=== PATIENT | female | born 1965 | race Caucasian/White ===

== ENCOUNTER 2016-06-27 17:17 | Inpatient (IN) | payer MEDICARE, MEDICAID ==
[2016-06-27] MEDS ORDERED: Sodium Chloride 0.9% 10 ML Syringe FLUSH PRN (19:11)
[2016-06-27] MEDS ORDERED: Levofloxacin/Dextrose 5%-Water 500 MG in Premix Bag 1 BAG IV ONE (19:11)
--- NOTE | 2016-06-27 19:12 | EDM.PDOC ---
ED HPI GI/ABDOMINAL - General Chief Complaint: Gastrointestinal Problem Stated Complaint: TEMP,VOMITING Time Seen by Provider: 06/27/16 17:42 Source of Information: Reports: Patient History Limitations: Reports: No limitations - History of Present Illness INITIAL COMMENTS - FREE TEXT/NARRATIVE: A 51-year-old [place] woman from [facility] presents for evaluation and treatment of low oxygen levels and fever. History is provided by her [facility] care providers. Reports that she had a temp of 100.1, under the arm, at home. They have also been monitoring her oxygen sats and states that she was 84 on room air at 4:30 thsi afternoon. Patient is developmentally disabled and is not able to provide much history. [facility] caseworkers report that she has been nauseous and did vomit. She vomited last at 8:30 this morning. Patient is currently denying any pain. Patient denies any chest pain, shortness of breath or abdominal pain. Patient was recently hospitalized at [facility] in [employer] for pulmonary emboli and bilateral pneumonia. She was sent home on eliquis and Augmentin. She has been taking these as prescribed. - Related Data Allergies/ADRs: Allergies Allergy/AdvReac Type Severity Reaction Status Date / Time doxepin Allergy Other Verified 06/27/16 17:46 Home Meds: Home Meds Calcium Citrate/Vitamin D3 [Calcium Citrate + D] 1 tab GTUBE DAILY 03/21/16 [ History] Estrogens, Conjugated [Premarin Vaginal Crm] 0.625 gm TOP ASDIRECTED 03/21/16 [ History] Ipratropium [Atrovent] 0.5 mg NEB Q8HRRT PRN 03/21/16 [History] Omeprazole 20 mg GTUBE BID 03/21/16 [History] Psyllium Husk/Aspartame [Metamucil Fiber Singles Packet] 3.4 gm GTUBE DAILY [History] risperiDONE [Risperdal] 0.25 ml GTUBE BEDTIME 03/21/16 [History] Amoxicillin/Potassium Clav [Amox-Clav 400-57 mg/5 ml Susp] 10.9 ml GTUBE BID 11/05 [History] Apixaban [Eliquis] 10 mg GTUBE BID 06/27/16 [History] Banatrol 1 packet GTUBE 06/27/16 [History] Metronidazole [IJD: metroNIDAZOLE] 500 mg GTUBE .EVERY 8 HOURS 06/27/16 [History ] Past Medical History HEENT History: Reports: Impaired vision Other HEENT History: Blind Cardiovascular History: Reports: None Respiratory History: Reports: PE, Pneumonia, recurrent Other Respiratory History: recurrent aspiration pneumonia Gastrointestinal History: Reports: GERD, Other (see below) Other Gastrointestinal History: abdominal Cysts, intesinal fistula Ostomy 2011 Musculoskeletal History: Reports: Other (see below) Other Musculoskeletal History: Scoliosis, congenital hip dysplagia Neurological History: Reports: Other (see below) Other Neuro History: mild mental retardation. Psychiatric History: Reports: Anxiety, Depression Other Psychiatric History: generalized anxiety disorder. - Past Surgical History GI Surgical History: Reports: Appendectomy Social & Family History - Family History Family Medical History: Noncontributory - Tobacco Use Smoking Status *Q: Never Smoker Second Hand Smoke Exposure: No - Caffeine Use Caffeine Use: Reports: Soda - Recreational Drug Use Recreational Drug Use: No ED ROS GENERAL - Review of Systems Review Of Systems: See Below Constitutional: Reports: fever Respiratory: Reports: Cough. Denies: Shortness of Breath Cardiovascular: Denies: Chest pain GI/Abdominal: Reports: Nausea, Vomiting. Denies: Abdominal pain ED EXAM, GI/ABD - Physical Exam Exam: See Below Exam Limited By: Physical impairment General Appearance: alert, WD/WN, no apparent distress Respiratory/Chest: no respiratory distress, lungs clear, normal breath sounds Cardiovascular: normal peripheral pulses, no murmur, tachycardia GI/Abdominal: soft, non tender Neurological: alert, oriented Psychiatric: normal affect, normal mood Skin Exam: Warm, Dry, Normal color EKG INTERPRETATION EKG Date: 06/27/16 Time: 18:25 Rhythm: NSR Rate (beats/min): 128 [place]: normal P-wave: present QRS: normal ST-T: normal QT: normal EKG Interpretation Comments: sinus tachycardia at 128 bpm. Q waves in V1 and V2 - old anteroseptal AL. Consider left atrial enlargement.. Reviewed by myself and Dr. Cevallos. Course - Vital Signs Last Recorded V/S: Last Vital Signs Temp 37.3 C 06/27/16 21:30 Pulse 114 H 06/27/16 21:30 Resp 22 H 06/27/16 21:30 BP 127/80 06/27/16 21:30 Pulse Ox 93 L 06/27/16 21:30 - Orders/Labs/Meds Orders: Active Orders 24 hr Category Date Time Status Cardiac Monitoring [RC] . DIRECTED Care 06/27/16 18:39 Active EKG Documentation Completion [RC] STAT Care 06/27/16 18:10 Active Oxygen Therapy [RC] ASDIRECTED Care 06/27/16 18:39 Active Peripheral IV Care [RC] . DIRECTED Care 06/27/16 19:11 Active Chest 1V Frontal [CR] Stat Exams 06/27/16 18:39 Taken CULTURE BLOOD [BC] Stat Lab 06/27/16 19:15 Received CULTURE BLOOD [BC] Stat Lab 06/27/16 19:25 Received CULTURE URINE [RM] Stat Lab 06/27/16 20:01 Received Sodium Chloride 0.9% [Saline Flush] Med 06/27/16 19:11 Active 10 ml FLUSH ASDIRECTED PRN Blood Culture x2 Reflex Set [OM.PC] Stat Oth 06/27/16 19:08 Ordered Peripheral IV Insertion Adult [OM.PC] Routine Oth 06/27/16 19:11 Ordered Medication Orders Sodium Chloride (Saline Flush) 10 ml FLUSH ASDIRECTED PRN PRN Reason: Keep Vein Open Last Admin: 06/27/16 19:49 Dose: 10 ml Labs: Laboratory Tests 06/27/16 06/27/16 06/27/16 Range/Units 18:52 18:52 18:52 WBC 15.79 H (3.98-10.04) K/mm3 RBC 4.12 (3.98-5.22) M/mm3 Hgb 12.5 (11.2-15.7) gm/L Hct 39.5 (34.1-44.9) % MCV 95.9 H (79.4-94.8) fl MCH 30.3 (25.6-32.2) pg MCHC 31.6 L (32.2-35.5) g/dl RDW Std Deviation 52.4 H (36.4-46.3) fL Plt Count 193 (182-369) K/mm3 MPV 10.7 (9.4-12.3) fl Neutrophils % (Manual) 82 H (40-60) % Band Neutrophils % 1 (0-10) % Lymphocytes % (Manual) 10 L (20-40) % Atypical Lymphs % 0 % Monocytes % (Manual) 7 (2-10) % Eosinophils % (Manual) 0 L (0.7-5.8) % Basophils % (Manual) 0 L (0.1-1.2) Platelet Estimate Adequate Polychromasia Few Hypochromasia Few Anisocytosis 1+ slight Macrocytosis 1+ slight Ovalocytes 1+ slight RBC Morph Comment Not Reportable Sodium 141 (136-145) mEq/L Potassium 3.9 (3.5-5.1) mEq/L Chloride 102 (98-107) mEq/L Carbon Dioxide 33 H (21-32) mEq/L Anion Gap 9.9 (5-15) BUN 8 (7-18) mg/dL Creatinine 0.7 (0.55-1.02) mg/dL Est Cr Clr Drug Dosing TNP Estimated GFR (MDRD) > 60 (>60) mL/min BUN/Creatinine Ratio 11.4 L (14-18) Glucose 121 H (74-106) mg/dL Lactic Acid (0.4-2.0) mmol/L Calcium 9.4 (8.5-10.1) mg/dL Total Bilirubin 0.4 (0.2-1.0) mg/dL AST 9 L (15-37) U/L ALT 12 L (14-59) U/L Alkaline Phosphatase 60 (46-116) U/L CK-MB (CK-2) (0-3.6) ng/ml Troponin I < 0.017 (0.00-0.056) ng/mL C-Reactive Protein (<1.0) mg/dL B-Natriuretic Peptide 24 (0-100) pg/mL Total Protein 6.8 (6.4-8.2) g/dl Albumin 3.0 L (3.4-5.0) g/dl Globulin 3.8 gm/dL Albumin/Globulin Ratio 0.8 L (1-2) Urine Color (Yellow) Urine Appearance (Clear) Urine pH (5.0-8.0) Ur Specific [place] (1.005-1.030) Urine Protein (Negative) Urine Glucose (UA) (Negative) Urine Ketones (Negative) Urine Occult Blood (Negative) Urine Nitrite (Negative) Urine Bilirubin (Negative) Urine Urobilinogen (0.2-1.0) Ur Leukocyte Esterase (Negative) Urine RBC (0-5) /hpf Urine WBC (0-5) /hpf Ur Epithelial Cells Ur Squamous Epith Cells (0-5) /hpf Amorphous Sediment (NOT SEEN) /hpf Urine Bacteria (FEW) /hpf Urine Mucus 06/27/16 06/27/16 06/27/16 Range/Units 18:52 19:25 20:01 WBC (3.98-10.04) K/mm3 RBC (3.98-5.22) M/mm3 Hgb (11.2-15.7) gm/L Hct (34.1-44.9) % MCV (79.4-94.8) fl MCH (25.6-32.2) pg MCHC (32.2-35.5) g/dl RDW Std Deviation (36.4-46.3) fL Plt Count (182-369) K/mm3 MPV (9.4-12.3) fl Neutrophils % (Manual) (40-60) % Band Neutrophils % (0-10) % Lymphocytes % (Manual) (20-40) % Atypical Lymphs % % Monocytes % (Manual) (2-10) % Eosinophils % (Manual) (0.7-5.8) % Basophils % (Manual) (0.1-1.2) Platelet Estimate Polychromasia Hypochromasia Anisocytosis Macrocytosis Ovalocytes RBC Morph Comment Sodium (136-145) mEq/L Potassium (3.5-5.1) mEq/L Chloride (98-107) mEq/L Carbon Dioxide (21-32) mEq/L Anion Gap (5-15) BUN (7-18) mg/dL Creatinine (0.55-1.02) mg/dL Est Cr Clr Drug Dosing Estimated GFR (MDRD) (>60) mL/min BUN/Creatinine Ratio (14-18) Glucose (74-106) mg/dL Lactic Acid 1.5 (0.4-2.0) mmol/L Calcium (8.5-10.1) mg/dL Total Bilirubin (0.2-1.0) mg/dL AST (15-37) U/L ALT (14-59) U/L Alkaline Phosphatase (46-116) U/L CK-MB (CK-2) < 0.5 (0-3.6) ng/ml Troponin I (0.00-0.056) ng/mL C-Reactive Protein 6.9 H* (<1.0) mg/dL B-Natriuretic Peptide (0-100) pg/mL Total Protein (6.4-8.2) g/dl Albumin (3.4-5.0) g/dl Globulin gm/dL Albumin/Globulin Ratio (1-2) Urine Color Yellow (Yellow) Urine Appearance Cloudy H (Clear) Urine pH 8.5 H (5.0-8.0) Ur Specific [place] 1.020 (1.005-1.030) Urine Protein 1+ H (Negative) Urine Glucose (UA) Negative (Negative) Urine Ketones 2+ H (Negative) Urine Occult Blood Negative (Negative) Urine Nitrite Negative (Negative) Urine Bilirubin 1+ H (Negative) Urine Urobilinogen 0.2 (0.2-1.0) Ur Leukocyte Esterase Negative (Negative) Urine RBC 0-5 (0-5) /hpf Urine WBC 0-5 (0-5) /hpf Ur Epithelial Cells Not Reportable Ur Squamous Epith Cells 0-5 (0-5) /hpf Amorphous Sediment Moderate H (NOT SEEN) /hpf Urine Bacteria Moderate H (FEW) /hpf Urine Mucus Not Reportable Meds: Medications Generic Name Dose Route Start Last Admin Trade Name Freq PRN Reason Stop Dose Admin Sodium Chloride 10 ml 06/27/16 19:11 06/27/16 19:49 Saline Flush FLUSH 10 ml ASDIRECTED PRN Administration Keep Vein Open Discontinued Medications Generic Name Dose Route Start Last Admin Trade Name Freq PRN Reason Stop Dose Admin Levofloxacin/Dextrose 500 mg/ 100 mls @ 100 mls/hr 06/27/16 19:11 06/27/16 19 :48 Premix IV 06/27/16 20:10 100 mls/hr ONETIME ONE Administration Sodium Chloride 1,000 mls @ 999 mls/hr 06/27/16 19:20 06/27/16 19:48 Normal Saline IV 06/27/16 20:20 999 mls/hr ONETIME ONE Administration - Radiology Interpretation Free Text/Narrative:: chest 1 view shows a increased hazziness in the right middle and lower lobes suspicious for pneumonia. Reviewed by myself and Dr. Cevallos. - Re-Assessments/Exams Free Text/Narrative Re-Assessment/Exam: 06/27/16 22:21 The patient's lab studies have returned. The EBC is elevated at 15.79 , hgb is 12.5 and platelets are 193. CRP is elevated 6.9. Troponin is within normal limits at less than 0.017. CK-MB is within normal limits at less than 0.5. BNP is within normal limits at 24. lactate is normal a 1.5 Sodium is 141 potassium is 3.9 chloride is 102. Anion gap is 9.9. Glucose is 121. UA shows moderate bacteria on microscopy, 2+ ketones, 1+ protein and 1+ bilirubin. Negative for nitrates or leukocytes. Urine and blood cultures were obtained. IV Levaquin for pneumonia started. I discussed the case with the patient and her care providers. I feel this patient would benefit from admission for pneumonia given her hypoxemia. She has been in the 90s on 2 L while in the ER. I discussed case with Dr. Yoo, hospitalist conservation engineer. She came and saw the patient in the ER. will plan on admission to [facility] with telemetry. Records were obtained from the patient presents hospitalization and [employer]. Departure - Departure Time of Disposition: 21:45 Disposition: Admitted As Inpatient 68 Condition: fair Clinical Impression: Pneumonia Qualifiers: Pneumonia type: due to unspecified organism Laterality: right Lung location: lower lobe of lung Qualified Code(s): J18.1 - Lobar pneumonia, unspecified organism - My Orders Last 24 Hours: My Active Orders 06/27/16 18:10 EKG Documentation Completion [RC] STAT 06/27/16 18:39 Cardiac Monitoring [RC] . DIRECTED Oxygen Therapy [RC] ASDIRECTED Chest 1V Frontal [CR] Stat 06/27/16 19:08 Blood Culture x2 Reflex Set [OM.PC] Stat 06/27/16 19:11 Peripheral IV Care [RC] . DIRECTED Sodium Chloride 0.9% [Saline Flush] 10 ml FLUSH ASDIRECTED PRN Peripheral IV Insertion Adult [OM.PC] Routine 06/27/16 19:15 CULTURE BLOOD [BC] Stat 06/27/16 19:25 CULTURE BLOOD [BC] Stat 06/27/16 20:01 CULTURE URINE [RM] Stat - Assessment/Plan Last 24 Hours: My Active Orders 06/27/16 18:10 EKG Documentation Completion [RC] STAT 06/27/16 18:39 Cardiac Monitoring [RC] . DIRECTED Oxygen Therapy [RC] ASDIRECTED Chest 1V Frontal [CR] Stat 06/27/16 19:08 Blood Culture x2 Reflex Set [OM.PC] Stat 06/27/16 19:11 Peripheral IV Care [RC] . DIRECTED Sodium Chloride 0.9% [Saline Flush] 10 ml FLUSH ASDIRECTED PRN Peripheral IV Insertion Adult [OM.PC] Routine 06/27/16 19:15 CULTURE BLOOD [BC] Stat 06/27/16 19:25 CULTURE BLOOD [BC] Stat 06/27/16 20:01 CULTURE URINE [RM] Stat
[2016-06-27] MEDS ORDERED: Sodium Chloride 0.9% 1,000 ML IV ONE (19:20)
[2016-06-27] MEDS ORDERED: Albuterol 0.083% 2.5 MG/3 ML Neb Soln NEB PRN (23:10)
[2016-06-28] MEDS ORDERED: Piperacillin/Tazobactam 4.5 GM in Sodium Chloride 0.9% 100 ML IV SCH ×2
[2016-06-28] MEDS ORDERED: Piperacillin/Tazobactam 4.5 GM in Sodium Chloride 0.9% 100 ML IV ONE ×2
[2016-06-28] MEDS: Sodium Chloride 0.9% 1,000 ML IV SCH ×2 (00:25→08:22)
[2016-06-28] MEDS: Piperacillin/Tazobactam 4.5 GM in Sodium Chloride 0.9% 100 ML IV SCH ×3 (08:10→23:36)
[2016-06-28] MEDS: Saccharomyces Boulardii (Probiotic) 250 MG Cap FTUBE SCH (08:10)
[2016-06-28] MEDS: Lansoprazole 30 MG Orally Disintegrating Tab.CR PO SCH ×2 (08:11→15:03)
[2016-06-28] MEDS: Apixaban 5 MG Tab SCH ×2 (08:11→20:04)
[2016-06-28] MEDS: Valproic Acid 250 MG/5 ML Syrup ML (473 ML Bottle) FTUBE SCH ×2 (08:48→20:05)
[2016-06-28] MEDS ORDERED: Apixaban 5 MG Tab SCH (09:00)
--- NOTE | 2016-06-28 09:18 | PCM.PN ---
- General Info Date of Service: 06/28/16 Subjective Update: Feels better, is off of O2 and wants to ambulate. Functional Status: Reports: ambulating - Review of Systems General: Reports: No Symptoms HEENT: Reports: no symptoms Pulmonary: Reports: no symptoms Cardiovascular: Reports: No Symptoms Gastrointestinal: Reports: No symptoms Genitourinary: Reports: no symptoms Musculoskeletal: Reports: no symptoms Skin: Reports: no symptoms Neurological: Reports: No Symptoms Psychiatric: Reports: no symptoms - Patient Data Vitals - most recent: Last Vital Signs Temp 37.3 C 06/28/16 08:35 Pulse 104 H 06/28/16 08:38 Resp 20 06/28/16 08:35 BP 135/78 06/28/16 08:35 Pulse Ox 96 06/28/16 08:38 Weight - most recent: 70.715 kg I&O - last 24 hours: Intake & Output 06/27/16 06/28/16 06/28/16 22:59 06:59 14:59 Intake Total 650 Output Total 700 Balance -50 Med Orders - Current: Current Medications Albuterol (Proventil Neb Soln) 2.5 mg NEB QIDRT PRN PRN Reason: Shortness of Breath Apixaban (Eliquis) 5 mg .XX BID [facility] Last Admin: 06/28/16 08:11 Dose: 5 mg Levofloxacin/Dextrose 750 mg/ (Premix) 150 mls @ 100 mls/hr IV Q24H [facility] Sodium Chloride (Normal Saline) 1,000 mls @ 125 mls/hr IV ASDIRECTED [facility] Last Admin: 06/28/16 08:22 Dose: 125 mls/hr Piperacillin Sod/Tazobactam (Sod 4.5 gm/ Sodium Chloride) 100 mls @ 25 mls/hr IV Q8H [facility] Last Admin: 06/28/16 08:10 Dose: 25 mls/hr Lansoprazole (Prevacid Solutab) 30 mg PO BIDAC [facility] Last Admin: 06/28/16 08:11 Dose: 30 mg Risperidone (Risperidal) 1 mg FTUBE BEDTIME [facility] Saccharomyces Boulardii (Florastor) 500 mg FTUBE DAILY [facility] Last Admin: 06/28/16 08:10 Dose: 500 mg Sodium Chloride (Saline Flush) 10 ml FLUSH ASDIRECTED PRN PRN Reason: Keep Vein Open Last Admin: 06/27/16 19:49 Dose: 10 ml Valproic Acid (Depakene Syrup) 125 mg FTUBE DAILY [facility] Last Admin: 06/28/16 08:48 Dose: 125 mg Valproic Acid (Depakene Syrup) 250 mg FTUBE BEDTIME [facility] Discontinued Medications Apixaban (Eliquis) 10 mg .XX BID [facility] Levofloxacin/Dextrose 500 mg/ (Premix) 100 mls @ 100 mls/hr IV ONETIME ONE Stop: 06/27/16 20:10 Last Admin: 06/27/16 19:48 Dose: 100 mls/hr Sodium Chloride (Normal Saline) 1,000 mls @ 999 mls/hr IV ONETIME ONE Stop: 06/27/16 20:20 Last Admin: 06/27/16 19:48 Dose: 999 mls/hr Piperacillin Sod/Tazobactam (Sod 4.5 gm/ Sodium Chloride) 100 mls @ 200 mls/hr IV ONETIME ONE Stop: 06/28/16 00:29 Last Admin: 06/28/16 00:23 Dose: 200 mls/hr - Exam Quality Assessment: DVT prophylaxis General: alert, oriented, cooperative, no acute distress HEENT: Pupils equal, Pupils reactive. No: EOMI Neck: supple, trachea midline Lungs: Normal respiratory effort, Decreased breath sounds Cardiovascular: Regular Rate, Regular Rhythm Abdomen: bowel sounds present, soft, no tenderness, no distension (Female) Exam: Deferred Back Exam: normal inspection Extremities: normal pulses Skin: warm Neurological: no new focal deficit, normal speech Psy/Mental Status: alert, normal affect, normal mood - Problem List Review Problem List Initiated/Reviewed/Updated: Yes - My Orders Last 24 Hours: My Active Orders 06/27/16 23:10 Bedrest Bathroom Privileges [RC] ASDIRECTED Vital Signs [RC] Q6H Albuterol [Proventil Neb Soln] 2.5 mg NEB QIDRT PRN Antiembolic Hose [OM.PC] Routine 06/27/16 23:15 Antiembolic Devices [RC] DAILY RT Aerosol Therapy [RC] ASDIRECTED Sodium Chloride 0.9% [Normal Saline] 1,000 ml IV ASDIRECTED 06/27/16 23:37 Resuscitation Status Routine 06/28/16 00:33 CULTURE MRSA SURVEY [RM] Routine 06/28/16 08:00 Piperacillin/Tazobactam [Zosyn] 4.5 gm Sodium Chloride 0.9% [Normal Saline] 100 ml IV Q8H 06/28/16 09:00 Apixaban [Eliquis] 5 mg .XX BID Lansoprazole [Prevacid Solutab] 30 mg PO BIDAC Saccharomyces Boulardii [Florastor] 500 mg FTUBE DAILY Valproic Acid [Depakene Syrup] 125 mg FTUBE DAILY 06/28/16 20:00 Levofloxacin/Dextrose 5%-Water [Levaquin in D5W 750 MG/150 ML] 750 mg Premix Bag 1 bag IV Q24H 06/28/16 21:00 Valproic Acid [Depakene Syrup] 250 mg FTUBE BEDTIME risperiDONE [RisperiDAL] 1 mg FTUBE BEDTIME - Plan Plan:: Impression/Plan: Aspiration pneumonia Acute respiratory distress HCAP with hypoxia in the setting of bilateral PEs. Bilateral PEs on Eliquis S/P PEG tube with bowel perforation Rx for C diff on Flagyl Home meds Advance TF as tolerated Free H2O as ordered; check residual Aspiration precautions Oral Care Levoquin/Zosyn IV Flagyl via PEG Venous doppler fro DVT, check EMR available for documentation Precautions: droplet/contact DVT/GI prophylaxis DC Plan consider SNF until completion of antibiotics [facility].
--- NOTE | 2016-06-28 09:18 | PCM.HP ---
H&P History of Present Illness - General Date of Service: 06/27/16 Admit Problem/Dx: Admission Diagnosis/Problem Admission Diagnosis/Problem Pneumonia Source of Information: Old records ([facility]), Provider History Limitations: Reports: No limitations, Other (Mentally disabled) - History of Present Illness Initial Comments - Free Text/Narative: 51 year old female who apparently lives in a alf was recently discharged from [facility] on 06/23/16. The patient was admitted from her paper tube grader office after a CTA revealed bilateral pulmonary emboli as well as bilateral pneumonia. The patient has a history of recurrent aspiration pneumonia. In the early part of 2017, the patient had a PEG tube placed but the procedure was complicated by a bowel perforation; she had also been treated for aspiration pneumonia as well as C diff. As a result of the complication, it appears that she was transferred to [facility]. Thus the recent visit to her paper tube grader occurred after several hospitalizations this year. The patient apparently has been weak, febrile as well as hypoxic. Reportedly she has had O2 saturation 84% on room air and adocumented temperature 100.1 Discharge antibiotics were Augmentin as well as Flagyl. Eliquis 10 mg BID for PE to be decreased to 5 mg BID after 06/27/16 was also documented. a 2D echon was also performed during her hospitalization. Onset of Symptoms: Reports: unknown/unsure Symptom Onset Date: 06/27/16 Duration of Symptoms: Reports: Hour(s):, Getting worse Location: Reports: chest Quality: Reports: Same as previous episode Severity: moderate Improves with: Reports: Medication Context: Reports: other (Recent hospitalization) Associated Symptoms: Reports: cough, fever/chills, malaise, weakness - Related Data Allergies/Adverse Reactions: Allergies Allergy/AdvReac Type Severity Reaction Status Date / Time doxepin Allergy Other Verified 06/27/16 23:45 Home Medications: Home Meds Calcium Citrate/Vitamin D3 [Calcium Citrate + D] 1 tab GTUBE DAILY 03/21/16 [ History] Estrogens, Conjugated [Premarin Vaginal Crm] 0.625 gm TOP ASDIRECTED 03/21/16 [ History] Ipratropium [Atrovent] 0.5 mg NEB Q8HRRT PRN 03/21/16 [History] Omeprazole 20 mg GTUBE BID 03/21/16 [History] Psyllium Husk/Aspartame [Metamucil Fiber Singles Packet] 3.4 gm GTUBE DAILY [History] risperiDONE [Risperdal] 0.25 ml GTUBE BEDTIME 03/21/16 [History] Amoxicillin/Potassium Clav [Amox-Clav 400-57 mg/5 ml Susp] 10.9 ml GTUBE BID 11/05 [History] Apixaban [Eliquis] 5 mg GTUBE BID 06/27/16 [History] Banatrol 1 packet GTUBE 06/27/16 [History] Metronidazole [IJD: metroNIDAZOLE] 500 mg GTUBE .EVERY 8 HOURS 06/27/16 [History ] Past Medical History HEENT History: Reports: Impaired vision Other HEENT History: Blind Cardiovascular History: Reports: None Respiratory History: Reports: PE, Pneumonia, recurrent Other Respiratory History: recurrent aspiration pneumonia Gastrointestinal History: Reports: GERD, Other (see below) Other Gastrointestinal History: abdominal Cysts, intesinal fistula Ostomy 2010 Musculoskeletal History: Reports: Other (see below) Other Musculoskeletal History: Scoliosis, congenital hip dysplagia Neurological History: Reports: Other (see below) Other Neuro History: mild mental retardation. Psychiatric History: Reports: Anxiety, Depression Other Psychiatric History: generalized anxiety disorder. - Infectious Disease History Infectious Disease History: Reports: C-difficile, Influenza - Past Surgical History GI Surgical History: Reports: Appendectomy Social & Family History - Family History Family Medical History: Noncontributory - Tobacco Use Smoking Status *Q: Never Smoker Second Hand Smoke Exposure: No - Caffeine Use Caffeine Use: Reports: Soda Other Caffeine Use: on occassion will have a soda or coffee - Recreational Drug Use Recreational Drug Use: No H&P Review of Systems - Review of Systems: Review Of Systems: See Below General: Reports: fever, malaise, weakness, fatigue HEENT: Reports: no symptoms Pulmonary: Reports: Shortness of Breath, Pleuritic Chest Pain, Cough Cardiovascular: Denies: chest pain Gastrointestinal: Reports: No symptoms Genitourinary: Reports: no symptoms Musculoskeletal: Reports: no symptoms Skin: Reports: no symptoms Psychiatric: Reports: no symptoms Neurological: Reports: No Symptoms Hematologic/Lymphatic: Reports: no symptoms Immunologic: Reports: no symptoms Exam - Exam Exam: See Below - Vital Signs Vital Signs: Last Vital Signs Temp 37.3 C 06/28/16 08:35 Pulse 104 H 06/28/16 08:38 Resp 20 06/28/16 08:35 BP 135/78 06/28/16 08:35 Pulse Ox 96 06/28/16 08:38 Weight: 70.715 kg - Exam Quality Assessment: supplemental oxygen, DVT prophylaxis General: alert, oriented, cooperative HEENT: Hearing intact, Nares patent, Pupils equal, Pupils reactive Neck: supple, trachea midline Lungs: Normal respiratory effort, Decreased breath sounds (R>L), Wheezing Cardiovascular: regular rate, tachycardia Abdomen: normal bowel sounds, soft (Female) Exam: Deferred Rectal (Female) Exam: Deferred Back Exam: normal inspection Extremities: normal pulses, edema Skin: warm Neurological: cranial nerves intact (griossly) Neuro Extensive - Mental Status: alert, normal mood/affect Neuro Extensive - Motor, Sensory, Reflexes: CN II-XII intact Psychiatric: alert - Patient Data Result Diagrams: 06/27/16 18:52 06/27/16 18:52 *Q Meaningful Use (ADM) - VTE *Q VTE Criteria *Q: - Stroke *Q Stroke Criteria *Q: - AMI *Q AMI Criteria *Q: Problem List Initiated/Reviewed/Updated: Yes Orders Last 24hrs: Active Orders 24 hr Category Date Time Status Antiembolic Devices [RC] DAILY Care 06/27/16 23:15 Active Bedrest Bathroom Privileges [RC] ASDIRECTED Care 06/27/16 23:10 Active RT Aerosol Therapy [RC] ASDIRECTED Care 06/27/16 23:15 Active Vital Signs [RC] Q6H Care 06/27/16 23:10 Active CULTURE MRSA SURVEY [] Routine Lab 06/28/16 00:33 Received Albuterol [Proventil Neb Soln] Med 06/27/16 23:10 Active 2.5 mg NEB QIDRT PRN Apixaban [Eliquis] Med 06/28/16 09:00 Active 5 mg .XX BID Lansoprazole [Prevacid Solutab] Med 06/28/16 09:00 Active 30 mg PO BIDAC Levofloxacin/Dextrose 5%-Water [Levaquin in D5W 750 MG/ Med 06/28/16 20:00 Active 150 ML] 750 mg Premix Bag 1 bag IV Q24H Piperacillin/Tazobactam [Zosyn] 4.5 gm Med 06/28/16 08:00 Active Sodium Chloride 0.9% [Normal Saline] 100 ml IV Q8H Saccharomyces Boulardii [Florastor] Med 06/28/16 09:00 Active 500 mg FTUBE DAILY Sodium Chloride 0.9% [Normal Saline] 1,000 ml Med 06/27/16 23:15 Active IV ASDIRECTED Valproic Acid [Depakene Syrup] Med 06/28/16 09:00 Active 125 mg FTUBE DAILY Valproic Acid [Depakene Syrup] Med 06/28/16 21:00 Active 250 mg FTUBE BEDTIME risperiDONE [RisperiDAL] Med 06/28/16 21:00 Active 1 mg FTUBE BEDTIME Antiembolic Hose [OM.PC] Routine Oth 06/27/16 23:10 Ordered Resuscitation Status Routine Resus Stat 06/27/16 23:37 Ordered Medication Orders Albuterol (Proventil Neb Soln) 2.5 mg NEB QIDRT PRN PRN Reason: Shortness of Breath Apixaban (Eliquis) 5 mg .XX BID [facility] Last Admin: 06/28/16 08:11 Dose: 5 mg Levofloxacin/Dextrose 750 mg/ (Premix) 150 mls @ 100 mls/hr IV Q24H [facility] Sodium Chloride (Normal Saline) 1,000 mls @ 125 mls/hr IV ASDIRECTED [facility] Last Admin: 06/28/16 08:22 Dose: 125 mls/hr Infusion: 06/28/16 08:22 Dose: 125 mls/hr Admin: 06/28/16 00:25 Dose: 125 mls/hr Piperacillin Sod/Tazobactam (Sod 4.5 gm/ Sodium Chloride) 100 mls @ 25 mls/hr IV Q8H [facility] Last Admin: 06/28/16 08:10 Dose: 25 mls/hr Lansoprazole (Prevacid Solutab) 30 mg PO BIDAC [facility] Last Admin: 06/28/16 08:11 Dose: 30 mg Risperidone (Risperidal) 1 mg FTUBE BEDTIME [facility] Saccharomyces Boulardii (Florastor) 500 mg FTUBE DAILY [facility] Last Admin: 06/28/16 08:10 Dose: 500 mg Sodium Chloride (Saline Flush) 10 ml FLUSH ASDIRECTED PRN PRN Reason: Keep Vein Open Last Admin: 06/27/16 19:49 Dose: 10 ml Valproic Acid (Depakene Syrup) 125 mg FTUBE DAILY [facility] Last Admin: 06/28/16 08:48 Dose: 125 mg Valproic Acid (Depakene Syrup) 250 mg FTUBE BEDTIME [facility] Assessment/Plan Comment:: Impression: Recent documentation and start of treatment for bilateral PEs with Eliquis HCAP with hypoxia, bilateral infiltrates; recently treated with meropenem, levoquin, vanco. Discharged on 06/23/16 with augmentin. Recurrent aspiration pneumonia C Diff treatment, continue Flagyl until 06/30/16. Recent PEG placement with bowel perforation. History of anxiety and/or psychosis Recent treatment for parainfluenza Recommendation: IVF Nebs Jevity tube feeds Continue Eliquis 10 mg BID, start 5 mg BID on 06/29/16. Zosyn/Levoquin IV Flagyl via PEG. Home meds per discharge summary DVT/GI prophylaxis
[2016-06-28] MEDS ORDERED: Ipratropium 0.02% 0.5 MG/2.5 ML Neb Soln NEB PRN (13:42)
[2016-06-28] MEDS ORDERED: Sodium Chloride 0.9% 1,000 ML IV SCH (14:15)
[2016-06-28] MEDS: metroNIDAZOLE 500 MG Tab GTUBE SCH ×2 (14:49→21:12)
--- NOTE | 2016-06-28 16:22 | CR ---
Chest: Portable view of the chest was obtained. Comparison: Previous chest x-ray of 05/08/16. Patchy area of increased density seen within the right lung base. Slight atelectasis is seen with the left lung base. Upper lungs are clear. Heart size and mediastinum are normal. Scoliosis and degenerative change is seen within the spine. Impression: 1. Patchy increased density within the right lung base most likely representing pneumonia. 2. Other incidental findings. Diagnostic code #3
[2016-06-28] MEDS: risperiDONE 0.25 MG Tab GTUBE SCH (20:04)
[2016-06-28] MEDS ORDERED: Non-Formulary Medication 1 Each (Omeprazole [Omeprazole] 20 MG) GTUBE SCH (21:00)
[2016-06-28] MEDS ORDERED: risperiDONE Solution 1 MG/1 ML 30 ML Bottle GTUBE SCH (21:00)
[2016-06-28] MEDS ORDERED: risperiDONE 1 MG Tab FTUBE SCH (21:00)
[2016-06-28] MEDS: Levofloxacin/Dextrose 5%-Water 750 MG in Premix Bag 1 BAG IV SCH (21:08)
[2016-06-29] MEDS: Lansoprazole 30 MG Orally Disintegrating Tab.CR PO SCH ×2 (05:59→15:13)
[2016-06-29] MEDS: metroNIDAZOLE 500 MG Tab GTUBE SCH ×3 (05:59→21:32)
[2016-06-29] MEDS ORDERED: 50% Dextrose in Water 50 ML Syringe IVPUSH PRN (06:41)
--- NOTE | 2016-06-29 07:00 | PCM.PN ---
<Talia Jennings M - Last Filed: 06/29/16 12:19> - General Info Date of Service: 06/29/16 Admission Dx/Problem (Free Text): Admission Diagnosis/Problem Admission Diagnosis/Problem Pneumonia Laura is seen this morning resting comfortably. She denies c/o pain/ discomfort. States she is coughing "some". Nursing reports she slept well most of the night. She is up and ambulatory with 1 assist and doing well with that. Functional Status: Reports: pain controlled, ambulating, urinating. Denies: tolerating diet (NPO), new symptoms - Review of Systems General: Reports: No Symptoms HEENT: Reports: no symptoms Pulmonary: Reports: cough Cardiovascular: Reports: No Symptoms Gastrointestinal: Reports: No symptoms Genitourinary: Reports: no symptoms Musculoskeletal: Reports: no symptoms Skin: Reports: no symptoms Neurological: Reports: Other (blind) Psychiatric: Reports: no symptoms - Patient Data Vitals - most recent: Last Vital Signs Temp 98.1 F 06/29/16 03:23 Pulse 88 06/29/16 03:23 Resp 16 06/29/16 03:23 BP 141/71 H 06/29/16 03:23 Pulse Ox 96 06/29/16 03:23 Weight - most recent: 54.749 kg I&O - last 24 hours: Intake & Output 06/28/16 06/28/16 06/29/16 14:59 22:59 06:59 Intake Total 210 2410 1322 Output Total 850 1200 Balance 210 1560 122 Lab Results last 24 hrs: Laboratory Results - last 24 hr 06/29/16 06/29/16 06/29/16 Range/Units 06:00 06:09 06:37 WBC 9.72 (3.98-10.04) K/mm3 RBC 3.96 L (3.98-5.22) M/mm3 Hgb 12.2 (11.2-15.7) gm/L Hct 38.1 (34.1-44.9) % MCV 96.2 H (79.4-94.8) fl MCH 30.8 (25.6-32.2) pg MCHC 32.0 L (32.2-35.5) g/dl RDW Std Deviation 49.9 H (36.4-46.3) fL Plt Count 168 L (182-369) K/mm3 MPV 12.0 (9.4-12.3) fl Neut % (Auto) 72.2 H (34.0-71.1) % Lymph % (Auto) 13.0 L (19.3-51.7) % [place] % (Auto) 12.6 H (4.7-12.5) % Eos % (Auto) 1.9 (0.7-5.8) Baso % (Auto) 0.1 (0.1-1.2) % Neut # (Auto) 7.03 H (1.56-6.13) K/mm3 Lymph # (Auto) 1.26 (1.18-3.74) K/mm3 [place] # (Auto) 1.22 H (0.24-0.36) K/mm3 Eos # (Auto) 0.18 (0.04-0.36) K/mm3 Baso # (Auto) 0.01 (0.01-0.08) K/mm3 POC Glucose 58 L 69 L (70-105) mg/dL Med Orders - Current: Current Medications Albuterol (Proventil Neb Soln) 2.5 mg NEB QIDRT PRN PRN Reason: Shortness of Breath Apixaban (Eliquis) 5 mg .XX BID [facility] Last Admin: 06/28/16 20:04 Dose: 5 mg Dextrose/Water (Dextrose 50% In Water) 50 ml IVPUSH ASDIRECTED PRN PRN Reason: hypoglycemia as below Levofloxacin/Dextrose 750 mg/ (Premix) 150 mls @ 100 mls/hr IV Q24H [facility] Last Admin: 06/28/16 21:08 Dose: 100 mls/hr Piperacillin Sod/Tazobactam (Sod 4.5 gm/ Sodium Chloride) 100 mls @ 25 mls/hr IV Q8H [facility] Last Admin: 06/28/16 23:36 Dose: 25 mls/hr Sodium Chloride (Normal Saline) 1,000 mls @ 50 mls/hr IV ASDIRECTED [facility] Ipratropium [place] (Atrovent) 0.5 mg NEB Q8HRRT PRN PRN Reason: Shortness of Breath Lansoprazole (Prevacid Solutab) 30 mg PO BIDAC [facility] Last Admin: 06/29/16 05:59 Dose: 30 mg Metronidazole (Flagyl) 500 mg GTUBE Q8H [facility] Last Admin: 06/29/16 05:59 Dose: 500 mg Non-Formulary Medication (Omeprazole [Omeprazole]) 20 mg GTUBE BID [facility] Psyllium Husk (Metamucil Sugar Free) 1 packet GTUBE DAILY [facility] Risperidone (Risperidal) 0.25 mg GTUBE BEDTIME [facility] Last Admin: 06/28/16 20:04 Dose: 0.25 mg Saccharomyces Boulardii (Florastor) 500 mg FTUBE DAILY [facility] Last Admin: 06/28/16 08:10 Dose: 500 mg Sodium Chloride (Saline Flush) 10 ml FLUSH ASDIRECTED PRN PRN Reason: Keep Vein Open Last Admin: 06/27/16 19:49 Dose: 10 ml Valproic Acid (Depakene Syrup) 125 mg FTUBE DAILY [facility] Last Admin: 06/28/16 08:48 Dose: 125 mg Valproic Acid (Depakene Syrup) 250 mg FTUBE BEDTIME [facility] Last Admin: 06/28/16 20:05 Dose: 250 mg Discontinued Medications Apixaban (Eliquis) 10 mg .XX BID [facility] Levofloxacin/Dextrose 500 mg/ (Premix) 100 mls @ 100 mls/hr IV ONETIME ONE Stop: 06/27/16 20:10 Last Admin: 06/27/16 19:48 Dose: 100 mls/hr Sodium Chloride (Normal Saline) 1,000 mls @ 999 mls/hr IV ONETIME ONE Stop: 06/27/16 20:20 Last Admin: 06/27/16 19:48 Dose: 999 mls/hr Sodium Chloride (Normal Saline) 1,000 mls @ 125 mls/hr IV ASDIRECTED [facility] Last Admin: 06/28/16 08:22 Dose: 125 mls/hr Piperacillin Sod/Tazobactam (Sod 4.5 gm/ Sodium Chloride) 100 mls @ 200 mls/hr IV ONETIME ONE Stop: 06/28/16 00:29 Last Admin: 06/28/16 00:23 Dose: 200 mls/hr Sodium Chloride (Normal Saline) 1,000 mls @ 75 mls/hr IV ASDIRECTED [facility] Stop: 06/28/16 23:00 Last Admin: 06/28/16 17:54 Dose: 75 mls/hr Risperidone (Risperidal) 1 mg FTUBE BEDTIME [facility] Risperidone (Risperidal) 0.25 mg GTUBE BEDTIME [facility] - Exam Quality Assessment: supplemental oxygen, DVT prophylaxis General: alert, cooperative, no acute distress HEENT: Mucous membr. moist/pink, Other (blind) Neck: supple Lungs: Normal respiratory effort, Decreased breath sounds (to bases), Rhonchi ( rt), Wheezing (scattered) Cardiovascular: Regular Rate, Regular Rhythm Abdomen: bowel sounds present, soft, no tenderness, no distension, other (peg site without s/s of infection) (Female) Exam: Deferred Back Exam: normal inspection Extremities: no edema, no calf tenderness Peripheral Pulses: 1+: dorsalis pedis (L), dorsalis pedis (R) Skin: warm, dry Neurological: other (blind) Psy/Mental Status: alert - Problem List & Annotations (1) Pulmonary embolism, bilateral SNOMED Code(s): 36717036, 67171378 Code(s): I26.99 - OTHER PULMONARY EMBOLISM WITHOUT ACUTE COR PULMONALE Status: Acute Priority: High Current Visit: Yes (2) Pneumonia SNOMED Code(s): 054568161 Code(s): J18.9 - PNEUMONIA, UNSPECIFIED ORGANISM Status: Acute Priority: High Current Visit: Yes Qualifiers: Pneumonia type: due to unspecified organism Laterality: right Lung location: lower lobe of lung Qualified Code(s): J18.1 - Lobar pneumonia, unspecified organism (3) Acute on chronic respiratory failure with hypoxemia SNOMED Code(s): 13510761250009011 Code(s): J96.21 - ACUTE AND CHRONIC RESPIRATORY FAILURE WITH HYPOXIA Status : Acute Priority: High Current Visit: Yes (4) Delayed social and emotional development SNOMED Code(s): 532851980 Code(s): F88 - OTHER DISORDERS OF PSYCHOLOGICAL DEVELOPMENT Status: Chronic Priority: Medium Current Visit: No (5) Blind in both eyes SNOMED Code(s): 00376733, 763530424 Code(s): H54.0 - BLINDNESS, BOTH EYES Status: Chronic Priority: Medium Current Visit: No (6) Clostridium difficile infection SNOMED Code(s): 309074348 Code(s): B96.89 - OTH BACTERIAL AGENTS THE CAUSE OF DISEASES CLASSD ELSWHR Status: Acute Priority: High Current Visit: Yes (7) Hypomagnesemia SNOMED Code(s): 899516289 Code(s): E83.42 - HYPOMAGNESEMIA Status: Acute Priority: High Current Visit: Yes - Problem List Review Problem List Initiated/Reviewed/Updated: Yes - My Orders Last 24 Hours: My Active Orders 06/29/16 06:41 Dextrose 50% in Water 50 ml IVPUSH ASDIRECTED PRN - Plan Plan:: Impression: Recent documentation and start of treatment for bilateral PEs with Eliquis HCAP with hypoxia, bilateral infiltrates; recently treated with meropenem, levoquin, vanco. Discharged on 06/23/16 with augmentin. Recurrent aspiration pneumonia C Diff treatment, continue Flagyl until 06/30/16. Recent PEG placement with bowel perforation. History of anxiety and/or psychosis Recent treatment for parainfluenza Hypomagnesemia Recommendation: IVF Nebs and aggressive pulmonary toilet Jevity tube feeds- increase to 60ml Q6 hrs as hypoglycemic this am Continue Eliquis 10 mg BID, start 5 mg BID on 06/29/16. Zosyn/Levoquin IV Flagyl via PEG. Magnesium replacement Recheck labs and CXR in am tomorrow Home meds per discharge summary Ambulate TID-QID DVT/GI prophylaxis CM/SW for assistance with DC planning Patient is full code LOS likely longer than 96 hours due to recurrent pneumonia, bilateral PE, c-diff , electrolyte regulation and complexity of case. <Savanna Yoo - Last Filed: 06/29/16 18:52> - Patient Data Vitals - most recent: Last Vital Signs Temp 36.8 C 06/29/16 14:25 Pulse 93 06/29/16 14:25 Resp 18 06/29/16 14:25 BP 121/71 06/29/16 14:25 Pulse Ox 90 L 06/29/16 14:25 I&O - last 24 hours: Intake & Output 06/29/16 06/29/16 06/29/16 06:59 14:59 22:59 Intake Total 1322 Output Total 1200 Balance 122 Lab Results last 24 hrs: Laboratory Results - last 24 hr 06/29/16 06/29/16 06/29/16 Range/Units 06:00 06:00 06:09 WBC 9.72 (3.98-10.04) K/mm3 RBC 3.96 L (3.98-5.22) M/mm3 Hgb 12.2 (11.2-15.7) gm/L Hct 38.1 (34.1-44.9) % MCV 96.2 H (79.4-94.8) fl MCH 30.8 (25.6-32.2) pg MCHC 32.0 L (32.2-35.5) g/dl RDW Std Deviation 49.9 H (36.4-46.3) fL Plt Count 168 L (182-369) K/mm3 MPV 12.0 (9.4-12.3) fl Neut % (Auto) 72.2 H (34.0-71.1) % Lymph % (Auto) 13.0 L (19.3-51.7) % [place] % (Auto) 12.6 H (4.7-12.5) % Eos % (Auto) 1.9 (0.7-5.8) Baso % (Auto) 0.1 (0.1-1.2) % Neut # (Auto) 7.03 H (1.56-6.13) K/mm3 Lymph # (Auto) 1.26 (1.18-3.74) K/mm3 [place] # (Auto) 1.22 H (0.24-0.36) K/mm3 Eos # (Auto) 0.18 (0.04-0.36) K/mm3 Baso # (Auto) 0.01 (0.01-0.08) K/mm3 Sodium 139 (136-145) mEq/L Potassium 4.3 (3.5-5.1) mEq/L Chloride 104 (98-107) mEq/L Carbon Dioxide 28 (21-32) mEq/L Anion Gap 11.3 (5-15) BUN 6 L (7-18) mg/dL Creatinine 0.6 (0.55-1.02) mg/dL Est Cr Clr Drug Dosing 97.94 mL/min Estimated GFR (MDRD) > 60 (>60) mL/min BUN/Creatinine Ratio 10.0 L (14-18) Glucose 71 L (74-106) mg/dL POC Glucose 58 L (70-105) mg/dL Calcium 9.3 (8.5-10.1) mg/dL Magnesium 1.5 L (1.8-2.4) mg/dl C-Reactive Protein 11.5 H* (<1.0) mg/dL 06/29/16 06/29/16 Range/Units 06:37 10:12 WBC (3.98-10.04) K/mm3 RBC (3.98-5.22) M/mm3 Hgb (11.2-15.7) gm/L Hct (34.1-44.9) % MCV (79.4-94.8) fl MCH (25.6-32.2) pg MCHC (32.2-35.5) g/dl RDW Std Deviation (36.4-46.3) fL Plt Count (182-369) K/mm3 MPV (9.4-12.3) fl Neut % (Auto) (34.0-71.1) % Lymph % (Auto) (19.3-51.7) % [place] % (Auto) (4.7-12.5) % Eos % (Auto) (0.7-5.8) Baso % (Auto) (0.1-1.2) % Neut # (Auto) (1.56-6.13) K/mm3 Lymph # (Auto) (1.18-3.74) K/mm3 [place] # (Auto) (0.24-0.36) K/mm3 Eos # (Auto) (0.04-0.36) K/mm3 Baso # (Auto) (0.01-0.08) K/mm3 Sodium (136-145) mEq/L Potassium (3.5-5.1) mEq/L Chloride (98-107) mEq/L Carbon Dioxide (21-32) mEq/L Anion Gap (5-15) BUN (7-18) mg/dL Creatinine (0.55-1.02) mg/dL Est Cr Clr Drug Dosing mL/min Estimated GFR (MDRD) (>60) mL/min BUN/Creatinine Ratio (14-18) Glucose (74-106) mg/dL POC Glucose 69 L 86 (70-105) mg/dL Calcium (8.5-10.1) mg/dL Magnesium (1.8-2.4) mg/dl C-Reactive Protein (<1.0) mg/dL Armando Results last 24 hrs: Microbiology 06/28/16 00:33 MRSA Surveillance Culture - Final Nares, Left NO MRSA ISOLATED Med Orders - Current: Current Medications Albuterol (Proventil Neb Soln) 2.5 mg NEB QIDRT PRN PRN Reason: Shortness of Breath Apixaban (Eliquis) 5 mg .XX BID [facility] Last Admin: 06/29/16 08:41 Dose: 5 mg Azithromycin (Zithromax 200 Mg/5 Ml Susp) 500 mg FTUBE DAILY@1500 [facility] Last Admin: 06/29/16 14:16 Dose: 12.5 ml Budesonide (Pulmicort) 0.5 mg NEB BID [facility] Dextrose/Water (Dextrose 50% In Water) 50 ml IVPUSH ASDIRECTED PRN PRN Reason: hypoglycemia as below Levofloxacin/Dextrose 750 mg/ (Premix) 150 mls @ 100 mls/hr IV Q24H [facility] Last Admin: 06/28/16 21:08 Dose: 100 mls/hr Piperacillin Sod/Tazobactam (Sod 4.5 gm/ Sodium Chloride) 100 mls @ 25 mls/hr IV Q8H [facility] Last Admin: 06/29/16 15:14 Dose: 25 mls/hr Sodium Chloride (Normal Saline) 1,000 mls @ 50 mls/hr IV ASDIRECTED [facility] Last Admin: 06/29/16 09:08 Dose: 50 mls/hr Ipratropium [place] (Atrovent) 0.5 mg NEB Q8HRRT PRN PRN Reason: Shortness of Breath Lansoprazole (Prevacid Solutab) 30 mg PO BIDAC [facility] Last Admin: 06/29/16 15:13 Dose: 30 mg Metronidazole (Flagyl) 500 mg GTUBE Q8H [facility] Stop: 07/05/16 23:59 Last Admin: 06/29/16 14:14 Dose: 500 mg Ondansetron HCl (Zofran) 4 mg IVPUSH Q6H PRN PRN Reason: Nause/vomiting Psyllium Husk (Metamucil Sugar Free) 1 packet GTUBE DAILY [facility] Last Admin: 06/29/16 08:41 Dose: 1 packet Risperidone (Risperidal) 0.25 mg GTUBE BEDTIME [facility] Last Admin: 06/28/16 20:04 Dose: 0.25 mg Saccharomyces Boulardii (Florastor) 500 mg FTUBE DAILY [facility] Last Admin: 06/29/16 08:40 Dose: 500 mg Sodium Chloride (Saline Flush) 10 ml FLUSH ASDIRECTED PRN PRN Reason: Keep Vein Open Last Admin: 06/27/16 19:49 Dose: 10 ml Valproic Acid (Depakene Syrup) 125 mg FTUBE DAILY [facility] Last Admin: 06/29/16 08:41 Dose: 125 mg Valproic Acid (Depakene Syrup) 250 mg FTUBE BEDTIME [facility] Last Admin: 06/28/16 20:05 Dose: 250 mg Discontinued Medications Apixaban (Eliquis) 10 mg .XX BID [facility] Budesonide (Pulmicort) 0.5 mg NEB BIDRT [facility] Levofloxacin/Dextrose 500 mg/ (Premix) 100 mls @ 100 mls/hr IV ONETIME ONE Stop: 06/27/16 20:10 Last Admin: 06/27/16 19:48 Dose: 100 mls/hr Sodium Chloride (Normal Saline) 1,000 mls @ 999 mls/hr IV ONETIME ONE Stop: 06/27/16 20:20 Last Admin: 06/27/16 19:48 Dose: 999 mls/hr Sodium Chloride (Normal Saline) 1,000 mls @ 125 mls/hr IV ASDIRECTED [facility] Last Admin: 06/28/16 08:22 Dose: 125 mls/hr Piperacillin Sod/Tazobactam (Sod 4.5 gm/ Sodium Chloride) 100 mls @ 200 mls/hr IV ONETIME ONE Stop: 06/28/16 00:29 Last Admin: 06/28/16 00:23 Dose: 200 mls/hr Sodium Chloride (Normal Saline) 1,000 mls @ 75 mls/hr IV ASDIRECTED [facility] Stop: 06/28/16 23:00 Last Admin: 06/28/16 17:54 Dose: 75 mls/hr Magnesium Sulfate 2 gm/ Premix 50 mls @ 25 mls/hr IV ONETIME ONE Stop: 06/29/16 11:52 Last Admin: 06/29/16 12:42 Dose: 25 mls/hr Non-Formulary Medication (Omeprazole [Omeprazole]) 20 mg GTUBE BID [facility] Risperidone (Risperidal) 1 mg FTUBE BEDTIME [facility] Risperidone (Risperidal) 0.25 mg GTUBE BEDTIME LOPEZ - My Orders Last 24 Hours: My Active Orders 06/28/16 20:00 Levofloxacin/Dextrose 5%-Water [Levaquin in D5W 750 MG/150 ML] 750 mg Premix Bag 1 bag IV Q24H 06/28/16 21:00 Valproic Acid [Depakene Syrup] 250 mg FTUBE BEDTIME risperiDONE [RisperiDAL] 0.25 mg GTUBE BEDTIME 06/28/16 23:00 Sodium Chloride 0.9% [Normal Saline] 1,000 ml IV ASDIRECTED 06/29/16 09:00 Psyllium Husk/Aspartame [Metamucil Sugar Free] 1 packet GTUBE DAILY 06/30/16 05:00 BMP [BASIC METABOLIC PANEL,BMP] [CHEM] DAILY CBC WITH AUTO DIFF [HEME] DAILY CRP [C-REACTIVE PROTEIN] [CHEM] DAILY MAGNESIUM [CHEM] DAILY 07/01/16 05:00 BMP [BASIC METABOLIC PANEL,BMP] [CHEM] DAILY CBC WITH AUTO DIFF [HEME] DAILY CRP [C-REACTIVE PROTEIN] [CHEM] DAILY MAGNESIUM [CHEM] DAILY - Plan Plan:: Unable to tolerate large boluses of TF, will adjust regimen to prevent aspiration
[2016-06-29] MEDS: Piperacillin/Tazobactam 4.5 GM in Sodium Chloride 0.9% 100 ML IV SCH ×2 (08:40→15:14)
[2016-06-29] MEDS: Saccharomyces Boulardii (Probiotic) 250 MG Cap FTUBE SCH (08:40)
[2016-06-29] MEDS: Valproic Acid 250 MG/5 ML Syrup ML (473 ML Bottle) FTUBE SCH ×2 (08:41→21:48)
[2016-06-29] MEDS: Psyllium Husk Powder Sugar Free 3.4 GM Packet GTUBE SCH (08:41)
[2016-06-29] MEDS: Apixaban 5 MG Tab SCH ×2 (08:41→21:32)
[2016-06-29] MEDS: Sodium Chloride 0.9% 1,000 ML IV SCH (09:08)
[2016-06-29] MEDS ORDERED: Magnesium Sulfate/Water 2 GM in Premix Bag 1 BAG IV ONE (09:53)
[2016-06-29] MEDS: Azithromycin 200 MG/5 ML Susp 30 ML Bottle FTUBE SCH (14:16)
[2016-06-29] MEDS: Budesonide 0.5 MG/2 ML Neb Susp NEB SCH (20:13)
[2016-06-29] MEDS ORDERED: Budesonide 0.5 MG/2 ML Neb Susp NEB SCH (21:00)
[2016-06-29] MEDS: Levofloxacin/Dextrose 5%-Water 750 MG in Premix Bag 1 BAG IV SCH (21:30)
[2016-06-29] MEDS: risperiDONE 0.25 MG Tab GTUBE SCH (21:32)
[2016-06-30] MEDS: Piperacillin/Tazobactam 4.5 GM in Sodium Chloride 0.9% 100 ML IV SCH ×3 (00:36→15:35)
[2016-06-30] MEDS: Lansoprazole 30 MG Orally Disintegrating Tab.CR PO SCH ×2 (05:07→15:36)
[2016-06-30] MEDS: metroNIDAZOLE 500 MG Tab GTUBE SCH ×3 (05:07→21:12)
[2016-06-30] MEDS: Sodium Chloride 0.9% 1,000 ML IV SCH (05:07)
[2016-06-30] MEDS: Saccharomyces Boulardii (Probiotic) 250 MG Cap FTUBE SCH (07:59)
[2016-06-30] MEDS: Psyllium Husk Powder Sugar Free 3.4 GM Packet GTUBE SCH (07:59)
[2016-06-30] MEDS: Valproic Acid 250 MG/5 ML Syrup ML (473 ML Bottle) FTUBE SCH ×2 (07:59→21:13)
[2016-06-30] MEDS: Apixaban 5 MG Tab SCH ×2 (07:59→21:12)
--- NOTE | 2016-06-30 08:57 | CR ---
Chest: Two views of the chest were obtained. Comparison: Previous chest x-ray of 06/27/16. Continuing increased density within the right lung base is seen. Increased density within the left base more prominent than on prior study most likely due to atelectasis. Lungs otherwise are clear. Heart size and mediastinum are normal. Scoliosis and degenerative change is seen within the spine. Impression: 1. Mild increasing atelectasis within the left lung base from prior study. 2. Findings within the right chest remain stable. Other portions of the chest are also stable. Diagnostic code #3
[2016-06-30] MEDS: Budesonide 0.5 MG/2 ML Neb Susp NEB SCH ×2 (09:05→20:25)
[2016-06-30] MEDS: Dextrose 5%-0.9% NaCl 1,000 ML IV SCH (11:19)
[2016-06-30] MEDS: Ondansetron 4 MG/2 ML SDV IVPUSH PRN ×2 (11:20→21:13)
[2016-06-30] MEDS ORDERED: Magnesium Sulfate/Water 2 GM in Premix Bag 1 BAG IV ONE (11:37)
--- NOTE | 2016-06-30 12:35 | PCM.PN ---
<Talia Jennings M - Last Filed: 06/30/16 12:36> - General Info Date of Service: 06/30/16 Admission Dx/Problem (Free Text): Admission Diagnosis/Problem Admission Diagnosis/Problem Pneumonia Laura is seen this morning resting comfortably. She denies c/o pain/ discomfort. States she is coughing "some". Nursing reports she slept well most of the night. She is up and ambulatory with 1 assist and doing well with that. She has vomited x 2 yesterday afternoon and x 1 this morning. Feeding bolus was increased to 60ml QID yesterday then had episodes of vomiting, boluses decreased down to 45ml QID with addition of azithromycin for motility/gastric emptying. Blood sugars have been slightly low, orders placed this am for fluids to be changed to D5NS and cont to check sugars QID. Patient doing well otherwise. VSS- afebrile. Weaned of oxygen at this time- 91% on RA currently. Functional Status: Reports: pain controlled, ambulating, urinating. Denies: tolerating diet (NPO), new symptoms - Review of Systems General: Reports: No Symptoms HEENT: Reports: no symptoms Pulmonary: Reports: cough. Denies: shortness of breath, hemoptysis, wheezing Cardiovascular: Reports: No Symptoms Gastrointestinal: Reports: Vomiting. Denies: Abdominal pain, Constipation, Diarrhea, Hematochezia, Melena Genitourinary: Reports: no symptoms Musculoskeletal: Reports: no symptoms Neurological: Reports: No Symptoms, Other (developmental delay- baseline) Psychiatric: Reports: confusion (pleasantly confused- baseline). Denies: anxiety, agitation - Patient Data Vitals - most recent: Last Vital Signs Temp 98.4 F 06/30/16 09:24 Pulse 92 06/30/16 09:24 Resp 14 06/30/16 09:24 BP 134/75 06/30/16 09:24 Pulse Ox 91 L 06/30/16 09:24 Weight - most recent: 54.023 kg I&O - last 24 hours: Intake & Output 06/29/16 06/30/16 06/30/16 22:59 06:59 14:59 Intake Total 1315 897 Balance 1315 897 Lab Results last 24 hrs: Laboratory Results - last 24 hr 06/29/16 06/30/16 06/30/16 Range/Units 19:05 06:35 07:25 WBC 7.58 (3.98-10.04) K/mm3 RBC 4.02 (3.98-5.22) M/mm3 Hgb 12.2 (11.2-15.7) gm/L Hct 38.1 (34.1-44.9) % MCV 94.8 (79.4-94.8) fl MCH 30.3 (25.6-32.2) pg MCHC 32.0 L (32.2-35.5) g/dl RDW Std Deviation 47.5 H (36.4-46.3) fL Plt Count 180 L (182-369) K/mm3 MPV 11.5 (9.4-12.3) fl Neut % (Auto) 78.5 H (34.0-71.1) % Lymph % (Auto) 11.9 L (19.3-51.7) % Clinch % (Auto) 8.7 (4.7-12.5) % Eos % (Auto) 0.9 (0.7-5.8) Baso % (Auto) 0.0 L (0.1-1.2) % Neut # (Auto) 5.95 (1.56-6.13) K/mm3 Lymph # (Auto) 0.90 L (1.18-3.74) K/mm3 Clinch # (Auto) 0.66 H (0.24-0.36) K/mm3 Eos # (Auto) 0.07 (0.04-0.36) K/mm3 Baso # (Auto) 0.00 L (0.01-0.08) K/mm3 Sodium (136-145) mEq/L Potassium (3.5-5.1) mEq/L Chloride (98-107) mEq/L Carbon Dioxide (21-32) mEq/L Anion Gap (5-15) BUN (7-18) mg/dL Creatinine (0.55-1.02) mg/dL Est Cr Clr Drug Dosing mL/min Estimated GFR (MDRD) (>60) mL/min BUN/Creatinine Ratio (14-18) Glucose (74-106) mg/dL POC Glucose 100 60 L (70-105) mg/dL Calcium (8.5-10.1) mg/dL Magnesium (1.8-2.4) mg/dl C-Reactive Protein (<1.0) mg/dL 06/30/16 06/30/16 Range/Units 07:25 11:17 WBC (3.98-10.04) K/mm3 RBC (3.98-5.22) M/mm3 Hgb (11.2-15.7) gm/L Hct (34.1-44.9) % MCV (79.4-94.8) fl MCH (25.6-32.2) pg MCHC (32.2-35.5) g/dl RDW Std Deviation (36.4-46.3) fL Plt Count (182-369) K/mm3 MPV (9.4-12.3) fl Neut % (Auto) (34.0-71.1) % Lymph % (Auto) (19.3-51.7) % Clinch % (Auto) (4.7-12.5) % Eos % (Auto) (0.7-5.8) Baso % (Auto) (0.1-1.2) % Neut # (Auto) (1.56-6.13) K/mm3 Lymph # (Auto) (1.18-3.74) K/mm3 Clinch # (Auto) (0.24-0.36) K/mm3 Eos # (Auto) (0.04-0.36) K/mm3 Baso # (Auto) (0.01-0.08) K/mm3 Sodium 141 (136-145) mEq/L Potassium 3.2 L (3.5-5.1) mEq/L Chloride 103 (98-107) mEq/L Carbon Dioxide 29 (21-32) mEq/L Anion Gap 12.2 (5-15) BUN 3 L (7-18) mg/dL Creatinine 0.6 (0.55-1.02) mg/dL Est Cr Clr Drug Dosing 96.73 mL/min Estimated GFR (MDRD) > 60 (>60) mL/min BUN/Creatinine Ratio 5.0 L (14-18) Glucose 94 (74-106) mg/dL POC Glucose 87 (70-105) mg/dL Calcium 8.7 (8.5-10.1) mg/dL Magnesium 1.5 L (1.8-2.4) mg/dl C-Reactive Protein 7.3 H* (<1.0) mg/dL Armando Results last 24 hrs: Microbiology 06/28/16 00:33 MRSA Surveillance Culture - Final Nares, Left NO MRSA ISOLATED Med Orders - Current: Current Medications Albuterol (Proventil Neb Soln) 2.5 mg NEB QIDRT PRN PRN Reason: Shortness of Breath Apixaban (Eliquis) 5 mg .XX BID [facility] Last Admin: 06/30/16 07:59 Dose: 5 mg Azithromycin (Zithromax 200 Mg/5 Ml Susp) 500 mg FTUBE DAILY@1500 [facility] Last Admin: 06/29/16 14:16 Dose: 12.5 ml Budesonide (Pulmicort) 0.5 mg NEB BID [facility] Last Admin: 06/30/16 09:05 Dose: 0.5 mg Dextrose/Water (Dextrose 50% In Water) 50 ml IVPUSH ASDIRECTED PRN PRN Reason: hypoglycemia as below Levofloxacin/Dextrose 750 mg/ (Premix) 150 mls @ 100 mls/hr IV Q24H [facility] Last Admin: 06/29/16 21:30 Dose: 100 mls/hr Piperacillin Sod/Tazobactam (Sod 4.5 gm/ Sodium Chloride) 100 mls @ 25 mls/hr IV Q8H [facility] Last Admin: 06/30/16 07:56 Dose: 25 mls/hr Dextrose/Sodium Chloride (Dextrose 5%-Normal Saline) 1,000 mls @ 50 mls/hr IV ASDIRECTED [facility] Last Admin: 06/30/16 11:19 Dose: 50 mls/hr Magnesium Sulfate 2 gm/ Premix 50 mls @ 25 mls/hr IV ONETIME ONE Stop: 06/30/16 13:36 Last Admin: 06/30/16 12:07 Dose: 25 mls/hr Potassium Chloride 10 meq/ (Premix) 100 mls @ 100 mls/hr IV Q1H [facility] Stop: 06/30/16 15:44 Ipratropium [place] (Atrovent) 0.5 mg NEB Q8HRRT PRN PRN Reason: Shortness of Breath Lansoprazole (Prevacid Solutab) 30 mg PO BIDAC [facility] Last Admin: 06/30/16 05:07 Dose: 30 mg Metronidazole (Flagyl) 500 mg GTUBE Q8H [facility] Stop: 07/05/16 23:59 Last Admin: 06/30/16 05:07 Dose: 500 mg Ondansetron HCl (Zofran) 4 mg IVPUSH Q6H PRN PRN Reason: Nause/vomiting Last Admin: 06/30/16 11:20 Dose: 4 mg Psyllium Husk (Metamucil Sugar Free) 1 packet GTUBE DAILY [facility] Last Admin: 06/30/16 07:59 Dose: 1 packet Risperidone (Risperidal) 0.25 mg GTUBE BEDTIME [facility] Last Admin: 06/29/16 21:32 Dose: 0.25 mg Saccharomyces Boulardii (Florastor) 500 mg FTUBE DAILY [facility] Last Admin: 06/30/16 07:59 Dose: 500 mg Sodium Chloride (Saline Flush) 10 ml FLUSH ASDIRECTED PRN PRN Reason: Keep Vein Open Last Admin: 06/27/16 19:49 Dose: 10 ml Valproic Acid (Depakene Syrup) 125 mg FTUBE DAILY [facility] Last Admin: 06/30/16 07:59 Dose: 125 mg Valproic Acid (Depakene Syrup) 250 mg FTUBE BEDTIME [facility] Last Admin: 06/29/16 21:48 Dose: 250 mg Discontinued Medications Apixaban (Eliquis) 10 mg .XX BID [facility] Budesonide (Pulmicort) 0.5 mg NEB BIDRT [facility] Levofloxacin/Dextrose 500 mg/ (Premix) 100 mls @ 100 mls/hr IV ONETIME ONE Stop: 06/27/16 20:10 Last Admin: 06/27/16 19:48 Dose: 100 mls/hr Sodium Chloride (Normal Saline) 1,000 mls @ 999 mls/hr IV ONETIME ONE Stop: 06/27/16 20:20 Last Admin: 06/27/16 19:48 Dose: 999 mls/hr Sodium Chloride (Normal Saline) 1,000 mls @ 125 mls/hr IV ASDIRECTED [facility] Last Admin: 06/28/16 08:22 Dose: 125 mls/hr Piperacillin Sod/Tazobactam (Sod 4.5 gm/ Sodium Chloride) 100 mls @ 200 mls/hr IV ONETIME ONE Stop: 06/28/16 00:29 Last Admin: 06/28/16 00:23 Dose: 200 mls/hr Sodium Chloride (Normal Saline) 1,000 mls @ 75 mls/hr IV ASDIRECTED [facility] Stop: 06/28/16 23:00 Last Admin: 06/28/16 17:54 Dose: 75 mls/hr Sodium Chloride (Normal Saline) 1,000 mls @ 50 mls/hr IV ASDIRECTED [facility] Last Admin: 06/30/16 05:07 Dose: 50 mls/hr Magnesium Sulfate 2 gm/ Premix 50 mls @ 25 mls/hr IV ONETIME ONE Stop: 06/29/16 11:52 Last Admin: 06/29/16 12:42 Dose: 25 mls/hr Non-Formulary Medication (Omeprazole [Omeprazole]) 20 mg GTUBE BID [facility] Last Admin: 06/29/16 19:41 Dose: Not Given Risperidone (Risperidal) 1 mg FTUBE BEDTIME [facility] Risperidone (Risperidal) 0.25 mg GTUBE BEDTIME [facility] - Exam Quality Assessment: DVT prophylaxis General: alert, cooperative, no acute distress HEENT: Pupils equal, Other (blind bilat) Neck: supple Lungs: Decreased breath sounds (bases; ), Wheezing (bilat) Cardiovascular: Regular Rate, Regular Rhythm Abdomen: bowel sounds present (hyperactive), soft, no tenderness, no distension , other (Peg site WNL; no s/s of infection) (Female) Exam: Deferred Back Exam: normal inspection Extremities: no edema, no calf tenderness Peripheral Pulses: 1+: dorsalis pedis (L), dorsalis pedis (R) Skin: warm, dry Neurological: no new focal deficit Psy/Mental Status: alert, normal mood - Problem List & Annotations (1) Pulmonary embolism, bilateral SNOMED Code(s): 93259778, 07315571 Code(s): I26.99 - OTHER PULMONARY EMBOLISM WITHOUT ACUTE COR PULMONALE Status: Acute Priority: High Current Visit: Yes (2) Pneumonia SNOMED Code(s): 666011217 Code(s): J18.9 - PNEUMONIA, UNSPECIFIED ORGANISM Status: Acute Priority: High Current Visit: Yes Qualifiers: Pneumonia type: aspiration pneumonia Laterality: bilateral Lung location : lower lobe of lung (3) Acute on chronic respiratory failure with hypoxemia SNOMED Code(s): 42735684044966700 Code(s): J96.21 - ACUTE AND CHRONIC RESPIRATORY FAILURE WITH HYPOXIA Status : Acute Priority: High Current Visit: Yes (4) Delayed social and emotional development SNOMED Code(s): 602984880 Code(s): F88 - OTHER DISORDERS OF PSYCHOLOGICAL DEVELOPMENT Status: Chronic Priority: Medium Current Visit: No (5) Blind in both eyes SNOMED Code(s): 23219210, 290005115 Code(s): H54.0 - BLINDNESS, BOTH EYES Status: Chronic Priority: Medium Current Visit: No (6) Clostridium difficile infection SNOMED Code(s): 120423373 Code(s): B96.89 - OT BACTERIAL AGENTS THE CAUSE OF DISEASES CLASSD ELSWHR Status: Acute Priority: High Current Visit: Yes (7) Hypomagnesemia SNOMED Code(s): 732675703 Code(s): E83.42 - HYPOMAGNESEMIA Status: Acute Priority: High Current Visit: Yes (8) Hypokalemia SNOMED Code(s): 91948904 Code(s): E87.6 - HYPOKALEMIA Status: Acute Priority: High Current Visit : Yes - Problem List Review Problem List Initiated/Reviewed/Updated: Yes - My Orders Last 24 Hours: My Active Orders 06/29/16 12:25 IS (RT) [RT Incentive Spirometry] [RC] Q2HWA RT Chest Physiotherapy [RC] Q2HWA 06/29/16 13:24 Ondansetron [Zofran] 4 mg IVPUSH Q6H PRN 06/29/16 15:00 Azithromycin [Zithromax 200 MG/5 ML Susp] 500 mg FTUBE DAILY@1500 06/29/16 20:11 Communication Order [RC] 0900,1300,1700 06/29/16 21:00 Budesonide [Pulmicort] 0.5 mg NEB BID 06/30/16 07:10 Accu Check [Blood Glucose Check, Bedside] [RC] QIDACANDBED 06/30/16 07:11 Consult to Speech Language Pathology [FOIL SPOOLER Evaluation and Treatment] [CONS] Routine 06/30/16 11:06 Communication Order [RC] 0600,1100,1500,1900 06/30/16 11:15 Dextrose 5%-0.9% NaCl [Dextrose 5%-Normal Saline] 1,000 ml IV ASDIRECTED 06/30/16 11:37 Magnesium Sulfate/Water [Magnesium Sulfate 2 GM in Water 50 ML] 2 gm Premix Bag 1 bag IV ONETIME 06/30/16 11:45 Potassium Chloride [KCl 10 MEQ in Water 100 ML] 10 meq Premix Bag 1 bag IV Q1H - Plan Plan:: Impression: -Pulmonary Emboli: Recent documentation and start of treatment for bilateral PEs with Eliquis- now on lower dose of 5mg BID dosing -HCAP with hypoxia: bilateral infiltrates; recently treated with meropenem, levoquin, vanco. Discharged on 06/23/16 with augmentin. -Recurrent aspiration pneumonia -C Diff treatment, continue Flagyl x 1 more week -Recent PEG placement with bowel perforation; May 2016 -History of anxiety and/or psychosis, developmental delay and blindness -Recent treatment for parainfluenza -Hypomagnesemia -Hypokalemia Recommendation: Aspiration PNA -IV ABX: Levaquin and Zosyn, Flagyl via Peg -Nebs and aggressive pulmonary toilet -Supplemental O2 to keep sats >90%; she is currently on RA at 91% -Repeat CXR this am with worsening infiltrate- suspect due to vomiting/ aspiration -Jevity tube feeds- increase to 60ml Q6 hrs as hypoglycemic this am; was unable to tolerate 60ml due to vomiting, was decreased to 45ml Q 6 hours. -Blood sugars improved but still on lower end; change fluids to D5NS, cont rate at 50cc/hr -Consider surgical consult for further eval of hiatal hernia; surgical options. However due to recent PE's not sure she is surgical candidate at this time. Will discuss with Dr. Yoo, obtain records from [facility] in [place] if not already done. -FOIL SPOOLER has discharged patient as no further therapy/progress can be done for swallowing; patient will remain NPO. Bilateral PE's -Continue Eliquis 10 mg BID, start 5 mg BID on 06/29/16. -Oxygenation improving- requiring less supplemental oxygen C-Diff -Flagyl as above Q8 hrs via Peg -Precautions -Florastor Hypokalemia/Hypomagnesemia: -Potassium and Magnesium replacement PRN with daily labs Other: Resume usual home meds -Anxiety under good control at this time Ambulate TID-QID DVT/GI prophylaxis CM/SW for assistance with DC planning Patient is full code LOS likely longer than 96 hours due to longer than expected course of recovery/ treatment needed for - recurrent pneumonia, bilateral PE, c-diff, electrolyte regulation and complexity of case. <Savanna Yoo - Last Filed: 06/30/16 15:57> - Patient Data Vitals - most recent: Last Vital Signs Temp 36.6 C 06/30/16 15:05 Pulse 84 06/30/16 15:05 Resp 20 06/30/16 15:05 BP 126/66 06/30/16 15:05 Pulse Ox 92 L 06/30/16 15:05 I&O - last 24 hours: Intake & Output 06/30/16 06/30/16 06/30/16 06:59 14:59 22:59 Intake Total 897 Balance 897 Lab Results last 24 hrs: Laboratory Results - last 24 hr 06/29/16 06/30/16 06/30/16 Range/Units 19:05 06:35 07:25 WBC 7.58 (3.98-10.04) K/mm3 RBC 4.02 (3.98-5.22) M/mm3 Hgb 12.2 (11.2-15.7) gm/L Hct 38.1 (34.1-44.9) % MCV 94.8 (79.4-94.8) fl MCH 30.3 (25.6-32.2) pg MCHC 32.0 L (32.2-35.5) g/dl RDW Std Deviation 47.5 H (36.4-46.3) fL Plt Count 180 L (182-369) K/mm3 MPV 11.5 (9.4-12.3) fl Neut % (Auto) 78.5 H (34.0-71.1) % Lymph % (Auto) 11.9 L (19.3-51.7) % Clinch % (Auto) 8.7 (4.7-12.5) % Eos % (Auto) 0.9 (0.7-5.8) Baso % (Auto) 0.0 L (0.1-1.2) % Neut # (Auto) 5.95 (1.56-6.13) K/mm3 Lymph # (Auto) 0.90 L (1.18-3.74) K/mm3 Clinch # (Auto) 0.66 H (0.24-0.36) K/mm3 Eos # (Auto) 0.07 (0.04-0.36) K/mm3 Baso # (Auto) 0.00 L (0.01-0.08) K/mm3 Sodium (136-145) mEq/L Potassium (3.5-5.1) mEq/L Chloride (98-107) mEq/L Carbon Dioxide (21-32) mEq/L Anion Gap (5-15) BUN (7-18) mg/dL Creatinine (0.55-1.02) mg/dL Est Cr Clr Drug Dosing mL/min Estimated GFR (MDRD) (>60) mL/min BUN/Creatinine Ratio (14-18) Glucose (74-106) mg/dL POC Glucose 100 60 L (70-105) mg/dL Calcium (8.5-10.1) mg/dL Magnesium (1.8-2.4) mg/dl C-Reactive Protein (<1.0) mg/dL 06/30/16 06/30/16 Range/Units 07:25 11:17 WBC (3.98-10.04) K/mm3 RBC (3.98-5.22) M/mm3 Hgb (11.2-15.7) gm/L Hct (34.1-44.9) % MCV (79.4-94.8) fl MCH (25.6-32.2) pg MCHC (32.2-35.5) g/dl RDW Std Deviation (36.4-46.3) fL Plt Count (182-369) K/mm3 MPV (9.4-12.3) fl Neut % (Auto) (34.0-71.1) % Lymph % (Auto) (19.3-51.7) % Clinch % (Auto) (4.7-12.5) % Eos % (Auto) (0.7-5.8) Baso % (Auto) (0.1-1.2) % Neut # (Auto) (1.56-6.13) K/mm3 Lymph # (Auto) (1.18-3.74) K/mm3 Clinch # (Auto) (0.24-0.36) K/mm3 Eos # (Auto) (0.04-0.36) K/mm3 Baso # (Auto) (0.01-0.08) K/mm3 Sodium 141 (136-145) mEq/L Potassium 3.2 L (3.5-5.1) mEq/L Chloride 103 (98-107) mEq/L Carbon Dioxide 29 (21-32) mEq/L Anion Gap 12.2 (5-15) BUN 3 L (7-18) mg/dL Creatinine 0.6 (0.55-1.02) mg/dL Est Cr Clr Drug Dosing 96.73 mL/min Estimated GFR (MDRD) > 60 (>60) mL/min BUN/Creatinine Ratio 5.0 L (14-18) Glucose 94 (74-106) mg/dL POC Glucose 87 (70-105) mg/dL Calcium 8.7 (8.5-10.1) mg/dL Magnesium 1.5 L (1.8-2.4) mg/dl C-Reactive Protein 7.3 H* (<1.0) mg/dL Med Orders - Current: Current Medications Albuterol (Proventil Neb Soln) 2.5 mg NEB QIDRT PRN PRN Reason: Shortness of Breath Apixaban (Eliquis) 5 mg .XX BID [facility] Last Admin: 06/30/16 07:59 Dose: 5 mg Azithromycin (Zithromax 200 Mg/5 Ml Susp) 500 mg FTUBE DAILY@1500 [facility] Last Admin: 06/30/16 15:35 Dose: 12.5 ml Budesonide (Pulmicort) 0.5 mg NEB BID [facility] Last Admin: 06/30/16 09:05 Dose: 0.5 mg Dextrose/Water (Dextrose 50% In Water) 50 ml IVPUSH ASDIRECTED PRN PRN Reason: hypoglycemia as below Levofloxacin/Dextrose 750 mg/ (Premix) 150 mls @ 100 mls/hr IV Q24H [facility] Last Admin: 06/29/16 21:30 Dose: 100 mls/hr Piperacillin Sod/Tazobactam (Sod 4.5 gm/ Sodium Chloride) 100 mls @ 25 mls/hr IV Q8H [facility] Last Admin: 06/30/16 15:35 Dose: 25 mls/hr Dextrose/Sodium Chloride (Dextrose 5%-Normal Saline) 1,000 mls @ 50 mls/hr IV ASDIRECTED [facility] Last Admin: 06/30/16 11:19 Dose: 50 mls/hr Ipratropium [place] (Atrovent) 0.5 mg NEB Q8HRRT PRN PRN Reason: Shortness of Breath Lansoprazole (Prevacid Solutab) 30 mg PO BIDAC [facility] Last Admin: 06/30/16 15:36 Dose: 30 mg Metronidazole (Flagyl) 500 mg GTUBE Q8H [facility] Stop: 07/05/16 23:59 Last Admin: 06/30/16 13:42 Dose: 500 mg Ondansetron HCl (Zofran) 4 mg IVPUSH Q6H PRN PRN Reason: Nause/vomiting Last Admin: 06/30/16 11:20 Dose: 4 mg Psyllium Husk (Metamucil Sugar Free) 1 packet GTUBE DAILY [facility] Last Admin: 06/30/16 07:59 Dose: 1 packet Risperidone (Risperidal) 0.25 mg GTUBE BEDTIME [facility] Last Admin: 06/29/16 21:32 Dose: 0.25 mg Saccharomyces Boulardii (Florastor) 500 mg FTUBE DAILY [facility] Last Admin: 06/30/16 07:59 Dose: 500 mg Sodium Chloride (Saline Flush) 10 ml FLUSH ASDIRECTED PRN PRN Reason: Keep Vein Open Last Admin: 06/27/16 19:49 Dose: 10 ml Valproic Acid (Depakene Syrup) 125 mg FTUBE DAILY [facility] Last Admin: 06/30/16 07:59 Dose: 125 mg Valproic Acid (Depakene Syrup) 250 mg FTUBE BEDTIME [facility] Last Admin: 06/29/16 21:48 Dose: 250 mg Discontinued Medications Apixaban (Eliquis) 10 mg .XX BID [facility] Budesonide (Pulmicort) 0.5 mg NEB BIDRT [facility] Levofloxacin/Dextrose 500 mg/ (Premix) 100 mls @ 100 mls/hr IV ONETIME ONE Stop: 06/27/16 20:10 Last Admin: 06/27/16 19:48 Dose: 100 mls/hr Sodium Chloride (Normal Saline) 1,000 mls @ 999 mls/hr IV ONETIME ONE Stop: 06/27/16 20:20 Last Admin: 06/27/16 19:48 Dose: 999 mls/hr Sodium Chloride (Normal Saline) 1,000 mls @ 125 mls/hr IV ASDIRECTED [facility] Last Admin: 06/28/16 08:22 Dose: 125 mls/hr Piperacillin Sod/Tazobactam (Sod 4.5 gm/ Sodium Chloride) 100 mls @ 200 mls/hr IV ONETIME ONE Stop: 06/28/16 00:29 Last Admin: 06/28/16 00:23 Dose: 200 mls/hr Sodium Chloride (Normal Saline) 1,000 mls @ 75 mls/hr IV ASDIRECTED [facility] Stop: 06/28/16 23:00 Last Admin: 06/28/16 17:54 Dose: 75 mls/hr Sodium Chloride (Normal Saline) 1,000 mls @ 50 mls/hr IV ASDIRECTED [facility] Last Admin: 06/30/16 05:07 Dose: 50 mls/hr Magnesium Sulfate 2 gm/ Premix 50 mls @ 25 mls/hr IV ONETIME ONE Stop: 06/29/16 11:52 Last Admin: 06/29/16 12:42 Dose: 25 mls/hr Magnesium Sulfate 2 gm/ Premix 50 mls @ 25 mls/hr IV ONETIME ONE Stop: 06/30/16 13:36 Last Admin: 06/30/16 12:07 Dose: 25 mls/hr Potassium Chloride 10 meq/ (Premix) 100 mls @ 100 mls/hr IV Q1H [facility] Stop: 06/30/16 15:44 Last Admin: 06/30/16 15:34 Dose: 100 mls/hr Non-Formulary Medication (Omeprazole [Omeprazole]) 20 mg GTUBE BID [facility] Last Admin: 06/29/16 19:41 Dose: Not Given Risperidone (Risperidal) 1 mg FTUBE BEDTIME [facility] Risperidone (Risperidal) 0.25 mg GTUBE BEDTIME [facility] - My Orders Last 24 Hours: My Active Orders 07/01/16 05:00 BMP [BASIC METABOLIC PANEL,BMP] [CHEM] DAILY CBC WITH AUTO DIFF [HEME] DAILY CRP [C-REACTIVE PROTEIN] [CHEM] DAILY MAGNESIUM [CHEM] DAILY - Plan Plan:: Will continue Zithromax as motility agent, anjum has a DI with Resperidone
[2016-06-30] MEDS: Potassium Chloride 10 MEQ in Premix Bag 1 BAG IV SCH ×4 (13:42→17:44)
[2016-06-30] MEDS: Azithromycin 200 MG/5 ML Susp 30 ML Bottle FTUBE SCH (15:35)
[2016-06-30] MEDS ORDERED: Metoclopramide 10 MG/2 ML SDV IVPUSH SCH (21:00)
[2016-06-30] MEDS: Levofloxacin/Dextrose 5%-Water 750 MG in Premix Bag 1 BAG IV SCH (21:12)
[2016-06-30] MEDS: risperiDONE 0.25 MG Tab GTUBE SCH (21:13)
[2016-07-01] MEDS: Piperacillin/Tazobactam 4.5 GM in Sodium Chloride 0.9% 100 ML IV SCH ×3 (00:26→15:27)
[2016-07-01] MEDS: metroNIDAZOLE 500 MG Tab GTUBE SCH ×3 (05:28→21:51)
[2016-07-01] MEDS: Lansoprazole 30 MG Orally Disintegrating Tab.CR PO SCH ×2 (05:29→15:27)
[2016-07-01] MEDS: Psyllium Husk Powder Sugar Free 3.4 GM Packet GTUBE SCH (07:59)
[2016-07-01] MEDS: Saccharomyces Boulardii (Probiotic) 250 MG Cap FTUBE SCH (07:59)
[2016-07-01] MEDS: Apixaban 5 MG Tab SCH ×2 (08:00→21:51)
[2016-07-01] MEDS: Valproic Acid 250 MG/5 ML Syrup ML (473 ML Bottle) FTUBE SCH ×2 (08:00→21:51)
[2016-07-01] MEDS: Budesonide 0.5 MG/2 ML Neb Susp NEB SCH ×2 (09:03→21:28)
[2016-07-01] MEDS: Dextrose 5%-0.9% NaCl 1,000 ML IV SCH (11:15)
[2016-07-01] MEDS: Ondansetron 4 MG/2 ML SDV IVPUSH PRN (11:18)
--- NOTE | 2016-07-01 11:47 | PCM.PN ---
- General Info Date of Service: 07/01/16 Functional Status: Reports: tolerating diet, urinating - Review of Systems General: Reports: No Symptoms HEENT: Reports: no symptoms Pulmonary: Reports: no symptoms Cardiovascular: Reports: No Symptoms Gastrointestinal: Reports: No symptoms Genitourinary: Reports: no symptoms Musculoskeletal: Reports: no symptoms Skin: Reports: no symptoms Neurological: Reports: No Symptoms Psychiatric: Reports: no symptoms - Patient Data Vitals - most recent: Last Vital Signs Temp 37.2 C 07/01/16 07:48 Pulse 95 07/01/16 07:48 Resp 16 07/01/16 07:48 BP 110/77 07/01/16 07:48 Pulse Ox 95 07/01/16 09:06 Weight - most recent: 54.023 kg I&O - last 24 hours: Intake & Output 06/30/16 07/01/16 07/01/16 22:59 06:59 14:59 Intake Total 1100 350 Output Total 275 900 Balance 825 -550 Lab Results last 24 hrs: Laboratory Results - last 24 hr 06/30/16 06/30/16 07/01/16 Range/Units 17:43 21:11 05:32 WBC (3.98-10.04) K/mm3 RBC (3.98-5.22) M/mm3 Hgb (11.2-15.7) gm/L Hct (34.1-44.9) % MCV (79.4-94.8) fl MCH (25.6-32.2) pg MCHC (32.2-35.5) g/dl RDW Std Deviation (36.4-46.3) fL Plt Count (182-369) K/mm3 MPV (9.4-12.3) fl Neut % (Auto) (34.0-71.1) % Lymph % (Auto) (19.3-51.7) % Payne % (Auto) (4.7-12.5) % Eos % (Auto) (0.7-5.8) Baso % (Auto) (0.1-1.2) % Neut # (Auto) (1.56-6.13) K/mm3 Lymph # (Auto) (1.18-3.74) K/mm3 Payne # (Auto) (0.24-0.36) K/mm3 Eos # (Auto) (0.04-0.36) K/mm3 Baso # (Auto) (0.01-0.08) K/mm3 Manual Slide Review Sodium (136-145) mEq/L Potassium (3.5-5.1) mEq/L Chloride (98-107) mEq/L Carbon Dioxide (21-32) mEq/L Anion Gap (5-15) BUN (7-18) mg/dL Creatinine (0.55-1.02) mg/dL Est Cr Clr Drug Dosing mL/min Estimated GFR (MDRD) (>60) mL/min BUN/Creatinine Ratio (14-18) Glucose (74-106) mg/dL POC Glucose 135 H 101 63 L (70-105) mg/dL Calcium (8.5-10.1) mg/dL Magnesium (1.8-2.4) mg/dl C-Reactive Protein (<1.0) mg/dL 07/01/16 07/01/16 07/01/16 Range/Units 06:10 06:10 11:13 WBC 4.19 (3.98-10.04) K/mm3 RBC 3.89 L (3.98-5.22) M/mm3 Hgb 11.7 (11.2-15.7) gm/L Hct 36.7 (34.1-44.9) % MCV 94.3 (79.4-94.8) fl MCH 30.1 (25.6-32.2) pg MCHC 31.9 L (32.2-35.5) g/dl RDW Std Deviation 48.7 H (36.4-46.3) fL Plt Count 164 L (182-369) K/mm3 MPV 11.3 (9.4-12.3) fl Neut % (Auto) 53.2 (34.0-71.1) % Lymph % (Auto) 29.6 (19.3-51.7) % Payne % (Auto) 15.8 H (4.7-12.5) % Eos % (Auto) 1.2 (0.7-5.8) Baso % (Auto) 0.2 (0.1-1.2) % Neut # (Auto) 2.23 (1.56-6.13) K/mm3 Lymph # (Auto) 1.24 (1.18-3.74) K/mm3 Payne # (Auto) 0.66 H (0.24-0.36) K/mm3 Eos # (Auto) 0.05 (0.04-0.36) K/mm3 Baso # (Auto) 0.01 (0.01-0.08) K/mm3 Manual Slide Review Normal smear Sodium 140 (136-145) mEq/L Potassium 3.6 (3.5-5.1) mEq/L Chloride 102 (98-107) mEq/L Carbon Dioxide 31 (21-32) mEq/L Anion Gap 10.6 (5-15) BUN 3 L (7-18) mg/dL Creatinine 0.6 (0.55-1.02) mg/dL Est Cr Clr Drug Dosing 96.73 mL/min Estimated GFR (MDRD) > 60 (>60) mL/min BUN/Creatinine Ratio 5.0 L (14-18) Glucose 102 (74-106) mg/dL POC Glucose 92 (70-105) mg/dL Calcium 8.5 (8.5-10.1) mg/dL Magnesium 1.7 L (1.8-2.4) mg/dl C-Reactive Protein 4.5 H* (<1.0) mg/dL Med Orders - Current: Current Medications Albuterol (Proventil Neb Soln) 2.5 mg NEB QIDRT PRN PRN Reason: Shortness of Breath Apixaban (Eliquis) 5 mg .XX BID [facility] Last Admin: 07/01/16 08:00 Dose: 5 mg Azithromycin (Zithromax 200 Mg/5 Ml Susp) 500 mg FTUBE DAILY@1500 [facility] Last Admin: 06/30/16 15:35 Dose: 12.5 ml Budesonide (Pulmicort) 0.5 mg NEB BID [facility] Last Admin: 07/01/16 09:03 Dose: 0.5 mg Dextrose/Water (Dextrose 50% In Water) 50 ml IVPUSH ASDIRECTED PRN PRN Reason: hypoglycemia as below Levofloxacin/Dextrose 750 mg/ (Premix) 150 mls @ 100 mls/hr IV Q24H [facility] Last Admin: 06/30/16 21:12 Dose: 100 mls/hr Piperacillin Sod/Tazobactam (Sod 4.5 gm/ Sodium Chloride) 100 mls @ 25 mls/hr IV Q8H [facility] Last Admin: 07/01/16 07:51 Dose: 25 mls/hr Dextrose/Sodium Chloride (Dextrose 5%-Normal Saline) 1,000 mls @ 50 mls/hr IV ASDIRECTED [facility] Last Admin: 07/01/16 11:15 Dose: 50 mls/hr Ipratropium [place] (Atrovent) 0.5 mg NEB Q8HRRT PRN PRN Reason: Shortness of Breath Lansoprazole (Prevacid Solutab) 30 mg PO BIDAC [facility] Last Admin: 07/01/16 05:29 Dose: 30 mg Metronidazole (Flagyl) 500 mg GTUBE Q8H [facility] Stop: 07/05/16 23:59 Last Admin: 07/01/16 05:28 Dose: 500 mg Ondansetron HCl (Zofran) 4 mg IVPUSH Q6H PRN PRN Reason: Nause/vomiting Last Admin: 07/01/16 11:18 Dose: 4 mg Psyllium Husk (Metamucil Sugar Free) 1 packet GTUBE DAILY [facility] Last Admin: 07/01/16 07:59 Dose: 1 packet Risperidone (Risperidal) 0.25 mg GTUBE BEDTIME [facility] Last Admin: 06/30/16 21:13 Dose: 0.25 mg Saccharomyces Boulardii (Florastor) 500 mg FTUBE DAILY [facility] Last Admin: 07/01/16 07:59 Dose: 500 mg Sodium Chloride (Saline Flush) 10 ml FLUSH ASDIRECTED PRN PRN Reason: Keep Vein Open Last Admin: 06/27/16 19:49 Dose: 10 ml Valproic Acid (Depakene Syrup) 125 mg FTUBE DAILY [facility] Last Admin: 07/01/16 08:00 Dose: 125 mg Valproic Acid (Depakene Syrup) 250 mg FTUBE BEDTIME [facility] Last Admin: 06/30/16 21:13 Dose: 250 mg Discontinued Medications Apixaban (Eliquis) 10 mg .XX BID [facility] Budesonide (Pulmicort) 0.5 mg NEB BIDRT [facility] Levofloxacin/Dextrose 500 mg/ (Premix) 100 mls @ 100 mls/hr IV ONETIME ONE Stop: 06/27/16 20:10 Last Admin: 06/27/16 19:48 Dose: 100 mls/hr Sodium Chloride (Normal Saline) 1,000 mls @ 999 mls/hr IV ONETIME ONE Stop: 06/27/16 20:20 Last Admin: 06/27/16 19:48 Dose: 999 mls/hr Sodium Chloride (Normal Saline) 1,000 mls @ 125 mls/hr IV ASDIRECTED [facility] Last Admin: 06/28/16 08:22 Dose: 125 mls/hr Piperacillin Sod/Tazobactam (Sod 4.5 gm/ Sodium Chloride) 100 mls @ 200 mls/hr IV ONETIME ONE Stop: 06/28/16 00:29 Last Admin: 06/28/16 00:23 Dose: 200 mls/hr Sodium Chloride (Normal Saline) 1,000 mls @ 75 mls/hr IV ASDIRECTED [facility] Stop: 06/28/16 23:00 Last Admin: 06/28/16 17:54 Dose: 75 mls/hr Sodium Chloride (Normal Saline) 1,000 mls @ 50 mls/hr IV ASDIRECTED [facility] Last Admin: 06/30/16 05:07 Dose: 50 mls/hr Magnesium Sulfate 2 gm/ Premix 50 mls @ 25 mls/hr IV ONETIME ONE Stop: 06/29/16 11:52 Last Admin: 06/29/16 12:42 Dose: 25 mls/hr Magnesium Sulfate 2 gm/ Premix 50 mls @ 25 mls/hr IV ONETIME ONE Stop: 06/30/16 13:36 Last Admin: 06/30/16 12:07 Dose: 25 mls/hr Potassium Chloride 10 meq/ (Premix) 100 mls @ 100 mls/hr IV Q1H [facility] Stop: 06/30/16 15:44 Last Admin: 06/30/16 17:44 Dose: 100 mls/hr Non-Formulary Medication (Omeprazole [Omeprazole]) 20 mg GTUBE BID [facility] Last Admin: 06/29/16 19:41 Dose: Not Given Risperidone (Risperidal) 1 mg FTUBE BEDTIME [facility] Risperidone (Risperidal) 0.25 mg GTUBE BEDTIME [facility] - Exam Quality Assessment: DVT prophylaxis General: alert, oriented, cooperative, no acute distress HEENT: Pupils equal, Pupils reactive Neck: supple, trachea midline Lungs: Normal respiratory effort, Decreased breath sounds Cardiovascular: Regular Rate, Regular Rhythm Abdomen: bowel sounds present, soft, no tenderness, no distension (Female) Exam: Deferred Back Exam: normal inspection Extremities: normal pulses Skin: warm Neurological: no new focal deficit Psy/Mental Status: alert, normal affect, normal mood - Problem List Review Problem List Initiated/Reviewed/Updated: Yes - Plan Plan:: Impression: Aspiration risk, titrating TF and adding motility agent S/P PEG with residual HH Asp PNA on IV antiobitotics per HCAP rec Bilateral PEs on reduced Eliquis after appropriate load. Electrolyte abnormalities Improved WBCs with ATBs MRSA negative screen Antipsychotics med therefore, will not use Reglan C Diff on Flagyl Plan: Continue IV ATBs Will continue Zithromax as motility agent, reglan has a DI with Resperidone Home meds Adjust type of TF as well as quantity to reduce risk of Aspiration PNA as well as meet caloric needs DVT/GI prophylaxis LOS>96 HOURS, SLOW RESPONSE
[2016-07-01] MEDS ORDERED: Magnesium Sulfate/Water 2 GM in Premix Bag 1 BAG IV ONE (13:21)
[2016-07-01] MEDS: Azithromycin 200 MG/5 ML Susp 30 ML Bottle FTUBE SCH (13:59)
[2016-07-01] MEDS: Levofloxacin/Dextrose 5%-Water 750 MG in Premix Bag 1 BAG IV SCH (21:50)
[2016-07-01] MEDS: risperiDONE 0.25 MG Tab GTUBE SCH (21:51)
[2016-07-02] MEDS: Piperacillin/Tazobactam 4.5 GM in Sodium Chloride 0.9% 100 ML IV SCH ×3 (00:06→16:59)
[2016-07-02] MEDS: Dextrose 5%-0.9% NaCl 1,000 ML IV SCH (04:12)
[2016-07-02] MEDS: metroNIDAZOLE 500 MG Tab GTUBE SCH ×3 (05:40→21:23)
[2016-07-02] MEDS: Lansoprazole 30 MG Orally Disintegrating Tab.CR PO SCH (05:40)
[2016-07-02] MEDS: Apixaban 5 MG Tab SCH ×2 (08:47→21:23)
[2016-07-02] MEDS: Valproic Acid 250 MG/5 ML Syrup ML (473 ML Bottle) FTUBE SCH ×2 (08:47→21:22)
[2016-07-02] MEDS: Psyllium Husk Powder Sugar Free 3.4 GM Packet GTUBE SCH (08:47)
[2016-07-02] MEDS: Saccharomyces Boulardii (Probiotic) 250 MG Cap FTUBE SCH (08:47)
[2016-07-02] MEDS: Budesonide 0.5 MG/2 ML Neb Susp NEB SCH ×2 (09:29→20:39)
[2016-07-02] MEDS ORDERED: Magnesium Sulfate/Water 2 GM in Premix Bag 1 BAG IV ONE (10:37)
[2016-07-02] MEDS ORDERED: Potassium Chloride 20 MEQ Tab.ER PO SCH (10:45)
[2016-07-02] MEDS: Lansoprazole 30 MG Orally Disintegrating Tab.CR SCH ×2 (12:12→15:03)
[2016-07-02] MEDS: Potassium Chloride 10% 20 MEQ/15 ML Soln 30 ML UD Cup PEGTUBE SCH ×2 (12:13→21:22)
--- NOTE | 2016-07-02 12:17 | PCM.PN ---
<Talia Jennings M - Last Filed: 07/02/16 12:08> - General Info Date of Service: 07/02/16 Admission Dx/Problem (Free Text): Admission Diagnosis/Problem Admission Diagnosis/Problem Pneumonia Laura is seen this morning resting comfortably. She denies c/o pain/ discomfort. She is tolerating feedings thus far, no vomiting x 36+ hours; changed to Osmolite 1.2 then to 1.5 earlier today, still at 45cc QID, tolerating azithromycin which has been started for motility. She is having increasing ruminations and nursing reports was up most of the night talking. Functional Status: Reports: pain controlled, ambulating, urinating. Denies: tolerating diet ([facility]- [facility] was consulted; per her review with [facility] staff with [facility] patient has been discharged from [facility] there for swallowing as she was unable to make progress. ), new symptoms - Review of Systems General: Reports: No Symptoms. Denies: Fever HEENT: Reports: no symptoms Pulmonary: Reports: cough (minimal). Denies: shortness of breath, wheezing Cardiovascular: Denies: Chest Pain, Palpitations, Dyspnea on Exertion, Edema Gastrointestinal: Reports: No symptoms Genitourinary: Reports: no symptoms Musculoskeletal: Reports: no symptoms Skin: Reports: no symptoms Neurological: Reports: Other (developmental delay, blindness) Psychiatric: Reports: other (ruminations of thoughts) - Patient Data Vitals - most recent: Last Vital Signs Temp 97.5 F 07/02/16 10:07 Pulse 87 07/02/16 10:07 Resp 20 07/02/16 10:07 BP 147/76 H 07/02/16 10:07 Pulse Ox 92 L 07/02/16 10:07 Weight - most recent: 54.975 kg I&O - last 24 hours: Intake & Output 07/01/16 07/02/16 07/02/16 22:59 06:59 14:59 Intake Total 1170 1334 Output Total 250 700 Balance 920 634 Lab Results last 24 hrs: Laboratory Results - last 24 hr 07/01/16 07/01/16 07/02/16 Range/Units 17:05 22:03 06:31 Sodium (136-145) mEq/L Potassium (3.5-5.1) mEq/L Chloride (98-107) mEq/L Carbon Dioxide (21-32) mEq/L Anion Gap (5-15) BUN (7-18) mg/dL Creatinine (0.55-1.02) mg/dL Est Cr Clr Drug Dosing mL/min Estimated GFR (MDRD) (>60) mL/min BUN/Creatinine Ratio (14-18) Glucose (74-106) mg/dL POC Glucose 143 H 108 H 109 H (70-105) mg/dL Calcium (8.5-10.1) mg/dL Magnesium (1.8-2.4) mg/dl 07/02/16 07/02/16 Range/Units 08:15 11:01 Sodium 140 (136-145) mEq/L Potassium 3.2 L (3.5-5.1) mEq/L Chloride 101 (98-107) mEq/L Carbon Dioxide 32 (21-32) mEq/L Anion Gap 10.2 (5-15) BUN 2 L (7-18) mg/dL Creatinine 0.6 (0.55-1.02) mg/dL Est Cr Clr Drug Dosing 97.94 mL/min Estimated GFR (MDRD) > 60 (>60) mL/min BUN/Creatinine Ratio 3.3 L (14-18) Glucose 109 H (74-106) mg/dL POC Glucose 117 H (70-105) mg/dL Calcium 9.0 (8.5-10.1) mg/dL Magnesium 1.7 L (1.8-2.4) mg/dl Med Orders - Current: Current Medications Albuterol (Proventil Neb Soln) 2.5 mg NEB QIDRT PRN PRN Reason: Shortness of Breath Apixaban (Eliquis) 5 mg .XX BID [facility] Last Admin: 07/02/16 08:47 Dose: 5 mg Azithromycin (Zithromax 200 Mg/5 Ml Susp) 500 mg FTUBE DAILY@1500 [facility] Stop: 07/02/16 23:59 Last Admin: 07/01/16 13:59 Dose: 12.5 ml Budesonide (Pulmicort) 0.5 mg NEB BID [facility] Last Admin: 07/02/16 09:29 Dose: 0.5 mg Dextrose/Water (Dextrose 50% In Water) 50 ml IVPUSH ASDIRECTED PRN PRN Reason: hypoglycemia as below Levofloxacin/Dextrose 750 mg/ (Premix) 150 mls @ 100 mls/hr IV Q24H [facility] Last Admin: 07/01/16 21:50 Dose: 100 mls/hr Piperacillin Sod/Tazobactam (Sod 4.5 gm/ Sodium Chloride) 100 mls @ 25 mls/hr IV Q8H [facility] Last Admin: 07/02/16 08:49 Dose: 25 mls/hr Magnesium Sulfate 2 gm/ Premix 50 mls @ 25 mls/hr IV ONETIME ONE Stop: 07/02/16 12:36 Ipratropium [place] (Atrovent) 0.5 mg NEB Q8HRRT PRN PRN Reason: Shortness of Breath Lansoprazole (Prevacid Solutab) 30 mg .XX BIDAC [facility] Metronidazole (Flagyl) 500 mg GTUBE Q8H [facility] Last Admin: 07/02/16 05:40 Dose: 500 mg Ondansetron HCl (Zofran) 4 mg IVPUSH Q6H PRN PRN Reason: Nause/vomiting Last Admin: 07/01/16 11:18 Dose: 4 mg Potassium Chloride (Potassium Chloride) 40 meq PEGTUBE BID [facility] Stop: 07/03/16 21:01 Psyllium Husk (Metamucil Sugar Free) 1 packet GTUBE DAILY [facility] Last Admin: 07/02/16 08:47 Dose: 1 packet Risperidone (Risperidal) 0.25 mg GTUBE BEDTIME [facility] Last Admin: 07/01/16 21:51 Dose: 0.25 mg Saccharomyces Boulardii (Florastor) 500 mg FTUBE DAILY [facility] Last Admin: 07/02/16 08:47 Dose: 500 mg Sodium Chloride (Saline Flush) 10 ml FLUSH ASDIRECTED PRN PRN Reason: Keep Vein Open Last Admin: 06/27/16 19:49 Dose: 10 ml Valproic Acid (Depakene Syrup) 125 mg FTUBE DAILY [facility] Last Admin: 07/02/16 08:47 Dose: 125 mg Valproic Acid (Depakene Syrup) 250 mg FTUBE BEDTIME [facility] Last Admin: 07/01/16 21:51 Dose: 250 mg Discontinued Medications Apixaban (Eliquis) 10 mg .XX BID [facility] Budesonide (Pulmicort) 0.5 mg NEB BIDRT [facility] Levofloxacin/Dextrose 500 mg/ (Premix) 100 mls @ 100 mls/hr IV ONETIME ONE Stop: 06/27/16 20:10 Last Admin: 06/27/16 19:48 Dose: 100 mls/hr Sodium Chloride (Normal Saline) 1,000 mls @ 999 mls/hr IV ONETIME ONE Stop: 06/27/16 20:20 Last Admin: 06/27/16 19:48 Dose: 999 mls/hr Sodium Chloride (Normal Saline) 1,000 mls @ 125 mls/hr IV ASDIRECTED [facility] Last Admin: 06/28/16 08:22 Dose: 125 mls/hr Piperacillin Sod/Tazobactam (Sod 4.5 gm/ Sodium Chloride) 100 mls @ 200 mls/hr IV ONETIME ONE Stop: 06/28/16 00:29 Last Admin: 06/28/16 00:23 Dose: 200 mls/hr Sodium Chloride (Normal Saline) 1,000 mls [facility]: 06/28/16 23:00 Last Admin: 06/28/16 17:54 Dose: 75 mls/hr Sodium Chloride (Normal Saline) 1,000 mls @ 50 mls/hr IV ASDIRECTED [facility] Last Admin: 06/30/16 05:07 Dose: 50 mls/hr Magnesium Sulfate 2 gm/ Premix 50 mls @ 25 mls/hr IV ONETIME ONE Stop: 06/29/16 11:52 Last Admin: 06/29/16 12:42 Dose: 25 mls/hr Dextrose/Sodium Chloride (Dextrose 5%-Normal Saline) 1,000 mls @ 50 [facility]ls[facility] Last Admin: 07/02/16 04:12 Dose: 50 mls/hr Magnesium Sulfate 2 gm/ Premix 50 mls @ 25 mls/hr IV ONETIME ONE Stop: 06/30/16 13:36 Last Admin: 06/30/16 12:07 Dose: 25 mls/hr Potassium Chloride 10 meq/ (Premix) 100 mls @ 100 mls/hr IV Q1H [facility] Stop: 06/30/16 15:44 Last Admin: 06/30/16 17:44 Dose: 100 mls/hr Magnesium Sulfate 2 gm/ Premix 50 mls @ 25 mls/hr IV ONETIME ONE Stop: 07/01/16 15:20 Last Admin: 04/12/17 13:47 Dose: 25 mls/hr Lansoprazole (Prevacid Solutab) 30 mg PO BIDAC [facility] Last Admin: 07/02/16 05:40 Dose: 30 mg Non-Formulary Medication (Omeprazole [Omeprazole]) 20 mg GTUBE BID [facility] Last Admin: 06/29/16 19:41 Dose: Not Given Potassium Chloride (Klor-Con M20) 40 meq PO BID [facility] Stop: 07/03/16 21:01 Risperidone (Risperidal) 1 mg FTUBE BEDTIME [facility] Risperidone (Risperidal) 0.25 mg GTUBE BEDTIME [facility] - Exam Quality Assessment: DVT prophylaxis General: alert, cooperative (but with ruminations and constant talking during my exam and attempts at interview today; difficult if not impossible to redirect ), no acute distress HEENT: Pupils equal, Pupils reactive, EOMI, Mucous membr. moist/pink Neck: supple Lungs: Decreased breath sounds, Rhonchi (bases), Wheezing (scattered) Cardiovascular: Regular Rate, Regular Rhythm, Other (distant) Abdomen: bowel sounds present, soft, no tenderness, no distension, other (Peg site without s/s of infection) (Female) Exam: Deferred Back Exam: normal inspection Extremities: no edema, no calf tenderness Peripheral Pulses: 1+: dorsalis pedis (L), dorsalis pedis (R) Skin: warm, dry Neurological: other (developmental delay; blindness) Psy/Mental Status: other (ruminations and constant talking, nonsensensical during my exam; impossible to redirect this morning.) - Problem List & Annotations (1) Pulmonary embolism, bilateral SNOMED Code(s): 69754691, 40925624 Code(s): I26.99 - OTHER PULMONARY EMBOLISM WITHOUT ACUTE COR PULMONALE Status: Acute Priority: High Current Visit: Yes (2) Pneumonia SNOMED Code(s): 536284319 Code(s): J18.9 - PNEUMONIA, UNSPECIFIED ORGANISM Status: Acute Priority: High Current Visit: Yes Qualifiers: Pneumonia type: aspiration pneumonia Laterality: bilateral Lung location : lower lobe of lung (3) Acute on chronic respiratory failure with hypoxemia SNOMED Code(s): 21516893494274903 Code(s): J96.21 - ACUTE AND CHRONIC RESPIRATORY FAILURE WITH HYPOXIA Status : Acute Priority: High Current Visit: Yes (4) Delayed social and emotional development SNOMED Code(s): 507679924 Code(s): F88 - OTHER DISORDERS OF PSYCHOLOGICAL DEVELOPMENT Status: Chronic Priority: Medium Current Visit: No (5) Blind in both eyes SNOMED Code(s): 08595115, 316670378 Code(s): H54.0 - BLINDNESS, BOTH EYES Status: Chronic Priority: Medium Current Visit: No (6) Clostridium difficile infection SNOMED Code(s): 796250343 Code(s): B96.89 - OTH BACTERIAL AGENTS THE CAUSE OF DISEASES CLASSD ELSWHR Status: Acute Priority: High Current Visit: Yes (7) Hypomagnesemia SNOMED Code(s): 369333858 Code(s): E83.42 - HYPOMAGNESEMIA Status: Acute Priority: High Current Visit: Yes (8) Hypokalemia SNOMED Code(s): 50704872 Code(s): E87.6 - HYPOKALEMIA Status: Acute Priority: High Current Visit : Yes - Problem List Review Problem List Initiated/Reviewed/Updated: Yes - My Orders Last 24 Hours: My Active Orders 07/02/16 06:42 Communication Order [RC] ASDIRECTED 07/02/16 07:24 Consult to Physician [CONS] Urgent 07/02/16 07:25 Notify Provider Consults [RC] ASDIRECTED - Plan Plan:: Impression: Aspiration risk, titrating TF and adding motility agent S/P PEG with residual HH Asp PNA on IV antiobitotics per HCAP rec Bilateral PEs on reduced Eliquis after appropriate load. Electrolyte abnormalities Improved WBCs with ATBs MRSA negative screen Antipsychotics med therefore, will not use Reglan C Diff on Flagyl Plan: Consult Psychiatry, Dr. Chaves for ruminations/hallucinations- assistance with medication adjustments Continue IV ATBs Will continue Zithromax as motility agent, reglan has a DI with Resperidone Home meds Adjust type of TF as well as quantity to reduce risk of Aspiration PNA as well as meet caloric needs; also started protein supplement yesterday, tolerating well. Will slowly increase feedings to toleration per dietary discretion. DVT/GI prophylaxis Tentative plan will be for discharge 07/06/16 to adjust feedings, psych meds, complete IV abx course. LOS>96 HOURS, SLOW RESPONSE <Savanna Yoo - Last Filed: 07/02/16 15:43> - Patient Data Vitals - most recent: Last Vital Signs Temp 36.7 C 07/02/16 14:49 Pulse 103 H 07/02/16 14:49 Resp 16 07/02/16 14:49 BP 116/60 07/02/16 14:49 Pulse Ox 98 07/02/16 14:49 I&O - last 24 hours: Intake & Output 07/02/16 07/02/16 07/02/16 06:59 14:59 22:59 Intake Total 1334 150 Output Total 700 50 Balance 634 -50 150 Lab Results last 24 hrs: Laboratory Results - last 24 hr 07/01/16 07/01/16 07/02/16 Range/Units 17:05 22:03 06:31 Sodium (136-145) mEq/L Potassium (3.5-5.1) mEq/L Chloride (98-107) mEq/L Carbon Dioxide (21-32) mEq/L Anion Gap (5-15) BUN (7-18) mg/dL Creatinine (0.55-1.02) mg/dL Est Cr Clr Drug Dosing mL/min Estimated GFR (MDRD) (>60) mL/min BUN/Creatinine Ratio (14-18) Glucose (74-106) mg/dL POC Glucose 143 H 108 H 109 H (70-105) mg/dL Calcium (8.5-10.1) mg/dL Magnesium (1.8-2.4) mg/dl 07/02/16 07/02/16 Range/Units 08:15 11:01 Sodium 140 (136-145) mEq/L Potassium 3.2 L (3.5-5.1) mEq/L Chloride 101 (98-107) mEq/L Carbon Dioxide 32 (21-32) mEq/L Anion Gap 10.2 (5-15) BUN 2 L (7-18) mg/dL Creatinine 0.6 (0.55-1.02) mg/dL Est Cr Clr Drug Dosing 97.94 mL/min Estimated GFR (MDRD) > 60 (>60) mL/min BUN/Creatinine Ratio 3.3 L (14-18) Glucose 109 H (74-106) mg/dL POC Glucose 117 H (70-105) mg/dL Calcium 9.0 (8.5-10.1) mg/dL Magnesium 1.7 L (1.8-2.4) mg/dl Med Orders - Current: Current Medications Albuterol (Proventil Neb Soln) 2.5 mg NEB QIDRT PRN PRN Reason: Shortness of Breath Apixaban (Eliquis) 5 mg .XX BID [facility] Last Admin: 07/02/16 08:47 Dose: 5 mg Azithromycin (Zithromax 200 Mg/5 Ml Susp) 500 mg FTUBE DAILY@1500 [facility] Stop: 07/02/16 23:59 Last Admin: 07/02/16 14:28 Dose: 12.5 ml Budesonide (Pulmicort) 0.5 mg NEB BID [facility] Last Admin: 07/02/16 09:29 Dose: 0.5 mg Dextrose/Water (Dextrose 50% In Water) 50 ml IVPUSH ASDIRECTED PRN PRN Reason: hypoglycemia as below Levofloxacin/Dextrose 750 mg/ (Premix) 150 mls @ 100 mls/hr IV Q24H [facility] Last Admin: 07/01/16 21:50 Dose: 100 mls/hr Piperacillin Sod/Tazobactam (Sod 4.5 gm/ Sodium Chloride) 100 mls @ 25 mls/hr IV Q8H [facility] Last Admin: 07/02/16 08:49 Dose: 25 mls/hr Ipratropium [place] (Atrovent) 0.5 mg NEB Q8HRRT PRN PRN Reason: Shortness of Breath Lansoprazole (Prevacid Solutab) 30 mg .XX BIDAC [facility] Last Admin: 07/02/16 15:03 Dose: Not Given Metronidazole (Flagyl) 500 mg GTUBE Q8H [facility] Last Admin: 07/02/16 14:28 Dose: 500 mg Ondansetron HCl (Zofran) 4 mg IVPUSH Q6H PRN PRN Reason: Nause/vomiting Last Admin: 07/02/16 13:28 Dose: 4 mg Potassium Chloride (Potassium Chloride) 40 meq PEGTUBE BID [facility] Stop: 07/03/16 21:01 Last Admin: 07/02/16 12:13 Dose: 40 meq Psyllium Husk (Metamucil Sugar Free) 1 packet GTUBE DAILY [facility] Last Admin: 07/02/16 08:47 Dose: 1 packet Risperidone (Risperidal) 0.25 mg GTUBE BEDTIME [facility] Last Admin: 07/01/16 21:51 Dose: 0.25 mg Saccharomyces Boulardii (Florastor) 500 mg FTUBE DAILY [facility] Last Admin: 07/02/16 08:47 Dose: 500 mg Sodium Chloride (Saline Flush) 10 ml FLUSH ASDIRECTED PRN PRN Reason: Keep Vein Open Last Admin: 06/27/16 19:49 Dose: 10 ml Valproic Acid (Depakene Syrup) 125 mg FTUBE DAILY [facility] Last Admin: 07/02/16 08:47 Dose: 125 mg Valproic Acid (Depakene Syrup) 250 mg FTUBE BEDTIME [facility] Last Admin: 07/01/16 21:51 Dose: 250 mg Discontinued Medications Apixaban (Eliquis) 10 mg .XX BID [facility] Budesonide (Pulmicort) 0.5 mg NEB BIDRT [facility] Levofloxacin/Dextrose 500 mg/ (Premix) 100 mls @ 100 mls/hr IV ONETIME ONE Stop: 06/27/16 20:10 Last Admin: 06/27/16 19:48 Dose: 100 mls/hr Sodium Chloride (Normal Saline) 1,000 mls @ 999 mls/hr IV ONETIME ONE Stop: 06/27/16 20:20 Last Admin: 06/27/16 19:48 Dose: 999 mls/hr Sodium Chloride (Normal Saline) 1,000 mls @ 125 mls/hr IV ASDIRECTED [facility] Last Admin: 06/28/16 08:22 Dose: 125 mls/hr Piperacillin Sod/Tazobactam (Sod 4.5 gm/ Sodium Chloride) 100 mls @ 200 mls/hr IV ONETIME ONE Stop: 06/28/16 00:29 Last Admin: 06/28/16 00:23 Dose: 200 mls/hr Sodium Chloride (Normal Saline) 1,000 mls @ 75 mls/hr IV ASDIRECTED [facility] Stop: 06/28/16 23:00 Last Admin: 06/28/16 17:54 Dose: 75 mls/hr Sodium Chloride (Normal Saline) 1,000 mls @ 50 mls/hr IV ASDIRECTED [facility] Last Admin: 06/30/16 05:07 Dose: 50 mls/hr Magnesium Sulfate 2 gm/ Premix 50 mls @ 25 mls/hr IV ONETIME ONE Stop: 06/29/16 11:52 Last Admin: 06/29/16 12:42 Dose: 25 mls/hr Dextrose/Sodium Chloride (Dextrose 5%-Normal Saline) 1,000 mls @ 50 mls/hr IV ASDIRECTED [facility] Last Admin: 07/02/16 04:12 Dose: 50 mls/hr Magnesium Sulfate 2 gm/ Premix 50 mls @ 25 mls/hr IV ONETIME ONE Stop: 06/30/16 13:36 Last Admin: 06/30/16 12:07 Dose: 25 mls/hr Potassium Chloride 10 meq/ (Premix) 100 mls @ 100 mls/hr IV Q1H [facility] Stop: 06/30/16 15:44 Last Admin: 06/30/16 17:44 Dose: 100 mls/hr Magnesium Sulfate 2 gm/ Premix 50 mls @ 25 mls/hr IV ONETIME ONE Stop: 07/01/16 15:20 Last Admin: 07/01/16 13:47 Dose: 25 mls/hr Magnesium Sulfate 2 gm/ Premix 50 mls @ 25 mls/hr IV ONETIME ONE Stop: 07/02/16 12:36 Last Admin: 07/02/16 12:13 Dose: 25 mls/hr Lansoprazole (Prevacid Solutab) 30 mg PO BIDAC [facility] Last Admin: 07/02/16 05:40 Dose: 30 mg Non-Formulary Medication (Omeprazole [Omeprazole]) 20 mg GTUBE BID [facility] Last Admin: 06/29/16 19:41 Dose: Not Given Potassium Chloride (Klor-Con M20) 40 meq PO BID [facility] Stop: 07/03/16 21:01 Last Admin: 07/02/16 12:33 Dose: Not Given Risperidone (Risperidal) 1 mg FTUBE BEDTIME [facility] Risperidone (Risperidal) 0.25 mg GTUBE BEDTIME [facility] - My Orders Last 24 Hours: My Active Orders 07/02/16 11:49 Lansoprazole [Prevacid Solutab] 30 mg .XX BIDAC 07/02/16 12:00 Potassium Chloride 40 meq PEGTUBE BID 07/02/16 Dinner Tube Feeding Adult Diet [DIET] - Plan Plan:: This afternoon, an episode of bile like vomitus; will however, proceed as planned with TF; DC expected on 07/06/16.
[2016-07-02] MEDS: Ondansetron 4 MG/2 ML SDV IVPUSH PRN (13:28)
[2016-07-02] MEDS: Azithromycin 200 MG/5 ML Susp 30 ML Bottle FTUBE SCH (14:28)
[2016-07-02] MEDS: Levofloxacin/Dextrose 5%-Water 750 MG in Premix Bag 1 BAG IV SCH (21:22)
[2016-07-02] MEDS: risperiDONE 0.25 MG Tab GTUBE SCH (21:23)
[2016-07-03] MEDS: Piperacillin/Tazobactam 4.5 GM in Sodium Chloride 0.9% 100 ML IV SCH ×4 (01:14→23:51)
[2016-07-03] MEDS: metroNIDAZOLE 500 MG Tab GTUBE SCH ×3 (06:16→21:44)
[2016-07-03] MEDS: Lansoprazole 30 MG Orally Disintegrating Tab.CR SCH ×2 (06:16→18:38)
--- NOTE | 2016-07-03 08:13 | PCM.PN ---
<Talia Jennings M - Last Filed: 07/03/16 10:09> - General Info Date of Service: 07/03/16 Admission Dx/Problem (Free Text): Admission Diagnosis/Problem Admission Diagnosis/Problem Pneumonia Laura is seen this morning resting comfortably. She denies c/o pain/ discomfort. She is tolerating feedings ok. Did have one episode of emesis yesterday afternoon. Feedings have been changed to Osmolite 1.2 then to 1.5. Dietitian is slowly increasing feedings as tolerated. She is having increasing ruminations and nursing reports was up most of the night talking again . Dr. Chaves has been consulted and plans to visit with her this morning. Functional Status: Reports: pain controlled, tolerating diet (NPO but tolerating feedings through Peg tube), ambulating, urinating. Denies: new symptoms - Review of Systems General: Reports: No Symptoms HEENT: Reports: no symptoms Pulmonary: Reports: cough (minimal). Denies: shortness of breath, pleuritic chest pain Cardiovascular: Reports: No Symptoms Gastrointestinal: Reports: No symptoms. Denies: Abdominal pain, Diarrhea, Nausea, Vomiting (no further vomiting since yesterday afternoon) Genitourinary: Reports: no symptoms Musculoskeletal: Reports: no symptoms Skin: Reports: no symptoms Neurological: Reports: No Symptoms Psychiatric: Reports: confusion, other (ruminations) - Patient Data Vitals - most recent: Last Vital Signs Temp 98.1 F 07/03/16 03:09 Pulse 90 07/03/16 03:09 Resp 20 07/03/16 03:09 BP 132/61 07/03/16 03:09 Pulse Ox 96 07/03/16 03:09 Weight - most recent: 54.295 kg I&O - last 24 hours: Intake & Output 07/02/16 07/03/16 07/03/16 22:59 06:59 14:59 Intake Total 490 970 Output Total 800 650 Balance -310 320 Lab Results last 24 hrs: Laboratory Results - last 24 hr 07/02/16 07/02/16 07/02/16 Range/Units 08:15 11:01 16:57 Sodium 140 (136-145) mEq/L Potassium 3.2 L (3.5-5.1) mEq/L Chloride 101 (98-107) mEq/L Carbon Dioxide 32 (21-32) mEq/L Anion Gap 10.2 (5-15) BUN 2 L (7-18) mg/dL Creatinine 0.6 (0.55-1.02) mg/dL Est Cr Clr Drug Dosing 97.94 mL/min Estimated GFR (MDRD) > 60 (>60) mL/min BUN/Creatinine Ratio 3.3 L (14-18) Glucose 109 H (74-106) mg/dL POC Glucose 117 H 96 (70-105) mg/dL Calcium 9.0 (8.5-10.1) mg/dL Magnesium 1.7 L (1.8-2.4) mg/dl 07/02/16 07/03/16 Range/Units 21:04 06:12 Sodium (136-145) mEq/L Potassium (3.5-5.1) mEq/L Chloride (98-107) mEq/L Carbon Dioxide (21-32) mEq/L Anion Gap (5-15) BUN (7-18) mg/dL Creatinine (0.55-1.02) mg/dL Est Cr Clr Drug Dosing mL/min Estimated GFR (MDRD) (>60) mL/min BUN/Creatinine Ratio (14-18) Glucose (74-106) mg/dL POC Glucose 71 140 H (70-105) mg/dL Calcium (8.5-10.1) mg/dL Magnesium (1.8-2.4) mg/dl Med Orders - Current: Current Medications Albuterol (Proventil Neb Soln) 2.5 mg NEB QIDRT PRN PRN Reason: Shortness of Breath Last Admin: 07/02/16 20:39 Dose: 2.5 mg Apixaban (Eliquis) 5 mg .XX BID [facility] Last Admin: 07/02/16 21:23 Dose: 5 mg Budesonide (Pulmicort) 0.5 mg NEB BID [facility] Last Admin: 07/02/16 20:39 Dose: 0.5 mg Dextrose/Water (Dextrose 50% In Water) 50 ml IVPUSH ASDIRECTED PRN PRN Reason: hypoglycemia as below Levofloxacin/Dextrose 750 mg/ (Premix) 150 mls @ 100 mls/hr IV Q24H [facility] Last Admin: 07/02/16 21:22 Dose: 100 mls/hr Piperacillin Sod/Tazobactam (Sod 4.5 gm/ Sodium Chloride) 100 mls @ 25 mls/hr IV Q8H [facility] Last Admin: 07/03/16 01:14 Dose: 25 mls/hr Ipratropium [place] (Atrovent) 0.5 mg NEB Q8HRRT PRN PRN Reason: Shortness of Breath Lansoprazole (Prevacid Solutab) 30 mg .XX BIDAC [facility] Last Admin: 07/03/16 06:16 Dose: 30 mg Metronidazole (Flagyl) 500 mg GTUBE Q8H [facility] Last Admin: 07/03/16 06:16 Dose: 500 mg Multivitamins/Folic Acid/Vitamin C (Centrum) 15 ml GTUBE DAILY@2000 [facility] Ondansetron HCl (Zofran) 4 mg IVPUSH Q6H PRN PRN Reason: Nause/vomiting Last Admin: 07/02/16 13:28 Dose: 4 mg Potassium Chloride (Potassium Chloride) 40 meq PEGTUBE BID [facility] Stop: 07/03/16 21:01 Last Admin: 07/02/16 21:22 Dose: 40 meq Psyllium Husk (Metamucil Sugar Free) 1 packet GTUBE DAILY [facility] Last Admin: 07/02/16 08:47 Dose: 1 packet Risperidone (Risperidal) 0.25 mg GTUBE BEDTIME [facility] Last Admin: 07/02/16 21:23 Dose: 0.25 mg Saccharomyces Boulardii (Florastor) 500 mg FTUBE DAILY [facility] Last Admin: 07/02/16 08:47 Dose: 500 mg Sodium Chloride (Saline Flush) 10 ml FLUSH ASDIRECTED PRN PRN Reason: Keep Vein Open Last Admin: 06/27/16 19:49 Dose: 10 ml Valproic Acid (Depakene Syrup) 125 mg FTUBE DAILY [facility] Last Admin: 07/02/16 08:47 Dose: 125 mg Valproic Acid (Depakene Syrup) 250 mg FTUBE BEDTIME [facility] Last Admin: 07/02/16 21:22 Dose: 250 mg Discontinued Medications Apixaban (Eliquis) 10 mg .XX BID [facility] Azithromycin (Zithromax 200 Mg/5 Ml Susp) 500 mg FTUBE DAILY@1500 [facility] Stop: 07/02/16 23:59 Last Admin: 07/02/16 14:28 Dose: 12.5 ml Budesonide (Pulmicort) 0.5 mg NEB BIDRT [facility] Levofloxacin/Dextrose 500 mg/ (Premix) 100 mls @ 100 mls/hr IV ONETIME ONE Stop: 06/27/16 20:10 Last Admin: 06/27/16 19:48 Dose: 100 mls/hr Sodium Chloride (Normal Saline) 1,000 mls @ 999 mls/hr IV ONETIME ONE Stop: 06/27/16 20:20 Last Admin: 06/27/16 19:48 Dose: 999 mls/hr Sodium Chloride (Normal Saline) 1,000 mls @ 125 mls/hr IV ASDIRECTED [facility] Last Admin: 06/28/16 08:22 Dose: 125 mls/hr Piperacillin Sod/Tazobactam (Sod 4.5 gm/ Sodium Chloride) 100 mls @ 200 mls/hr IV ONETIME ONE Stop: 06/28/16 00:29 Last Admin: 06/28/16 00:23 Dose: 200 mls/hr Sodium Chloride (Normal Saline) 1,000 mls @ 75 mls/hr IV ASDIRECTED [facility] Stop: 06/28/16 23:00 Last Admin: 06/28/16 17:54 Dose: 75 mls/hr Sodium Chloride (Normal Saline) 1,000 mls @ 50 mls/hr IV ASDIRECTED [facility] Last Admin: 06/30/16 05:07 Dose: 50 mls/hr Magnesium Sulfate 2 gm/ Premix 50 mls @ 25 mls/hr IV ONETIME ONE Stop: 06/29/16 11:52 Last Admin: 06/29/16 12:42 Dose: 25 mls/hr Dextrose/Sodium Chloride (Dextrose 5%-Normal Saline) 1,000 mls @ 50 mls/hr IV ASDIRECTED [facility] Last Admin: 07/02/16 04:12 Dose: 50 mls/hr Magnesium Sulfate 2 gm/ Premix 50 mls @ 25 mls/hr IV ONETIME ONE Stop: 06/30/16 13:36 Last Admin: 06/30/16 12:07 Dose: 25 mls/hr Potassium Chloride 10 meq/ (Premix) 100 mls @ 100 mls/hr IV Q1H [facility] Stop: 06/30/16 15:44 Last Admin: 06/30/16 17:44 Dose: 100 mls/hr Magnesium Sulfate 2 gm/ Premix 50 mls @ 25 mls/hr IV ONETIME ONE Stop: 07/01/16 15:20 Last Admin: 07/01/16 13:47 Dose: 25 mls/hr Magnesium Sulfate 2 gm/ Premix 50 mls @ 25 mls/hr IV ONETIME ONE Stop: 07/02/16 12:36 Last Admin: 07/02/16 12:13 Dose: 25 mls/hr Lansoprazole (Prevacid Solutab) 30 mg PO BIDAC [facility] Last Admin: 07/02/16 05:40 Dose: 30 mg Non-Formulary Medication (Omeprazole [Omeprazole]) 20 mg GTUBE BID [facility] Last Admin: 06/29/16 19:41 Dose: Not Given Potassium Chloride (Klor-Con M20) 40 meq PO BID [facility] Stop: 07/03/16 21:01 Last Admin: 07/02/16 12:33 Dose: Not Given Risperidone (Risperidal) 1 mg FTUBE BEDTIME [facility] Risperidone (Risperidal) 0.25 mg GTUBE BEDTIME [facility] - Exam Quality Assessment: DVT prophylaxis General: alert, cooperative, no acute distress, other (talking nonsensical and with ruminations) HEENT: Pupils equal, Pupils reactive, EOMI, Mucous membr. moist/pink Neck: supple Lungs: Clear to auscultation, Normal respiratory effort, Decreased breath sounds (mid to lower lobes) Cardiovascular: Regular Rate, Regular Rhythm Abdomen: bowel sounds present, soft, no tenderness, no distension, other (peg site without s/s of infection) (Female) Exam: Deferred Back Exam: normal inspection Extremities: no edema, no calf tenderness Peripheral Pulses: 1+: dorsalis pedis (L), dorsalis pedis (R) Skin: warm, dry Neurological: no new focal deficit Psy/Mental Status: alert, other (ruminations and nonsensical talk) - Problem List & Annotations (1) Pneumonia SNOMED Code(s): 643516272 Code(s): J18.9 - PNEUMONIA, UNSPECIFIED ORGANISM Status: Acute Priority: High Current Visit: Yes Qualifiers: Pneumonia type: aspiration pneumonia Laterality: bilateral Lung location : lower lobe of lung Annotation/Comment:: recurrent (2) Pulmonary embolism, bilateral SNOMED Code(s): 45626289, 22783753 Code(s): I26.99 - OTHER PULMONARY EMBOLISM WITHOUT ACUTE COR PULMONALE Status: Acute Priority: High Current Visit: Yes (3) Acute on chronic respiratory failure with hypoxemia SNOMED Code(s): 70178254045325715 Code(s): J96.21 - ACUTE AND CHRONIC RESPIRATORY FAILURE WITH HYPOXIA Status : Acute Priority: High Current Visit: Yes (4) Delayed social and emotional development SNOMED Code(s): 745457573 Code(s): F88 - OTHER DISORDERS OF PSYCHOLOGICAL DEVELOPMENT Status: Chronic Priority: Medium Current Visit: No (5) Blind in both eyes SNOMED Code(s): 05957425, 262804850 Code(s): H54.0 - BLINDNESS, BOTH EYES Status: Chronic Priority: Medium Current Visit: No (6) Clostridium difficile infection SNOMED Code(s): 268485066 Code(s): B96.89 - OTH BACTERIAL AGENTS THE CAUSE OF DISEASES CLASSD ELSWHR Status: Acute Priority: High Current Visit: Yes (7) Hypomagnesemia SNOMED Code(s): 871646519 Code(s): E83.42 - HYPOMAGNESEMIA Status: Acute Priority: High Current Visit: Yes (8) Hypokalemia SNOMED Code(s): 46376430 Code(s): E87.6 - HYPOKALEMIA Status: Acute Priority: High Current Visit : Yes (9) Hiatal hernia with GERD SNOMED Code(s): 291454886 Code(s): K21.9 - GASTRO-ESOPHAGEAL REFLUX DISEASE WITHOUT ESOPHAGITIS; K44.9 - DIAPHRAGMATIC HERNIA WITHOUT OBSTRUCTION OR GANGRENE Status: Acute Priority: High Current Visit: Yes - Problem List Review Problem List Initiated/Reviewed/Updated: Yes - My Orders Last 24 Hours: My Active Orders 07/02/16 07:24 Consult to Physician [CONS] Urgent 07/02/16 07:25 Notify Provider Consults [RC] ASDIRECTED 07/03/16 07:09 BASIC METABOLIC PANEL,BMP [CHEM] Routine CBC WITH AUTO DIFF [HEME] Routine 07/03/16 07:11 Chest 2V [CR] Routine 07/03/16 20:00 Multivitamins with Iron/Min [Centrum] 15 ml GTUBE DAILY@199907/04/16 05:11 BASIC METABOLIC PANEL,BMP [CHEM] DAILY CBC WITH AUTO DIFF [HEME] AM 07/05/16 05:11 BASIC METABOLIC PANEL,BMP [CHEM] DAILY CBC WITH AUTO DIFF [HEME] AM 07/06/16 05:11 BASIC METABOLIC PANEL,BMP [CHEM] DAILY CBC WITH AUTO DIFF [HEME] AM 07/06/16 07:00 Chest 2V [CR] Routine - Plan Plan:: Impression: Aspiration risk, titrating TF and adding motility agent S/P PEG with residual HH Asp PNA on IV antiobitotics per HCAP rec Bilateral PEs on reduced Eliquis after appropriate load. Electrolyte abnormalities Improved WBCs with ATBs MRSA negative screen Antipsychotics med therefore, will not use Reglan C Diff on Flagyl Plan: Consult Psychiatry, Dr. Chaves for ruminations/hallucinations- assistance with medication adjustments Continue IV ATBs Will continue Zithromax as motility agent, reglan has a DI with Resperidone Home meds Adjust type of TF as well as quantity to reduce risk of Aspiration PNA as well as meet caloric needs; also started protein supplement yesterday, tolerating well. Will slowly increase feedings to toleration per dietitian discretion/recommendations; TF adjustments to be made per dietitan or provider only. DVT/GI prophylaxis Tentative plan will be for discharge 07/06/16 to adjust feedings, psych meds, complete IV abx course. LOS>96 HOURS, SLOW RESPONSE <Savanna Yoo - Last Filed: 07/03/16 15:25> - Patient Data Vitals - most recent: Last Vital Signs Temp 36.9 C 07/03/16 09:30 Pulse 96 07/03/16 09:32 Resp 20 07/03/16 09:30 BP 127/74 07/03/16 09:30 Pulse Ox 80 L 07/03/16 12:45 I&O - last 24 hours: Intake & Output 07/03/16 07/03/16 07/03/16 06:59 14:59 22:59 Intake Total 970 Output Total 650 Balance 320 Lab Results last 24 hrs: Laboratory Results - last 24 hr 07/02/16 07/02/16 07/03/16 Range/Units 16:57 21:04 06:12 WBC (3.98-10.04) K/mm3 RBC (3.98-5.22) M/mm3 Hgb (11.2-15.7) gm/L Hct (34.1-44.9) % MCV (79.4-94.8) fl MCH (25.6-32.2) pg MCHC (32.2-35.5) g/dl RDW Std Deviation (36.4-46.3) fL Plt Count (182-369) K/mm3 MPV (9.4-12.3) fl Neut % (Auto) (34.0-71.1) % Lymph % (Auto) (19.3-51.7) % [place] % (Auto) (4.7-12.5) % Eos % (Auto) (0.7-5.8) Baso % (Auto) (0.1-1.2) % Neut # (Auto) (1.56-6.13) K/mm3 Lymph # (Auto) (1.18-3.74) K/mm3 [place] # (Auto) (0.24-0.36) K/mm3 Eos # (Auto) (0.04-0.36) K/mm3 Baso # (Auto) (0.01-0.08) K/mm3 Manual Slide Review POC Glucose 96 71 140 H (70-105) mg/dL 07/03/16 07/03/16 Range/Units 08:05 11:37 WBC 4.60 (3.98-10.04) K/mm3 RBC 4.15 (3.98-5.22) M/mm3 Hgb 12.6 (11.2-15.7) gm/L Hct 39.2 (34.1-44.9) % MCV 94.5 (79.4-94.8) fl MCH 30.4 (25.6-32.2) pg MCHC 32.1 L (32.2-35.5) g/dl RDW Std Deviation 49.5 H (36.4-46.3) fL Plt Count 178 L (182-369) K/mm3 MPV 11.0 (9.4-12.3) fl Neut % (Auto) 44.8 (34.0-71.1) % Lymph % (Auto) 31.5 (19.3-51.7) % [place] % (Auto) 20.9 H (4.7-12.5) % Eos % (Auto) 1.5 (0.7-5.8) Baso % (Auto) 0.2 (0.1-1.2) % Neut # (Auto) 2.06 (1.56-6.13) K/mm3 Lymph # (Auto) 1.45 (1.18-3.74) K/mm3 [place] # (Auto) 0.96 H (0.24-0.36) K/mm3 Eos # (Auto) 0.07 (0.04-0.36) K/mm3 Baso # (Auto) 0.01 (0.01-0.08) K/mm3 Manual Slide Review Normal smear POC Glucose 100 (70-105) mg/dL Med Orders - Current: Current Medications Albuterol (Proventil Neb Soln) 2.5 mg NEB QIDRT PRN PRN Reason: Shortness of Breath Last Admin: 07/02/16 20:39 Dose: 2.5 mg Apixaban (Eliquis) 5 mg .XX Q12H [facility] Azithromycin (Zithromax 200 Mg/5 Ml Susp) 500 mg FTUBE DAILY@1500 [facility] Budesonide (Pulmicort) 0.5 mg NEB BID [facility] Last Admin: 07/03/16 08:52 Dose: 0.5 mg Dextrose/Water (Dextrose 50% In Water) 50 ml IVPUSH ASDIRECTED PRN PRN Reason: hypoglycemia as below Levofloxacin/Dextrose 750 mg/ (Premix) 150 mls @ 100 mls/hr IV Q24H [facility] Last Admin: 07/02/16 21:22 Dose: 100 mls/hr Piperacillin Sod/Tazobactam (Sod 4.5 gm/ Sodium Chloride) 100 mls @ 25 mls/hr IV Q8H [facility] Last Admin: 07/03/16 10:42 Dose: 25 mls/hr Ipratropium [place] (Atrovent) 0.5 mg NEB Q8HRRT PRN PRN Reason: Shortness of Breath Lansoprazole (Prevacid Solutab) 30 mg .XX Q12H [facility] Metronidazole (Flagyl) 500 mg GTUBE Q8H [facility] Last Admin: 07/03/16 06:16 Dose: 500 mg Multivitamins/Folic Acid/Vitamin C (Centrum) 15 ml GTUBE DAILY@1900 [facility] Ondansetron HCl (Zofran) 4 mg IVPUSH Q6H PRN PRN Reason: Nause/vomiting Last Admin: 07/02/16 13:28 Dose: 4 mg Potassium Chloride (Potassium Chloride) 40 meq PEGTUBE BID [facility] Stop: 07/03/16 21:01 Last Admin: 07/03/16 10:49 Dose: 40 meq Psyllium Husk (Metamucil Sugar Free) 1 packet GTUBE DAILY [facility] Last Admin: 07/03/16 10:49 Dose: 1 packet Risperidone (Risperidal) 1 mg GTUBE DAILY@1900 [facility] Risperidone (Risperidal) 0.5 mg GTUBE DAILY@0700 [facility] Saccharomyces Boulardii (Florastor) 500 mg FTUBE DAILY [facility] Last Admin: 07/03/16 10:49 Dose: 500 mg Sodium Chloride (Saline Flush) 10 ml FLUSH ASDIRECTED PRN PRN Reason: Keep Vein Open Last Admin: 06/27/16 19:49 Dose: 10 ml Valproic Acid (Depakene Syrup) 125 mg FTUBE DAILY@0700 [facility] Valproic Acid (Depakene Syrup) 250 mg FTUBE DAILY@1900 [facility] Discontinued Medications Apixaban (Eliquis) 10 mg .XX BID [facility] Apixaban (Eliquis) 5 mg .XX BID [facility] Last Admin: 07/03/16 10:49 Dose: 5 mg Azithromycin (Zithromax 200 Mg/5 Ml Susp) 500 mg FTUBE DAILY@1500 [facility] Stop: 07/02/16 23:59 Last Admin: 07/02/16 14:28 Dose: 12.5 ml Budesonide (Pulmicort) 0.5 mg NEB BIDRT [facility] Levofloxacin/Dextrose 500 mg/ (Premix) 100 mls @ 100 mls/hr IV ONETIME ONE Stop: 06/27/16 20:10 Last Admin: 06/27/16 19:48 Dose: 100 mls/hr Sodium Chloride (Normal Saline) 1,000 mls @ 999 mls/hr IV ONETIME ONE Stop: 06/27/16 20:20 Last Admin: 06/27/16 19:48 Dose: 999 mls/hr Sodium Chloride (Normal Saline) 1,000 mls @ 125 mls/hr IV ASDIRECTED [facility] Last Admin: 06/28/16 08:22 Dose: 125 mls/hr Piperacillin Sod/Tazobactam (Sod 4.5 gm/ Sodium Chloride) 100 mls @ 200 mls/hr IV ONETIME ONE Stop: 06/28/16 00:29 Last Admin: 06/28/16 00:23 Dose: 200 mls/hr Sodium Chloride (Normal Saline) 1,000 mls @ 75 mls/hr IV ASDIRECTED [facility] Stop: 06/28/16 23:00 Last Admin: 06/28/16 17:54 Dose: 75 mls/hr Sodium Chloride (Normal Saline) 1,000 mls @ 50 mls/hr IV ASDIRECTED [facility] Last Admin: 06/30/16 05:07 Dose: 50 mls/hr Magnesium Sulfate 2 gm/ Premix 50 mls @ 25 mls/hr IV ONETIME ONE Stop: 06/29/16 11:52 Last Admin: 06/29/16 12:42 Dose: 25 mls/hr Dextrose/Sodium Chloride (Dextrose 5%-Normal Saline) 1,000 mls @ 50 mls/hr IV ASDIRECTED [facility] Last Admin: 07/02/16 04:12 Dose: 50 mls/hr Magnesium Sulfate 2 gm/ Premix 50 mls @ 25 mls/hr IV ONETIME ONE Stop: 06/30/16 13:36 Last Admin: 06/30/16 12:07 Dose: 25 mls/hr Potassium Chloride 10 meq/ (Premix) 100 mls @ 100 mls/hr IV Q1H [facility] Stop: 06/30/16 15:44 Last Admin: 06/30/16 17:44 Dose: 100 mls/hr Magnesium Sulfate 2 gm/ Premix 50 mls @ 25 mls/hr IV ONETIME ONE Stop: 07/01/16 15:20 Last Admin: 07/01/16 13:47 Dose: 25 mls/hr Magnesium Sulfate 2 gm/ Premix 50 mls @ 25 mls/hr IV ONETIME ONE Stop: 07/02/16 12:36 Last Admin: 07/02/16 12:13 Dose: 25 mls/hr Lansoprazole (Prevacid Solutab) 30 mg PO BIDAC [facility] Last Admin: 07/02/16 05:40 Dose: 30 mg Lansoprazole (Prevacid Solutab) 30 mg .XX BIDAC [facility] Last Admin: 07/03/16 06:16 Dose: 30 mg Non-Formulary Medication (Omeprazole [Omeprazole]) 20 mg GTUBE BID [facility] Last Admin: 06/29/16 19:41 Dose: Not Given Potassium Chloride (Klor-Con M20) 40 meq PO BID [facility] Stop: 07/03/16 21:01 Last Admin: 07/02/16 12:33 Dose: Not Given Risperidone (Risperidal) 1 mg FTUBE BEDTIME [facility] Risperidone (Risperidal) 0.25 mg GTUBE BEDTIME [facility] Risperidone (Risperidal) 0.25 mg GTUBE BEDTIME [facility] Last Admin: 07/02/16 21:23 Dose: 0.25 mg Risperidone (Risperidal) 0.5 mg GTUBE QAM [facility] Risperidone (Risperidal) 0.5 mg GTUBE QAM [facility] Last Admin: 07/03/16 10:49 Dose: 0.5 mg Valproic Acid (Depakene Syrup) 125 mg FTUBE DAILY [facility] Last Admin: 07/03/16 10:50 Dose: 125 mg Valproic Acid (Depakene Syrup) 250 mg FTUBE BEDTIME [facility] Last Admin: 07/02/16 21:22 Dose: 250 mg - My Orders Last 24 Hours: My Active Orders 07/03/16 18:00 Lansoprazole [Prevacid Solutab] 30 mg .XX Q12H 07/03/16 19:00 Apixaban [Eliquis] 5 mg .XX Q12H Valproic Acid [Depakene Syrup] 250 mg FTUBE DAILY@1900 07/03/16 Dinner Tube Feeding Adult Diet [DIET] 07/04/16 07:00 Valproic Acid [Depakene Syrup] 125 mg FTUBE DAILY@0700 - Plan Plan:: Agree with above
[2016-07-03] MEDS: Budesonide 0.5 MG/2 ML Neb Susp NEB SCH ×2 (08:52→21:09)
[2016-07-03] MEDS ORDERED: risperiDONE 0.5 MG Tab GTUBE SCH (09:00)
--- NOTE | 2016-07-03 10:29 | CR ---
Chest: Two views of the chest were obtained. Comparison: Previous chest x-ray of 06/30/16. Improving density is seen within the right lung base. Other findings within the right and left lung bases are stable. Heart size and mediastinum are unchanged. Bony structures are also unchanged. Impression: 1. Slightly improved right lung base. 2. Chest x-ray is otherwise stable. Diagnostic code #3
[2016-07-03] MEDS: Potassium Chloride 10% 20 MEQ/15 ML Soln 30 ML UD Cup PEGTUBE SCH ×2 (10:49→21:44)
[2016-07-03] MEDS: Psyllium Husk Powder Sugar Free 3.4 GM Packet GTUBE SCH (10:49)
[2016-07-03] MEDS: Apixaban 5 MG Tab SCH ×2 (10:49→18:40)
[2016-07-03] MEDS: Saccharomyces Boulardii (Probiotic) 250 MG Cap FTUBE SCH (10:49)
[2016-07-03] MEDS: Valproic Acid 250 MG/5 ML Syrup ML (473 ML Bottle) FTUBE SCH ×2 (10:50→18:40)
[2016-07-03] MEDS: Azithromycin 200 MG/5 ML Susp 30 ML Bottle FTUBE SCH (15:20)
[2016-07-03] MEDS: Multivitamins with Minerals and Iron Liquid ML 240 ML Bottle GTUBE SCH (18:39)
[2016-07-03] MEDS: risperiDONE 1 MG Tab GTUBE SCH (18:40)
[2016-07-03] MEDS: Levofloxacin/Dextrose 5%-Water 750 MG in Premix Bag 1 BAG IV SCH (20:53)
[2016-07-04] MEDS: Lansoprazole 30 MG Orally Disintegrating Tab.CR SCH ×2 (06:35→19:43)
[2016-07-04] MEDS: Apixaban 5 MG Tab SCH ×2 (06:35→19:43)
[2016-07-04] MEDS: metroNIDAZOLE 500 MG Tab GTUBE SCH ×3 (06:36→21:14)
[2016-07-04] MEDS: Valproic Acid 250 MG/5 ML Syrup ML (473 ML Bottle) FTUBE SCH ×2 (06:44→19:43)
[2016-07-04] MEDS ORDERED: risperiDONE 0.5 MG Tab GTUBE SCH ×2 (07:00→08:00)
[2016-07-04] MEDS: Piperacillin/Tazobactam 4.5 GM in Sodium Chloride 0.9% 100 ML IV SCH ×2 (08:33→15:46)
[2016-07-04] MEDS: Saccharomyces Boulardii (Probiotic) 250 MG Cap FTUBE SCH (08:54)
[2016-07-04] MEDS: Psyllium Husk Powder Sugar Free 3.4 GM Packet GTUBE SCH (08:54)
[2016-07-04] MEDS: Budesonide 0.5 MG/2 ML Neb Susp NEB SCH ×2 (09:13→21:57)
--- NOTE | 2016-07-04 10:31 | PCM.PN ---
- General Info Date of Service: 07/04/16 Functional Status: Reports: tolerating diet, ambulating, urinating - Review of Systems General: Reports: No Symptoms HEENT: Reports: no symptoms Pulmonary: Reports: no symptoms Cardiovascular: Reports: No Symptoms Gastrointestinal: Reports: No symptoms Genitourinary: Reports: no symptoms Musculoskeletal: Reports: no symptoms Skin: Reports: no symptoms Neurological: Reports: No Symptoms Psychiatric: Reports: no symptoms - Patient Data Vitals - most recent: Last Vital Signs Temp 36.6 C 07/04/16 07:55 Pulse 109 H 07/04/16 07:55 Resp 22 H 07/04/16 07:55 BP 120/73 07/04/16 03:09 Pulse Ox 99 07/04/16 09:14 Weight - most recent: 55.021 kg I&O - last 24 hours: Intake & Output 07/03/16 07/04/16 07/04/16 22:59 06:59 14:59 Intake Total 670 350 Output Total 700 1650 Balance -30 -1300 Lab Results last 24 hrs: Laboratory Results - last 24 hr 07/03/16 07/03/16 07/03/16 Range/Units 11:37 16:43 21:21 WBC (3.98-10.04) K/mm3 RBC (3.98-5.22) M/mm3 Hgb (11.2-15.7) gm/L Hct (34.1-44.9) % MCV (79.4-94.8) fl MCH (25.6-32.2) pg MCHC (32.2-35.5) g/dl RDW Std Deviation (36.4-46.3) fL Plt Count (182-369) K/mm3 MPV (9.4-12.3) fl Neut % (Auto) (34.0-71.1) % Lymph % (Auto) (19.3-51.7) % [place] % (Auto) (4.7-12.5) % Eos % (Auto) (0.7-5.8) Baso % (Auto) (0.1-1.2) % Neut # (Auto) (1.56-6.13) K/mm3 Lymph # (Auto) (1.18-3.74) K/mm3 [place] # (Auto) (0.24-0.36) K/mm3 Eos # (Auto) (0.04-0.36) K/mm3 Baso # (Auto) (0.01-0.08) K/mm3 Manual Slide Review Sodium (136-145) mEq/L Potassium (3.5-5.1) mEq/L Chloride (98-107) mEq/L Carbon Dioxide (21-32) mEq/L Anion Gap (5-15) BUN (7-18) mg/dL Creatinine (0.55-1.02) mg/dL Est Cr Clr Drug Dosing mL/min Estimated GFR (MDRD) (>60) mL/min BUN/Creatinine Ratio (14-18) Glucose (74-106) mg/dL POC Glucose 100 113 H 137 H (70-105) mg/dL Calcium (8.5-10.1) mg/dL 07/04/16 07/04/16 07/04/16 Range/Units 05:19 05:19 07:15 WBC 4.45 (3.98-10.04) K/mm3 RBC 4.11 (3.98-5.22) M/mm3 Hgb 12.4 (11.2-15.7) gm/L Hct 39.5 (34.1-44.9) % MCV 96.1 H (79.4-94.8) fl MCH 30.2 (25.6-32.2) pg MCHC 31.4 L (32.2-35.5) g/dl RDW Std Deviation 51.0 H (36.4-46.3) fL Plt Count 192 (182-369) K/mm3 MPV 11.3 (9.4-12.3) fl Neut % (Auto) 42.1 (34.0-71.1) % Lymph % (Auto) 39.3 (19.3-51.7) % [place] % (Auto) 16.2 H (4.7-12.5) % Eos % (Auto) 2.2 (0.7-5.8) Baso % (Auto) 0.2 (0.1-1.2) % Neut # (Auto) 1.87 (1.56-6.13) K/mm3 Lymph # (Auto) 1.75 (1.18-3.74) K/mm3 [place] # (Auto) 0.72 H (0.24-0.36) K/mm3 Eos # (Auto) 0.10 (0.04-0.36) K/mm3 Baso # (Auto) 0.01 (0.01-0.08) K/mm3 Manual Slide Review Abnormal smear Sodium 140 (136-145) mEq/L Potassium 4.8 (3.5-5.1) mEq/L Chloride 104 (98-107) mEq/L Carbon Dioxide 32 (21-32) mEq/L Anion Gap 8.8 (5-15) BUN 4 L (7-18) mg/dL Creatinine 0.6 (0.55-1.02) mg/dL Est Cr Clr Drug Dosing 97.94 mL/min Estimated GFR (MDRD) > 60 (>60) mL/min BUN/Creatinine Ratio 6.7 L (14-18) Glucose 89 (74-106) mg/dL POC Glucose 112 H (70-105) mg/dL Calcium 9.6 (8.5-10.1) mg/dL Med Orders - Current: Current Medications Albuterol (Proventil Neb Soln) 2.5 mg NEB QIDRT PRN PRN Reason: Shortness of Breath Last Admin: 07/02/16 20:39 Dose: 2.5 mg Apixaban (Eliquis) 5 mg .XX Q12H [facility] Last Admin: 07/04/16 06:35 Dose: 5 mg Azithromycin (Zithromax 200 Mg/5 Ml Susp) 500 mg FTUBE DAILY@1500 [facility] Last Admin: 07/03/16 15:20 Dose: 12.5 ml Budesonide (Pulmicort) 0.5 mg NEB BID [facility] Last Admin: 07/04/16 09:13 Dose: 0.5 mg Dextrose/Water (Dextrose 50% In Water) 50 ml IVPUSH ASDIRECTED PRN PRN Reason: hypoglycemia as below Levofloxacin/Dextrose 750 mg/ (Premix) 150 mls @ 100 mls/hr IV Q24H [facility] Last Admin: 07/03/16 20:53 Dose: 100 mls/hr Piperacillin Sod/Tazobactam (Sod 4.5 gm/ Sodium Chloride) 100 mls @ 25 mls/hr IV Q8H [facility] Last Admin: 07/04/16 08:33 Dose: 25 mls/hr Ipratropium [place] (Atrovent) 0.5 mg NEB Q8HRRT PRN PRN Reason: Shortness of Breath Lansoprazole (Prevacid Solutab) 30 mg .XX Q12H [facility] Last Admin: 07/04/16 06:35 Dose: 30 mg Metronidazole (Flagyl) 500 mg GTUBE Q8H [facility] Last Admin: 07/04/16 06:36 Dose: 500 mg Multivitamins/Folic Acid/Vitamin C (Centrum) 15 ml GTUBE DAILY@1900 [facility] Last Admin: 07/03/16 18:39 Dose: 15 ml Ondansetron HCl (Zofran) 4 mg IVPUSH Q6H PRN PRN Reason: Nause/vomiting Last Admin: 07/02/16 13:28 Dose: 4 mg Psyllium Husk (Metamucil Sugar Free) 1 packet GTUBE DAILY [facility] Last Admin: 07/04/16 08:54 Dose: 1 packet Risperidone (Risperidal) 1 mg GTUBE DAILY@1900 [facility] Last Admin: 07/03/16 18:40 Dose: 1 mg Risperidone (Risperidal) 0.5 mg GTUBE DAILY@0700 [facility] Last Admin: 07/04/16 06:35 Dose: 0.5 mg Saccharomyces Boulardii (Florastor) 500 mg FTUBE DAILY [facility] Last Admin: 07/04/16 08:54 Dose: 500 mg Sodium Chloride (Saline Flush) 10 ml FLUSH ASDIRECTED PRN PRN Reason: Keep Vein Open Last Admin: 06/27/16 19:49 Dose: 10 ml Valproic Acid (Depakene Syrup) 125 mg FTUBE DAILY@0700 [facility] Last Admin: 07/04/16 06:44 Dose: 125 mg Valproic Acid (Depakene Syrup) 250 mg FTUBE DAILY@1900 [facility] Last Admin: 07/03/16 18:40 Dose: 250 mg Discontinued Medications Apixaban (Eliquis) 10 mg .XX BID [facility] Apixaban (Eliquis) 5 mg .XX BID [facility] Last Admin: 07/03/16 10:49 Dose: 5 mg Azithromycin (Zithromax 200 Mg/5 Ml Susp) 500 mg FTUBE DAILY@1500 [facility] Stop: 07/02/16 23:59 Last Admin: 07/02/16 14:28 Dose: 12.5 ml Budesonide (Pulmicort) 0.5 mg NEB BIDRT [facility] Levofloxacin/Dextrose 500 mg/ (Premix) 100 mls @ 100 mls/hr IV ONETIME ONE Stop: 06/27/16 20:10 Last Admin: 06/27/16 19:48 Dose: 100 mls/hr Sodium Chloride (Normal Saline) 1,000 mls @ 999 mls/hr IV ONETIME ONE Stop: 06/27/16 20:20 Last Admin: 06/27/16 19:48 Dose: 999 mls/hr Sodium Chloride (Normal Saline) 1,000 mls @ 125 mls/hr IV ASDIRECTED [facility] Last Admin: 06/28/16 08:22 Dose: 125 mls/hr Piperacillin Sod/Tazobactam (Sod 4.5 gm/ Sodium Chloride) 100 mls @ 200 mls/hr IV ONETIME ONE Stop: 06/28/16 00:29 Last Admin: 06/28/16 00:23 Dose: 200 mls/hr Sodium Chloride (Normal Saline) 1,000 mls @ 75 mls/hr IV ASDIRECTED [facility] Stop: 06/28/16 23:00 Last Admin: 06/28/16 17:54 Dose: 75 mls/hr Sodium Chloride (Normal Saline) 1,000 mls @ 50 mls/hr IV ASDIRECTED [facility] Last Admin: 06/30/16 05:07 Dose: 50 mls/hr Magnesium Sulfate 2 gm/ Premix 50 mls @ 25 mls/hr IV ONETIME ONE Stop: 06/29/16 11:52 Last Admin: 06/29/16 12:42 Dose: 25 mls/hr Dextrose/Sodium Chloride (Dextrose 5%-Normal Saline) 1,000 mls @ 50 mls/hr IV ASDIRECTED [facility] Last Admin: 07/02/16 04:12 Dose: 50 mls/hr Magnesium Sulfate 2 gm/ Premix 50 mls @ 25 mls/hr IV ONETIME ONE Stop: 06/30/16 13:36 Last Admin: 06/30/16 12:07 Dose: 25 mls/hr Potassium Chloride 10 meq/ (Premix) 100 mls @ 100 mls/hr IV Q1H [facility] Stop: 06/30/16 15:44 Last Admin: 06/30/16 17:44 Dose: 100 mls/hr Magnesium Sulfate 2 gm/ Premix 50 mls @ 25 mls/hr IV ONETIME ONE Stop: 07/01/16 15:20 Last Admin: 07/01/16 13:47 Dose: 25 mls/hr Magnesium Sulfate 2 gm/ Premix 50 mls @ 25 mls/hr IV ONETIME ONE Stop: 07/02/16 12:36 Last Admin: 07/02/16 12:13 Dose: 25 mls/hr Lansoprazole (Prevacid Solutab) 30 mg PO BIDAC [facility] Last Admin: 07/02/16 05:40 Dose: 30 mg Lansoprazole (Prevacid Solutab) 30 mg .XX BIDAC [facility] Last Admin: 07/03/16 06:16 Dose: 30 mg Non-Formulary Medication (Omeprazole [Omeprazole]) 20 mg GTUBE BID [facility] Last Admin: 06/29/16 19:41 Dose: Not Given Potassium Chloride (Klor-Con M20) 40 meq PO BID [facility] Stop: 07/03/16 21:01 Last Admin: 07/02/16 12:33 Dose: Not Given Potassium Chloride (Potassium Chloride) 40 meq PEGTUBE BID [facility] Stop: 07/03/16 21:01 Last Admin: 07/03/16 21:44 Dose: 40 meq Risperidone (Risperidal) 1 mg FTUBE BEDTIME [facility] Risperidone (Risperidal) 0.25 mg GTUBE BEDTIME [facility] Risperidone (Risperidal) 0.25 mg GTUBE BEDTIME [facility] Last Admin: 07/02/16 21:23 Dose: 0.25 mg Risperidone (Risperidal) 0.5 mg GTUBE QAM [facility] Risperidone (Risperidal) 0.5 mg GTUBE QAM [facility] Last Admin: 07/03/16 10:49 Dose: 0.5 mg Valproic Acid (Depakene Syrup) 125 mg FTUBE DAILY [facility] Last Admin: 07/03/16 10:50 Dose: 125 mg Valproic Acid (Depakene Syrup) 250 mg FTUBE BEDTIME [facility] Last Admin: 07/02/16 21:22 Dose: 250 mg - Exam Quality Assessment: supplemental oxygen, DVT prophylaxis General: alert, oriented, cooperative, no acute distress HEENT: Pupils equal, Pupils reactive, EOMI Neck: supple, trachea midline Lungs: Normal respiratory effort, Decreased breath sounds Cardiovascular: Regular Rate Abdomen: bowel sounds present, soft, no tenderness, no distension (Female) Exam: Deferred Back Exam: normal inspection Extremities: normal pulses Skin: warm Neurological: no new focal deficit, normal speech Psy/Mental Status: alert - Problem List Review Problem List Initiated/Reviewed/Updated: Yes - My Orders Last 24 Hours: My Active Orders 07/03/16 18:00 Lansoprazole [Prevacid Solutab] 30 mg .XX Q12H 07/03/16 19:00 Apixaban [Eliquis] 5 mg .XX Q12H Valproic Acid [Depakene Syrup] 250 mg FTUBE DAILY@1900 07/03/16 Dinner Tube Feeding Adult Diet [DIET] 07/04/16 07:00 Valproic Acid [Depakene Syrup] 125 mg FTUBE DAILY@0700 - Plan Plan:: Impression: Aspiration PNA S/P PEG with frequent episodes of vomiting, hx of HH TF titration to maximize feeding and minimize aspiration. Recent initiation of Eliquis for PEs, bilateral C Diff treatment Confusion with rumination, adjustment of meds per Dr Chaves Sleep/wake cycle altered Plan: Activity level ambulate/ DC motility agent with current TF regimen Add low dose Restoril and adjust meds for later time to avoid night time wakefulness IV ATBS: asp PNA, C diff Home meds Anti-psychotic meds per consult, will alter frequency time but give with TF. DVT/GI prophylaxis
--- NOTE | 2016-07-04 13:05 | CONS ---
CONSULTING PHYSICIAN: Israel Chaves MD DATE OF CONSULTATION: 07/03/2016 This is a 60-minute inpatient clinical event. IDENTIFICATION: The patient is a 51-year-old female who was admitted through the inpatient medical unit at [facility] and is seen for psychiatric consult while on the inpatient unit. CHIEF COMPLAINT: "I am upset." HISTORY OF PRESENT ILLNESS: The patient is a 51-year-old female who is admitted from the [facility] in [place], [place], secondary to complications from a recent PEG tube placement. The patient has been having some medical complications after a recent PEG tube placement and also has been struggling with possible pulmonary embolism. Staff is reporting that the patient has been having difficulty sleeping over the past 2 and a half days and has been displaying bizarre behaviors, where she is talking to her self nonstop. When asked about this, the patient does acknowledge that she is "talking to people that other people do not see." She also states that there is a man named Hernesto who is "causing a lot of problems and get me upset." She endorses auditory and visual hallucinations, but she denies that she is suicidal or homicidal. She is asking for water during the course of the interview, but her treatment plan prevents her from having any p.o. fluids or solids because of the PEG tube complications. Evidently, according to staff, the patient is having severe nausea and vomiting, and they are trying to get this situation rectified. The patient is open to having medications adjusted to help her with auditory and visual hallucinations. She states that if these symptoms can be resolved, then she can get some sleep, and she may feel less upset. MEDICATION: At the time of presentation; 1. Risperdal 0.25 mg at bedtime. 2. Eliquis for PEs. 3. Depakote 125 mg q.a.m. and 250 mg at bedtime for mood instability. ALLERGIES: Doxepin. PAST MEDICAL HISTORY: 1. Legal blindness. 2. Status post PEG tube placement. 3. PE. REVIEW OF SYSTEMS: Aside from ocular, GI and pulmonary, there were no other complications with any other major organ systems at this point in time. FAMILY PSYCHIATRIC AND CD HISTORY: None reported. PAST PSYCHIATRIC AND CD HISTORY: According to staff, the patient has a history of anxiety, depression, psychosis, and mild mental retardation. PAST PSYCHIATRIC MEDICATION HISTORY: Includes Wellbutrin. The patient was on this medication prior to admission. It is not clear why this medication has not been restarted while the patient has been on the unit. SOCIAL HISTORY: The patient is from [facility], originally born and raised, and most recently she has been residing at the [facility]. MENTAL STATUS EXAM: The patient is a 51-year-old white female in no apparent distress. Speech of regular rate and rhythm. The patient is cognitively oriented x3. Psychomotor activity is within normal limits. There are no abnormal motor movements or tics observed. Gait and station are not observed. This patient is seated during the course of the inpatient psychiatric consult. Mood is "upset." Affect is cooperative overall for the purposes of the inpatient psychiatric consult. There is no behavioral or stated evidence of acute suicidal or homicidal ideation, but the patient is endorsing non-command type auditory hallucinations and visual hallucinations. Thought processes are organized overall, although, according to staff, they do appear to be ruminative and accelerated. There are no acute manic symptoms or loose associations evident. Judgment and insight do appear impaired secondary to her mild MR and psychotic symptoms. Motivation for help appears good. PHYSICAL EXAMINATION: VITAL SIGNS: At the time of presentation; 132/61, 90, 20, 98.1 degrees. IMPRESSION: Corry I: 1. Psychosis, not otherwise specified, F29. 2. Insomnia. 3. Rule out bipolar affective disease, mixed type. Corry II: Mild mental retardation history per staff report. Corry III: 1. Legal blindness. 2. Status post PEG tube placement. 3. History of pulmonary embolism. Corry IV: Severe. Corry V: 55. PLAN: 1. Increase the patient's Risperdal medication from 0.25 mg at bedtime to 0.5 mg q.a.m. and 1 mg at bedtime to help reduce psychotic symptoms and also to help possibly with sleep initiation and maintenance, particularly in the evening. 2. Continue Depakote 125 mg q.a.m. and 250 mg at bedtime for mood stability. 3. Recommend that staff obtain collateral information regarding why the Wellbutrin medication was not started since the patient was admitted to the hospital and that this medication needs to be restarted to help with mood, look to begin this medication while the patient remains on the inpatient unit. 4. Other medications per the patient's primary medical treatment team. 5. We will continue to follow up with the patient on an as-needed basis while she remains on the inpatient medical unit at [facility] in [place], [place]. 6. We will follow up with the patient sooner if there are any complications in the interim. 7. Recommend that the patient followup with outpatient psychiatry when she is medically stable and discharged back to the community to assess her overall treatment plan and efficacy of the adjusted psychiatric medication regimen. 8. Crisis plan is in place. RAY /[id number]
[2016-07-04] MEDS: Ondansetron 4 MG/2 ML SDV IVPUSH PRN ×2 (13:37→20:48)
[2016-07-04] MEDS: Azithromycin 200 MG/5 ML Susp 30 ML Bottle FTUBE SCH (15:31)
[2016-07-04] MEDS: Atenolol 25 MG Tab PO SCH ×2 (17:04→19:44)
[2016-07-04] MEDS: Multivitamins with Minerals and Iron Liquid ML 240 ML Bottle GTUBE SCH (19:43)
[2016-07-04] MEDS: risperiDONE 1 MG Tab GTUBE SCH (19:43)
[2016-07-04] MEDS: Levofloxacin/Dextrose 5%-Water 750 MG in Premix Bag 1 BAG IV SCH (20:47)
[2016-07-05] MEDS: Piperacillin/Tazobactam 4.5 GM in Sodium Chloride 0.9% 100 ML IV SCH ×3 (00:38→15:40)
[2016-07-05] MEDS: Apixaban 5 MG Tab SCH ×2 (06:04→19:36)
[2016-07-05] MEDS: Lansoprazole 30 MG Orally Disintegrating Tab.CR SCH ×2 (06:04→19:36)
[2016-07-05] MEDS: metroNIDAZOLE 500 MG Tab GTUBE SCH ×3 (06:05→22:07)
[2016-07-05] MEDS: Valproic Acid 250 MG/5 ML Syrup ML (473 ML Bottle) FTUBE SCH ×2 (07:50→19:37)
[2016-07-05] MEDS: Psyllium Husk Powder Sugar Free 3.4 GM Packet GTUBE SCH (08:43)
[2016-07-05] MEDS: Saccharomyces Boulardii (Probiotic) 250 MG Cap FTUBE SCH (08:43)
[2016-07-05] MEDS: Atenolol 25 MG Tab PO SCH ×2 (08:45→22:06)
[2016-07-05] MEDS: Budesonide 0.5 MG/2 ML Neb Susp NEB SCH ×2 (09:11→21:15)
--- NOTE | 2016-07-05 09:35 | PCM.PN ---
- General Info Date of Service: 07/05/16 Functional Status: Reports: tolerating diet, ambulating, urinating - Review of Systems General: Reports: No Symptoms HEENT: Reports: no symptoms Pulmonary: Reports: no symptoms Cardiovascular: Reports: No Symptoms Gastrointestinal: Reports: No symptoms Genitourinary: Reports: no symptoms Musculoskeletal: Reports: no symptoms Skin: Reports: no symptoms Neurological: Reports: No Symptoms Psychiatric: Reports: no symptoms - Patient Data Vitals - most recent: Last Vital Signs Temp 36.8 C 07/05/16 08:46 Pulse 101 H 07/05/16 08:46 Resp 20 07/05/16 08:46 BP 120/41 L 07/05/16 08:46 Pulse Ox 92 L 07/05/16 09:12 Weight - most recent: 53.161 kg I&O - last 24 hours: Intake & Output 07/04/16 07/05/16 07/05/16 22:59 06:59 14:59 Intake Total 640 100 Output Total 1300 1050 Balance -660 -950 Lab Results last 24 hrs: Laboratory Results - last 24 hr 07/04/16 07/04/16 07/04/16 Range/Units 11:13 17:13 22:17 WBC (3.98-10.04) K/mm3 RBC (3.98-5.22) M/mm3 Hgb (11.2-15.7) gm/L Hct (34.1-44.9) % MCV (79.4-94.8) fl MCH (25.6-32.2) pg MCHC (32.2-35.5) g/dl RDW Std Deviation (36.4-46.3) fL Plt Count (182-369) K/mm3 MPV (9.4-12.3) fl Neut % (Auto) (34.0-71.1) % Lymph % (Auto) (19.3-51.7) % [place] % (Auto) (4.7-12.5) % Eos % (Auto) (0.7-5.8) Baso % (Auto) (0.1-1.2) % Neut # (Auto) (1.56-6.13) K/mm3 Lymph # (Auto) (1.18-3.74) K/mm3 [place] # (Auto) (0.24-0.36) K/mm3 Eos # (Auto) (0.04-0.36) K/mm3 Baso # (Auto) (0.01-0.08) K/mm3 Sodium (136-145) mEq/L Potassium (3.5-5.1) mEq/L Chloride (98-107) mEq/L Carbon Dioxide (21-32) mEq/L Anion Gap (5-15) BUN (7-18) mg/dL Creatinine (0.55-1.02) mg/dL Est Cr Clr Drug Dosing mL/min Estimated GFR (MDRD) (>60) mL/min BUN/Creatinine Ratio (14-18) Glucose (74-106) mg/dL POC Glucose 95 186 H 168 H (70-105) mg/dL Calcium (8.5-10.1) mg/dL 07/05/16 07/05/16 Range/Units 06:35 06:35 WBC 4.55 (3.98-10.04) K/mm3 RBC 4.47 (3.98-5.22) M/mm3 Hgb 13.4 (11.2-15.7) gm/L Hct 42.3 (34.1-44.9) % MCV 94.6 (79.4-94.8) fl MCH 30.0 (25.6-32.2) pg MCHC 31.7 L (32.2-35.5) g/dl RDW Std Deviation 51.4 H (36.4-46.3) fL Plt Count 176 L (182-369) K/mm3 MPV 10.6 (9.4-12.3) fl Neut % (Auto) 50.3 (34.0-71.1) % Lymph % (Auto) 34.5 (19.3-51.7) % [place] % (Auto) 13.0 H (4.7-12.5) % Eos % (Auto) 2.0 (0.7-5.8) Baso % (Auto) 0.2 (0.1-1.2) % Neut # (Auto) 2.29 (1.56-6.13) K/mm3 Lymph # (Auto) 1.57 (1.18-3.74) K/mm3 [place] # (Auto) 0.59 H (0.24-0.36) K/mm3 Eos # (Auto) 0.09 (0.04-0.36) K/mm3 Baso # (Auto) 0.01 (0.01-0.08) K/mm3 Sodium 140 (136-145) mEq/L Potassium 4.2 (3.5-5.1) mEq/L Chloride 101 (98-107) mEq/L Carbon Dioxide 32 (21-32) mEq/L Anion Gap 11.2 (5-15) BUN 9 (7-18) mg/dL Creatinine 0.6 (0.55-1.02) mg/dL Est Cr Clr Drug Dosing 95.18 mL/min Estimated GFR (MDRD) > 60 (>60) mL/min BUN/Creatinine Ratio 15.0 (14-18) Glucose 99 (74-106) mg/dL POC Glucose (70-105) mg/dL Calcium 9.8 (8.5-10.1) mg/dL Med Orders - Current: Current Medications Albuterol (Proventil Neb Soln) 2.5 mg NEB QIDRT PRN PRN Reason: Shortness of Breath Last Admin: 07/02/16 20:39 Dose: 2.5 mg Apixaban (Eliquis) 5 mg .XX Q12H [facility] Last Admin: 07/05/16 06:04 Dose: 5 mg Atenolol (Tenormin) 12.5 mg PO BID [facility] Last Admin: 07/05/16 08:45 Dose: 12.5 mg Azithromycin (Zithromax 200 Mg/5 Ml Susp) 500 mg FTUBE DAILY@1500 [facility] Last Admin: 07/04/16 15:31 Dose: 12.5 ml Budesonide (Pulmicort) 0.5 mg NEB BID [facility] Last Admin: 07/05/16 09:11 Dose: 0.5 mg Dextrose/Water (Dextrose 50% In Water) 50 ml IVPUSH ASDIRECTED PRN PRN Reason: hypoglycemia as below Levofloxacin/Dextrose 750 mg/ (Premix) 150 mls @ 100 mls/hr IV Q24H [facility] Last Admin: 07/04/16 20:47 Dose: 100 mls/hr Piperacillin Sod/Tazobactam (Sod 4.5 gm/ Sodium Chloride) 100 mls @ 25 mls/hr IV Q8H [facility] Last Admin: 07/05/16 08:42 Dose: 25 mls/hr Ipratropium Victor (Atrovent) 0.5 mg NEB Q8HRRT PRN PRN Reason: Shortness of Breath Lansoprazole (Prevacid Solutab) 30 mg .XX Q12H [facility] Last Admin: 07/05/16 06:04 Dose: 30 mg Metronidazole (Flagyl) 500 mg GTUBE Q8H [facility] Last Admin: 07/05/16 06:05 Dose: 500 mg Multivitamins/Folic Acid/Vitamin C (Centrum) 15 ml GTUBE DAILY@1900 [facility] Last Admin: 07/04/16 19:43 Dose: 15 ml Ondansetron HCl (Zofran) 4 mg IVPUSH Q6H PRN PRN Reason: Nause/vomiting Last Admin: 07/04/16 20:48 Dose: 4 mg Psyllium Husk (Metamucil Sugar Free) 1 packet GTUBE DAILY [facility] Last Admin: 07/05/16 08:43 Dose: 1 packet Risperidone (Risperidal) 1 mg GTUBE DAILY@1900 [facility] Last Admin: 07/04/16 19:43 Dose: 1 mg Risperidone (Risperidal) 0.5 mg GTUBE DAILY@1100 [facility] Saccharomyces Boulardii (Florastor) 500 mg FTUBE DAILY [facility] Last Admin: 07/05/16 08:43 Dose: 500 mg Sodium Chloride (Saline Flush) 10 ml FLUSH ASDIRECTED PRN PRN Reason: Keep Vein Open Last Admin: 06/27/16 19:49 Dose: 10 ml Valproic Acid (Depakene Syrup) 125 mg FTUBE DAILY@0700 [facility] Last Admin: 07/05/16 07:50 Dose: 125 mg Valproic Acid (Depakene Syrup) 250 mg FTUBE DAILY@1900 [facility] Last Admin: 07/04/16 19:43 Dose: 250 mg Discontinued Medications Apixaban (Eliquis) 10 mg .XX BID [facility] Apixaban (Eliquis) 5 mg .XX BID [facility] Last Admin: 07/03/16 10:49 Dose: 5 mg Azithromycin (Zithromax 200 Mg/5 Ml Susp) 500 mg FTUBE DAILY@1500 [facility] Stop: 07/02/16 23:59 Last Admin: 07/02/16 14:28 Dose: 12.5 ml Budesonide (Pulmicort) 0.5 mg NEB BIDRT [facility] Levofloxacin/Dextrose 500 mg/ (Premix) 100 mls @ 100 mls/hr IV ONETIME ONE Stop: 06/27/16 20:10 Last Admin: 06/27/16 19:48 Dose: 100 mls/hr Sodium Chloride (Normal Saline) 1,000 mls @ 999 mls/hr IV ONETIME ONE Stop: 06/27/16 20:20 Last Admin: 06/27/16 19:48 Dose: 999 mls/hr Sodium Chloride (Normal Saline) 1,000 mls @ 125 mls/hr IV ASDIRECTED [facility] Last Admin: 06/28/16 08:22 Dose: 125 mls/hr Piperacillin Sod/Tazobactam (Sod 4.5 gm/ Sodium Chloride) 100 mls @ 200 mls/hr IV ONETIME ONE Stop: 06/28/16 00:29 Last Admin: 06/28/16 00:23 Dose: 200 mls/hr Sodium Chloride (Normal Saline) 1,000 mls @ 75 mls/hr IV ASDIRECTED [facility] Stop: 06/28/16 23:00 Last Admin: 06/28/16 17:54 Dose: 75 mls/hr Sodium Chloride (Normal Saline) 1,000 mls @ 50 mls/hr IV ASDIRECTED [facility] Last Admin: 06/30/16 05:07 Dose: 50 mls/hr Magnesium Sulfate 2 gm/ Premix 50 mls @ 25 mls/hr IV ONETIME ONE Stop: 06/29/16 11:52 Last Admin: 06/29/16 12:42 Dose: 25 mls/hr Dextrose/Sodium Chloride (Dextrose 5%-Normal Saline) 1,000 mls @ 50 mls/hr IV ASDIRECTED [facility] Last Admin: 07/02/16 04:12 Dose: 50 mls/hr Magnesium Sulfate 2 gm/ Premix 50 mls @ 25 mls/hr IV ONETIME ONE Stop: 06/30/16 13:36 Last Admin: 06/30/16 12:07 Dose: 25 mls/hr Potassium Chloride 10 meq/ (Premix) 100 mls @ 100 mls/hr IV Q1H [facility] Stop: 06/30/16 15:44 Last Admin: 06/30/16 17:44 Dose: 100 mls/hr Magnesium Sulfate 2 gm/ Premix 50 mls @ 25 mls/hr IV ONETIME ONE Stop: 07/01/16 15:20 Last Admin: 07/01/16 13:47 Dose: 25 mls/hr Magnesium Sulfate 2 gm/ Premix 50 mls @ 25 mls/hr IV ONETIME ONE Stop: 07/02/16 12:36 Last Admin: 07/02/16 12:13 Dose: 25 mls/hr Lansoprazole (Prevacid Solutab) 30 mg PO BIDAC [facility] Last Admin: 07/02/16 05:40 Dose: 30 mg Lansoprazole (Prevacid Solutab) 30 mg .XX BIDAC [facility] Last Admin: 07/03/16 06:16 Dose: 30 mg Non-Formulary Medication (Omeprazole [Omeprazole]) 20 mg GTUBE BID [facility] Last Admin: 06/29/16 19:41 Dose: Not Given Potassium Chloride (Klor-Con M20) 40 meq PO BID [facility] Stop: 07/03/16 21:01 Last Admin: 07/02/16 12:33 Dose: Not Given Potassium Chloride (Potassium Chloride) 40 meq PEGTUBE BID [facility] Stop: 07/03/16 21:01 Last Admin: 07/03/16 21:44 Dose: 40 meq Risperidone (Risperidal) 1 mg FTUBE BEDTIME [facility] Risperidone (Risperidal) 0.25 mg GTUBE BEDTIME [facility] Risperidone (Risperidal) 0.25 mg GTUBE BEDTIME [facility] Last Admin: 07/02/16 21:23 Dose: 0.25 mg Risperidone (Risperidal) 0.5 mg GTUBE QAM [facility] Risperidone (Risperidal) 0.5 mg GTUBE QAM [facility] Last Admin: 07/03/16 10:49 Dose: 0.5 mg Risperidone (Risperidal) 0.5 mg GTUBE DAILY@0700 [facility] Last Admin: 07/04/16 06:35 Dose: 0.5 mg Valproic Acid (Depakene Syrup) 125 mg FTUBE DAILY [facility] Last Admin: 07/03/16 10:50 Dose: 125 mg Valproic Acid (Depakene Syrup) 250 mg FTUBE BEDTIME [facility] Last Admin: 07/02/16 21:22 Dose: 250 mg - Exam Quality Assessment: DVT prophylaxis General: alert, oriented, cooperative, no acute distress HEENT: EOMI Neck: supple, trachea midline Lungs: Normal respiratory effort Cardiovascular: Regular Rate, Regular Rhythm Abdomen: bowel sounds present, soft, no tenderness, no distension (Female) Exam: Deferred Back Exam: normal inspection Extremities: normal pulses Skin: warm Neurological: no new focal deficit, normal gait, normal speech Psy/Mental Status: alert, normal affect, normal mood - Problem List Review Problem List Initiated/Reviewed/Updated: Yes - My Orders Last 24 Hours: My Active Orders 07/04/16 19:00 Atenolol [Tenormin] 12.5 mg PO BID 07/05/16 21:00 Overnight Pulse Oximetry [RC] Click To Edit - Plan Plan:: Impression: Aspiration PNA S/P PEG with frequent episodes of vomiting, hx of HH TF titration to maximize feeding and minimize aspiration. Recent initiation of Eliquis for PEs, bilateral C Diff treatment Confusion with rumination, adjustment of meds per Dr Chaves Sleep/wake cycle altered Plan: Activity level ambulate/ DC motility agent with current TF regimen Add low dose Restoril and adjust meds for later time to avoid night time wakefulness IV ATBS: asp PNA, C diff Home meds Anti-psychotic meds per consult, will alter frequency time but give with TF. DVT/GI prophylaxis LOS>96 hours
[2016-07-05] MEDS: risperiDONE 0.5 MG Tab GTUBE SCH (10:54)
[2016-07-05] MEDS: Azithromycin 200 MG/5 ML Susp 30 ML Bottle FTUBE SCH (15:20)
[2016-07-05] MEDS: Ondansetron 4 MG/2 ML SDV IVPUSH PRN (17:07)
[2016-07-05] MEDS: risperiDONE 1 MG Tab GTUBE SCH (19:36)
[2016-07-05] MEDS: Multivitamins with Minerals and Iron Liquid ML 240 ML Bottle GTUBE SCH (19:37)
[2016-07-05] MEDS: Levofloxacin/Dextrose 5%-Water 750 MG in Premix Bag 1 BAG IV SCH (20:19)
[2016-07-06] MEDS: Piperacillin/Tazobactam 4.5 GM in Sodium Chloride 0.9% 100 ML IV SCH ×3 (00:10→16:42)
[2016-07-06] MEDS: Apixaban 5 MG Tab SCH ×2 (06:16→20:19)
[2016-07-06] MEDS: metroNIDAZOLE 500 MG Tab GTUBE SCH ×3 (06:16→22:45)
[2016-07-06] MEDS: Lansoprazole 30 MG Orally Disintegrating Tab.CR SCH ×2 (06:16→17:59)
[2016-07-06] MEDS: Valproic Acid 250 MG/5 ML Syrup ML (473 ML Bottle) FTUBE SCH ×2 (06:17→20:24)
[2016-07-06] MEDS: Budesonide 0.5 MG/2 ML Neb Susp NEB SCH ×2 (08:33→20:59)
[2016-07-06] MEDS: Atenolol 25 MG Tab PO SCH ×2 (08:51→22:00)
[2016-07-06] MEDS: Saccharomyces Boulardii (Probiotic) 250 MG Cap FTUBE SCH (08:51)
[2016-07-06] MEDS: Psyllium Husk Powder Sugar Free 3.4 GM Packet GTUBE SCH (08:51)
[2016-07-06] MEDS: risperiDONE 0.5 MG Tab GTUBE SCH (11:27)
--- NOTE | 2016-07-06 11:43 | CR ---
Chest: Two views of the chest were obtained. Comparison: Previous chest x-ray of 07/03/16. Heart size is within normal limits. Tortuous thoracic aorta is seen. Atelectasis noted within the left lung base. Increased lung markings noted within the right lung base which appear fairly stable from prior exam presumably due to persisting area of pneumonia. Lungs otherwise are clear. Impression: 1. Stable atelectasis within the left lung base. Stable increased density within the right lung base is noted. 2. Other incidental findings. Diagnostic code #3
--- NOTE | 2016-07-06 12:08 | PCM.PN ---
<Talia Jennings M - Last Filed: 07/06/16 12:14> - General Info Date of Service: 07/06/16 Admission Dx/Problem (Free Text): Admission Diagnosis/Problem Admission Diagnosis/Problem Pneumonia Laura is seen this morning resting comfortably. She denies c/o pain/ discomfort. She is tolerating feedings ok. Dietitian is slowly increasing feedings as tolerated. Ruminations have ceased to improved after medication adjustments per Dr. Chaves. Functional Status: Reports: pain controlled, ambulating, urinating. Denies: tolerating diet (NPO but tolerating feedings ), new symptoms - Review of Systems General: Reports: No Symptoms HEENT: Reports: no symptoms Pulmonary: Reports: no symptoms Cardiovascular: Reports: No Symptoms Gastrointestinal: Reports: No symptoms, Difficulty swallowing, Vomiting (2 small emesis in the past 36+ hours which have been associated with position changes from sitting to standing, not associated with feedings.). Denies: Abdominal pain, Diarrhea, Nausea Genitourinary: Reports: no symptoms Musculoskeletal: Reports: no symptoms Skin: Reports: no symptoms Neurological: Reports: No Symptoms, Other (developmental delay and blindness) Psychiatric: Reports: no symptoms - Patient Data Vitals - most recent: Last Vital Signs Temp 97.7 F 07/06/16 07:55 Pulse 94 07/06/16 08:51 Resp 20 07/06/16 07:55 BP 125/71 07/06/16 08:51 Pulse Ox 90 L 07/06/16 08:33 Weight - most recent: 52.798 kg I&O - last 24 hours: Intake & Output 07/05/16 07/06/16 07/06/16 22:59 06:59 14:59 Intake Total 670 1310 Output Total 935 800 Balance -265 510 Lab Results last 24 hrs: Laboratory Results - last 24 hr 07/05/16 07/05/16 07/06/16 Range/Units 17:12 21:22 05:18 WBC 3.74 L (3.98-10.04) K/mm3 RBC 4.19 (3.98-5.22) M/mm3 Hgb 12.7 (11.2-15.7) gm/L Hct 40.0 (34.1-44.9) % MCV 95.5 H (79.4-94.8) fl MCH 30.3 (25.6-32.2) pg MCHC 31.8 L (32.2-35.5) g/dl RDW Std Deviation 52.7 H (36.4-46.3) fL Plt Count 188 (182-369) K/mm3 MPV 11.3 (9.4-12.3) fl Neut % (Auto) 33.1 L (34.0-71.1) % Lymph % (Auto) 47.9 (19.3-51.7) % [place] % (Auto) 15.8 H (4.7-12.5) % Eos % (Auto) 2.9 (0.7-5.8) Baso % (Auto) 0.3 (0.1-1.2) % Neut # (Auto) 1.24 L (1.56-6.13) K/mm3 Lymph # (Auto) 1.79 (1.18-3.74) K/mm3 [place] # (Auto) 0.59 H (0.24-0.36) K/mm3 Eos # (Auto) 0.11 (0.04-0.36) K/mm3 Baso # (Auto) 0.01 (0.01-0.08) K/mm3 Manual Slide Review Normal smear Sodium (136-145) mEq/L Potassium (3.5-5.1) mEq/L Chloride (98-107) mEq/L Carbon Dioxide (21-32) mEq/L Anion Gap (5-15) BUN (7-18) mg/dL Creatinine (0.55-1.02) mg/dL Est Cr Clr Drug Dosing mL/min Estimated GFR (MDRD) (>60) mL/min BUN/Creatinine Ratio (14-18) Glucose (74-106) mg/dL POC Glucose 200 H 181 H (70-105) mg/dL Calcium (8.5-10.1) mg/dL 07/06/16 07/06/16 07/06/16 Range/Units 05:18 06:13 11:38 WBC (3.98-10.04) K/mm3 RBC (3.98-5.22) M/mm3 Hgb (11.2-15.7) gm/L Hct (34.1-44.9) % MCV (79.4-94.8) fl MCH (25.6-32.2) pg MCHC (32.2-35.5) g/dl RDW Std Deviation (36.4-46.3) fL Plt Count (182-369) K/mm3 MPV (9.4-12.3) fl Neut % (Auto) (34.0-71.1) % Lymph % (Auto) (19.3-51.7) % [place] % (Auto) (4.7-12.5) % Eos % (Auto) (0.7-5.8) Baso % (Auto) (0.1-1.2) % Neut # (Auto) (1.56-6.13) K/mm3 Lymph # (Auto) (1.18-3.74) K/mm3 [place] # (Auto) (0.24-0.36) K/mm3 Eos # (Auto) (0.04-0.36) K/mm3 Baso # (Auto) (0.01-0.08) K/mm3 Manual Slide Review Sodium 141 (136-145) mEq/L Potassium 4.1 (3.5-5.1) mEq/L Chloride 104 (98-107) mEq/L Carbon Dioxide 31 (21-32) mEq/L Anion Gap 10.1 (5-15) BUN 10 (7-18) mg/dL Creatinine 0.6 (0.55-1.02) mg/dL Est Cr Clr Drug Dosing 94.54 mL/min Estimated GFR (MDRD) > 60 (>60) mL/min BUN/Creatinine Ratio 16.7 (14-18) Glucose 91 (74-106) mg/dL POC Glucose 81 85 (70-105) mg/dL Calcium 9.5 (8.5-10.1) mg/dL Med Orders - Current: Current Medications Albuterol (Proventil Neb Soln) 2.5 mg NEB QIDRT PRN PRN Reason: Shortness of Breath Last Admin: 07/02/16 20:39 Dose: 2.5 mg Apixaban (Eliquis) 5 mg .XX Q12H [facility] Last Admin: 07/06/16 06:16 Dose: 5 mg Atenolol (Tenormin) 12.5 mg PO BID [facility] Last Admin: 07/06/16 08:51 Dose: 12.5 mg Azithromycin (Zithromax 200 Mg/5 Ml Susp) 500 mg FTUBE DAILY@1500 [facility] Last Admin: 07/05/16 15:20 Dose: 12.5 ml Budesonide (Pulmicort) 0.5 mg NEB BID [facility] Last Admin: 07/06/16 08:33 Dose: 0.5 mg Dextrose/Water (Dextrose 50% In Water) 50 ml IVPUSH ASDIRECTED PRN PRN Reason: hypoglycemia as below Levofloxacin/Dextrose 750 mg/ (Premix) 150 mls @ 100 mls/hr IV Q24H [facility] Last Admin: 07/05/16 20:19 Dose: 100 mls/hr Piperacillin Sod/Tazobactam (Sod 4.5 gm/ Sodium Chloride) 100 mls @ 25 mls/hr IV Q8H [facility] Last Admin: 07/06/16 08:52 Dose: 25 mls/hr Ipratropium [place] (Atrovent) 0.5 mg NEB Q8HRRT PRN PRN Reason: Shortness of Breath Lansoprazole (Prevacid Solutab) 30 mg .XX Q12H [facility] Last Admin: 07/06/16 06:16 Dose: 30 mg Metronidazole (Flagyl) 500 mg GTUBE Q8H [facility] Last Admin: 07/06/16 06:16 Dose: 500 mg Multivitamins/Folic Acid/Vitamin C (Centrum) 15 ml GTUBE DAILY@1900 [facility] Last Admin: 07/05/16 19:37 Dose: 15 ml Ondansetron HCl (Zofran) 4 mg IVPUSH Q6H PRN PRN Reason: Nause/vomiting Last Admin: 07/05/16 17:07 Dose: 4 mg Psyllium Husk (Metamucil Sugar Free) 1 packet GTUBE DAILY [facility] Last Admin: 07/06/16 08:51 Dose: 1 packet Risperidone (Risperidal) 1 mg GTUBE DAILY@1900 [facility] Last Admin: 07/05/16 19:36 Dose: 1 mg Risperidone (Risperidal) 0.5 mg GTUBE DAILY@1100 [facility] Last Admin: 07/06/16 11:27 Dose: 0.5 mg Saccharomyces Boulardii (Florastor) 500 mg FTUBE DAILY [facility] Last Admin: 07/06/16 08:51 Dose: 500 mg Sodium Chloride (Saline Flush) 10 ml FLUSH ASDIRECTED PRN PRN Reason: Keep Vein Open Last Admin: 06/27/16 19:49 Dose: 10 ml Valproic Acid (Depakene Syrup) 125 mg FTUBE DAILY@0700 [facility] Last Admin: 07/06/16 06:17 Dose: 125 mg Valproic Acid (Depakene Syrup) 250 mg FTUBE DAILY@1900 [facility] Last Admin: 07/05/16 19:37 Dose: 250 mg Discontinued Medications Apixaban (Eliquis) 10 mg .XX BID [facility] Apixaban (Eliquis) 5 mg .XX BID [facility] Last Admin: 07/03/16 10:49 Dose: 5 mg Azithromycin (Zithromax 200 Mg/5 Ml Susp) 500 mg FTUBE DAILY@1500 [facility] Stop: 07/02/16 23:59 Last Admin: 07/02/16 14:28 Dose: 12.5 ml Budesonide (Pulmicort) 0.5 mg NEB BIDRT [facility] Levofloxacin/Dextrose 500 mg/ (Premix) 100 mls @ 100 mls/hr IV ONETIME ONE Stop: 06/27/16 20:10 Last Admin: 06/27/16 19:48 Dose: 100 mls/hr Sodium Chloride (Normal Saline) 1,000 mls @ 999 mls/hr IV ONETIME ONE Stop: 06/27/16 20:20 Last Admin: 06/27/16 19:48 Dose: 999 mls/hr Sodium Chloride (Normal Saline) 1,000 mls @ 125 mls/hr IV ASDIRECTED [facility] Last Admin: 06/28/16 08:22 Dose: 125 mls/hr Piperacillin Sod/Tazobactam (Sod 4.5 gm/ Sodium Chloride) 100 mls @ 200 mls/hr IV ONETIME ONE Stop: 06/28/16 00:29 Last Admin: 06/28/16 00:23 Dose: 200 mls/hr Sodium Chloride (Normal Saline) 1,000 mls @ 75 mls/hr IV ASDIRECTED [facility] Stop: 06/28/16 23:00 Last Admin: 06/28/16 17:54 Dose: 75 mls/hr Sodium Chloride (Normal Saline) 1,000 mls @ 50 mls/hr IV ASDIRECTED [facility] Last Admin: 06/30/16 05:07 Dose: 50 mls/hr Magnesium Sulfate 2 gm/ Premix 50 mls @ 25 mls/hr IV ONETIME ONE Stop: 06/29/16 11:52 Last Admin: 06/29/16 12:42 Dose: 25 mls/hr Dextrose/Sodium Chloride (Dextrose 5%-Normal Saline) 1,000 mls @ 50 mls/hr IV ASDIRECTED [facility] Last Admin: 07/02/16 04:12 Dose: 50 mls/hr Magnesium Sulfate 2 gm/ Premix 50 mls @ 25 mls/hr IV ONETIME ONE Stop: 06/30/16 13:36 Last Admin: 06/30/16 12:07 Dose: 25 mls/hr Potassium Chloride 10 meq/ (Premix) 100 mls @ 100 mls/hr IV Q1H [facility] Stop: 06/30/16 15:44 Last Admin: 06/30/16 17:44 Dose: 100 mls/hr Magnesium Sulfate 2 gm/ Premix 50 mls @ 25 mls/hr IV ONETIME ONE Stop: 07/01/16 15:20 Last Admin: 07/01/16 13:47 Dose: 25 mls/hr Magnesium Sulfate 2 gm/ Premix 50 mls @ 25 mls/hr IV ONETIME ONE Stop: 07/02/16 12:36 Last Admin: 07/02/16 12:13 Dose: 25 mls/hr Lansoprazole (Prevacid Solutab) 30 mg PO BIDAC [facility] Last Admin: 07/02/16 05:40 Dose: 30 mg Lansoprazole (Prevacid Solutab) 30 mg .XX BIDAC [facility] Last Admin: 07/03/16 06:16 Dose: 30 mg Non-Formulary Medication (Omeprazole [Omeprazole]) 20 mg GTUBE BID [facility] Last Admin: 06/29/16 19:41 Dose: Not Given Potassium Chloride (Klor-Con M20) 40 meq PO BID [facility] Stop: 07/03/16 21:01 Last Admin: 07/02/16 12:33 Dose: Not Given Potassium Chloride (Potassium Chloride) 40 meq PEGTUBE BID [facility] Stop: 07/03/16 21:01 Last Admin: 07/03/16 21:44 Dose: 40 meq Risperidone (Risperidal) 1 mg FTUBE BEDTIME [facility] Risperidone (Risperidal) 0.25 mg GTUBE BEDTIME [facility] Risperidone (Risperidal) 0.25 mg GTUBE BEDTIME [facility] Last Admin: 07/02/16 21:23 Dose: 0.25 mg Risperidone (Risperidal) 0.5 mg GTUBE QAM [facility] Risperidone (Risperidal) 0.5 mg GTUBE QAM [facility] Last Admin: 07/03/16 10:49 Dose: 0.5 mg Risperidone (Risperidal) 0.5 mg GTUBE DAILY@0700 [facility] Last Admin: 07/04/16 06:35 Dose: 0.5 mg Valproic Acid (Depakene Syrup) 125 mg FTUBE DAILY [facility] Last Admin: 07/03/16 10:50 Dose: 125 mg Valproic Acid (Depakene Syrup) 250 mg FTUBE BEDTIME [facility] Last Admin: 07/02/16 21:22 Dose: 250 mg - Exam Quality Assessment: DVT prophylaxis General: alert, cooperative, no acute distress HEENT: Pupils equal, Other (blind bilat) Neck: supple Lungs: Normal respiratory effort, Decreased breath sounds (to bases). No: Rales , Rhonchi Cardiovascular: Regular Rate, Regular Rhythm Abdomen: bowel sounds present, soft, no tenderness, no distension, other (peg site without s/s of infection) (Female) Exam: Deferred Back Exam: normal inspection Extremities: no edema, no calf tenderness Peripheral Pulses: 1+: dorsalis pedis (L), dorsalis pedis (R) Skin: warm, dry Neurological: no new focal deficit, other (developmental delay- baseline) Psy/Mental Status: alert, normal affect, normal mood, other (talkative but less nonsensical and less ruminations than last week) - Problem List & Annotations (1) Pneumonia SNOMED Code(s): 723273144 Code(s): J18.9 - PNEUMONIA, UNSPECIFIED ORGANISM Status: Acute Priority: High Current Visit: Yes Qualifiers: Pneumonia type: aspiration pneumonia Laterality: bilateral Lung location : lower lobe of lung Annotation/Comment:: recurrent (2) Pulmonary embolism, bilateral SNOMED Code(s): 05711464, 93400479 Code(s): I26.99 - OTHER PULMONARY EMBOLISM WITHOUT ACUTE COR PULMONALE Status: Acute Priority: High Current Visit: Yes (3) Acute on chronic respiratory failure with hypoxemia SNOMED Code(s): 46321356139195033 Code(s): J96.21 - ACUTE AND CHRONIC RESPIRATORY FAILURE WITH HYPOXIA Status : Chronic Priority: High Current Visit: Yes (4) Hiatal hernia with GERD SNOMED Code(s): 853038447 Code(s): K21.9 - GASTRO-ESOPHAGEAL REFLUX DISEASE WITHOUT ESOPHAGITIS; K44.9 - DIAPHRAGMATIC HERNIA WITHOUT OBSTRUCTION OR GANGRENE Status: Acute Priority: High Current Visit: Yes Annotation/Comment:: contributing to aspiration pneumonia (5) Clostridium difficile infection SNOMED Code(s): 682604333 Code(s): B96.89 - OTH BACTERIAL AGENTS THE CAUSE OF DISEASES CLASSD ELSWHR Status: Acute Priority: High Current Visit: Yes (6) Hypomagnesemia SNOMED Code(s): 986162295 Code(s): E83.42 - HYPOMAGNESEMIA Status: Resolved Priority: High Current Visit: Yes (7) Hypokalemia SNOMED Code(s): 68338587 Code(s): E87.6 - HYPOKALEMIA Status: Resolved Priority: High Current Visit: Yes (8) Blind in both eyes SNOMED Code(s): 14708386, 249548977 Code(s): H54.0 - BLINDNESS, BOTH EYES Status: Chronic Priority: Medium Current Visit: No (9) Delayed social and emotional development SNOMED Code(s): 752986354 Code(s): F88 - OTHER DISORDERS OF PSYCHOLOGICAL DEVELOPMENT Status: Chronic Priority: Medium Current Visit: No - Problem List Review Problem List Initiated/Reviewed/Updated: Yes - Plan Plan:: Impression: Aspiration PNA--repeat CXR today stable S/P PEG with frequent episodes of vomiting, hx of HH TF titration to maximize feeding and minimize aspiration. Recent initiation of Eliquis for PEs, bilateral C Diff treatment Confusion with rumination, adjustment of meds per Dr Chaves--improved Sleep/wake cycle altered Chronic GERD with hiatal hernia Plan: Activity level ambulate QID DC motility agent with current TF regimen Add low dose Restoril and adjust meds for later time to avoid night time wakefulness IV ATBS: asp PNA, C diff- when discharged will need to continue flagyl x 7 more days for c-diff Home meds; cont eliquis for PE Anti-psychotic meds per consult with Dr. Chaves, will alter frequency time but give with TF. Will need OP follow up with General Surgery to address hiatal hernia/GERD and if surgical intervention is needed DVT/GI prophylaxis LOS>96 hours due to complexity of case; titration of feeding via Peg tube; plan to discharge tomorrow. <Savanna Yoo - Last Filed: 07/06/16 13:47> - Patient Data Vitals - most recent: Last Vital Signs Temp 36.5 C 07/06/16 07:55 Pulse 94 07/06/16 08:51 Resp 20 07/06/16 07:55 BP 125/71 07/06/16 08:51 Pulse Ox 90 L 07/06/16 08:33 I&O - last 24 hours: Intake & Output 07/05/16 07/06/16 07/06/16 22:59 06:59 14:59 Intake Total 670 1310 Output Total 935 800 Balance -265 510 Lab Results last 24 hrs: Laboratory Results - last 24 hr 07/05/16 07/05/16 07/06/16 Range/Units 17:12 21:22 05:18 WBC 3.74 L (3.98-10.04) K/mm3 RBC 4.19 (3.98-5.22) M/mm3 Hgb 12.7 (11.2-15.7) gm/L Hct 40.0 (34.1-44.9) % MCV 95.5 H (79.4-94.8) fl MCH 30.3 (25.6-32.2) pg MCHC 31.8 L (32.2-35.5) g/dl RDW Std Deviation 52.7 H (36.4-46.3) fL Plt Count 188 (182-369) K/mm3 MPV 11.3 (9.4-12.3) fl Neut % (Auto) 33.1 L (34.0-71.1) % Lymph % (Auto) 47.9 (19.3-51.7) % [place] % (Auto) 15.8 H (4.7-12.5) % Eos % (Auto) 2.9 (0.7-5.8) Baso % (Auto) 0.3 (0.1-1.2) % Neut # (Auto) 1.24 L (1.56-6.13) K/mm3 Lymph # (Auto) 1.79 (1.18-3.74) K/mm3 [place] # (Auto) 0.59 H (0.24-0.36) K/mm3 Eos # (Auto) 0.11 (0.04-0.36) K/mm3 Baso # (Auto) 0.01 (0.01-0.08) K/mm3 Manual Slide Review Normal smear Sodium (136-145) mEq/L Potassium (3.5-5.1) mEq/L Chloride (98-107) mEq/L Carbon Dioxide (21-32) mEq/L Anion Gap (5-15) BUN (7-18) mg/dL Creatinine (0.55-1.02) mg/dL Est Cr Clr Drug Dosing mL/min Estimated GFR (MDRD) (>60) mL/min BUN/Creatinine Ratio (14-18) Glucose (74-106) mg/dL POC Glucose 200 H 181 H (70-105) mg/dL Calcium (8.5-10.1) mg/dL 07/06/16 07/06/16 07/06/16 Range/Units 05:18 06:13 11:38 WBC (3.98-10.04) K/mm3 RBC (3.98-5.22) M/mm3 Hgb (11.2-15.7) gm/L Hct (34.1-44.9) % MCV (79.4-94.8) fl MCH (25.6-32.2) pg MCHC (32.2-35.5) g/dl RDW Std Deviation (36.4-46.3) fL Plt Count (182-369) K/mm3 MPV (9.4-12.3) fl Neut % (Auto) (34.0-71.1) % Lymph % (Auto) (19.3-51.7) % [place] % (Auto) (4.7-12.5) % Eos % (Auto) (0.7-5.8) Baso % (Auto) (0.1-1.2) % Neut # (Auto) (1.56-6.13) K/mm3 Lymph # (Auto) (1.18-3.74) K/mm3 [place] # (Auto) (0.24-0.36) K/mm3 Eos # (Auto) (0.04-0.36) K/mm3 Baso # (Auto) (0.01-0.08) K/mm3 Manual Slide Review Sodium 141 (136-145) mEq/L Potassium 4.1 (3.5-5.1) mEq/L Chloride 104 (98-107) mEq/L Carbon Dioxide 31 (21-32) mEq/L Anion Gap 10.1 (5-15) BUN 10 (7-18) mg/dL Creatinine 0.6 (0.55-1.02) mg/dL Est Cr Clr Drug Dosing 94.54 mL/min Estimated GFR (MDRD) > 60 (>60) mL/min BUN/Creatinine Ratio 16.7 (14-18) Glucose 91 (74-106) mg/dL POC Glucose 81 85 (70-105) mg/dL Calcium 9.5 (8.5-10.1) mg/dL Med Orders - Current: Current Medications Albuterol (Proventil Neb Soln) 2.5 mg NEB QIDRT PRN PRN Reason: Shortness of Breath Last Admin: 07/02/16 20:39 Dose: 2.5 mg Apixaban (Eliquis) 5 mg .XX Q12H [facility] Last Admin: 07/06/16 06:16 Dose: 5 mg Atenolol (Tenormin) 12.5 mg PO BID [facility] Last Admin: 07/06/16 08:51 Dose: 12.5 mg Azithromycin (Zithromax 200 Mg/5 Ml Susp) 500 mg FTUBE DAILY@1500 [facility] Last Admin: 07/05/16 15:20 Dose: 12.5 ml Budesonide (Pulmicort) 0.5 mg NEB BID [facility] Last Admin: 07/06/16 08:33 Dose: 0.5 mg Dextrose/Water (Dextrose 50% In Water) 50 ml IVPUSH ASDIRECTED PRN PRN Reason: hypoglycemia as below Levofloxacin/Dextrose 750 mg/ (Premix) 150 mls @ 100 mls/hr IV Q24H [facility] Last Admin: 07/05/16 20:19 Dose: 100 mls/hr Piperacillin Sod/Tazobactam (Sod 4.5 gm/ Sodium Chloride) 100 mls @ 25 mls/hr IV Q8H [facility] Last Admin: 07/06/16 08:52 Dose: 25 mls/hr Ipratropium [place] (Atrovent) 0.5 mg NEB Q8HRRT PRN PRN Reason: Shortness of Breath Lansoprazole (Prevacid Solutab) 30 mg .XX Q12H [facility] Last Admin: 07/06/16 06:16 Dose: 30 mg Metronidazole (Flagyl) 500 mg GTUBE Q8H [facility] Last Admin: 07/06/16 06:16 Dose: 500 mg Multivitamins/Folic Acid/Vitamin C (Centrum) 15 ml GTU[facility] DAILY@1900 [facility] Last Admin: 07/05/16 19:37 Dose: 15 ml Ondansetron HCl (Zofran) 4 mg IVPUSH Q6H PRN PRN Reason: Nause/vomiting Last Admin: 07/05/16 17:07 Dose: 4 mg Psyllium Husk (Metamucil Sugar Free) 1 packet GTUBE DAILY [facility] Last Admin: 07/06/16 08:51 Dose: 1 packet Risperidone (Risperidal) 1 mg GTUBE DAILY@1900 [facility] Last Admin: 07/05/16 19:36 Dose: 1 mg Risperidone (Risperidal) 0.5 mg GTUBE DAILY@1100 [facility] Last Admin: 07/06/16 11:27 Dose: 0.5 mg Saccharomyces Boulardii (Florastor) 500 mg FTUBE DAILY [facility] Last Admin: 07/06/16 08:51 Dose: 500 mg Sodium Chloride (Saline Flush) 10 ml FLUSH ASDIRECTED PRN PRN Reason: Keep Vein Open Last Admin: 06/27/16 19:49 Dose: 10 ml Valproic Acid (Depakene Syrup) 125 mg FTUBE DAILY@0700 [facility] Last Admin: 07/06/16 06:17 Dose: 125 mg Valproic Acid (Depakene Syrup) 250 mg FTUBE DAILY@1900 [facility] Last Admin: 07/05/16 19:37 Dose: 250 mg Discontinued Medications Apixaban (Eliquis) 10 mg .XX BID [facility] Apixaban (Eliquis) 5 mg .XX BID [facility] Last Admin: 07/03/16 10:49 Dose: 5 mg Azithromycin (Zithromax 200 Mg/5 Ml Susp) 500 mg FTUBE DAILY@1500 [facility] Stop: 07/02/16 23:59 Last Admin: 07/02/16 14:28 Dose: 12.5 ml Budesonide (Pulmicort) 0.5 mg NEB BIDRT [facility] Levofloxacin/Dextrose 500 mg/ (Premix) 100 mls @ 100 mls/hr IV ONETIME ONE Stop: 06/27/16 20:10 Last Admin: 06/27/16 19:48 Dose: 100 mls/hr Sodium Chloride (Normal Saline) 1,000 mls @ 999 mls/hr IV ONETIME ONE Stop: 06/27/16 20:20 Last Admin: 06/27/16 19:48 Dose: 999 mls/hr Sodium Chloride (Normal Saline) 1,000 mls @ 125 mls/hr IV ASDIRECTED [facility] Last Admin: 06/28/16 08:22 Dose: 125 mls/hr Piperacillin Sod/Tazobactam (Sod 4.5 gm/ Sodium Chloride) 100 mls @ 200 mls/hr IV ONETIME ONE Stop: 06/28/16 00:29 Last Admin: 06/28/16 00:23 Dose: 200 mls/hr Sodium Chloride (Normal Saline) 1,000 mls @ 75 mls/hr IV ASDIRECTED [facility] Stop: 06/28/16 23:00 Last Admin: 06/28/16 17:54 Dose: 75 mls/hr Sodium Chloride (Normal Saline) 1,000 mls @ 50 mls/hr IV ASDIRECTED [facility] Last Admin: 06/30/16 05:07 Dose: 50 mls/hr Magnesium Sulfate 2 gm/ Premix 50 mls @ 25 mls/hr IV ONETIME ONE Stop: 06/29/16 11:52 Last Admin: 06/29/16 12:42 Dose: 25 mls/hr Dextrose/Sodium Chloride (Dextrose 5%-Normal Saline) 1,000 mls @ 50 mls/hr IV ASDIRECTED [facility] Last Admin: 07/02/16 04:12 Dose: 50 mls/hr Magnesium Sulfate 2 gm/ Premix 50 mls @ 25 mls/hr IV ONETIME ONE Stop: 06/30/16 13:36 Last Admin: 06/30/16 12:07 Dose: 25 mls/hr Potassium Chloride 10 meq/ (Premix) 100 mls @ 100 mls/hr IV Q1H [facility] Stop: 06/30/16 15:44 Last Admin: 06/30/16 17:44 Dose: 100 mls/hr Magnesium Sulfate 2 gm/ Premix 50 mls @ 25 mls/hr IV ONETIME ONE Stop: 07/01/16 15:20 Last Admin: 07/01/16 13:47 Dose: 25 mls/hr Magnesium Sulfate 2 gm/ Premix 50 mls @ 25 mls/hr IV ONETIME ONE Stop: 07/02/16 12:36 Last Admin: 07/02/16 12:13 Dose: 25 mls/hr Lansoprazole (Prevacid Solutab) 30 mg PO BIDAC [facility] Last Admin: 07/02/16 05:40 Dose: 30 mg Lansoprazole (Prevacid Solutab) 30 mg .XX BIDAC [facility] Last Admin: 07/03/16 06:16 Dose: 30 mg Non-Formulary Medication (Omeprazole [Omeprazole]) 20 mg GTUBE BID [facility] Last Admin: 06/29/16 19:41 Dose: Not Given Potassium Chloride (Klor-Con M20) 40 meq PO BID [facility] Stop: 07/03/16 21:01 Last Admin: 07/02/16 12:33 Dose: Not Given Potassium Chloride (Potassium Chloride) 40 meq PEGTUBE BID [facility] Stop: 07/03/16 21:01 Last Admin: 07/03/16 21:44 Dose: 40 meq Risperidone (Risperidal) 1 mg FTUBE BEDTIME [facility] Risperidone (Risperidal) 0.25 mg GTUBE BEDTIME [facility] Risperidone (Risperidal) 0.25 mg GTUBE BEDTIME [facility] Last Admin: 07/02/16 21:23 Dose: 0.25 mg Risperidone (Risperidal) 0.5 mg GTUBE QAM LOPEZ Risperidone (Risperidal) 0.5 mg GTUBE QAM LOPEZ Last Admin: 07/03/16 10:49 Dose: 0.5 mg Risperidone (Risperidal) 0.5 mg GTUBE DAILY@0700 [facility] Last Admin: 07/04/16 06:35 Dose: 0.5 mg Valproic Acid (Depakene Syrup) 125 mg FTUBE DAILY LOPEZ Last Admin: 07/03/16 10:50 Dose: 125 mg Valproic Acid (Depakene Syrup) 250 mg FTUBE BEDTIME LOPEZ Last Admin: 07/02/16 21:22 Dose: 250 mg - My Orders Last 24 Hours: My Active Orders 07/05/16 21:00 Overnight Pulse Oximetry [RC] Click To Edit - Plan Plan:: TF plan will be outlined for DC.
[2016-07-06] MEDS: Azithromycin 200 MG/5 ML Susp 30 ML Bottle FTUBE SCH (14:48)
[2016-07-06] MEDS: risperiDONE 1 MG Tab GTUBE SCH (20:19)
[2016-07-06] MEDS: Multivitamins with Minerals and Iron Liquid ML 240 ML Bottle GTUBE SCH (20:25)
[2016-07-06] MEDS: Levofloxacin/Dextrose 5%-Water 750 MG in Premix Bag 1 BAG IV SCH (20:46)
[2016-07-07] MEDS: Piperacillin/Tazobactam 4.5 GM in Sodium Chloride 0.9% 100 ML IV SCH (00:17)
[2016-07-07] MEDS: Apixaban 5 MG Tab SCH (06:33)
[2016-07-07] MEDS: metroNIDAZOLE 500 MG Tab GTUBE SCH (06:34)
[2016-07-07] MEDS: Valproic Acid 250 MG/5 ML Syrup ML (473 ML Bottle) FTUBE SCH (06:34)
[2016-07-07] MEDS: Lansoprazole 30 MG Orally Disintegrating Tab.CR SCH (06:34)
--- NOTE | 2016-07-07 06:55 | PCM.DCSUM1 ---
Discharge Summary - Hospital Course Free Text/Narrative:: 51 year old female who apparently lives in a assisted was recently discharged from [facility] on 06/23/16. 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 The patient has a history of recurrent aspiration pneumonia. In the early part of 2017, the patient had a PEG tube placed but the procedure was complicated by a bowel perforation; she had also been treated for aspiration pneumonia as well as C diff. As a result of the complication, it appears that she was transferred to [facility]. Thus the recent visit to her vp account director occurred after several hospitalizations this year. The patient apparently has been weak, febrile as well as hypoxic. Reportedly she has had O2 saturation 84% on room air and documented temperature 100.1 Discharge antibiotics were Augmentin as well as Flagyl. Eliquis 10 mg BID for PE to be decreased to 5 mg BID after 06/27/16 was also documented a 2D echo was also performed during her hospitalization. Patient is admitted here to . Treated with IV abx and aggressive pulmonary toilet. PT/OT worked with her. She slowly improved. Labs improved, CXR improved. Dietitian worked with her regarding feedings, appropriate feeding solution, calorie and protein intake, water flushes. She initialy was not able to tolerated much at all for bolus initially without vomiting, over time feedings were slowly advanced, tolerated well and will continue to be directed by dietitian after discharge. Patient is discharged on supplemental oxygen at night at 2L/NC for acute on chronic respiratory failure with hypoxia associated with acute on chronic aspiration pneumonia. She will be discharged back to assisted with [facility] after completion of IV antibiotic course. She should have follow up with her PCP within 7 days of discharge for recheck; recommend repeat CXR in 2 weeks to follow resolving aspiration pneumonia. - Discharge Data Discharge Date: 07/07/16 (admit date 06/27/16) Discharge Disposition: DC/Tfer to Other Condition: Good - Discharge Diagnosis/Problem(s) (1) Pneumonia SNOMED Code(s): 718816837 ICD Code: J18.9 - PNEUMONIA, UNSPECIFIED ORGANISM Status: Acute Priority : High Problem Details: recurrent Qualifiers: Pneumonia type: aspiration pneumonia Laterality: bilateral Lung location : lower lobe of lung (2) Pulmonary embolism, bilateral SNOMED Code(s): 59441564, 38874416 ICD Code: I26.99 - OTHER PULMONARY EMBOLISM WITHOUT ACUTE COR PULMONALE Status: Acute Priority: High (3) Acute on chronic respiratory failure with hypoxemia SNOMED Code(s): 21057950775988496 ICD Code: J96.21 - ACUTE AND CHRONIC RESPIRATORY FAILURE WITH HYPOXIA Status: Chronic Priority: High (4) Hiatal hernia with GERD SNOMED Code(s): 186827303 ICD Code: K21.9 - GASTRO-ESOPHAGEAL REFLUX DISEASE WITHOUT ESOPHAGITIS; K44.9 - DIAPHRAGMATIC HERNIA WITHOUT OBSTRUCTION OR GANGRENE Status: Acute Priority: High Problem Details: contributing to aspiration pneumonia (5) Clostridium difficile infection SNOMED Code(s): 597105093 ICD Code: B96.89 - OTH BACTERIAL AGENTS THE CAUSE OF DISEASES CLASSD ELSWHR Status: Acute Priority: High (6) Hypomagnesemia SNOMED Code(s): 984822336 ICD Code: E83.42 - HYPOMAGNESEMIA Status: Resolved Priority: High (7) Hypokalemia SNOMED Code(s): 36381182 ICD Code: E87.6 - HYPOKALEMIA Status: Resolved Priority: High (8) Blind in both eyes SNOMED Code(s): 33733238, 243282013 ICD Code: H54.0 - BLINDNESS, BOTH EYES Status: Chronic Priority: Medium (9) Delayed social and emotional development SNOMED Code(s): 113824928 ICD Code: F88 - OTHER DISORDERS OF PSYCHOLOGICAL DEVELOPMENT Status: Chronic Priority: Medium - Patient Summary/Data Operative Procedure(s) Performed: None Complications: None Consults: Consultations 06/28/16 13:47 Consult to Streaming Media Specialist [CONS] Routine 06/30/16 07:11 Consult to Speech Language Pathology [HIGH FREQUENCY MILL OPERATOR Evaluation and Treatment] [CONS] Routine 07/02/16 07:24 Consult to Physician [CONS] Urgent Labs Pending at D/C: None Recommended Follow-up Testing/Procedures: Ok to return to [facility] assisted (ABLE). Continue G-tube cares/residuals. Osmolite 1.5 Harvey feedings with water flushes per schedule at discharge; extremely important to follow Dietitian recommendations for feedings to prevent recurrent aspiration pneumonia. Please do not deviate from plan of care without checking with Dietitian first. Ambulate after feeding and sit in chair or upright for at least 60minutes after each feeding. Meds to be given with feedings. Follow up with PCP within 5-7 days of discharge; consider repeat chest xray in 2 weeks to follow aspiration pneumonia. Consider follow up/consult with general surgery after treatment is completed for PE's (6-9 months) for hiatal hernia repair if still having problems with intermittent vomiting. Planned Operative Procedure(s) after DC: None at this time Hospital Course: As above - Patient Instructions Diet: NPO Activity: As Tolerated (Ambulate after each feeding and PRN during day) Driving: Do Not Drive Showering/Bathing: May Shower Notify Provider of: Fever, Increased Pain, Nausea and/or Vomiting - Discharge Plan Prescriptions/Med Rec: Albuterol [IJD: Albuterol] 2.5 mg NEB QIDRT PRN #1 box PRN Reason: sob/wheezing/cough Atenolol [Tenormin] 12.5 mg PO BID #60 tablet risperiDONE [RisperiDAL] 0.5 mg GTUBE DAILY@1100 #30 tablet risperiDONE [RisperiDAL] 1 mg GTUBE DAILY@1900 #30 tablet Home Medications: Home Meds Calcium Citrate/Vitamin D3 [Calcium Citrate + D] 1 tab GTUBE DAILY 03/21/16 [ History] Estrogens, Conjugated [Premarin Vaginal Crm] 0.625 gm TOP ASDIRECTED 03/21/16 [ History] Ipratropium [Atrovent] 0.5 mg NEB Q8HRRT PRN 03/21/16 [History] Omeprazole 20 mg GTUBE BID 03/21/16 [History] Psyllium Husk/Aspartame [Metamucil Fiber Singles Packet] 3.4 gm GTUBE DAILY [History] Apixaban [Eliquis] 5 mg GTUBE BID 06/27/16 [History] Banatrol 1 packet GTUBE 06/27/16 [History] Multivitamins with Iron/Min [Centrum] 15 ml GTUBE DAILY@199907/02/16 [History] Valproic Acid (As Sodium Salt) [Valproic Acid] 125 mg GTUBE DAILY 07/02/16 [ History] Valproic Acid (As Sodium Salt) [Valproic Acid] 250 mg GTUBE BEDTIME 07/02/16 [ History] buPROPion [Wellbutrin] 75 mg GTUBE BID 07/02/16 [History] Albuterol [IJD: Albuterol] 2.5 mg NEB QIDRT PRN #1 box 07/07/16 [Rx] Atenolol [Tenormin] 12.5 mg PO BID #60 tablet 07/07/16 [Rx] Metronidazole [IJD: metroNIDAZOLE] 500 mg GTUBE .EVERY 8 HOURS #21 07/07/16 [Rx ] risperiDONE [RisperiDAL] 0.5 mg GTUBE DAILY@1100 #30 tablet 07/07/16 [Rx] risperiDONE [RisperiDAL] 1 mg GTUBE DAILY@1900 #30 tablet 07/07/16 [Rx] Patient Handouts: Clostridium Difficile FAQs - REVELES, PEG Tube Home Guide, Easy- to-Read, Clostridium Difficile Infection, [id number], Care of a Feeding Tube, [id number], Aspiration Pneumonia, Community-Acquired Pneumonia, Adult, Easy-to -Read Forms: ED Department Discharge Referrals: Cristina Estrada MD [Primary Care Provider] - - Discharge Summary/Plan Comment DC Time >30 min.: Yes (40 min) - Review of Systems General: Reports: No Symptoms. Denies: Fever HEENT: Reports: no symptoms Pulmonary: Reports: no symptoms. Denies: shortness of breath, pleuritic chest pain, cough Cardiovascular: Reports: No Symptoms Gastrointestinal: Reports: No symptoms, Vomiting (intermittent and rare; usually associated with position changes with increased intraabdominal pressure) . Denies: Abdominal pain, Decreased appetite, Diarrhea, Nausea Genitourinary: Reports: no symptoms Musculoskeletal: Reports: no symptoms Skin: Reports: no symptoms Neurological: Reports: No Symptoms, Other (developmental delay and blindness) Psychiatric: Reports: no symptoms, other (ruminations significantly improved) - Patient Data Vitals - Most Recent: Last Vital Signs Temp 97.2 F 07/07/16 02:48 Pulse 73 07/07/16 02:48 Resp 18 07/07/16 02:48 BP 122/79 07/07/16 02:48 Pulse Ox 99 07/07/16 02:48 Weight - Most Recent: 115 lb 12.8 oz I&O - Last 24 hours: Intake & Output 07/06/16 07/06/1617 14:59 22:59 06:59 Intake Total 880 1 Output Total 200 700 Balance -200 880 -699 Lab Results - Last 24 hrs: Laboratory Results - last 24 hr 07/06/16 07/06/16 07/06/16 Range/Units 05:18 11:38 18:05 Sodium 141 (136-145) mEq/L Potassium 4.1 (3.5-5.1) mEq/L Chloride 104 (98-107) mEq/L Carbon Dioxide 31 (21-32) mEq/L Anion Gap 10.1 (5-15) BUN 10 (7-18) mg/dL Creatinine 0.6 (0.55-1.02) mg/dL Est Cr Clr Drug Dosing 94.54 mL/min Estimated GFR (MDRD) > 60 (>60) mL/min BUN/Creatinine Ratio 16.7 (14-18) Glucose 91 (74-106) mg/dL POC Glucose 85 89 (70-105) mg/dL Calcium 9.5 (8.5-10.1) mg/dL 07/06/16 07/07/16 Range/Units 22:48 06:30 Sodium (136-145) mEq/L Potassium (3.5-5.1) mEq/L Chloride (98-107) mEq/L Carbon Dioxide (21-32) mEq/L Anion Gap (5-15) BUN (7-18) mg/dL Creatinine (0.55-1.02) mg/dL Est Cr Clr Drug Dosing mL/min Estimated GFR (MDRD) (>60) mL/min BUN/Creatinine Ratio (14-18) Glucose (74-106) mg/dL POC Glucose 97 81 (70-105) mg/dL Calcium (8.5-10.1) mg/dL Med Orders - Current: Current Medications Albuterol (Proventil Neb Soln) 2.5 mg NEB QIDRT PRN PRN Reason: Shortness of Breath Last Admin: 07/02/16 20:39 Dose: 2.5 mg Apixaban (Eliquis) 5 mg .XX Q12H [facility] Last Admin: 07/07/16 06:33 Dose: 5 mg Atenolol (Tenormin) 12.5 mg PO BID [facility] Last Admin: 07/06/16 22:00 Dose: 12.5 mg Azithromycin (Zithromax 200 Mg/5 Ml Susp) 500 mg FTUBE DAILY@1500 [facility] Last Admin: 07/06/16 14:48 Dose: 12.5 ml Budesonide (Pulmicort) 0.5 mg NEB BID [facility] Last Admin: 07/06/16 20:59 Dose: 0.5 mg Dextrose/Water (Dextrose 50% In Water) 50 ml IVPUSH ASDIRECTED PRN PRN Reason: hypoglycemia as below Ipratropium [place] (Atrovent) 0.5 mg NEB Q8HRRT PRN PRN Reason: Shortness of Breath Lansoprazole (Prevacid Solutab) 30 mg .XX Q12H [facility] Last Admin: 07/07/16 06:34 Dose: 30 mg Metronidazole (Flagyl) 500 mg GTUBE Q8H [facility] Last Admin: 07/07/16 06:34 Dose: 500 mg Multivitamins/Folic Acid/Vitamin C (Centrum) 15 ml GTUBE DAILY@1900 [facility] Last Admin: 07/06/16 20:25 Dose: 15 ml Ondansetron HCl (Zofran) 4 mg IVPUSH Q6H PRN PRN Reason: Nause/vomiting Last Admin: 07/05/16 17:07 Dose: 4 mg Psyllium Husk (Metamucil Sugar Free) 1 packet GTUBE DAILY [facility] Last Admin: 07/06/16 08:51 Dose: 1 packet Risperidone (Risperidal) 1 mg GTUBE DAILY@1900 [facility] Last Admin: 07/06/16 20:19 Dose: 1 mg Risperidone (Risperidal) 0.5 mg GTUBE DAILY@1100 [facility] Last Admin: 07/06/16 11:27 Dose: 0.5 mg Saccharomyces Boulardii (Florastor) 500 mg FTUBE DAILY [facility] Last Admin: 07/06/16 08:51 Dose: 500 mg Sodium Chloride (Saline Flush) 10 ml FLUSH ASDIRECTED PRN PRN Reason: Keep Vein Open Last Admin: 06/27/16 19:49 Dose: 10 ml Valproic Acid (Depakene Syrup) 125 mg FTUBE DAILY@0700 [facility] Last Admin: 07/07/16 06:34 Dose: 125 mg Valproic Acid (Depakene Syrup) 250 mg FTUBE DAILY@1900 [facility] Last Admin: 07/06/16 20:24 Dose: 250 mg Discontinued Medications Apixaban (Eliquis) 10 mg .XX BID [facility] Apixaban (Eliquis) 5 mg .XX BID [facility] Last Admin: 07/03/16 10:49 Dose: 5 mg Azithromycin (Zithromax 200 Mg/5 Ml Susp) 500 mg FTUBE DAILY@1500 [facility] Stop: 07/02/16 23:59 Last Admin: 07/02/16 14:28 Dose: 12.5 ml Budesonide (Pulmicort) 0.5 mg NEB BIDRT [facility] Levofloxacin/Dextrose 500 mg/ (Premix) 100 mls @ 100 mls/hr IV ONETIME ONE Stop: 06/27/16 20:10 Last Admin: 06/27/16 19:48 Dose: 100 mls/hr Sodium Chloride (Normal Saline) 1,000 mls @ 999 mls/hr IV ONETIME ONE Stop: 06/27/16 20:20 Last Admin: 06/27/16 19:48 Dose: 999 mls/hr Levofloxacin/Dextrose 750 mg/ (Premix) 150 mls @ 100 mls/hr IV Q24H [facility] Last Admin: 07/06/16 20:46 Dose: 100 mls/hr Sodium Chloride (Normal Saline) 1,000 mls @ 125 mls/hr IV ASDIRECTED [facility] Last Admin: 06/28/16 08:22 Dose: 125 mls/hr Piperacillin Sod/Tazobactam (Sod 4.5 gm/ Sodium Chloride) 100 mls @ 200 mls/hr IV ONETIME ONE Stop: 06/28/16 00:29 Last Admin: 06/28/16 00:23 Dose: 200 mls/hr Piperacillin Sod/Tazobactam (Sod 4.5 gm/ Sodium Chloride) 100 mls @ 25 mls/hr IV Q8H [facility] Last Admin: 07/07/16 00:17 Dose: Not Given Sodium Chloride (Normal Saline) 1,000 mls @ 75 mls/hr IV ASDIRECTED [facility] Stop: 06/28/16 23:00 Last Admin: 06/28/16 17:54 Dose: 75 mls/hr Sodium Chloride (Normal Saline) 1,000 mls @ 50 mls/hr IV ASDIRECTED [facility] Last Admin: 06/30/16 05:07 Dose: 50 mls/hr Magnesium Sulfate 2 gm/ Premix 50 mls @ 25 mls/hr IV ONETIME ONE Stop: 06/29/16 11:52 Last Admin: 06/29/16 12:42 Dose: 25 mls/hr Dextrose/Sodium Chloride (Dextrose 5%-Normal Saline) 1,000 mls @ 50 mls/hr IV ASDIRECTED [facility] Last Admin: 07/02/16 04:12 Dose: 50 mls/hr Magnesium Sulfate 2 gm/ Premix 50 mls @ 25 mls/hr IV ONETIME ONE Stop: 06/30/16 13:36 Last Admin: 06/30/16 12:07 Dose: 25 mls/hr Potassium Chloride 10 meq/ (Premix) 100 mls @ 100 mls/hr IV Q1H [facility] Stop: 06/30/16 15:44 Last Admin: 06/30/16 17:44 Dose: 100 mls/hr Magnesium Sulfate 2 gm/ Premix 50 mls @ 25 mls/hr IV ONETIME ONE Stop: 07/01/16 15:20 Last Admin: 07/01/16 13:47 Dose: 25 mls/hr Magnesium Sulfate 2 gm/ Premix 50 mls @ 25 mls/hr IV ONETIME ONE Stop: 07/02/16 12:36 Last Admin: 07/02/16 12:13 Dose: 25 mls/hr Lansoprazole (Prevacid Solutab) 30 mg PO BIDAC [facility] Last Admin: 07/02/16 05:40 Dose: 30 mg Lansoprazole (Prevacid Solutab) 30 mg .XX BIDAC [facility] Last Admin: 07/03/16 06:16 Dose: 30 mg Non-Formulary Medication (Omeprazole [Omeprazole]) 20 mg GTUBE BID [facility] Last Admin: 06/29/16 19:41 Dose: Not Given Potassium Chloride (Klor-Con M20) 40 meq PO BID [facility] Stop: 07/03/16 21:01 Last Admin: 07/02/16 12:33 Dose: Not Given Potassium Chloride (Potassium Chloride) 40 meq PEGTUBE BID [facility] Stop: 07/03/16 21:01 Last Admin: 07/03/16 21:44 Dose: 40 meq Risperidone (Risperidal) 1 mg FTUBE BEDTIME [facility] Risperidone (Risperidal) 0.25 mg GTUBE BEDTIME [facility] Risperidone (Risperidal) 0.25 mg GTUBE BEDTIME [facility] Last Admin: 07/02/16 21:23 Dose: 0.25 mg Risperidone (Risperidal) 0.5 mg GTUBE QAM [facility] Risperidone (Risperidal) 0.5 mg GTUBE QAM [facility] Last Admin: 07/03/16 10:49 Dose: 0.5 mg Risperidone (Risperidal) 0.5 mg GTUBE DAILY@0700 [facility] Last Admin: 07/04/16 06:35 Dose: 0.5 mg Valproic Acid (Depakene Syrup) 125 mg FTUBE DAILY [facility] Last Admin: 07/03/16 10:50 Dose: 125 mg Valproic Acid (Depakene Syrup) 250 mg FTUBE BEDTIME [facility] Last Admin: 07/02/16 21:22 Dose: 250 mg - Exam Quality Assessment: Reports: DVT prophylaxis General: Reports: alert, cooperative, no acute distress HEENT: Reports: Pupils equal Neck: Reports: supple Lungs: Reports: Clear to auscultation, Normal respiratory effort, Decreased breath sounds (to bases) Cardiovascular: Reports: Regular Rate, Regular Rhythm Abdomen: Reports: bowel sounds present, soft, no tenderness, no distension, other (peg site intact and without s/s of infection) (Female) Exam: Deferred Rectal (Female) Exam: Deferred Extremities: Reports: no edema, no calf tenderness Skin: Reports: warm, dry Neurological: Reports: no new focal deficit, other (developmental delay) Psy/Mental Status: Reports: alert, normal affect, normal mood. Denies: anxious , agitated *Q Meaningful Use (DIS) - VTE *Q VTE Criteria *Q: - Stroke *Q Stroke Criteria *Q: - AMI *Q AMI Criteria *Q:
[2016-07-07 07:49] VITALS: BP 113/54
[2016-07-07] MEDS: Budesonide 0.5 MG/2 ML Neb Susp NEB SCH (08:11)
[2016-07-07] MEDS: Psyllium Husk Powder Sugar Free 3.4 GM Packet GTUBE SCH (09:22)
[2016-07-07] MEDS: Atenolol 25 MG Tab PO SCH (09:22)
[2016-07-07] MEDS: Saccharomyces Boulardii (Probiotic) 250 MG Cap FTUBE SCH (09:22)
== END 2016-07-07 10:05 | disposition other institution (70) | DRG 177 ==
LOC: JD.ED 17:17 → JD.MS 21:41
PROVIDERS: ADMIT Internal Medicine Cardiovascular Disease; ATTEND Internal Medicine Cardiovascular Disease
DX: J18.9 Pneumonia, unspecified organism (principal); J69.0 Pneumonitis due to inhalation of food and vomit; J96.21 Acute and chronic respiratory failure with hypoxia; I26.99 Other pulmonary embolism without acute cor pulmonale; B96.89 Other specified bacterial agents as the cause of diseases classified elsewhere; H54.0 Blindness, both eyes; E83.42 Hypomagnesemia; F79 Unspecified intellectual disabilities; E87.6 Hypokalemia; K21.9 Gastro-esophageal reflux disease without esophagitis; K44.9 Diaphragmatic hernia without obstruction or gangrene; R41.0 Disorientation, unspecified; H54.8 Legal blindness, as defined in USA; F29 Unspecified psychosis not due to a substance or known physiological condition; G47.00 Insomnia, unspecified; F89 Unspecified disorder of psychological development; Z86.711 Personal history of pulmonary embolism; Z79.01 Long term (current) use of anticoagulants; Z93.1 Gastrostomy status; F32.9 Major depressive disorder, single episode, unspecified; F41.9 Anxiety disorder, unspecified; Q65.89 Other specified congenital deformities of hip; Z79.899 Other long term (current) drug therapy; Z88.8 Allergy status to other drugs, medicaments and biological substances
CPT/HCPCS: 36415; 71010; 80053; 81001; 82553; 83605; 83880; 84484; 85025; 86140; 87040 ×2; 87086; 93005; 96365; 99285; J1956; J7040; J7050; P9612; 71020; 71020-26; 80048; 82962; 83735; 94640-76; 94664; 94667; 94668; 94760; 94761; 94762; 99232; A9270-GY; J2405; J2543; J3475; J3480; J7030; J7042

== ENCOUNTER 2019-05-03 07:35 | Emergency (ER) | payer MEDICARE, MEDICAID ==
[2019-05-03 07:50] VITALS: BP 132/60; PULSE 92
--- NOTE | 2019-05-03 09:09 | EDM.PDOC ---
ED HPI GENERAL MEDICAL PROBLEM - General Chief Complaint: Gastrointestinal Problem Stated Complaint: FEEDING TUBE FELL OUT Time Seen by Provider: 05/03/19 08:12 Source of Information: Reports: Patient, Other (Caregiver) - History of Present Illness INITIAL COMMENTS - FREE TEXT/NARRATIVE: Patient is a 53-year-old female who presents with her caregiver from the [facility] skilled nursing after her feeding tube fell out this morning. Caregiver states that her anatomy is such that the feeding tube needs to be placed. I did call and speak with the head nurse at [facility]. She states that the feeding tumescent in the jejunum as of its in her stomach she aspirates. Feeding tube had previously been placed with interventional radiology at [facility] in [place]. - Related Data Allergies Allergy/AdvReac Type Severity Reaction Status Date / Time doxepin Allergy Other Verified 05/03/19 07:50 Home Meds: Home Meds Calcium Citrate/Vitamin D3 [Calcium Citrate + D] 1 tab GTUBE DAILY 03/21/16 [ History] Estrogens, Conjugated [Premarin Vaginal Crm] 0.625 gm TOP ASDIRECTED 03/21/16 [ History] Ipratropium [Atrovent] 0.5 mg NEB Q8HRRT PRN 03/21/16 [History] Omeprazole 20 mg GTUBE BID 03/21/16 [History] Psyllium Husk/Aspartame [Metamucil Fiber Singles Packet] 3.4 gm GTUBE DAILY [History] Apixaban [Eliquis] 5 mg GTUBE BID 06/27/16 [History] Banatrol 1 packet GTUBE 06/27/16 [History] Multivitamins with Iron/Min [Centrum] 15 ml GTUBE DAILY@199907/02/16 [History] Valproic Acid (As Sodium Salt) [Valproic Acid] 125 mg GTUBE DAILY 07/02/16 [ History] Valproic Acid (As Sodium Salt) [Valproic Acid] 250 mg GTUBE BEDTIME 07/02/16 [ History] buPROPion [Wellbutrin] 75 mg GTUBE BID 07/02/16 [History] Albuterol [IJD: Albuterol] 2.5 mg NEB QIDRT PRN #1 box 07/07/16 [Rx] Atenolol [Tenormin] 12.5 mg PO BID #60 tablet 07/07/16 [Rx] Metronidazole [IJD: metroNIDAZOLE] 500 mg GTUBE .EVERY 8 HOURS #21 07/07/16 [Rx] risperiDONE [RisperiDAL] 0.5 mg GTUBE DAILY@1100 #30 tablet 07/07/16 [Rx] risperiDONE [RisperiDAL] 1 mg GTUBE DAILY@1900 #30 tablet 07/07/16 [Rx] Past Medical History HEENT History: Reports: Impaired Vision Other HEENT History: Blind Cardiovascular History: Reports: None Respiratory History: Reports: PE, Pneumonia, Recurrent Other Respiratory History: recurrent aspiration pneumonia Gastrointestinal History: Reports: GERD, Other (See Below) Other Gastrointestinal History: abdominal Cysts, intesinal fistula Ostomy 2010 Musculoskeletal History: Reports: Other (See Below) Other Musculoskeletal History: Scoliosis, congenital hip dysplagia Neurological History: Reports: Other (See Below) Other Neuro History: mild mental retardation. Psychiatric History: Reports: Anxiety, Depression Other Psychiatric History: generalized anxiety disorder. - Infectious Disease History Infectious Disease History: Reports: C-Difficile, Influenza - Past Surgical History HEENT Surgical History: Reports: Other (See Below) Social & Family History - Family History Family Medical History: Noncontributory - Tobacco Use Smoking Status *Q: Never Smoker - Caffeine Use Caffeine Use: Reports: None Other Caffeine Use: on occassion will have a soda or coffee - Recreational Drug Use Recreational Drug Use: No ED ROS GENERAL - Review of Systems Review Of Systems: Comprehensive ROS is negative, except as noted in HPI. ED EXAM, GI/ABD - Physical Exam Exam: See Below Exam Limited By: No Limitations General Appearance: Alert, WD/WN, No Apparent Distress Respiratory/Chest: No Respiratory Distress, Lungs Clear, Normal Breath Sounds, No Accessory Muscle Use, Chest Non-Tender Cardiovascular: Normal Peripheral Pulses, Regular Rate, Rhythm, No Edema, No Gallop, No JVD, No Murmur, No Rub GI/Abdominal Exam: Normal Bowel Sounds, Soft, Non-Tender, No Distention, Other ( Surgical opening for feeding tube to the right lateral of the umbilicus.) Neurological: Alert, Oriented, CN II-XII Intact, Normal Cognition, Normal Gait, Normal Reflexes, No Motor/Sensory Deficits Psychiatric: Normal Affect, Normal Mood Skin Exam: Warm, Dry, Intact, Normal Color, No Rash Course - Vital Signs Last Recorded V/S: Last Vital Signs Temp 98.4 F 05/03/19 07:47 Pulse 92 05/03/19 07:47 Resp 18 05/03/19 07:47 BP 132/60 05/03/19 07:47 Pulse Ox 94 L 05/03/19 07:47 - Re-Assessments/Exams Free Text/Narrative Re-Assessment/Exam: On exam, the balloon of the feeding tube appears to have ruptured. Feeding tube is completely out of the abdomen. Have placed a 16 Bulgarian Mejia catheter into the opening and inflated the balloon to keep the hole patent. Called [facility] in [place]. Spoke with Chary nurse practitioner in the ER. Patient will come to the ER via private vehicle later this morning or early afternoon after the roads improved. One call nurse requested that the Carlos Enrique nurse call them to notify them when they are leaving so they know when to expect them. Called and updated the [facility] NurseRenata. Transfer papers will be sent with the patient for transfer via private vehicle. Departure - Departure Time of Disposition: 09:09 Disposition: DC/Tfer to Acute Hospital 02 Condition: Good Clinical Impression: Complication of feeding tube - Discharge Information *PRESCRIPTION DRUG MONITORING PROGRAM REVIEWED*: No *COPY OF PRESCRIPTION DRUG MONITORING REPORT IN PATIENT [place]: No Instructions: How to Care for a Feeding Tube, [id number] Referrals: Cristina Estrada MD [Primary Care Provider] - Forms: ED Department Discharge Additional Instructions: Laura was seen in the emergency department this morning after her feeding tube fell out. A Mejia catheter has been placed in the lumen to keep it open. We did speak with the nurse practitioner at the [facility] ER in [place]. They will be expecting her later this morning or early this afternoon to have the feeding tube reinserted. Please call Albertina at [phone] prior to leaving [place] so they know to notify interventional radiology and when to expect her. Sepsis Event Note - Evaluation Sepsis Screening Result: No Definite Risk - Focused Exam Vital Signs: Vital Signs Temp Pulse Resp BP Pulse Ox 05/03/19 07:47 98.4 F 92 18 132/60 94 L Date Exam was Performed: 05/03/19 Time Exam was Performed: 09:42
== END 2019-05-03 09:25 ==
LOC: JD.ED 07:35
DX: K94.20 Gastrostomy complication, unspecified (principal); H54.7 Unspecified visual loss; K21.9 Gastro-esophageal reflux disease without esophagitis; F32.9 Major depressive disorder, single episode, unspecified; Z88.8 Allergy status to other drugs, medicaments and biological substances; Z79.899 Other long term (current) drug therapy
CPT/HCPCS: 43762; 99282; 99284-25

== ENCOUNTER 2020-05-12 10:33 | Emergency (ER) | payer MEDICARE, MEDICAID ==
[2020-05-12 10:54] VITALS: PULSE 84
--- NOTE | 2020-05-12 11:25 | EDM.PDOC ---
ED HPI GENERAL MEDICAL PROBLEM - General Chief Complaint: Respiratory Problem Stated Complaint: LOW O2 Time Seen by Provider: 05/12/20 11:01 Source of Information: Reports: Patient, RN Notes Reviewed History Limitations: Reports: No Limitations - History of Present Illness INITIAL COMMENTS - FREE TEXT/NARRATIVE: Patient is a 54-year-old female who presents to the ED with [facility] staff for the evaluation of her low oxygen saturations. The patient does wear oxygen at night for nocturnal hypoxemia, and she has been getting her O2 sats checked throughout the day, and yesterday they were noted to be running low at around 70% on room air, patient was in no visible respiratory distress however they do a DuoNeb treatment with her, and this seemed to improve her breathing and oxygen saturations along with placing her on continuous oxygen at 2 L via nasal cannula, and this increased her oxygen saturations to above 90%. The [facility] staff noted that when they were assessing her lung sounds yesterday, they thought they heard some crackles, again but she did not might need to be in any respiratory distress, and while she was getting a nebulizer treatment yesterday, she told the staff that "I can breathe". Patient is not having any other complaints, she is not complaining of pain anywhere, she is not had any fevers or chills, cough, perceived shortness of breath, no nausea/vomiting/diarrhea, patient is primarily tube fed, so she has not been thought to have aspirated anything. Merry care provider is Dr. Arguello. Vital signs at time of triage revealed a temperature 97.5 F, pulse of 84 bpm, respiratory rate of 16 breaths/min, blood pressure at 164/123, and O2 sats were 69% on room air, she was put on 2 L via nasal cannula, and this did increase her O2 sats to 95%. Patient is noted to have extreme anxiety. She was tested for COVID-19 on May 07, 2020, and this was negative at that time. Treatments JACK OF ALL TRADES: Reports: Breathing Treatments Other Treatments JACK OF ALL TRADES: 0845 albuterol - Related Data Allergies Allergy/AdvReac Type Severity Reaction Status Date / Time doxepin Allergy Other Verified 05/12/20 10:48 Home Meds: Home Meds Omeprazole 20 mg GTUBE BID 03/21/16 [History] Psyllium Husk/Aspartame [Metamucil Fiber Singles Packet] 3.4 gm GTUBE DAILY 03/21/16 [History] Multivitamins with Iron/Min [Centrum] 15 ml GTUBE DAILY@199907/02/16 [History] buPROPion [Wellbutrin] 75 mg GTUBE BID 07/02/16 [History] Albuterol [IJD: Albuterol] 2.5 mg NEB QIDRT PRN #1 box 07/07/16 [Rx] Atenolol [Tenormin] 12.5 mg PO BID #60 tablet 07/07/16 [Rx] Acetaminophen [Tylenol] 2 tab PO PRN 06/08/19 [History] Calcium Glubionate PO DAILY 06/08/19 [History] Clotrimazole [Clotrimazole 1%] 60 gm TOP BID 06/08/19 [History] Divalproex Sodium 1 cap PO 06/08/19 [History] Emollient Combination No.40 [Cetaphil] 1 applic TOP BID 06/08/19 [History] Ipratropium [place] 1 vial INH TID 06/08/19 [History] Na Phos,M-B/Na Phos,DI-B [Fleet Enema] 1 enema RECTAL PRN 06/08/19 [History] Triamcinolone Acetonide [Triamcinolone Acetonide 0.1% Crm] 60 gm TOP BID 06/08/19 [History] bisacodyL [Dulcolax] 1 supp.rect RECTAL PRN 06/08/19 [History] carvediloL [Carvedilol] 1 tab PO BID 06/08/19 [History] clonazePAM [Clonazepam] 1 tab PO BID 06/08/19 [History] estradioL [Yuvafem] 1 tab VAG TID 06/08/19 [History] Past Medical History HEENT History: Reports: Impaired Vision Other HEENT History: Blind Respiratory History: Reports: PE, Pneumonia, Recurrent Other Respiratory History: recurrent aspiration pneumonia Gastrointestinal History: Reports: GERD, Other (See Below) Other Gastrointestinal History: abdominal Cysts, intesinal fistula Ostomy 2010; patient is tube fed Genitourinary History: Reports: Urinary Incontinence Musculoskeletal History: Reports: Other (See Below) Other Musculoskeletal History: Scoliosis, congenital hip dysplasia Neurological History: Reports: Other (See Below) Other Neuro History: mild mental retardation. Psychiatric History: Reports: Anxiety, Depression Other Psychiatric History: generalized anxiety disorder. - Infectious Disease History Infectious Disease History: Reports: C-Difficile, Influenza - Past Surgical History HEENT Surgical History: Reports: Other (See Below) Other HEENT Surgeries/Procedures: has false eyes GI Surgical History: Reports: Appendectomy Social & Family History - Family History Family Medical History: No Pertinent Family History - Tobacco Use Tobacco Use Status *Q: Never Tobacco User - Caffeine Use Caffeine Use: Reports: Coffee Other Caffeine Use: on occassion will have a soda or coffee - Recreational Drug Use Recreational Drug Use: No - Living Situation & Occupation Living situation: Reports: Single, [facility] ([facility]) ED ROS GENERAL - Review of Systems Review Of Systems: Comprehensive ROS is negative, except as noted in HPI. ED EXAM, GENERAL - Physical Exam Exam: See Below Exam Limited By: No Limitations General Appearance: Alert, WD/WN, No Apparent Distress Respiratory/Chest: No Respiratory Distress, Lungs Clear, No Accessory Muscle Use, Chest Non-Tender, Decreased Breath Sounds (diffuse bilaterally) Cardiovascular: Normal Peripheral Pulses, Regular Rate, Rhythm, No Edema GI/Abdominal: Normal Bowel Sounds, Soft, Non-Tender Extremities: Normal Inspection, Normal Capillary Refill Neurological: Alert, Oriented, Normal Cognition Psychiatric: Anxious Skin Exam: Warm, Dry, Intact, Normal Color, No Rash #1 Interpretation EKG Date: 05/12/20 Time: 11:17 Rhythm: NSR Rate (Beats/Min): 85 [place]: Normal P-Wave: Present QRS: Normal ST-T: Normal QT: Normal EKG Interpretation Comments: No obvious ischemia or acute ST changes noted, reviewed by myself and Dr. Manzo. Course - Vital Signs Last Recorded V/S: Last Vital Signs Temp 97.5 F 05/12/20 10:52 Pulse 84 05/12/20 10:52 Resp 16 05/12/20 10:52 BP 164/123 H 05/12/20 10:52 Pulse Ox 95 05/12/20 10:52 - Orders/Labs/Meds Orders: Active Orders 24 hr Category Date Time Status EKG Documentation Completion [RC] STAT Care 05/12/20 11:03 Active Isolation [COMM] Routine Oth 05/12/20 11:45 Ordered Labs: Laboratory Tests 02/21/21 02/21/21 02/21/21 Range/Units 11:26 11:40 12:05 WBC (3.98-10.04) K/mm3 RBC (3.98-5.22) M/mm3 Hgb (11.2-15.7) gm/dl Hct (34.1-44.9) % MCV (79.4-94.8) fl MCH (25.6-32.2) pg MCHC (32.2-35.5) g/dl RDW Std Deviation (36.4-46.3) fL Plt Count (182-369) K/mm3 MPV (9.4-12.3) fl Neutrophils % (Manual) (40-60) % Band Neutrophils % (0-10) % Lymphocytes % (Manual) (20-40) % Atypical Lymphs % % Monocytes % (Manual) (2-10) % Eosinophils % (Manual) (0.7-5.8) % Basophils % (Manual) (0.1-1.2) Nucleated RBCs % Platelet Estimate Plt Morphology Comment Polychromasia Macrocytosis Target Cells Stomatocytes RBC Morph Comment PT (9.7-12.0) SECONDS INR APTT (21.7-31.4) SECONDS D-Dimer, Quantitative (0.19-0.50) mg/L Puncture Site Rt radial ABG pH 7.44 (7.35-7.45) ABG pCO2 53.7 H (35.0-45.0) mmHg ABG pO2 51.0 L (80.0-100.0) mmHg ABG HCO3 36.0 H (22.0-26.0) meq/L ABG O2 Saturation 82.0 L (96.0-97.0) % ABG Base Excess 10.3 H (-2-2.0) Tim Test Positive A-a Gradient 31 mmHg O2 Delivery Device Rs Oxygen Flow Rate 0.0 FiO2 21.00 (21.00-100.00) % Sodium (136-145) mEq/L Potassium (3.5-5.1) mEq/L Chloride (98-107) mEq/L Carbon Dioxide (21-32) mEq/L Anion Gap (5-15) BUN (7-18) mg/dL Creatinine (0.55-1.02) mg/dL Est Cr Clr Drug Dosing mL/min Estimated GFR (MDRD) (>60) mL/min BUN/Creatinine Ratio (14-18) Glucose (74-106) mg/dL Lactic Acid (0.4-2.0) mmol/L Calcium (8.5-10.1) mg/dL Magnesium (1.8-2.4) mg/dl Ferritin (8-252) ng/ml Total Bilirubin (0.2-1.0) mg/dL AST (15-37) U/L ALT (14-59) U/L Alkaline Phosphatase (46-116) U/L Lactate Dehydrogenase (81-234) U/L Troponin I (0.00-0.056) ng/mL C-Reactive Protein 4.9 H* (<1.0) mg/dL NT-Pro-B Natriuret Pep (0-125) pg/mL Total Protein (6.4-8.2) g/dl Albumin (3.4-5.0) g/dl Globulin gm/dL Albumin/Globulin Ratio (1-2) Urine Color Yellow (Yellow) Urine Appearance Clear (Clear) Urine pH 7.5 (5.0-8.0) Ur Specific [place] 1.020 (1.005-1.030) Urine Protein Negative (Negative) Urine Glucose (UA) Negative (Negative) Urine Ketones Negative (Negative) Urine Occult Blood Negative (Negative) Urine Nitrite Negative (Negative) Urine Bilirubin Negative (Negative) Urine Urobilinogen 1.0 (0.2-1.0) Ur Leukocyte Esterase Negative (Negative) Urine RBC 0-5 (0-5) /hpf Urine WBC 0-5 (0-5) /hpf Ur Epithelial Cells Not seen (0-5) /hpf Amorphous Sediment Moderate H (NOT SEEN) /hpf Urine Bacteria Rare (FEW) /hpf Urine Mucus Rare (FEW) /hpf Influenza Type A RNA (NEGATIVE) Influenza Type B RNA (NEGATIVE) SARS-CoV-2 RNA (JJ) (NEGATIVE) 05/12/20 05/12/20 05/12/20 Range/Units 12:23 12:23 12:23 WBC 8.60 (3.98-10.04) K/mm3 RBC 3.85 L (3.98-5.22) M/mm3 Hgb 12.3 D (11.2-15.7) gm/dl Hct 41.0 (34.1-44.9) % MCV 106.5 H D (79.4-94.8) fl MCH 31.9 (25.6-32.2) pg MCHC 30.0 L (32.2-35.5) g/dl RDW Std Deviation 47.6 H (36.4-46.3) fL Plt Count 267 (182-369) K/mm3 MPV 10.8 (9.4-12.3) fl Neutrophils % (Manual) 86 H (40-60) % Band Neutrophils % 0 (0-10) % Lymphocytes % (Manual) 9 L (20-40) % Atypical Lymphs % 0 % Monocytes % (Manual) 5 (2-10) % Eosinophils % (Manual) 0 L (0.7-5.8) % Basophils % (Manual) 0 L (0.1-1.2) Nucleated RBCs 1.0 % Platelet Estimate Adequate Plt Morphology Comment Normal Polychromasia 2+ moderate Macrocytosis 2+ moderate Target Cells Few Stomatocytes Few RBC Morph Comment Not Reportable PT 11.4 (9.7-12.0) SECONDS INR 1.07 APTT 23.6 (21.7-31.4) SECONDS D-Dimer, Quantitative 2.08 H (0.19-0.50) mg/L Puncture Site ABG pH (7.35-7.45) ABG pCO2 (35.0-45.0) mmHg ABG pO2 (80.0-100.0) mmHg ABG HCO3 (22.0-26.0) meq/L ABG O2 Saturation (96.0-97.0) % ABG Base Excess (-2-2.0) Tim Test A-a Gradient mmHg O2 Delivery Device Oxygen Flow Rate FiO2 (21.00-100.00) % Sodium 144 (136-145) mEq/L Potassium 5.2 H (3.5-5.1) mEq/L Chloride 104 (98-107) mEq/L Carbon Dioxide 39 H (21-32) mEq/L Anion Gap 6.2 (5-15) BUN 19 H (7-18) mg/dL Creatinine 1.0 (0.55-1.02) mg/dL Est Cr Clr Drug Dosing 47.27 mL/min Estimated GFR (MDRD) 58 (>60) mL/min BUN/Creatinine Ratio 19.0 H (14-18) Glucose 102 (74-106) mg/dL Lactic Acid (0.4-2.0) mmol/L Calcium 9.1 (8.5-10.1) mg/dL Magnesium 1.8 (1.8-2.4) mg/dl Ferritin (8-252) ng/ml Total Bilirubin 0.3 (0.2-1.0) mg/dL AST 23 (15-37) U/L ALT 19 (14-59) U/L Alkaline Phosphatase 85 (46-116) U/L Lactate Dehydrogenase 204 (81-234) U/L Troponin I < 0.017 (0.00-0.056) ng/mL C-Reactive Protein (<1.0) mg/dL NT-Pro-B Natriuret Pep (0-125) pg/mL Total Protein 6.1 L (6.4-8.2) g/dl Albumin 2.1 L (3.4-5.0) g/dl Globulin 4.0 gm/dL Albumin/Globulin Ratio 0.5 L (1-2) Urine Color (Yellow) Urine Appearance (Clear) Urine pH (5.0-8.0) Ur Specific [place] (1.005-1.030) Urine Protein (Negative) Urine Glucose (UA) (Negative) Urine Ketones (Negative) Urine Occult Blood (Negative) Urine Nitrite (Negative) Urine Bilirubin (Negative) Urine Urobilinogen (0.2-1.0) Ur Leukocyte Esterase (Negative) Urine RBC (0-5) /hpf Urine WBC (0-5) /hpf Ur Epithelial Cells (0-5) /hpf Amorphous Sediment (NOT SEEN) /hpf Urine Bacteria (FEW) /hpf Urine Mucus (FEW) /hpf Influenza Type A RNA (NEGATIVE) Influenza Type B RNA (NEGATIVE) SARS-CoV-2 RNA (JJ) (NEGATIVE) 05/12/20 05/12/20 05/12/20 Range/Units 12:23 12:23 12:23 WBC (3.98-10.04) K/mm3 RBC (3.98-5.22) M/mm3 Hgb (11.2-15.7) gm/dl Hct (34.1-44.9) % MCV (79.4-94.8) fl MCH (25.6-32.2) pg MCHC (32.2-35.5) g/dl RDW Std Deviation (36.4-46.3) fL Plt Count (182-369) K/mm3 MPV (9.4-12.3) fl Neutrophils % (Manual) (40-60) % Band Neutrophils % (0-10) % Lymphocytes % (Manual) (20-40) % Atypical Lymphs % % Monocytes % (Manual) (2-10) % Eosinophils % (Manual) (0.7-5.8) % Basophils % (Manual) (0.1-1.2) Nucleated RBCs % Platelet Estimate Plt Morphology Comment Polychromasia Macrocytosis Target Cells Stomatocytes RBC Morph Comment PT (9.7-12.0) SECONDS INR APTT (21.7-31.4) SECONDS D-Dimer, Quantitative (0.19-0.50) mg/L Puncture Site ABG pH (7.35-7.45) ABG pCO2 (35.0-45.0) mmHg ABG pO2 (80.0-100.0) mmHg ABG HCO3 (22.0-26.0) meq/L ABG O2 Saturation (96.0-97.0) % ABG Base Excess (-2-2.0) Tim Test A-a Gradient mmHg O2 Delivery Device Oxygen Flow Rate FiO2 (21.00-100.00) % Sodium (136-145) mEq/L Potassium (3.5-5.1) mEq/L Chloride (98-107) mEq/L Carbon Dioxide (21-32) mEq/L Anion Gap (5-15) BUN (7-18) mg/dL Creatinine (0.55-1.02) mg/dL Est Cr Clr Drug Dosing mL/min Estimated GFR (MDRD) (>60) mL/min BUN/Creatinine Ratio (14-18) Glucose (74-106) mg/dL Lactic Acid 1.6 (0.4-2.0) mmol/L Calcium (8.5-10.1) mg/dL Magnesium (1.8-2.4) mg/dl Ferritin 122 (8-252) ng/ml Total Bilirubin (0.2-1.0) mg/dL AST (15-37) U/L ALT (14-59) U/L Alkaline Phosphatase (46-116) U/L Lactate Dehydrogenase (81-234) U/L Troponin I (0.00-0.056) ng/mL C-Reactive Protein (<1.0) mg/dL NT-Pro-B Natriuret Pep 736 H (0-125) pg/mL Total Protein (6.4-8.2) g/dl Albumin (3.4-5.0) g/dl Globulin gm/dL Albumin/Globulin Ratio (1-2) Urine Color (Yellow) Urine Appearance (Clear) Urine pH (5.0-8.0) Ur Specific [place] (1.005-1.030) Urine Protein (Negative) Urine Glucose (UA) (Negative) Urine Ketones (Negative) Urine Occult Blood (Negative) Urine Nitrite (Negative) Urine Bilirubin (Negative) Urine Urobilinogen (0.2-1.0) Ur Leukocyte Esterase (Negative) Urine RBC (0-5) /hpf Urine WBC (0-5) /hpf Ur Epithelial Cells (0-5) /hpf Amorphous Sediment (NOT SEEN) /hpf Urine Bacteria (FEW) /hpf Urine Mucus (FEW) /hpf Influenza Type A RNA (NEGATIVE) Influenza Type B RNA (NEGATIVE) SARS-CoV-2 RNA (JJ) (NEGATIVE) 05/12/20 Range/Units 13:00 WBC (3.98-10.04) K/mm3 RBC (3.98-5.22) M/mm3 Hgb (11.2-15.7) gm/dl Hct (34.1-44.9) % MCV (79.4-94.8) fl MCH (25.6-32.2) pg MCHC (32.2-35.5) g/dl RDW Std Deviation (36.4-46.3) fL Plt Count (182-369) K/mm3 MPV (9.4-12.3) fl Neutrophils % (Manual) (40-60) % Band Neutrophils % (0-10) % Lymphocytes % (Manual) (20-40) % Atypical Lymphs % % Monocytes % (Manual) (2-10) % Eosinophils % (Manual) (0.7-5.8) % Basophils % (Manual) (0.1-1.2) Nucleated RBCs % Platelet Estimate Plt Morphology Comment Polychromasia Macrocytosis Target Cells Stomatocytes RBC Morph Comment PT (9.7-12.0) SECONDS INR APTT (21.7-31.4) SECONDS D-Dimer, Quantitative (0.19-0.50) mg/L Puncture Site ABG pH (7.35-7.45) ABG pCO2 (35.0-45.0) mmHg ABG pO2 (80.0-100.0) mmHg ABG HCO3 (22.0-26.0) meq/L ABG O2 Saturation (96.0-97.0) % ABG Base Excess (-2-2.0) Tim Test A-a Gradient mmHg O2 Delivery Device Oxygen Flow Rate FiO2 (21.00-100.00) % Sodium (136-145) mEq/L Potassium (3.5-5.1) mEq/L Chloride (98-107) mEq/L Carbon Dioxide (21-32) mEq/L Anion Gap (5-15) BUN (7-18) mg/dL Creatinine (0.55-1.02) mg/dL Est Cr Clr Drug Dosing mL/min Estimated GFR (MDRD) (>60) mL/min BUN/Creatinine Ratio (14-18) Glucose (74-106) mg/dL Lactic Acid (0.4-2.0) mmol/L Calcium (8.5-10.1) mg/dL Magnesium (1.8-2.4) mg/dl Ferritin (8-252) ng/ml Total Bilirubin (0.2-1.0) mg/dL AST (15-37) U/L ALT (14-59) U/L Alkaline Phosphatase (46-116) U/L Lactate Dehydrogenase (81-234) U/L Troponin I (0.00-0.056) ng/mL C-Reactive Protein (<1.0) mg/dL NT-Pro-B Natriuret Pep (0-125) pg/mL Total Protein (6.4-8.2) g/dl Albumin (3.4-5.0) g/dl Globulin gm/dL Albumin/Globulin Ratio (1-2) Urine Color (Yellow) Urine Appearance (Clear) Urine pH (5.0-8.0) Ur Specific [place] (1.005-1.030) Urine Protein (Negative) Urine Glucose (UA) (Negative) Urine Ketones (Negative) Urine Occult Blood (Negative) Urine Nitrite (Negative) Urine Bilirubin (Negative) Urine Urobilinogen (0.2-1.0) Ur Leukocyte Esterase (Negative) Urine RBC (0-5) /hpf Urine WBC (0-5) /hpf Ur Epithelial Cells (0-5) /hpf Amorphous Sediment (NOT SEEN) /hpf Urine Bacteria (FEW) /hpf Urine Mucus (FEW) /hpf Influenza Type A RNA Negative (NEGATIVE) Influenza Type B RNA Negative (NEGATIVE) SARS-CoV-2 RNA (JJ) Negative (NEGATIVE) - Re-Assessments/Exams Free Text/Narrative Re-Assessment/Exam: 05/12/20 11:29 Patient presents to the ED for the evaluation of her hypoxia, we will get room air ABGs get a multitude of labs to include a chest x-ray, EKG along with a COVID-19 swab again just to see if the first test was a false negative. This m ay be where she is just declining in function a small bit, they might need to do nebulizers on a more regular basis and keep her on oxygen all the time. 05/12/20 11:32 The chest x-ray has returned, there is diffuse parenchymal density within the right chest as well as increased perihilar markings within the left chest, suspicious for diffuse Covid pneumonia worse on the right side. This is a mar ked interval change from the prior chest x-ray of April 24, 2019. 05/12/20 11:41 Patient's ABG on room air does demonstrate a pH of 7.44, CO2 of 53.7, PO2 that is low at 51, patient's bicarb is 36. 05/12/20 13:26 Patient's laboratory evaluation is started to result, CBC is unremarkable, D- dimer is elevated at 2.08, other coagulation studies are within normal limits patient's potassium is 5.2 which is just on the elevated side of the normal limits for our lab standards. Patient's lactic acid, ferritin, LDH are all okay. Troponin is undetectably low, CRP is elevated at 4.9, BNP is mildly e levated at 736. Urinalysis is without infection. Still awaiting Covid swab, and other labs. Due to the patient's hypoxemia, and suspected Covid infection however I do believe she would benefit from being placed into the hospital. 05/12/20 14:16 The patient Covid/flu screen did come back negative for today's purposes. However due to her clinical findings I am still highly suspect of COVID-19 i nfection. I do believe the patient's right chest is worse, because she does tend to lay on her right side more than her left. I did call and talk with Dr. Yoo our hospitalist, and she does recommend doing CTA of the chest due to the elevated D-dimer and the white out in the lung. 05/12/20 16:43 CT was negative for any sort of PE. I did call Prakash in [facility] due to Dr. Yoo' hesitancy for admission here. Dr. Pereyra would tentatively accept for admission however he states with 2 negative Covid test, does not necessarily mean that she has COVID-19, and he suggests calling Dr. Yoo back to see if she would be willing to keep her here. I did call Dr. Yoo back at this time, she is going to review the imaging, labs and call me back with a decision. 05/12/20 17:30 Dr. Yoo just call me back a few minutes ago, and did note that we should send the patient to [facility] for hospital management, I did call Randall back again, and Dr. Pereyra was gracious enough to accept. Departure - Departure Time of Disposition: 17:30 Disposition: DC/Tfer to Acute Hospital 02 Condition: Good Clinical Impression: Hypoxia, Pneumonia due to 2019 novel coronavirus - Discharge Information *PRESCRIPTION DRUG MONITORING PROGRAM REVIEWED*: No *COPY OF PRESCRIPTION DRUG MONITORING REPORT IN PATIENT [place]: No Referrals: Yanet Arguello MD [Primary Care Provider] - Forms: ED Department Discharge Sepsis Event Note (ED) - Evaluation Sepsis Screening Result: No Definite Risk - Focused Exam Vital Signs: Vital Signs Temp Pulse Resp BP Pulse Ox 05/12/20 10:52 97.5 F 84 16 164/123 H 95 - My Orders Last 24 Hours: My Active Orders 05/12/20 11:03 EKG Documentation Completion [RC] STAT 05/12/20 11:45 Isolation [COMM] Routine - Assessment/Plan Last 24 Hours: My Active Orders 05/12/20 11:03 EKG Documentation Completion [RC] STAT 05/12/20 11:45 Isolation [COMM] Routine
--- NOTE | 2020-05-12 11:29 | CR ---
Chest: Portable view of the chest was obtained. Comparison: Prior chest x-ray of 04/24/19. Diffuse parenchymal density is seen within the right chest as well as increased perihilar markings within the left chest. Heart size appears within normal limits for portable technique. Bony structures show scoliosis and degenerative change within the spine. Impression: 1. Findings very suspicious for diffuse COVID pneumonia, worse on the right side. Diagnostic code #3
[2020-05-12 13:50] LABS: CORONAVIRUS COVID-19 NAA NEGATIVE (NEGATIVE)
--- NOTE | 2020-05-12 16:01 | CT ---
CT chest Technique: Multiple axial sections through the chest were obtained. Intravenous contrast was utilized. Study has been performed as a pulmonary angiogram protocol. Comparison: Prior chest x-ray performed earlier on the same day. Prior chest CT study of 03/25/16 was also utilized. Findings: Pulmonary arteries are fairly well opacified. There are no discrete filling defects seen to indicate discrete pulmonary embolism. Thoracic aorta shows no aneurysm. No discrete mediastinal adenopathy is seen. No pericardial thickening is seen. Small portion of the visualized upper abdominal structures show nothing acute. Small left-sided pleural effusion is seen with slightly larger right-sided pleural effusion. Patchy areas of increased density are seen within both sides of the chest which is most prominent within the right upper lobe. Bone window settings were reviewed which show diffuse degenerative change within the spine with kyphosis. Impression: 1. No definite findings of pulmonary embolism. 2. Small pleural effusions, slightly larger on the right side. 3. Diffuse parenchymal change is seen, most prominent within the right upper lung. This is most likely due to diffuse pneumonia. Diagnostic code #3
[2020-05-12] MEDS ORDERED: LORazepam 2 MG/ML SDV IVPUSH ONE (17:44)
[2020-05-12 18:10] VITALS: BP 128/62
== END 2020-05-12 18:23 ==
LOC: JD.ED 10:33
DX: U07.1 COVID-19 (principal); R09.02 Hypoxemia; J12.82 Pneumonia due to coronavirus disease 2019; M41.9 Scoliosis, unspecified; F79 Unspecified intellectual disabilities; K21.9 Gastro-esophageal reflux disease without esophagitis; Z79.899 Other long term (current) drug therapy; Z88.1 Allergy status to other antibiotic agents
CPT/HCPCS: 0240U; 36415; 36600; 71045; 71275; 80053; 81001; 82728; 82803; 83605; 83615; 83735; 83880; 84484; 85007; 85027; 85379; 85610; 85730; 86140; 93005; 96374; 99285; J2060; 93010; 99284

== ENCOUNTER 2020-09-23 11:07 | Emergency (ER) | payer MEDICARE, MEDICAID ==
[2020-09-23 11:20] VITALS: BP 137/64; PULSE 92
--- NOTE | 2020-09-23 13:06 | EDM.PDOC ---
ED HPI GENERAL MEDICAL PROBLEM - General Chief Complaint: Gastrointestinal Problem Stated Complaint: ABDOMINAL PAIN Time Seen by Provider: 09/23/20 11:18 Source of Information: Reports: Patient, RN Notes Reviewed - History of Present Illness INITIAL COMMENTS - FREE TEXT/NARRATIVE: 55 yr old ABLE patient had a "dark mostly black colored stool last evening. Has had some mild abd discomfort last evening and again this morning. Has had a few normal looking BM's this morning. No bright blood at any time. No fever. She does have a G tube and gets her feedings through that. - Related Data Allergies Allergy/AdvReac Type Severity Reaction Status Date / Time doxepin Allergy Other Verified 09/23/20 11:20 Home Meds: Home Meds Acetaminophen [Tylenol Solution 160 MG/5 ML] 650 mg GTUBE QID 09/23/20 [History] Acetaminophen with Codeine [Acetaminophen-Cod #3] 1 tab GTUBE Q8H PRN 09/23/20 [History] Albuterol [Proventil Neb Soln] 3 ml INH QID PRN 09/23/20 [History] Bisacodyl [Gentle Laxative] 10 mg RECTAL DAILY PRN 09/23/20 [History] Carbidopa/Levodopa [Carbidopa-Levodopa 25-100 Tab] 1 tab GTUBE BID 09/23/20 [History] ClonazePAM [KlonoPIN] 0.75 mg GTUBE BID 09/23/20 [History] Escitalopram [Lexapro] 20 mg GTUBE BEDTIME 09/23/20 [History] Furosemide [Lasix Oral Soln] 40 mg GTUBE DAILY 09/23/20 [History] Ipratropium [Atrovent] 2.5 ml INH TID PRN 09/23/20 [History] Lactoperoxi/Gluc Oxid/Pot Thio [Biotene Oralbalance Gel] 2.5 ml PO Q4H PRN 09/23/20 [History] Menthol/Zinc Oxide [Calmoseptine] 1 applic TOP ASDIRECTED PRN 09/23/20 [History] Multivit-Min/Ferrous Gluconate [Multi-Irina Liquid] 15 ml GTUBE DAILY 09/23/20 [History] Non-Formulary Medication [NF Drug] 20 mg GTUBE BID 09/23/20 [History] Non-Formulary Medication [NF Drug] 30 ml GTUBE DAILY 09/23/20 [History] Promethazine HCl 12.5 mg GTUBE Q6H PRN 09/23/20 [History] buPROPion [Wellbutrin] 150 mg GTUBE DAILY 09/23/20 [History] risperiDONE [Risperdal] 0.5 mg GTUBE BEDTIME 09/23/20 [History] risperiDONE [RisperiDAL] 0.25 mg GTUBE DAILY 09/23/20 [History] Past Medical History HEENT History: Reports: Impaired Vision Other HEENT History: Blind Cardiovascular History: Reports: None Respiratory History: Reports: PE, Pneumonia, Recurrent Other Respiratory History: recurrent aspiration pneumonia Gastrointestinal History: Reports: GERD, Other (See Below) Other Gastrointestinal History: abdominal Cysts, intesinal fistula Ostomy 2010; patient is tube fed Genitourinary History: Reports: Urinary Incontinence [employer] History: Reports: None Musculoskeletal History: Reports: Other (See Below) Other Musculoskeletal History: Scoliosis, congenital hip dysplasia Neurological History: Reports: Other (See Below) Other Neuro History: mild mental retardation. Psychiatric History: Reports: Anxiety, Depression Other Psychiatric History: generalized anxiety disorder. Endocrine/Metabolic History: Reports: None Hematologic History: Reports: None Immunologic History: Reports: None Oncologic (Cancer) History: Reports: None - Infectious Disease History Infectious Disease History: Reports: C-Difficile, Influenza - Past Surgical History HEENT Surgical History: Reports: Other (See Below) Other HEENT Surgeries/Procedures: has false eyes Cardiovascular Surgical History: Reports: None Respiratory Surgical History: Reports: None GI Surgical History: Reports: Appendectomy Neurological Surgical History: Reports: None Musculoskeletal Surgical History: Reports: None Dermatological Surgical History: Reports: None Social & Family History - Family History Family Medical History: No Pertinent Family History - Tobacco Use Tobacco Use Status *Q: Never Tobacco User - Caffeine Use Caffeine Use: Reports: Coffee Other Caffeine Use: on occassion will have a soda or coffee - Recreational Drug Use Recreational Drug Use: No - Living Situation & Occupation Living situation: Reports: Single, Extended Care Facility (ABLE) ED ROS GENERAL - Review of Systems Review Of Systems: See Below Constitutional: Denies: Fever, Diaphoresis HEENT: Reports: No Symptoms Respiratory: Denies: Shortness of Breath Cardiovascular: Denies: Chest Pain GI/Abdominal: Reports: Abdominal Pain (not much if any at time of exam), Constipation, Melena (last evening). Denies: Diarrhea, Vomiting Musculoskeletal: Reports: No Symptoms Skin: Reports: No Symptoms ED EXAM, NEURO - Physical Exam Exam: See Below General Appearance: Alert, No Apparent Distress Head Exam: Atraumatic Neck: Supple Respiratory/Chest: No Respiratory Distress, Lungs Clear, Normal Breath Sounds Cardiovascular: Regular Rate, Rhythm GI/Abdominal: Soft, Tender (very mild tenderness upper mid abd). No: Guarding, Rebound Rectal (Female) Exam: Normal Exam, Other (trace brn stool, heme neg. ) Back Exam: No: CVA Tenderness (L), CVA Tenderness (R) Extremities: No: Leg Pain Skin Exam: Warm, Dry, Normal Color Course - Vital Signs Last Recorded V/S: Last Vital Signs Temp 97.8 F 09/23/20 11:17 Pulse 92 09/23/20 11:17 Resp 18 09/23/20 11:17 BP 137/64 09/23/20 11:17 Pulse Ox 100 09/23/20 11:17 - Orders/Labs/Meds Labs: Laboratory Tests 09/23/20 09/23/20 Range/Units 11:50 11:50 WBC 9.58 (3.98-10.04) K/mm3 RBC 3.68 L (3.98-5.22) M/mm3 Hgb 12.3 (11.2-15.7) gm/dl Hct 39.9 (34.1-44.9) % MCV 108.4 H (79.4-94.8) fl MCH 33.4 H (25.6-32.2) pg MCHC 30.8 L (32.2-35.5) g/dl RDW Std Deviation 51.0 H (36.4-46.3) fL Plt Count 73 L D (182-369) K/mm3 MPV 12.4 H (9.4-12.3) fl Neut % (Auto) 69.9 (34.0-71.1) % Lymph % (Auto) 19.8 (19.3-51.7) % Person % (Auto) 9.9 (4.7-12.5) % Eos % (Auto) 0.2 L (0.7-5.8) Baso % (Auto) 0.0 L (0.1-1.2) % Neut # (Auto) 6.69 H (1.56-6.13) K/mm3 Lymph # (Auto) 1.90 (1.18-3.74) K/mm3 Person # (Auto) 0.95 H (0.24-0.36) K/mm3 Eos # (Auto) 0.02 L (0.04-0.36) K/mm3 Baso # (Auto) 0.00 L (0.01-0.08) K/mm3 Manual Slide Review Abnormal smear Sodium 146 H (136-145) mEq/L Potassium 4.8 (3.5-5.1) mEq/L Chloride 104 (98-107) mEq/L Carbon Dioxide 40 H (21-32) mEq/L Anion Gap 6.8 (5-15) BUN 21 H (7-18) mg/dL Creatinine 0.9 (0.55-1.02) mg/dL Est Cr Clr Drug Dosing TNP Estimated GFR (MDRD) > 60 (>60) mL/min BUN/Creatinine Ratio 23.3 H (14-18) Glucose 89 (70-99) mg/dL Calcium 9.2 (8.5-10.1) mg/dL Total Bilirubin 0.5 (0.2-1.0) mg/dL AST 22 (15-37) U/L ALT 29 (14-59) U/L Alkaline Phosphatase 108 (46-116) U/L Total Protein 6.2 L (6.4-8.2) g/dl Albumin 2.9 L (3.4-5.0) g/dl Globulin 3.3 gm/dL Albumin/Globulin Ratio 0.9 L (1-2) - Re-Assessments/Exams Free Text/Narrative Re-Assessment/Exam: 09/23/20 13:18 Hgb good at 12.4. Plts OK at 74,00O. On rectal trace stool present, heme neg. Discharge instr. as documented. Departure - Departure Time of Disposition: 13:04 Disposition: Home, Self-Care 01 Condition: Fair Clinical Impression: Dark stools Abdominal pain Qualifiers: Abdominal location: generalized Qualified Code(s): R10.84 - Generalized abdominal pain - Discharge Information Instructions: Abdominal Pain, Adult, [id number] Referrals: Yanet Arguello MD [Primary Care Provider] - Forms: ED Department Discharge Additional Instructions: Continue current care. Follow up clinic as needed. Return to ED as needed if symptoms worsening in any way. Sepsis Event Note (ED) - Evaluation Sepsis Screening Result: No Definite Risk - Focused Exam Vital Signs: Vital Signs Temp Pulse Resp BP Pulse Ox 09/23/20 11:17 97.8 F 92 18 137/64 100
== END 2020-09-23 13:09 | disposition home or self-care (01) ==
LOC: JD.ED 11:07
DX: R19.5 Other fecal abnormalities (principal); R10.84 Generalized abdominal pain; Z88.8 Allergy status to other drugs, medicaments and biological substances; Z79.899 Other long term (current) drug therapy
CPT/HCPCS: 36415; 80053; 85025; 99282; 99284

== ENCOUNTER 2020-11-09 10:29 | Inpatient (IN) | payer MEDICARE, MEDICAID ==
--- NOTE | 2020-11-09 12:07 | EDM.PDOC ---
ED HPI GENERAL MEDICAL PROBLEM - General Chief Complaint: Respiratory Problem Stated Complaint: PNEUMONIA IS GETTING WORSE Time Seen by Provider: 11/09/20 11:04 Source of Information: Reports: Patient, RN Notes Reviewed History Limitations: Reports: No Limitations - History of Present Illness INITIAL COMMENTS - FREE TEXT/NARRATIVE: Patient is a 55-year-old female who presents to the ER for evaluation of possibility of worsening pneumonia. Patient had hip surgery done at [facility], and then developed a pneumonia on October 30, 2020. She has been on outpatient Rocephin IV for management of this. Her last dose was on Wednesday. Staff at [facility] did note that she had a fever today, as high as 101.4 F, and has been requiring slightly more oxygen. She normally wears roughly 1 L at any given time. There the patient was also complaining of not being able to catch her breath, or it felt like she was choking as well earlier this morning. They are concerned with the possibility of her pneumonia having returned or worsened. Other than the fever, she is not complaining of pain anywhere, she has not been known to have a cough, no chills, no nausea/vomiting/diarrhea. Patient did have a previous infection with COVID-19 as well. Left Hip Pain Score (Numeric/FACES): 5 - Related Data Allergies Allergy/AdvReac Type Severity Reaction Status Date / Time doxepin Allergy Other Verified 11/09/20 10:55 Home Meds: Home Meds Acetaminophen [Tylenol Solution 160 MG/5 ML] 650 mg GTUBE QID 09/23/20 [History] Acetaminophen with Codeine [Acetaminophen-Cod #3] 1 tab GTUBE Q8H PRN 09/23/20 [History] Albuterol [Proventil Neb Soln] 3 ml INH QID PRN 09/23/20 [History] Bisacodyl [Gentle Laxative] 10 mg RECTAL DAILY PRN 09/23/20 [History] Carbidopa/Levodopa [Carbidopa-Levodopa 25-100 Tab] 1 tab GTUBE BID 09/23/20 [History] ClonazePAM [KlonoPIN] 0.75 mg GTUBE BID 09/23/20 [History] Escitalopram [Lexapro] 20 mg GTUBE BEDTIME 09/23/20 [History] Furosemide [Lasix Oral Soln] 40 mg GTUBE DAILY 09/23/20 [History] Ipratropium [Atrovent] 2.5 ml INH TID PRN 09/23/20 [History] Lactoperoxi/Gluc Oxid/Pot Thio [Biotene Oralbalance Gel] 2.5 ml PO Q4H PRN 09/23/20 [History] Menthol/Zinc Oxide [Calmoseptine] 1 applic TOP ASDIRECTED PRN 09/23/20 [History] Multivit-Min/Ferrous Gluconate [Multi-Irina Liquid] 15 ml GTUBE DAILY 09/23/20 [History] Non-Formulary Medication [NF Drug] 20 mg GTUBE BID 09/23/20 [History] Non-Formulary Medication [NF Drug] 30 ml GTUBE DAILY 09/23/20 [History] Promethazine HCl 12.5 mg GTUBE Q6H PRN 09/23/20 [History] buPROPion [Wellbutrin] 150 mg GTUBE DAILY 09/23/20 [History] risperiDONE [Risperdal] 0.5 mg GTUBE BEDTIME 09/23/20 [History] risperiDONE [RisperiDAL] 0.25 mg GTUBE DAILY 09/23/20 [History] Past Medical History HEENT History: Reports: Impaired Vision Other HEENT History: Blind Cardiovascular History: Reports: Heart Failure Respiratory History: Reports: PE, Pneumonia, Recurrent Other Respiratory History: recurrent aspiration pneumonia Gastrointestinal History: Reports: GERD, Other (See Below) Other Gastrointestinal History: abdominal Cysts, intesinal fistula Ostomy 2010; patient is tube fed Genitourinary History: Reports: Urinary Incontinence Musculoskeletal History: Reports: Other (See Below) Other Musculoskeletal History: Scoliosis, congenital hip dysplasia Neurological History: Reports: Other (See Below) Other Neuro History: mild mental retardation. Psychiatric History: Reports: Anxiety, Depression Other Psychiatric History: generalized anxiety disorder. - Infectious Disease History Infectious Disease History: Reports: C-Difficile, Influenza, Novel Coronavirus - Past Surgical History HEENT Surgical History: Reports: Other (See Below) Other HEENT Surgeries/Procedures: has false eyes GI Surgical History: Reports: Appendectomy Social & Family History - Family History Family Medical History: No Pertinent Family History - Tobacco Use Tobacco Use Status *Q: Never Tobacco User Second Hand Smoke Exposure: No - Caffeine Use Caffeine Use: Reports: None Other Caffeine Use: on occassion will have a soda or coffee - Recreational Drug Use Recreational Drug Use: No - Living Situation & Occupation Living situation: Reports: Single, Extended Care Facility (ABLE) ED ROS GENERAL - Review of Systems Review Of Systems: Comprehensive ROS is negative, except as noted in HPI. ED EXAM, GENERAL - Physical Exam Exam: See Below Exam Limited By: No Limitations General Appearance: Alert, WD/WN, No Apparent Distress Respiratory/Chest: No Respiratory Distress, Lungs Clear, No Accessory Muscle Use, Decreased Breath Sounds (diminshed bilaterally) Cardiovascular: Normal Peripheral Pulses, Regular Rate, Rhythm, No Edema Peripheral Pulses: 2+: Radial (L), Radial (R) GI/Abdominal: Normal Bowel Sounds, Soft, Non-Tender, No Distention, No Mass Extremities: Normal Inspection, Normal Capillary Refill Neurological: Alert, Oriented, Normal Cognition Psychiatric: Normal Affect, Normal Mood Skin Exam: Warm, Dry, Intact, Normal Color, No Rash Course - Vital Signs Last Recorded V/S: Last Vital Signs Temp 96.9 F 11/09/20 10:52 Pulse 91 11/09/20 10:52 Resp 20 11/09/20 10:52 BP 125/52 L 11/09/20 10:52 Pulse Ox 99 11/09/20 10:52 - Orders/Labs/Meds Orders: Active Orders 24 hr Category Date Time Status Peripheral IV Care [RC] . DIRECTED Care 11/09/20 12:52 Active Levofloxacin/Dextrose 5%-Water [Levaquin in D5W 500 MG/ Med 11/09/20 16:00 Active 100 ML] 500 mg Premix Bag 1 bag IV ONETIME Pharmacy to Dose - Vancomycin Med 11/09/20 16:01 Once 1 dose .XX ONETIME ONE Piperacillin/Tazobactam [Piperacil-Tazobact] 4.5 gm Med 11/09/20 16:01 Active Sodium Chloride 0.9% [Normal Saline] 100 ml IV ONETIME Sodium Chloride 0.9% [Normal Saline] 100 ml Med 11/09/20 13:15 Active IV ASDIRECTED Sodium Chloride 0.9% [Saline Flush] Med 11/09/20 12:52 Active 10 ml FLUSH ASDIRECTED PRN Sodium Chloride 0.9% [Saline Flush] Med 11/09/20 13:13 Active 10 ml FLUSH ONETIME PRN Peripheral IV Insertion Adult [OM.PC] Routine Oth 11/09/20 12:52 Ordered Medication Orders Sodium Chloride (Normal Saline) 100 mls @ 75 mls/hr IV ASDIRECTED LOPEZ Levofloxacin/Dextrose 500 mg/ (Premix) 100 mls @ 100 mls/hr IV ONETIME ONE Stop: 11/09/20 16:59 Piperacillin Sod/Tazobactam (Sod 4.5 gm/ Sodium Chloride) 100 mls @ 200 mls/hr IV ONETIME ONE Stop: 11/09/20 16:30 Sodium Chloride (Sodium Chloride 0.9% 10 Ml Syringe) 10 ml FLUSH ASDIRECTED PRN PRN Reason: Keep Vein Open Sodium Chloride (Sodium Chloride 0.9% 10 Ml Syringe) 10 ml FLUSH ONETIME PRN PRN Reason: IV FLUSH Vancomycin HCl (Pharmacy To Dose - Vancomycin) 1 dose .XX ONETIME ONE Stop: 11/09/20 16:02 Labs: Laboratory Tests 11/09/20 11/09/20 11/09/20 Range/Units 11:04 11:27 11:27 WBC 19.04 H (3.98-10.04) K/mm3 RBC 3.23 L (3.98-5.22) M/mm3 Hgb 10.6 L D (11.2-15.7) gm/dl Hct 35.0 (34.1-44.9) % MCV 108.4 H (79.4-94.8) fl MCH 32.8 H (25.6-32.2) pg MCHC 30.3 L (32.2-35.5) g/dl RDW Std Deviation 56.9 H (36.4-46.3) fL Plt Count 368 D (182-369) K/mm3 MPV 10.8 (9.4-12.3) fl Neut % (Auto) 90.0 H (34.0-71.1) % Lymph % (Auto) 3.7 L (19.3-51.7) % Haskell % (Auto) 6.0 (4.7-12.5) % Eos % (Auto) 0.1 L (0.7-5.8) Baso % (Auto) 0.1 (0.1-1.2) % Neut # (Auto) 17.14 H (1.56-6.13) K/mm3 Lymph # (Auto) 0.70 L (1.18-3.74) K/mm3 [place] # (Auto) 1.15 H (0.24-0.36) K/mm3 Eos # (Auto) 0.02 L (0.04-0.36) K/mm3 Baso # (Auto) 0.01 (0.01-0.08) K/mm3 Manual Slide Review Abnormal smear D-Dimer, Quantitative (0.19-0.50) mg/L Sodium 140 (136-145) mEq/L Potassium 4.4 (3.5-5.1) mEq/L Chloride 101 (98-107) mEq/L Carbon Dioxide 39 H (21-32) mEq/L Anion Gap 4.4 L (5-15) BUN 13 (7-18) mg/dL Creatinine 0.8 (0.55-1.02) mg/dL Est Cr Clr Drug Dosing 58.41 mL/min Estimated GFR (MDRD) > 60 (>60) mL/min BUN/Creatinine Ratio 16.3 (14-18) Glucose 128 H (70-99) mg/dL Calcium 8.7 (8.5-10.1) mg/dL Total Bilirubin 0.4 (0.2-1.0) mg/dL AST 21 (15-37) U/L ALT 22 (14-59) U/L Alkaline Phosphatase 84 (46-116) U/L NT-Pro-B Natriuret Pep (0-125) pg/mL Total Protein 5.9 L (6.4-8.2) g/dl Albumin 2.5 L (3.4-5.0) g/dl Globulin 3.4 gm/dL Albumin/Globulin Ratio 0.7 L (1-2) SARS-CoV-2 RNA (JJ) Negative (NEGATIVE) 11/09/20 11/09/20 Range/Units 11:27 11:27 WBC (3.98-10.04) K/mm3 RBC (3.98-5.22) M/mm3 Hgb (11.2-15.7) gm/dl Hct (34.1-44.9) % MCV (79.4-94.8) fl MCH (25.6-32.2) pg MCHC (32.2-35.5) g/dl RDW Std Deviation (36.4-46.3) fL Plt Count (182-369) K/mm3 MPV (9.4-12.3) fl Neut % (Auto) (34.0-71.1) % Lymph % (Auto) (19.3-51.7) % Haskell % (Auto) (4.7-12.5) % Eos % (Auto) (0.7-5.8) Baso % (Auto) (0.1-1.2) % Neut # (Auto) (1.56-6.13) K/mm3 Lymph # (Auto) (1.18-3.74) K/mm3 Haskell # (Auto) (0.24-0.36) K/mm3 Eos # (Auto) (0.04-0.36) K/mm3 Baso # (Auto) (0.01-0.08) K/mm3 Manual Slide Review D-Dimer, Quantitative 4.12 H (0.19-0.50) mg/L Sodium (136-145) mEq/L Potassium (3.5-5.1) mEq/L Chloride (98-107) mEq/L Carbon Dioxide (21-32) mEq/L Anion Gap (5-15) BUN (7-18) mg/dL Creatinine (0.55-1.02) mg/dL Est Cr Clr Drug Dosing mL/min Estimated GFR (MDRD) (>60) mL/min BUN/Creatinine Ratio (14-18) Glucose (70-99) mg/dL Calcium (8.5-10.1) mg/dL Total Bilirubin (0.2-1.0) mg/dL AST (15-37) U/L ALT (14-59) U/L Alkaline Phosphatase (46-116) U/L NT-Pro-B Natriuret Pep 389 H (0-125) pg/mL Total Protein (6.4-8.2) g/dl Albumin (3.4-5.0) g/dl Globulin gm/dL Albumin/Globulin Ratio (1-2) SARS-CoV-2 RNA (JJ) (NEGATIVE) Meds: Medications Generic Name Dose Route Start Last Admin Trade Name Freq PRN Reason Stop Dose Admin Sodium Chloride 100 mls @ 75 mls/hr 11/09/20 13:15 Normal Saline IV ASDIRECTED LOPEZ Levofloxacin/Dextrose 500 mg/ 100 mls @ 100 mls/hr 11/09/20 16:00 Premix IV 11/09/20 16:59 ONETIME ONE Piperacillin Sod/Tazobactam 100 mls @ 200 mls/hr 11/09/20 16:01 Sod 4.5 gm/ Sodium Chloride IV 11/09/20 16:30 ONETIME ONE Sodium Chloride 10 ml 11/09/20 12:52 Sodium Chloride 0.9% 10 Ml Syringe FLUSH ASDIRECTED PRN Keep Vein Open Sodium Chloride 10 ml 11/09/20 13:13 Sodium Chloride 0.9% 10 Ml Syringe FLUSH ONETIME PRN IV FLUSH Vancomycin HCl 1 dose 11/09/20 16:01 Pharmacy To Dose - Vancomycin .XX 11/09/20 16:02 ONETIME ONE Discontinued Medications Generic Name Dose Route Start Last Admin Trade Name Freq PRN Reason Stop Dose Admin Iopamidol 100 ml 11/09/20 13:13 Iopamidol 755 Mg/Ml 100 Ml Bottle IVPUSH 11/09/20 13:14 ONETIME ONE - Re-Assessments/Exams Free Text/Narrative Re-Assessment/Exam: 11/09/20 12:08 Patient presents to the ER with staff from [facility] for the possibility of her pneumonia worsening. Patient's chest x-ray does show quite an impressive consolidative process on the right side, with questionable start on the left as well, and a left-sided pleural effusion. The patient is a little bit rotated on exam. Patient's white count is elevated at 19,000 with 90% neutrophils on the auto differential, CMP is essentially unremarkable. Likely that the pneumonia has worsened. But she still able to keep things down, so we might be able to start oral meds safely. 11/09/20 12:52 Patient's D-dimer is elevated at this time at 4.12. This could be a consequence of recent hip surgery versus other etiology, the Covid screen did come back negative. We will go ahead and get IV placed, and do a CT angio of her chest for ongoing management. 11/09/20 15:08 There has been some difficulty obtaining an IV on this particular patient. The one has been established, and I do believe that the CT will go forward as planned. I did get a report from the patient's last chest x-ray on 11/04/2020, the impression was a stable exam, mild cardiomegaly, pulmonary venous distention and small effusions typical for history of CHF. Bibasilar ill-defined infiltrates left more than the right are stable and nonspecific. However by my eye of her chest x-ray today demonstrates more consolidation process on the right more so than the left, with a left-sided pleural effusion as well. 11/09/20 15:47 The patient's chest x-ray has been read along with the CTA of the chest, there is diffuse pneumonia present, no sign of a PE. I will discuss the possibility of hospitalization versus otherwise with Dr. Schuster. It does appear that she would have essentially failed outpatient IV antibiotics, as she last had a dose of Rocephin on Wednesday. 11/09/20 16:05 The patient's case was discussed with Dr. Schuster, and he does accept the patient for admission to the hospital, suspect hospital-acquired pneumonia. He does want Levaquin, Zosyn, and vancomycin to be given for initial management. He will assess the patient, and get the patient admitted. Departure - Departure Time of Disposition: 16:06 Disposition: Admitted As Inpatient 68 Condition: Good Clinical Impression: Hospital acquired PNA - Discharge Information *PRESCRIPTION DRUG MONITORING PROGRAM REVIEWED*: No *COPY OF PRESCRIPTION DRUG MONITORING REPORT IN PATIENT [place]YS[place]: No Referrals: Yanet Arguello MD [Primary Care Provider] - Forms: ED Department Discharge Sepsis Event Note (ED) - Focused Exam Vital Signs: Vital Signs Temp Pulse Resp BP Pulse Ox 11/09/20 10:52 96.9 F 91 20 125/52 L 99 - My Orders Last 24 Hours: My Active Orders 11/09/20 12:52 Peripheral IV Care [RC] . DIRECTED Sodium Chloride 0.9% [Saline Flush] 10 ml FLUSH ASDIRECTED PRN Peripheral IV Insertion Adult [OM.PC] Routine 11/09/20 13:13 Sodium Chloride 0.9% [Saline Flush] 10 ml FLUSH ONETIME PRN 11/09/20 13:15 Sodium Chloride 0.9% [Normal Saline] 100 ml IV ASDIRECTED 11/09/20 16:00 Levofloxacin/Dextrose 5%-Water [Levaquin in D5W 500 MG/100 ML] 500 mg Premix Bag 1 bag IV ONETIME 11/09/20 16:01 Pharmacy to Dose - Vancomycin 1 dose .XX ONETIME ONE Piperacillin/Tazobactam [Piperacil-Tazobact] 4.5 gm Sodium Chloride 0.9% [Normal Saline] 100 ml IV ONETIME - Assessment/Plan Last 24 Hours: My Active Orders 11/09/20 12:52 Peripheral IV Care [RC] . DIRECTED Sodium Chloride 0.9% [Saline Flush] 10 ml FLUSH ASDIRECTED PRN Peripheral IV Insertion Adult [OM.PC] Routine 11/09/20 13:13 Sodium Chloride 0.9% [Saline Flush] 10 ml FLUSH ONETIME PRN 11/09/20 13:15 Sodium Chloride 0.9% [Normal Saline] 100 ml IV ASDIRECTED 11/09/20 16:00 Levofloxacin/Dextrose 5%-Water [Levaquin in D5W 500 MG/100 ML] 500 mg Premix Bag 1 bag IV ONETIME 11/09/20 16:01 Pharmacy to Dose - Vancomycin 1 dose .XX ONETIME ONE Piperacillin/Tazobactam [Piperacil-Tazobact] 4.5 gm Sodium Chloride 0.9% [Normal Saline] 100 ml IV ONETIME
[2020-11-09] MEDS ORDERED: Sodium Chloride 0.9% 10 ML Syringe FLUSH PRN ×2 (12:52→13:13)
[2020-11-09] MEDS ORDERED: Iopamidol 755 Mg/ML 100 ML Bottle IVPUSH ONE (13:13)
[2020-11-09] MEDS ORDERED: Sodium Chloride 0.9% 100 ML IV SCH (13:15)
--- NOTE | 2020-11-09 14:58 | PCM.SN.2 ---
- Free Text/Narrative Note: 1330 in room for IV start. Multiple attempts unsuccessful. Attempt X one left antecubital ultrasound good flush good blood return. Out of room at 1430.
--- NOTE | 2020-11-09 15:39 | CT ---
CT chest Technique: Multiple axial sections through the chest were obtained. Intravenous contrast was utilized. Study has been performed as a pulmonary angiogram protocol. Comparison: Prior CT chest study of 05/12/20 and chest plain film performed earlier on the same day (10:48 AM). Findings: Small left-sided pleural effusion and minimal right sided pleural effusion is noted. Pulmonary arteries are well opacified. No filling defects are seen to indicate pulmonary embolism. Heart is enlarged. Patchy areas of increased density are seen on both sides of the chest. Increased density is not as severe as seen on prior study on the right side but increased on the left side from prior study. Findings presumably are due to diffuse pneumonia. Difficult to exclude superimposed pulmonary vascular congestion. Bone window settings were reviewed which show scoliosis and diffuse degenerative change within the spine. Old healed fractures are seen within the left second and third ribs. Impression: 1. Heart is enlarged. Pleural effusions are noted. Difficult to exclude pulmonary vascular congestion. There may be mild CHF present. 2. No findings of pulmonary embolism. 3. Patchy areas of increased density in both sides of the chest suspicious for superimposed pneumonia if patient has correlating symptoms. 4. Other findings believed to be incidental as described above. Diagnostic code #3
--- NOTE | 2020-11-09 15:39 | CR ---
Chest: Frontal view of the chest was obtained. Comparison: Prior chest x-ray of 05/12/[address] also of 05/12/20. Heart is enlarged. Parenchymal density is noted within the right lower lung. Additional parenchymal density is seen within the left lower lung. Pulmonary vessels are somewhat congested. Bony structures are osteopenic. Impression: 1. Cardiomegaly and mild pulmonary vascular congestion. 2. Increased density within the right lung base and left lung base presumably representing pneumonia. Uncertain if findings represent residual COVID change or represent new areas of pneumonia. Diagnostic code #3
[2020-11-09] MEDS ORDERED: Levofloxacin/Dextrose 5%-Water 500 MG in Premix Bag 1 BAG IV ONE (16:00)
[2020-11-09] MEDS ORDERED: Piperacillin/Tazobactam 4.5 GM in Sodium Chloride 0.9% 100 ML IV ONE ×2 (16:01→18:00)
[2020-11-09] MEDS ORDERED: Acetaminophen 325 MG Tab PO PRN (16:38)
[2020-11-09] MEDS ORDERED: Ondansetron 4 MG/2 ML SDV IV PRN (16:38)
[2020-11-09] MEDS ORDERED: Morphine 2 MG/ML SYRINGE IVPUSH PRN (16:38)
--- NOTE | 2020-11-09 16:53 | PCM.HP.2 ---
H&P History of Present Illness - General Date of Service: 11/09/20 Admit Problem/Dx: Admission Diagnosis/Problem Admission Diagnosis/Problem Hospital-acquired pneumonia Source of Information: Patient, Old Records, RN History Limitations: Reports: Other (Poor historian, developmentally disabled.) - History of Present Illness Initial Comments - Free Text/Narative: The patient is a 55-year-old developmentally disabled lady who has been brought into the emergency department by her nurse. The patient resides at able housing. The patient has been complaining of pain to her left hip. She had surgery last week with a hip replacement and was found to be having a fever at home and chills. The patient is a poor historian and has not been able to provide much in the way of history. Most of the history has been taken from patient's previous charting and from her nurse who is present at bedside. The patient has bilateral nonfunctional eye replacements. Most of her answers are, "I don't know". The patient has denied any pain. The patient is also incontinent and unable to swallow and she has a PEG tube for feeding and medications. Onset of Symptoms: Reports: Unknown/Unsure Duration of Symptoms: Reports: Day(s):, Getting Worse Location: Reports: Lower Extremity, Left Quality: Reports: Stabbing, Throbbing Improves with: Reports: None Worsens with: Reports: None Context: Reports: Other (Recent left hip replacement) Associated Symptoms: Reports: Fever/Chills Left Hip Pain Score (Numeric/FACES): 5 - Related Data Allergies/Adverse Reactions: Allergies Allergy/AdvReac Type Severity Reaction Status Date / Time doxepin Allergy Other Verified 11/09/20 17:36 Home Medications: Home Meds Acetaminophen [Tylenol Solution 160 MG/5 ML] 650 mg GTUBE QID 09/23/20 [History] Acetaminophen with Codeine [Acetaminophen-Cod #3] 1 tab GTUBE Q8H PRN 09/23/20 [History] Albuterol [Proventil Neb Soln] 3 ml INH QID PRN 09/23/20 [History] Bisacodyl [Gentle Laxative] 10 mg RECTAL DAILY PRN 09/23/20 [History] Carbidopa/Levodopa [Carbidopa-Levodopa 25-100 Tab] 1 tab GTUBE BID 09/23/20 [History] ClonazePAM [KlonoPIN] 0.75 mg GTUBE BID 09/23/20 [History] Escitalopram [Lexapro] 20 mg GTUBE BEDTIME 09/23/20 [History] Furosemide [Lasix Oral Soln] 40 mg GTUBE DAILY 09/23/20 [History] Ipratropium [Atrovent] 2.5 ml INH TID PRN 09/23/20 [History] Lactoperoxi/Gluc Oxid/Pot Thio [Biotene Oralbalance Gel] 2.5 ml PO Q4H PRN 09/23/20 [History] Menthol/Zinc Oxide [Calmoseptine] 1 applic TOP QID 09/23/20 [History] Multivit-Min/Ferrous Gluconate [Multi-Irina Liquid] 15 ml GTUBE DAILY 09/23/20 [History] Non-Formulary Medication [NF Drug] 20 mg GTUBE BID 09/23/20 [History] Non-Formulary Medication [NF Drug] 30 ml GTUBE DAILY 09/23/20 [History] Promethazine HCl 12.5 mg GTUBE Q6H PRN 09/23/20 [History] buPROPion [Wellbutrin] 150 mg GTUBE DAILY 09/23/20 [History] risperiDONE [Risperdal] 0.5 mg GTUBE BEDTIME 09/23/20 [History] risperiDONE [RisperiDAL] 0.25 mg GTUBE DAILY 09/23/20 [History] Enoxaparin [Lovenox] 1 injection SQ DAILY 11/09/20 [History] Hydrocodone/Acetaminophen [HYDROcodone-Acetaminophen 5-325 MG] 1 tab GTUBE Q4HR PRN 11/09/20 [History] Past Medical History HEENT History: Reports: Impaired Vision, Other (See Below) (Artificial eyes) Other HEENT History: Blind Cardiovascular History: Reports: Heart Failure Respiratory History: Reports: PE, Pneumonia, Recurrent Other Respiratory History: recurrent aspiration pneumonia Gastrointestinal History: Reports: GERD, Other (See Below) Other Gastrointestinal History: abdominal Cysts, intesinal fistula Ostomy 2010; patient is tube fed Genitourinary History: Reports: Urinary Incontinence TREE MARKER History: Reports: None Musculoskeletal History: Reports: Other (See Below) Other Musculoskeletal History: Scoliosis, congenital hip dysplasia Neurological History: Reports: Other (See Below) Other Neuro History: mild mental retardation. Psychiatric History: Reports: Anxiety, Depression Other Psychiatric History: generalized anxiety disorder. Endocrine/Metabolic History: Reports: None Hematologic History: Reports: None Immunologic History: Reports: None Oncologic (Cancer) History: Reports: None - Infectious Disease History Infectious Disease History: Reports: C-Difficile, Influenza, Novel Coronavirus - Past Surgical History HEENT Surgical History: Reports: Other (See Below) Other HEENT Surgeries/Procedures: has false eyes Cardiovascular Surgical History: Reports: None Respiratory Surgical History: Reports: None GI Surgical History: Reports: Appendectomy Neurological Surgical History: Reports: None Musculoskeletal Surgical History: Reports: None Dermatological Surgical History: Reports: None Social & Family History - Family History Family Medical History: No Pertinent Family History - Tobacco Use Tobacco Use Status *Q: Never Tobacco User Second Hand Smoke Exposure: No - Caffeine Use Caffeine Use: Reports: None Other Caffeine Use: on occassion will have a soda or coffee - Recreational Drug Use Recreational Drug Use: No - Living Situation & Occupation Living situation: Reports: Single, [facility] Care Facility ([facility]) H&P Review of Systems - Review of Systems: Review Of Systems: See Below Reason Not Obtained: The patient is a poor historian and review of systems is not reli General: Reports: Fever, Chills HEENT: Reports: Other (Blind) Pulmonary: Reports: Cough Cardiovascular: Reports: No Symptoms Gastrointestinal: Reports: Other (PEG tube) Genitourinary: Reports: No Symptoms Musculoskeletal: Reports: No Symptoms Skin: Reports: No Symptoms Psychiatric: Reports: No Symptoms Neurological: Reports: No Symptoms, Pre-Existing Deficit Hematologic/Lymphatic: Reports: No Symptoms Immunologic: Reports: No Symptoms Exam - Exam Exam: See Below - Vital Signs Vital Signs: Last Vital Signs Temp 36.1 C 11/09/20 10:52 Pulse 91 11/09/20 10:52 Resp 20 11/09/20 10:52 BP 125/52 L 11/09/20 10:52 Pulse Ox 99 11/09/20 10:52 Weight: 50.802 kg - Exam Quality Assessment: Supplemental Oxygen, DVT Prophylaxis HEENT: EACs Clear, Hearing Intact, Other (Artificial eyes). No: Conjunctiva Clear, EOMI, Mucosa Moist & [place] (Dry) Neck: Supple, Trachea Midline Lungs: Normal Respiratory Effort, Crackles (Right lower, right middle) Cardiovascular: Regular Rate, Regular Rhythm GI/Abdominal Exam: Normal Bowel Sounds, Soft, Non-Tender, No Distention, Other (PEG tube) (Female) Exam: Deferred Rectal (Female) Exam: Deferred Back Exam: No: Normal Inspection (The patient is positioned on her right side and she does not ambulate.) Extremities: No Pedal Edema Skin: Warm, Dry, Intact Neurological: Normal Speech. No: Normal Gait, Focal Deficit Psychiatric: Alert, Normal Affect - Patient Data Lab Results Last 24 hrs: Laboratory Results - last 24 hr 11/09/20 11/09/20 11/09/20 Range/Units 11:04 11:27 11:27 WBC 19.04 H (3.98-10.04) K/mm3 RBC 3.23 L (3.98-5.22) M/mm3 Hgb 10.6 L D (11.2-15.7) gm/dl Hct 35.0 (34.1-44.9) % MCV 108.4 H (79.4-94.8) fl MCH 32.8 H (25.6-32.2) pg MCHC 30.3 L (32.2-35.5) g/dl RDW Std Deviation 56.9 H (36.4-46.3) fL Plt Count 368 D (182-369) K/mm3 MPV 10.8 (9.4-12.3) fl Neut % (Auto) 90.0 H (34.0-71.1) % Lymph % (Auto) 3.7 L (19.3-51.7) % Wallace % (Auto) 6.0 (4.7-12.5) % Eos % (Auto) 0.1 L (0.7-5.8) Baso % (Auto) 0.1 (0.1-1.2) % Neut # (Auto) 17.14 H (1.56-6.13) K/mm3 Lymph # (Auto) 0.70 L (1.18-3.74) K/mm3 Wallace # (Auto) 1.15 H (0.24-0.36) K/mm3 Eos # (Auto) 0.02 L (0.04-0.36) K/mm3 Baso # (Auto) 0.01 (0.01-0.08) K/mm3 Manual Slide Review Abnormal smear D-Dimer, Quantitative (0.19-0.50) mg/L Sodium 140 (136-145) mEq/L Potassium 4.4 (3.5-5.1) mEq/L Chloride 101 (98-107) mEq/L Carbon Dioxide 39 H (21-32) mEq/L Anion Gap 4.4 L (5-15) BUN 13 (7-18) mg/dL Creatinine 0.8 (0.55-1.02) mg/dL Est Cr Clr Drug Dosing 58.41 mL/min Estimated GFR (MDRD) > 60 (>60) mL/min BUN/Creatinine Ratio 16.3 (14-18) Glucose 128 H (70-99) mg/dL Calcium 8.7 (8.5-10.1) mg/dL Total Bilirubin 0.4 (0.2-1.0) mg/dL AST 21 (15-37) U/L ALT 22 (14-59) U/L Alkaline Phosphatase 84 (46-116) U/L NT-Pro-B Natriuret Pep (0-125) pg/mL Total Protein 5.9 L (6.4-8.2) g/dl Albumin 2.5 L (3.4-5.0) g/dl Globulin 3.4 gm/dL Albumin/Globulin Ratio 0.7 L (1-2) SARS-CoV-2 RNA (JJ) Negative (NEGATIVE) 11/09/20 11/09/20 Range/Units 11:27 11:27 WBC (3.98-10.04) K/mm3 RBC (3.98-5.22) M/mm3 Hgb (11.2-15.7) gm/dl Hct (34.1-44.9) % MCV (79.4-94.8) fl MCH (25.6-32.2) pg MCHC (32.2-35.5) g/dl RDW Std Deviation (36.4-46.3) fL Plt Count (182-369) K/mm3 MPV (9.4-12.3) fl Neut % (Auto) (34.0-71.1) % Lymph % (Auto) (19.3-51.7) % Wallace % (Auto) (4.7-12.5) % Eos % (Auto) (0.7-5.8) Baso % (Auto) (0.1-1.2) % Neut # (Auto) (1.56-6.13) K/mm3 Lymph # (Auto) (1.18-3.74) K/mm3 Wallace # (Auto) (0.24-0.36) K/mm3 Eos # (Auto) (0.04-0.36) K/mm3 Baso # (Auto) (0.01-0.08) K/mm3 Manual Slide Review D-Dimer, Quantitative 4.12 H (0.19-0.50) mg/L Sodium (136-145) mEq/L Potassium (3.5-5.1) mEq/L Chloride (98-107) mEq/L Carbon Dioxide (21-32) mEq/L Anion Gap (5-15) BUN (7-18) mg/dL Creatinine (0.55-1.02) mg/dL Est Cr Clr Drug Dosing mL/min Estimated GFR (MDRD) (>60) mL/min BUN/Creatinine Ratio (14-18) Glucose (70-99) mg/dL Calcium (8.5-10.1) mg/dL Total Bilirubin (0.2-1.0) mg/dL AST (15-37) U/L ALT (14-59) U/L Alkaline Phosphatase (46-116) U/L NT-Pro-B Natriuret Pep 389 H (0-125) pg/mL Total Protein (6.4-8.2) g/dl Albumin (3.4-5.0) g/dl Globulin gm/dL Albumin/Globulin Ratio (1-2) SARS-CoV-2 RNA (JJ) (NEGATIVE) Result Diagrams: 11/10/20 06:45 11/09/20 11:27 Sepsis Event Note - Focused Exam Vital Signs: Vital Signs Temp Pulse Resp BP Pulse Ox 11/09/20 10:52 36.1 C 91 20 125/52 L 99 *Q Meaningful Use (ADM) - VTE *Q VTE Mechanical Contraindications *Q: At Risk for Falls - Problem List (1) Hospital acquired PNA SNOMED Code(s): 628292882 ICD Code: J18.9 - PNEUMONIA, UNSPECIFIED ORGANISM; Y95 - NOSOCOMIAL CONDITION Status: Acute Priority: High Current Visit: Yes (2) Hypoxia SNOMED Code(s): 505112471 ICD Code: R09.02 - HYPOXEMIA Status: Acute Current Visit: No (3) Leukocytosis SNOMED Code(s): 126142828, 017562368 ICD Code: D72.829 - ELEVATED WHITE BLOOD CELL COUNT, UNSPECIFIED Status: Acute Priority: High Current Visit: Yes Qualifiers: Leukocytosis type: bandemia Qualified Code(s): D72.825 - Bandemia (4) Aspiration, chronic pulmonary SNOMED Code(s): 05390817, 77776303 ICD Code: T17.908A - UNSP FB IN RESP TRACT, PART UNSP CAUSING OTH INJURY, INIT Status: Chronic Priority: Medium Current Visit: Yes Qualifiers: Encounter type: initial encounter Qualified Code(s): T17.908A - Unspecified foreign body in respiratory tract, part unspecified causing other injury, initial encounter (5) Blind in both eyes SNOMED Code(s): 199004694 ICD Code: H54.0 - BLINDNESS, BOTH EYES * DO NOT USE * Status: Chronic Priority: Medium Current Visit: No (6) Delayed social and emotional development SNOMED Code(s): 383332425 ICD Code: F88 - OTHER DISORDERS OF PSYCHOLOGICAL DEVELOPMENT Status: Chronic Priority: Medium Current Visit: Yes Problem List Initiated/Reviewed/Updated: Yes Orders Last 24hrs: Active Orders 24 hr Category Date Time Status Patient Status [ADT] Routine ADT 11/09/20 16:38 Ordered Oxygen Therapy [RC] PRN Care 11/09/20 16:38 Ordered Peripheral IV Care [RC] . DIRECTED Care 11/09/20 12:52 Active Up With Assistance [RC] ASDIRECTED Care 11/09/20 16:38 Ordered VTE/DVT Education [RC] PER UNIT ROUTINE Care 11/09/20 16:38 Ordered Vital Signs [RC] Q4H Care 11/09/20 16:38 Ordered Consult to Varnish Filterer [CONS] Routine Cons 11/09/20 16:38 Ordered OT Evaluation and Treatment [CONS] Routine Cons 11/09/20 16:38 Ordered PT Evaluation and Treatment [CONS] Routine Cons 11/09/20 16:38 Ordered Nothing per Oral Now Diet [DIET] Diet 11/09/20 Dinner Ordered CBC WITH AUTO DIFF [HEME] AM Lab 11/10/20 05:11 Ordered COMPREHENSIVE METABOLIC PN,CMP [CHEM] AM Lab 11/10/20 05:11 Ordered MAGNESIUM [CHEM] AM Lab 11/10/20 05:11 Ordered PHOSPHORUS [CHEM] AM Lab 11/10/20 05:11 Ordered PROCALCITONIN [REF] Stat Lab 11/09/20 11:27 Received Acetaminophen [TylenoL] Med 11/09/20 16:38 Ordered 650 mg PO Q4H PRN Heparin Sodium Med 11/09/20 16:45 Ordered 5,000 units SUBCUT Q8H Levofloxacin/Dextrose 5%-Water [Levaquin in D5W 500 MG/ Med 11/09/20 16:00 Active 100 ML] 500 mg Premix Bag 1 bag IV ONETIME Morphine Med 11/09/20 16:38 Ordered 2 mg IVPUSH Q2H PRN Ondansetron [Zofran] Med 11/09/20 16:38 Ordered 4 mg IV Q6H PRN Pharmacy to Dose - Vancomycin Med 11/09/20 16:01 Once 1 dose .XX ONETIME ONE Sodium Chloride 0.9% [Normal Saline] 100 ml Med 11/09/20 13:15 Active IV ASDIRECTED Sodium Chloride 0.9% [Saline Flush] Med 11/09/20 12:52 Active 10 ml FLUSH ASDIRECTED PRN Sodium Chloride 0.9% [Saline Flush] Med 11/09/20 13:13 Active 10 ml FLUSH ONETIME PRN Vancomycin 1.25 gm Med 11/09/20 16:30 Active Sodium Chloride 0.9% [Normal Saline] 250 ml IV ONETIME Peripheral IV Insertion Adult [OM.PC] Routine Oth 11/09/20 12:52 Ordered VTE Mechanical Contraindications [AST] Per Unit Routine Oth 11/09/20 16:38 Ordered Resuscitation Status Routine Resus Stat 11/09/20 16:38 Ordered Medication Orders Sodium Chloride (Normal Saline) 100 mls @ 75 mls/hr IV ASDIRECTED LOPEZ Levofloxacin/Dextrose 500 mg/ (Premix) 100 mls @ 100 mls/hr IV ONETIME ONE Stop: 11/09/20 16:59 Vancomycin HCl 1.25 gm/ Sodium (Chloride) 250 mls @ 166.667 mls/hr IV ONETIME ONE Stop: 11/09/20 17:59 Sodium Chloride (Sodium Chloride 0.9% 10 Ml Syringe) 10 ml FLUSH ASDIRECTED PRN PRN Reason: Keep Vein Open Sodium Chloride (Sodium Chloride 0.9% 10 Ml Syringe) 10 ml FLUSH ONETIME PRN PRN Reason: IV FLUSH Vancomycin HCl (Pharmacy To Dose - Vancomycin) 1 dose .XX ONETIME ONE Stop: 11/09/20 16:02 Assessment/Plan Comment:: The patient is a developmentally disabled 55-year-old lady who has been admitted as an inpatient out of concern for hospital-acquired pneumonia. The patient had recent surgery on her left hip and hospital-acquired pneumonia cannot be excluded at this time. A likely differential would include chronic aspiration pneumonia as the patient does have a PEG tube and lays on her right side predominantly. The patient has been started on Levaquin, Zosyn and vancomycin with pharmacy to dose. She also be kept on IV fluids to gently resuscitate at 75 mL/h. Repeat laboratory studies have been ordered for the morning. PT OT has also been consulted for strengthening as well as postsurgical evaluation. The patient has artificial eyes and likely has had no eyes developed from . The patient has been started on all of her home medications and PEG feedings has been initiated. At this time the patient is considered to be a full resusci tation code and she does have a guardian appointed. The patient should be appropriate for discharge in 2 to 3 days depending upon resolution of pneumonia and overall physical improvement. - Mortality Measure Prognosis:: Good
[2020-11-09] MEDS: Heparin Sodium 5,000 Units/ML Vial SUBCUT SCH (18:53)
[2020-11-10] MEDS ORDERED: Piperacillin/Tazobactam 4.5 GM in Sodium Chloride 0.9% 100 ML IV SCH (01:00)
[2020-11-10] MEDS: Heparin Sodium 5,000 Units/ML Vial SUBCUT SCH ×3 (01:04→16:44)
[2020-11-10] MEDS ORDERED: Ipratropium 0.02% 0.5 MG/2.5 ML Neb Soln INH PRN (06:37)
[2020-11-10] MEDS ORDERED: Bisacodyl 10 MG Supp RECTAL PRN (06:37)
[2020-11-10] MEDS ORDERED: Albuterol 0.083% 2.5 MG/3 ML Neb Soln INH PRN (06:37)
[2020-11-10] MEDS ORDERED: Acetaminophen/Codeine 300-30 MG Tab GTUBE PRN (06:37)
[2020-11-10] MEDS ORDERED: Promethazine 6.25 MG/5 ML Liquid 10 ML UD Cup GTUBE PRN (06:37)
[2020-11-10] MEDS ORDERED: Lactoperoxi/Gluc Oxid/Pot Thio 42 GM Tube MUCMEM PRN (06:37)
--- NOTE | 2020-11-10 08:39 | PCM.PN ---
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 The patient today says that she is feeling better. She has been on triple antibiotics. She also has been tolerating her diet. The patient is a poor historian therefore her review of system is somewhat suspect. Functional Status: Reports: Pain Controlled - Review of Systems General: Reports: No Symptoms HEENT: Reports: No Symptoms Pulmonary: Reports: No Symptoms Cardiovascular: Reports: No Symptoms Gastrointestinal: Reports: No Symptoms Genitourinary: Reports: No Symptoms Musculoskeletal: Reports: No Symptoms Skin: Reports: No Symptoms Neurological: Reports: No Symptoms Psychiatric: Reports: No Symptoms - Patient Data Vitals - Most Recent: Last Vital Signs Temp 36.7 C 11/10/20 08:04 Pulse 81 11/10/20 08:04 Resp 20 11/10/20 08:04 BP 108/41 L 11/10/20 08:04 Pulse Ox 98 11/10/20 08:04 Weight - Most Recent: 55.61 kg I&O - Last 24 Hours: Intake & Output 11/09/20 11/10/20 11/10/20 22:59 06:59 14:59 Intake Total 350 Balance 350 Lab Results Last 24 Hours: Laboratory Results - last 24 hr 11/09/20 11/09/20 11/09/20 Range/Units 11:04 11:27 11:27 WBC 19.04 H (3.98-10.04) K/mm3 RBC 3.23 L (3.98-5.22) M/mm3 Hgb 10.6 L D (11.2-15.7) gm/dl Hct 35.0 (34.1-44.9) % MCV 108.4 H (79.4-94.8) fl MCH 32.8 H (25.6-32.2) pg MCHC 30.3 L (32.2-35.5) g/dl RDW Std Deviation 56.9 H (36.4-46.3) fL Plt Count 368 D (182-369) K/mm3 MPV 10.8 (9.4-12.3) fl Neut % (Auto) 90.0 H (34.0-71.1) % Lymph % (Auto) 3.7 L (19.3-51.7) % [place] % (Auto) 6.0 (4.7-12.5) % Eos % (Auto) 0.1 L (0.7-5.8) Baso % (Auto) 0.1 (0.1-1.2) % Neut # (Auto) 17.14 H (1.56-6.13) K/mm3 Lymph # (Auto) 0.70 L (1.18-3.74) K/mm3 [place] # (Auto) 1.15 H (0.24-0.36) K/mm3 Eos # (Auto) 0.02 L (0.04-0.36) K/mm3 Baso # (Auto) 0.01 (0.01-0.08) K/mm3 Manual Slide Review Abnormal smear D-Dimer, Quantitative (0.19-0.50) mg/L Sodium 140 (136-145) mEq/L Potassium 4.4 (3.5-5.1) mEq/L Chloride 101 (98-107) mEq/L Carbon Dioxide 39 H (21-32) mEq/L Anion Gap 4.4 L (5-15) BUN 13 (7-18) mg/dL Creatinine 0.8 (0.55-1.02) mg/dL Est Cr Clr Drug Dosing 58.41 mL/min Estimated GFR (MDRD) > 60 (>60) mL/min BUN/Creatinine Ratio 16.3 (14-18) Glucose 128 H (70-99) mg/dL Lactic Acid (0.4-2.0) mmol/L Calcium 8.7 (8.5-10.1) mg/dL Phosphorus (2.6-4.7) mg/dL Magnesium (1.8-2.4) mg/dL Total Bilirubin 0.4 (0.2-1.0) mg/dL AST 21 (15-37) U/L ALT 22 (14-59) U/L Alkaline Phosphatase 84 (46-116) U/L NT-Pro-B Natriuret Pep (0-125) pg/mL Total Protein 5.9 L (6.4-8.2) g/dl Albumin 2.5 L (3.4-5.0) g/dl Globulin 3.4 gm/dL Albumin/Globulin Ratio 0.7 L (1-2) SARS-CoV-2 RNA (JJ) Negative (NEGATIVE) MRSA (PCR) 11/09/20 11/09/20 11/09/20 Range/Units 11:27 11:27 17:49 WBC (3.98-10.04) K/mm3 RBC (3.98-5.22) M/mm3 Hgb (11.2-15.7) gm/dl Hct (34.1-44.9) % MCV (79.4-94.8) fl MCH (25.6-32.2) pg MCHC (32.2-35.5) g/dl RDW Std Deviation (36.4-46.3) fL Plt Count (182-369) K/mm3 MPV (9.4-12.3) fl Neut % (Auto) (34.0-71.1) % Lymph % (Auto) (19.3-51.7) % [place] % (Auto) (4.7-12.5) % Eos % (Auto) (0.7-5.8) Baso % (Auto) (0.1-1.2) % Neut # (Auto) (1.56-6.13) K/mm3 Lymph # (Auto) (1.18-3.74) K/mm3 [place] # (Auto) (0.24-0.36) K/mm3 Eos # (Auto) (0.04-0.36) K/mm3 Baso # (Auto) (0.01-0.08) K/mm3 Manual Slide Review D-Dimer, Quantitative 4.12 H (0.19-0.50) mg/L Sodium (136-145) mEq/L Potassium (3.5-5.1) mEq/L Chloride (98-107) mEq/L Carbon Dioxide (21-32) mEq/L Anion Gap (5-15) BUN (7-18) mg/dL Creatinine (0.55-1.02) mg/dL Est Cr Clr Drug Dosing mL/min Estimated GFR (MDRD) (>60) mL/min BUN/Creatinine Ratio (14-18) Glucose (70-99) mg/dL Lactic Acid (0.4-2.0) mmol/L Calcium (8.5-10.1) mg/dL Phosphorus (2.6-4.7) mg/dL Magnesium (1.8-2.4) mg/dL Total Bilirubin (0.2-1.0) mg/dL AST (15-37) U/L ALT (14-59) U/L Alkaline Phosphatase (46-116) U/L NT-Pro-B Natriuret Pep 389 H (0-125) pg/mL Total Protein (6.4-8.2) g/dl Albumin (3.4-5.0) g/dl Globulin gm/dL Albumin/Globulin Ratio (1-2) SARS-CoV-2 RNA (JJ) (NEGATIVE) MRSA (PCR) Negative 11/09/20 11/10/20 11/10/20 Range/Units 18:05 06:45 06:45 WBC 9.94 (3.98-10.04) K/mm3 RBC 2.92 L (3.98-5.22) M/mm3 Hgb 9.6 L (11.2-15.7) gm/dl Hct 31.9 L (34.1-44.9) % MCV 109.2 H (79.4-94.8) fl MCH 32.9 H (25.6-32.2) pg MCHC 30.1 L (32.2-35.5) g/dl RDW Std Deviation 56.6 H (36.4-46.3) fL Plt Count 293 D (182-369) K/mm3 MPV 11.5 (9.4-12.3) fl Neut % (Auto) 75.0 H (34.0-71.1) % Lymph % (Auto) 12.2 L (19.3-51.7) % [place] % (Auto) 11.2 (4.7-12.5) % Eos % (Auto) 1.4 (0.7-5.8) Baso % (Auto) 0.1 (0.1-1.2) % Neut # (Auto) 7.46 H (1.56-6.13) K/mm3 Lymph # (Auto) 1.21 (1.18-3.74) K/mm3 [place] # (Auto) 1.11 H (0.24-0.36) K/mm3 Eos # (Auto) 0.14 (0.04-0.36) K/mm3 Baso # (Auto) 0.01 (0.01-0.08) K/mm3 Manual Slide Review Abnormal smear D-Dimer, Quantitative (0.19-0.50) mg/L Sodium 142 (136-145) mEq/L Potassium 5.0 (3.5-5.1) mEq/L Chloride 106 (98-107) mEq/L Carbon Dioxide 36 H (21-32) mEq/L Anion Gap 5.0 (5-15) BUN 8 (7-18) mg/dL Creatinine 0.6 (0.55-1.02) mg/dL Est Cr Clr Drug Dosing 77.89 mL/min Estimated GFR (MDRD) > 60 (>60) mL/min BUN/Creatinine Ratio 13.3 L (14-18) Glucose 91 (70-99) mg/dL Lactic Acid 0.9 (0.4-2.0) mmol/L Calcium 8.3 L (8.5-10.1) mg/dL Phosphorus 3.4 (2.6-4.7) mg/dL Magnesium 1.8 (1.8-2.4) mg/dL Total Bilirubin 0.4 (0.2-1.0) mg/dL AST 31 (15-37) U/L ALT 32 (14-59) U/L Alkaline Phosphatase 154 H (46-116) U/L NT-Pro-B Natriuret Pep (0-125) pg/mL Total Protein 5.5 L (6.4-8.2) g/dl Albumin 2.1 L (3.4-5.0) g/dl Globulin 3.4 gm/dL Albumin/Globulin Ratio 0.6 L (1-2) SARS-CoV-2 RNA (JJ) (NEGATIVE) MRSA (PCR) Med Orders - Current: Current Medications Acetaminophen (Acetaminophen 325 Mg Tab) 650 mg PO Q4H PRN PRN Reason: Pain (Mild 1-3)/fever Acetaminophen/Codeine Phosphate (Acetaminophen/Codeine 300-30 Mg Tab) 1 tab GTUBE Q8H PRN PRN Reason: Pain (moderate 4-6) Hydrocodone Bitart/Acetaminophen (Acetaminophen/Hydrocodone 325-5 Mg Tab) 1 tab GTUBE Q4H PRN PRN Reason: Pain Albuterol (Albuterol 0.083% 2.5 Mg/3 Ml Neb Soln) 2.5 mg INH QID PRN PRN Reason: Wheezing Bisacodyl (Bisacodyl 10 Mg Supp) 10 mg RECTAL DAILY PRN PRN Reason: Constipation Calamine/Phenol (Menthol/Zinc Oxide Ointment 3.5 Gm Tube) 0 gm TOP QID [facility] Carbidopa/Levodopa (Carbidopa/Levodopa 25-100 Mg Tab) 1 tab GTUBE BID [facility] Citalopram Hydrobromide (Citalopram 20 Mg Tab) 40 mg GTUBE BEDTIME [facility] Clonazepam (Clonazepam 0.5 Mg Tab) 0.75 mg GTUBE BID [facility] Furosemide (Furosemide Soln 10 Mg/Ml 60 Ml Bottle) 40 mg GTUBE DAILY [facility] Glucose Oxid/Lactoperoxid/Muramidas (Lactoperoxi/Gluc Oxid/Pot Thio 42 Gm Tube) 0 gm MUCMEM Q4H PRN PRN Reason: dry mouth Heparin Sodium (Porcine) (Heparin Sodium 5,000 Units/Ml Vial) 5,000 units SUBCUT Q8H [facility] Last Admin: 11/10/20 01:04 Dose: 5,000 units Documented by: Vancomycin HCl 0.75 gm/ Sodium (Chloride) 250 mls @ 250 mls/hr IV Q12H [facility] Last Admin: 11/10/20 05:41 Dose: 250 mls/hr Documented by: Ipratropium [place] (Ipratropium 0.02% 0.5 Mg/2.5 Ml Neb Soln) 0.5 mg INH TID PRN PRN Reason: Wheezing Morphine Sulfate (Morphine 2 Mg/Ml Syringe) 2 mg IVPUSH Q2H PRN PRN Reason: Pain (severe 7-10) Stop: 11/10/20 16:46 Last Admin: 11/09/20 22:13 Dose: 2 mg Documented by: Non-Formulary Medication (Bupropion) 150 mg GTUBE DAILY [facility] Non-Formulary Medication (Multivit-Min/Ferrous Gluconate [Multi-Irina Liquid]) 15 ml GTUBE DAILY [facility] Ondansetron HCl (Ondansetron 4 Mg/2 Ml Sdv) 4 mg IV Q6H PRN PRN Reason: Nausea/Vomiting Promethazine HCl (Promethazine 6.25 Mg/5 Ml Liquid 10 Ml Ud Cup) 12.5 mg GTUBE Q6H PRN PRN Reason: Nausea Risperidone (Risperidone 0.5 Mg Tab) 0.5 mg GTUBE BEDTIME [facility] Risperidone (Risperidone 0.25 Mg Tab) 0.25 mg GTUBE DAILY [facility] Vancomycin HCl (Pharmacy To Dose - Vancomycin) 1 dose .XX ONETIME ONE Stop: 11/09/20 16:02 Discontinued Medications Sodium Chloride (Normal Saline) 100 mls @ 75 mls/hr IV ASDIRECTED [facility] Levofloxacin/Dextrose 500 mg/ (Premix) 100 mls @ 100 mls/hr IV ONETIME ONE Stop: 11/09/20 16:59 Last Admin: 11/09/20 17:34 Dose: 100 mls/hr Documented by: Piperacillin Sod/Tazobactam (Sod 4.5 gm/ Sodium Chloride) 100 mls @ 200 mls/hr IV ONETIME ONE Stop: 11/09/20 16:30 Last Admin: 11/09/20 18:28 Dose: Not Given Documented by: Vancomycin HCl 1.25 gm/ Sodium (Chloride) 250 mls @ 166.667 mls/hr IV ONETIME ONE Stop: 11/09/20 17:59 Last Admin: 11/09/20 17:33 Dose: 166.667 mls/hr Documented by: Piperacillin Sod/Tazobactam (Sod 4.5 gm/ Sodium Chloride) 100 mls @ 25 mls/hr IV Q8H [facility] Piperacillin Sod/Tazobactam (Sod 4.5 gm/ Sodium Chloride) 100 mls @ 200 mls/hr IV ONETIME ONE Stop: 11/09/20 18:29 Last Admin: 11/09/20 18:52 Dose: 200 mls/hr Documented by: Iopamidol (Iopamidol 755 Mg/Ml 100 Ml Bottle) 100 ml IVPUSH ONETIME ONE Stop: 11/09/20 13:14 Last Admin: 11/09/20 17:40 Dose: Not Given Documented by: Sodium Chloride (Sodium Chloride 0.9% 10 Ml Syringe) 10 ml FLUSH ASDIRECTED PRN PRN Reason: Keep Vein Open Sodium Chloride (Sodium Chloride 0.9% 10 Ml Syringe) 10 ml FLUSH ONETIME PRN PRN Reason: IV FLUSH - Exam Quality Assessment: Supplemental Oxygen, DVT Prophylaxis General: Alert, Oriented, Cooperative HEENT: No: Pupils Equal (Artificial eyes), Mucous Membr. Moist/[place] (Dry) Neck: Supple, Trachea Midline Lungs: Normal Respiratory Effort, Rales Cardiovascular: Regular Rate, Regular Rhythm GI/Abdominal Exam: Normal Bowel Sounds, Soft, Non-Tender, No Distention, Other (PEG tube) (Female) Exam: Deferred Back Exam: Normal Inspection Extremities: Normal Inspection, No Pedal Edema Skin: Warm, Dry, Intact Neurological: No New Focal Deficit Psy/Mental Status: Alert, Normal Affect - Patient Data Lab Results Last 24 hrs: Laboratory Results - last 24 hr 11/09/20 11/09/20 11/09/20 Range/Units 11:04 11:27 11:27 WBC 19.04 H (3.98-10.04) K/mm3 RBC 3.23 L (3.98-5.22) M/mm3 Hgb 10.6 L D (11.2-15.7) gm/dl Hct 35.0 (34.1-44.9) % MCV 108.4 H (79.4-94.8) fl MCH 32.8 H (25.6-32.2) pg MCHC 30.3 L (32.2-35.5) g/dl RDW Std Deviation 56.9 H (36.4-46.3) fL Plt Count 368 D (182-369) K/mm3 MPV 10.8 (9.4-12.3) fl Neut % (Auto) 90.0 H (34.0-71.1) % Lymph % (Auto) 3.7 L (19.3-51.7) % [place] % (Auto) 6.0 (4.7-12.5) % Eos % (Auto) 0.1 L (0.7-5.8) Baso % (Auto) 0.1 (0.1-1.2) % Neut # (Auto) 17.14 H (1.56-6.13) K/mm3 Lymph # (Auto) 0.70 L (1.18-3.74) K/mm3 [place] # (Auto) 1.15 H (0.24-0.36) K/mm3 Eos # (Auto) 0.02 L (0.04-0.36) K/mm3 Baso # (Auto) 0.01 (0.01-0.08) K/mm3 Manual Slide Review Abnormal smear D-Dimer, Quantitative (0.19-0.50) mg/L Sodium 140 (136-145) mEq/L Potassium 4.4 (3.5-5.1) mEq/L Chloride 101 (98-107) mEq/L Carbon Dioxide 39 H (21-32) mEq/L Anion Gap 4.4 L (5-15) BUN 13 (7-18) mg/dL Creatinine 0.8 (0.55-1.02) mg/dL Est Cr Clr Drug Dosing 58.41 mL/min Estimated GFR (MDRD) > 60 (>60) mL/min BUN/Creatinine Ratio 16.3 (14-18) Glucose 128 H (70-99) mg/dL Lactic Acid (0.4-2.0) mmol/L Calcium 8.7 (8.5-10.1) mg/dL Phosphorus (2.6-4.7) mg/dL Magnesium (1.8-2.4) mg/dL Total Bilirubin 0.4 (0.2-1.0) mg/dL AST 21 (15-37) U/L ALT 22 (14-59) U/L Alkaline Phosphatase 84 (46-116) U/L NT-Pro-B Natriuret Pep (0-125) pg/mL Total Protein 5.9 L (6.4-8.2) g/dl Albumin 2.5 L (3.4-5.0) g/dl Globulin 3.4 gm/dL Albumin/Globulin Ratio 0.7 L (1-2) SARS-CoV-2 RNA (JJ) Negative (NEGATIVE) MRSA (PCR) 11/09/20 11/09/20 11/09/20 Range/Units 11:27 11:27 17:49 WBC (3.98-10.04) K/mm3 RBC (3.98-5.22) M/mm3 Hgb (11.2-15.7) gm/dl Hct (34.1-44.9) % MCV (79.4-94.8) fl MCH (25.6-32.2) pg MCHC (32.2-35.5) g/dl RDW Std Deviation (36.4-46.3) fL Plt Count (182-369) K/mm3 MPV (9.4-12.3) fl Neut % (Auto) (34.0-71.1) % Lymph % (Auto) (19.3-51.7) % [place] % (Auto) (4.7-12.5) % Eos % (Auto) (0.7-5.8) Baso % (Auto) (0.1-1.2) % Neut # (Auto) (1.56-6.13) K/mm3 Lymph # (Auto) (1.18-3.74) K/mm3 [place] # (Auto) (0.24-0.36) K/mm3 Eos # (Auto) (0.04-0.36) K/mm3 Baso # (Auto) (0.01-0.08) K/mm3 Manual Slide Review D-Dimer, Quantitative 4.12 H (0.19-0.50) mg/L Sodium (136-145) mEq/L Potassium (3.5-5.1) mEq/L Chloride (98-107) mEq/L Carbon Dioxide (21-32) mEq/L Anion Gap (5-15) BUN (7-18) mg/dL Creatinine (0.55-1.02) mg/dL Est Cr Clr Drug Dosing mL/min Estimated GFR (MDRD) (>60) mL/min BUN/Creatinine Ratio (14-18) Glucose (70-99) mg/dL Lactic Acid (0.4-2.0) mmol/L Calcium (8.5-10.1) mg/dL Phosphorus (2.6-4.7) mg/dL Magnesium (1.8-2.4) mg/dL Total Bilirubin (0.2-1.0) mg/dL AST (15-37) U/L ALT (14-59) U/L Alkaline Phosphatase (46-116) U/L NT-Pro-B Natriuret Pep 389 H (0-125) pg/mL Total Protein (6.4-8.2) g/dl Albumin (3.4-5.0) g/dl Globulin gm/dL Albumin/Globulin Ratio (1-2) SARS-CoV-2 RNA (JJ) (NEGATIVE) MRSA (PCR) Negative 11/09/20 11/10/20 11/10/20 Range/Units 18:05 06:45 06:45 WBC 9.94 (3.98-10.04) K/mm3 RBC 2.92 L (3.98-5.22) M/mm3 Hgb 9.6 L (11.2-15.7) gm/dl Hct 31.9 L (34.1-44.9) % MCV 109.2 H (79.4-94.8) fl MCH 32.9 H (25.6-32.2) pg MCHC 30.1 L (32.2-35.5) g/dl RDW Std Deviation 56.6 H (36.4-46.3) fL Plt Count 293 D (182-369) K/mm3 MPV 11.5 (9.4-12.3) fl Neut % (Auto) 75.0 H (34.0-71.1) % Lymph % (Auto) 12.2 L (19.3-51.7) % [place] % (Auto) 11.2 (4.7-12.5) % Eos % (Auto) 1.4 (0.7-5.8) Baso % (Auto) 0.1 (0.1-1.2) % Neut # (Auto) 7.46 H (1.56-6.13) K/mm3 Lymph # (Auto) 1.21 (1.18-3.74) K/mm3 [place] # (Auto) 1.11 H (0.24-0.36) K/mm3 Eos # (Auto) 0.14 (0.04-0.36) K/mm3 Baso # (Auto) 0.01 (0.01-0.08) K/mm3 Manual Slide Review Abnormal smear D-Dimer, Quantitative (0.19-0.50) mg/L Sodium 142 (136-145) mEq/L Potassium 5.0 (3.5-5.1) mEq/L Chloride 106 (98-107) mEq/L Carbon Dioxide 36 H (21-32) mEq/L Anion Gap 5.0 (5-15) BUN 8 (7-18) mg/dL Creatinine 0.6 (0.55-1.02) mg/dL Est Cr Clr Drug Dosing 77.89 mL/min Estimated GFR (MDRD) > 60 (>60) mL/min BUN/Creatinine Ratio 13.3 L (14-18) Glucose 91 (70-99) mg/dL Lactic Acid 0.9 (0.4-2.0) mmol/L Calcium 8.3 L (8.5-10.1) mg/dL Phosphorus 3.4 (2.6-4.7) mg/dL Magnesium 1.8 (1.8-2.4) mg/dL Total Bilirubin 0.4 (0.2-1.0) mg/dL AST 31 (15-37) U/L ALT 32 (14-59) U/L Alkaline Phosphatase 154 H (46-116) U/L NT-Pro-B Natriuret Pep (0-125) pg/mL Total Protein 5.5 L (6.4-8.2) g/dl Albumin 2.1 L (3.4-5.0) g/dl Globulin 3.4 gm/dL Albumin/Globulin Ratio 0.6 L (1-2) SARS-CoV-2 RNA (JJ) (NEGATIVE) MRSA (PCR) Result Diagrams: 11/10/20 06:45 11/10/20 06:45 Sepsis Event Note - Evaluation Sepsis Screening Result: No Definite Risk - Focused Exam Vital Signs: Vital Signs Temp Pulse Resp BP Pulse Ox 11/10/20 08:04 36.7 C 81 20 108/41 L 98 11/10/20 05:40 37.2 C 84 20 121/45 L 95 11/10/20 01:03 36.4 C 81 20 120/52 L 95 11/09/20 22:01 37.6 C 87 16 125/46 L 93 L - Problem List & Annotations (1) Hospital acquired PNA SNOMED Code(s): 774417129 Code(s): J18.9 - PNEUMONIA, UNSPECIFIED ORGANISM; Y95 - NOSOCOMIAL CONDITION Status: Acute Priority: High Current Visit: Yes (2) Hypoxia SNOMED Code(s): 828742683 Code(s): R09.02 - HYPOXEMIA Status: Acute Current Visit: No (3) Leukocytosis SNOMED Code(s): 788095823, 425304817 Code(s): D72.829 - ELEVATED WHITE BLOOD CELL COUNT, UNSPECIFIED Status: Acute Priority: High Current Visit: Yes Qualifiers: Leukocytosis type: bandemia Qualified Code(s): D72.825 - Bandemia (4) Aspiration, chronic pulmonary SNOMED Code(s): 49178119, 61895214 Code(s): T17.908A - UNSP FB IN RESP TRACT, PART UNSP CAUSING OTH INJURY, INIT Status: Chronic Priority: Medium Current Visit: Yes Qualifiers: Encounter type: initial encounter Qualified Code(s): T17.908A - Unspecified foreign body in respiratory tract, part unspecified causing other injury, initial encounter (5) Blind in both eyes SNOMED Code(s): 396332482 Code(s): H54.0 - BLINDNESS, BOTH EYES * DO NOT USE * Status: Chronic Priority: Medium Current Visit: No (6) Delayed social and emotional development SNOMED Code(s): 110108585 Code(s): F88 - OTHER DISORDERS OF PSYCHOLOGICAL DEVELOPMENT Status: Chronic Priority: Medium Current Visit: Yes - Problem List Review Problem List Initiated/Reviewed/Updated: Yes - My Orders Last 24 Hours: My Active Orders 11/09/20 16:38 Patient Status [ADT] Routine Oxygen Therapy [RC] PRN Up With Assistance [RC] ASDIRECTED VTE/DVT Education [RC] PER UNIT ROUTINE Vital Signs [RC] Q4HR Consult to Janitorial Services Supervisor [CONS] Routine OT Evaluation and Treatment [CONS] Routine PT Evaluation and Treatment [CONS] Routine Acetaminophen [TylenoL] 650 mg PO Q4H PRN Morphine 2 mg IVPUSH Q2H PRN Ondansetron [Zofran] 4 mg IV Q6H PRN VTE Mechanical Contraindications [AST] Per Unit Routine Resuscitation Status Routine 11/09/20 16:45 Heparin Sodium 5,000 units SUBCUT Q8H 11/09/20 Dinner Nothing per Oral Now Diet [DIET] 11/09/20 18:37 Aspiration Precautions [RC] ASDIRECTED 11/09/20 19:14 Oxygen Therapy Adult [Oxygen Therapy] [RC] ASDIRECTED 11/09/20 19:39 Tube Feeding [Enteral Feedings] [RC] Click to Edit 11/10/20 06:37 Acetaminophen/Codeine [Tylenol with Codeine No.3 300MG/30MG] 1 tab GTUBE Q8H PRN Acetaminophen/HYDROcodone [[place] 325-5 MG] 1 tab GTUBE Q4H PRN Albuterol [Proventil Neb Soln] 2.5 mg INH QID PRN Ipratropium [Atrovent] 0.5 mg INH TID PRN Lactoperoxi/Gluc Oxid/Pot Thio [Biotene Oralbalance Gel] 0 gm MUCMEM Q4H PRN Promethazine [Phenergan] 12.5 mg GTUBE Q6H PRN bisacodyL [Dulcolax] 10 mg RECTAL DAILY PRN 11/10/20 06:38 RT Aerosol Therapy [RC] ASDIRECTED RT Post Treatment Assessment [RC] Click to Edit RT Pre-Treatment Assessment [RC] Click to Edit 11/10/20 09:00 Carbidopa/Levodopa [Sinemet 25-100 mg] 1 tab GTUBE BID ClonazePAM [KlonoPIN] 0.75 mg GTUBE BID Furosemide [Lasix Oral Soln] 40 mg GTUBE DAILY Menthol/Zinc Oxide [Calmoseptine] 0 gm TOP QID Multivit-Min/Ferrous Gluconate [Multi-Irina Liquid] 15 ml GTUBE DAILY buPROPion 150 mg GTUBE DAILY risperiDONE [RisperiDAL] 0.25 mg GTUBE DAILY 11/10/20 21:00 Citalopram [Celexa] 40 mg GTUBE BEDTIME risperiDONE [RisperiDAL] 0.5 mg GTUBE BEDTIME - Assessment Assessment:: The patient is a 55-year-old lady who is been admitted to inpatient and being treated for hospital-acquired pneumonia. Patient will be continued on triple antibiotic therapy although the pneumonia is likely chronic in nature due to aspiration. She does have a PEG tube and is being fed this is discontinued. The patient will also have physical therapy to evaluate her strength and discharge planning. Oxygen support will be continued to keep the patient saturations around 92%. The physical therapy will also be evaluating the patient's recent left hip surgery. She is also anticoagulated with heparin at 5000 units subcu every 8 hours. Repeat laboratory studies have been ordered for the morning. The patient should be appropriate for discharge back to the [facility] house in 2 to 3 days. - Plan Plan:: The patient is a developmentally disabled 55-year-old lady who has been admitted as an inpatient out of concern for hospital-acquired pneumonia. The patient had recent surgery on her left hip and hospital-acquired pneumonia cannot be excluded at this time. A likely differential would include chronic aspiration pneumonia as the patient does have a PEG tube and lays on her right side predominantly. The patient has been started on Levaquin, Zosyn and vancomycin with pharmacy to dose. She also be kept on IV fluids to gently resuscitate at 75 mL/h. Repeat laboratory studies have been ordered for the morning. PT OT warner s also been consulted for strengthening as well as postsurgical evaluation. The patient has artificial eyes and likely has had no eyes developed from . The patient has been started on all of her home medications and PEG feedings has been initiated. At this time the patient is considered to be a full resuscitation code and she does have a guardian appointed. The patient should be appropriate for discharge in 2 to 3 days depending upon resolution of pneumonia and overall physical improvement.
[2020-11-10] MEDS: ClonazePAM 0.5 MG Tab GTUBE SCH ×2 (09:42→21:02)
[2020-11-10] MEDS: Carbidopa/Levodopa 25-100 MG Tab GTUBE SCH ×2 (09:44→21:02)
[2020-11-10] MEDS: risperiDONE 0.25 MG Tab GTUBE SCH (09:44)
[2020-11-10] MEDS: Furosemide Soln 10 MG/ML 60 ML Bottle GTUBE SCH (09:44)
[2020-11-10] MEDS: Menthol/Zinc Oxide Ointment 3.5 GM Tube TOP SCH ×4 (10:13→21:01)
[2020-11-10] MEDS ORDERED: Aluminum Hydroxide/Magnesium Hydroxide/Simethicone Susp 30 ML Cup PO PRN (16:30)
[2020-11-10] MEDS: Piperacillin/Tazobactam 4.5 GM in Sodium Chloride 0.9% 100 ML IV SCH (16:45)
[2020-11-10] MEDS: Levofloxacin/Dextrose 5%-Water 500 MG in Premix Bag 1 BAG IV SCH (16:45)
[2020-11-10] MEDS: Citalopram 20 MG Tab GTUBE SCH (21:02)
[2020-11-10] MEDS: risperiDONE 0.5 MG Tab GTUBE SCH (21:03)
[2020-11-11] MEDS: Heparin Sodium 5,000 Units/ML Vial SUBCUT SCH ×4 (00:21→23:47)
[2020-11-11] MEDS: Piperacillin/Tazobactam 4.5 GM in Sodium Chloride 0.9% 100 ML IV SCH ×4 (00:21→23:47)
--- NOTE | 2020-11-11 07:59 | PCM.PN ---
<Brien Martínez - Last Filed: 11/11/20 12:00> - General Info Date of Service: 11/11/20 Admission Dx/Problem (Free Text): Admission Diagnosis/Problem Admission Diagnosis/Problem Hospital-acquired pneumonia Functional Status: Reports: Pain Controlled, Tolerating Diet, Ambulating (Utilizes walker), Urinating. Denies: New Symptoms - Review of Systems General: Reports: No Symptoms. Denies: Fever, Weakness, Fatigue, Malaise, Chills HEENT: Reports: No Symptoms. Denies: Headaches, Sore Throat Pulmonary: Reports: No Symptoms. Denies: Shortness of Breath, Cough, Sputum, Wheezing Cardiovascular: Reports: No Symptoms. Denies: Dyspnea on Exertion Gastrointestinal: Reports: No Symptoms. Denies: Abdominal Pain, Constipation, Decreased Appetite, Diarrhea, Nausea, Vomiting Genitourinary: Reports: No Symptoms. Denies: Pain Musculoskeletal: Reports: No Symptoms Skin: Reports: No Symptoms. Denies: Cyanosis Neurological: Reports: Pre-Existing Deficit. Denies: Confusion Psychiatric: Reports: No Symptoms - Patient Data Vitals - Most Recent: Last Vital Signs Temp 97.7 F 11/11/20 03:39 Pulse 73 11/11/20 03:39 Resp 18 11/11/20 03:39 BP 112/94 H 11/11/20 03:39 Pulse Ox 95 11/11/20 03:39 Weight - Most Recent: 54.703 kg I&O - Last 24 Hours: Intake & Output 11/10/20 11/11/20 11/11/20 22:59 06:59 14:59 Intake Total 1285 1278 Output Total 300 Balance 985 1278 Lab Results Last 24 Hours: Laboratory Results - last 24 hr 11/09/20 11/11/20 11/11/20 Range/Units 11:27 04:50 04:50 WBC 6.82 (3.98-10.04) K/mm3 RBC 3.04 L (3.98-5.22) M/mm3 Hgb 9.8 L (11.2-15.7) gm/dl Hct 33.0 L (34.1-44.9) % MCV 108.6 H (79.4-94.8) fl MCH 32.2 (25.6-32.2) pg MCHC 29.7 L (32.2-35.5) g/dl RDW Std Deviation 57.5 H (36.4-46.3) fL Plt Count 339 (182-369) K/mm3 MPV 11.7 (9.4-12.3) fl Neut % (Auto) 62.6 (34.0-71.1) % Lymph % (Auto) 18.8 L (19.3-51.7) % [place] % (Auto) 15.2 H (4.7-12.5) % Eos % (Auto) 3.4 (0.7-5.8) Baso % (Auto) 0.0 L (0.1-1.2) % Neut # (Auto) 4.27 (1.56-6.13) K/mm3 Lymph # (Auto) 1.28 (1.18-3.74) K/mm3 [place] # (Auto) 1.04 H (0.24-0.36) K/mm3 Eos # (Auto) 0.23 (0.04-0.36) K/mm3 Baso # (Auto) 0.00 L (0.01-0.08) K/mm3 Manual Slide Review Abnormal smear Sodium (136-145) mEq/L Potassium (3.5-5.1) mEq/L Chloride (98-107) mEq/L Carbon Dioxide (21-32) mEq/L Anion Gap (5-15) BUN (7-18) mg/dL Creatinine (0.55-1.02) mg/dL Est Cr Clr Drug Dosing mL/min Estimated GFR (MDRD) (>60) mL/min BUN/Creatinine Ratio (14-18) Glucose (70-99) mg/dL Calcium (8.5-10.1) mg/dL Magnesium (1.8-2.4) mg/dL Total Bilirubin (0.2-1.0) mg/dL AST (15-37) U/L ALT (14-59) U/L Alkaline Phosphatase (46-116) U/L Total Protein (6.4-8.2) g/dl Albumin (3.4-5.0) g/dl Globulin gm/dL Albumin/Globulin Ratio (1-2) Procalcitonin 0.23 H ng/mL Vancomycin Trough 12.2 (10.0-20.0) 08/23/21 Range/Units 04:50 WBC (3.98-10.04) K/mm3 RBC (3.98-5.22) M/mm3 Hgb (11.2-15.7) gm/dl Hct (34.1-44.9) % MCV (79.4-94.8) fl MCH (25.6-32.2) pg MCHC (32.2-35.5) g/dl RDW Std Deviation (36.4-46.3) fL Plt Count (182-369) K/mm3 MPV (9.4-12.3) fl Neut % (Auto) (34.0-71.1) % Lymph % (Auto) (19.3-51.7) % [place] % (Auto) (4.7-12.5) % Eos % (Auto) (0.7-5.8) Baso % (Auto) (0.1-1.2) % Neut # (Auto) (1.56-6.13) K/mm3 Lymph # (Auto) (1.18-3.74) K/mm3 [place] # (Auto) (0.24-0.36) K/mm3 Eos # (Auto) (0.04-0.36) K/mm3 Baso # (Auto) (0.01-0.08) K/mm3 Manual Slide Review Sodium 145 (136-145) mEq/L Potassium 4.3 (3.5-5.1) mEq/L Chloride 106 (98-107) mEq/L Carbon Dioxide 38 H (21-32) mEq/L Anion Gap 5.3 (5-15) BUN 9 (7-18) mg/dL Creatinine 0.7 (0.55-1.02) mg/dL Est Cr Clr Drug Dosing 66.76 mL/min Estimated GFR (MDRD) > 60 (>60) mL/min BUN/Creatinine Ratio 12.9 L (14-18) Glucose 100 H (70-99) mg/dL Calcium 8.7 (8.5-10.1) mg/dL Magnesium 1.9 (1.8-2.4) mg/dL Total Bilirubin 0.5 (0.2-1.0) mg/dL AST 21 (15-37) U/L ALT 18 (14-59) U/L Alkaline Phosphatase 136 H (46-116) U/L Total Protein 5.9 L (6.4-8.2) g/dl Albumin 2.3 L (3.4-5.0) g/dl Globulin 3.6 gm/dL Albumin/Globulin Ratio 0.6 L (1-2) Procalcitonin ng/mL Vancomycin Trough (10.0-20.0) Med Orders - Current: Current Medications Acetaminophen (Acetaminophen 325 Mg Tab) 650 mg PO Q4H PRN PRN Reason: Pain (Mild 1-3)/fever Acetaminophen/Codeine Phosphate (Acetaminophen/Codeine 300-30 Mg Tab) 1 tab GTUBE Q8H PRN PRN Reason: Pain (moderate 4-6) Hydrocodone Bitart/Acetaminophen (Acetaminophen/Hydrocodone 325-5 Mg Tab) 1 tab GTUBE Q4H PRN PRN Reason: Pain Al Hydroxide/Mg Hydroxide (Aluminum Hydroxide/Magnesium Hydroxide/Simethicone Susp 30 Ml Cup) 30 ml PO Q4H PRN PRN Reason: Heartburn Albuterol (Albuterol 0.083% 2.5 Mg/3 Ml Neb Soln) 2.5 mg INH QID PRN PRN Reason: Wheezing Bisacodyl (Bisacodyl 10 Mg Supp) 10 mg RECTAL DAILY PRN PRN Reason: Constipation Calamine/Phenol (Menthol/Zinc Oxide Ointment 3.5 Gm Tube) 0 gm TOP QID [facility] Last Admin: 11/10/20 21:01 Dose: 1 applic Documented by: Carbidopa/Levodopa (Carbidopa/Levodopa 25-100 Mg Tab) 1 tab GTUBE BID [facility] Last Admin: 11/10/20 21:02 Dose: 1 tab Documented by: Citalopram Hydrobromide (Citalopram 20 Mg Tab) 40 mg GTUBE BEDTIME [facility] Last Admin: 11/10/20 21:02 Dose: 40 mg Documented by: Clonazepam (Clonazepam 0.5 Mg Tab) 0.75 mg GTUBE BID [facility] Last Admin: 11/10/20 21:02 Dose: 0.75 mg Documented by: Furosemide (Furosemide Soln 10 Mg/Ml 60 Ml Bottle) 40 mg GTUBE DAILY [facility] Last Admin: 11/10/20 09:44 Dose: 40 mg Documented by: Glucose Oxid/Lactoperoxid/Muramidas (Lactoperoxi/Gluc Oxid/Pot Thio 42 Gm Tube) 0 gm MUCMEM Q4H PRN PRN Reason: dry mouth Heparin Sodium (Porcine) (Heparin Sodium 5,000 Units/Ml Vial) 5,000 units SUBCUT Q8H [facility] Last Admin: 11/11/20 00:21 Dose: 5,000 units Documented by: Levofloxacin/Dextrose 500 mg/ (Premix) 100 mls @ 100 mls/hr IV Q24H [facility] Last Admin: 11/10/20 16:45 Dose: 100 mls/hr Documented by: Piperacillin Sod/Tazobactam (Sod 4.5 gm/ Sodium Chloride) 100 mls @ 25 mls/hr IV Q8H [facility] Last Admin: 11/11/20 06:31 Dose: 25 mls/hr Documented by: Vancomycin HCl 1 gm/ Sodium (Chloride) 250 mls @ 250 mls/hr IV Q12H [facility] Last Admin: 11/11/20 06:31 Dose: 250 mls/hr Documented by: Ipratropium [place] (Ipratropium 0.02% 0.5 Mg/2.5 Ml Neb Soln) 0.5 mg INH TID PRN PRN Reason: Wheezing (Bupropion 75 Mg (Tablet)Own Med) 150 mg GTUBE DAILY [facility] Last Admin: 11/10/20 16:44 Dose: 150 mg Documented by: (Multivit-Min/Ferrous Gluconate [ Multi-Irina Liquid] 9 Mg/1Own Med 15 ml GTUBE DAILY [facility] Last Admin: 11/10/20 16:44 Dose: 15 ml Documented by: Ondansetron HCl (Ondansetron 4 Mg/2 Ml Sdv) 4 mg IV Q6H PRN PRN Reason: Nausea/Vomiting Promethazine HCl (Promethazine 6.25 Mg/5 Ml Liquid 10 Ml Ud Cup) 12.5 mg GTUBE Q6H PRN PRN Reason: Nausea Risperidone (Risperidone 0.5 Mg Tab) 0.5 mg GTUBE BEDTIME [facility] Last Admin: 11/10/20 21:03 Dose: 0.5 mg Documented by: Risperidone (Risperidone 0.25 Mg Tab) 0.25 mg GTUBE DAILY [facility] Last Admin: 11/10/20 09:44 Dose: 0.25 mg Documented by: Saccharomyces Boulardii (Saccharomyces Boulardii (Probiotic) 250 Mg Cap) 250 mg PO DAILY [facility] Vancomycin HCl (Pharmacy To Dose - Vancomycin) 1 dose .XX ASDIRECTED PRN PRN Reason: RX TO DOSE VANCO Discontinued Medications Sodium Chloride (Normal Saline) 100 mls @ 75 mls/hr IV ASDIRECTED LOPEZ Levofloxacin/Dextrose 500 mg/ (Premix) 100 mls @ 100 mls/hr IV ONETIME ONE Stop: 11/09/20 16:59 Last Admin: 11/09/20 17:34 Dose: 100 mls/hr Documented by: Piperacillin Sod/Tazobactam (Sod 4.5 gm/ Sodium Chloride) 100 mls @ 200 mls/hr IV ONETIME ONE Stop: 11/09/20 16:30 Last Admin: 11/09/20 18:28 Dose: Not Given Documented by: Vancomycin HCl 1.25 gm/ Sodium (Chloride) 250 mls @ 166.667 mls/hr IV ONETIME ONE Stop: 11/09/20 17:59 Last Admin: 11/09/20 17:33 Dose: 166.667 mls/hr Documented by: Piperacillin Sod/Tazobactam (Sod 4.5 gm/ Sodium Chloride) 100 mls @ 25 mls/hr IV Q8H [facility] Vancomycin HCl 0.75 gm/ Sodium (Chloride) 250 mls @ 250 mls/hr IV Q12H [facility] Last Admin: 11/11/20 07:02 Dose: Not Given Documented by: Piperacillin Sod/Tazobactam (Sod 4.5 gm/ Sodium Chloride) 100 mls @ 200 mls/hr IV ONETIME ONE Stop: 11/09/20 18:29 Last Admin: 11/09/20 18:52 Dose: 200 mls/hr Documented by: Iopamidol (Iopamidol 755 Mg/Ml 100 Ml Bottle) 100 ml IVPUSH ONETIME ONE Stop: 11/09/20 13:14 Last Admin: 11/09/20 17:40 Dose: Not Given Documented by: Morphine Sulfate (Morphine 2 Mg/Ml Syringe) 2 mg IVPUSH Q2H PRN PRN Reason: Pain (severe 7-10) Stop: 11/10/20 16:46 Last Admin: 11/09/20 22:13 Dose: 2 mg Documented by: Sodium Chloride (Sodium Chloride 0.9% 10 Ml Syringe) 10 ml FLUSH ASDIRECTED PRN PRN Reason: Keep Vein Open Sodium Chloride (Sodium Chloride 0.9% 10 Ml Syringe) 10 ml FLUSH ONETIME PRN PRN Reason: IV FLUSH Vancomycin HCl (Pharmacy To Dose - Vancomycin) 1 dose .XX ASDIRECTED PRN PRN Reason: RX TO DOSE VANCO - Exam Quality Assessment: DVT Prophylaxis. No: Supplemental Oxygen, Urine Catheter General: Alert, Oriented, Cooperative, No Acute Distress HEENT: Mucous Membr. Moist/[place], Other (Bilateral glass eyes) Neck: Supple, Trachea Midline Lungs: Normal Respiratory Effort, Rales. No: Wheezing Cardiovascular: Regular Rate, Regular Rhythm GI/Abdominal Exam: Normal Bowel Sounds, Soft, Non-Tender, No Distention (Female) Exam: Deferred Extremities: No Pedal Edema, Leg Pain (left lower extremity - s/p RICHARD), Limited Range of Motion, Other (Brace in place on left leg. Contractures on left leg. ) Peripheral Pulses: 2+: Radial (L), Radial (R), Dorsalis Pedis (L), Dorsalis Pedis (R) Skin: Warm, Dry, Intact Neurological: No New Focal Deficit Psy/Mental Status: Alert, Normal Affect, Normal Mood - Patient Data Lab Results Last 24 hrs: Laboratory Results - last 24 hr 11/09/20 11/11/20 11/11/20 Range/Units 11:27 04:50 04:50 WBC 6.82 (3.98-10.04) K/mm3 RBC 3.04 L (3.98-5.22) M/mm3 Hgb 9.8 L (11.2-15.7) gm/dl Hct 33.0 L (34.1-44.9) % MCV 108.6 H (79.4-94.8) fl MCH 32.2 (25.6-32.2) pg MCHC 29.7 L (32.2-35.5) g/dl RDW Std Deviation 57.5 H (36.4-46.3) fL Plt Count 339 (182-369) K/mm3 MPV 11.7 (9.4-12.3) fl Neut % (Auto) 62.6 (34.0-71.1) % Lymph % (Auto) 18.8 L (19.3-51.7) % [place] % (Auto) 15.2 H (4.7-12.5) % Eos % (Auto) 3.4 (0.7-5.8) Baso % (Auto) 0.0 L (0.1-1.2) % Neut # (Auto) 4.27 (1.56-6.13) K/mm3 Lymph # (Auto) 1.28 (1.18-3.74) K/mm3 [place] # (Auto) 1.04 H (0.24-0.36) K/mm3 Eos # (Auto) 0.23 (0.04-0.36) K/mm3 Baso # (Auto) 0.00 L (0.01-0.08) K/mm3 Manual Slide Review Abnormal smear Sodium (136-145) mEq/L Potassium (3.5-5.1) mEq/L Chloride (98-107) mEq/L Carbon Dioxide (21-32) mEq/L Anion Gap (5-15) BUN (7-18) mg/dL Creatinine (0.55-1.02) mg/dL Est Cr Clr Drug Dosing mL/min Estimated GFR (MDRD) (>60) mL/min BUN/Creatinine Ratio (14-18) Glucose (70-99) mg/dL Calcium (8.5-10.1) mg/dL Magnesium (1.8-2.4) mg/dL Total Bilirubin (0.2-1.0) mg/dL AST (15-37) U/L ALT (14-59) U/L Alkaline Phosphatase (46-116) U/L Total Protein (6.4-8.2) g/dl Albumin (3.4-5.0) g/dl Globulin gm/dL Albumin/Globulin Ratio (1-2) Procalcitonin 0.23 H ng/mL Vancomycin Trough 12.2 (10.0-20.0) 11/11/20 Range/Units 04:50 WBC (3.98-10.04) K/mm3 RBC (3.98-5.22) M/mm3 Hgb (11.2-15.7) gm/dl Hct (34.1-44.9) % MCV (79.4-94.8) fl MCH (25.6-32.2) pg MCHC (32.2-35.5) g/dl RDW Std Deviation (36.4-46.3) fL Plt Count (182-369) K/mm3 MPV (9.4-12.3) fl Neut % (Auto) (34.0-71.1) % Lymph % (Auto) (19.3-51.7) % [place] % (Auto) (4.7-12.5) % Eos % (Auto) (0.7-5.8) Baso % (Auto) (0.1-1.2) % Neut # (Auto) (1.56-6.13) K/mm3 Lymph # (Auto) (1.18-3.74) K/mm3 [place] # (Auto) (0.24-0.36) K/mm3 Eos # (Auto) (0.04-0.36) K/mm3 Baso # (Auto) (0.01-0.08) K/mm3 Manual Slide Review Sodium 145 (136-145) mEq/L Potassium 4.3 (3.5-5.1) mEq/L Chloride 106 (98-107) mEq/L Carbon Dioxide 38 H (21-32) mEq/L Anion Gap 5.3 (5-15) BUN 9 (7-18) mg/dL Creatinine 0.7 (0.55-1.02) mg/dL Est Cr Clr Drug Dosing 66.76 mL/min Estimated GFR (MDRD) > 60 (>60) mL/min BUN/Creatinine Ratio 12.9 L (14-18) Glucose 100 H (70-99) mg/dL Calcium 8.7 (8.5-10.1) mg/dL Magnesium 1.9 (1.8-2.4) mg/dL Total Bilirubin 0.5 (0.2-1.0) mg/dL AST 21 (15-37) U/L ALT 18 (14-59) U/L Alkaline Phosphatase 136 H (46-116) U/L Total Protein 5.9 L (6.4-8.2) g/dl Albumin 2.3 L (3.4-5.0) g/dl Globulin 3.6 gm/dL Albumin/Globulin Ratio 0.6 L (1-2) Procalcitonin ng/mL Vancomycin Trough (10.0-20.0) Result Diagrams: 11/11/20 04:50 11/11/20 04:50 Sepsis Event Note - Evaluation Sepsis Screening Result: No Definite Risk - Focused Exam Vital Signs: Vital Signs Temp Pulse Resp BP Pulse Ox 11/11/20 03:39 97.7 F 73 18 112/94 H 95 11/11/20 00:41 98/70 11/11/20 00:40 98.4 F 86 16 78/47 L 94 L 11/10/20 20:25 98.1 F 83 16 105/45 L 100 - Problem List & Annotations (1) History of COVID-19 SNOMED Code(s): 697738920609390026, 653443162577077466 Code(s): Z86.16 - PERSONAL HISTORY OF COVID-19 Status: Chronic Priority: Low Current Visit: No (2) History of Clostridioides difficile colitis SNOMED Code(s): 042358972, 806573803586822 Code(s): Z86.19 - PERSONAL HISTORY OF OTHER INFECTIOUS AND PARASITIC DISEASES Status: Chronic Priority: Low Current Visit: No (3) History of total hip arthroplasty SNOMED Code(s): 989750172927, 941169810160 Code(s): Z96.649 - PRESENCE OF UNSPECIFIED ARTIFICIAL HIP JOINT Status: Chronic Priority: Low Current Visit: No Qualifiers: Laterality: left Qualified Code(s): Z96.642 - Presence of left artificial hip joint (4) Congenital hip dysplasia SNOMED Code(s): 95563918 Code(s): Q65.89 - OTHER SPECIFIED CONGENITAL DEFORMITIES OF HIP Status: Chronic Priority: Low Current Visit: No (5) Hospital acquired PNA SNOMED Code(s): 081640328 Code(s): J18.9 - PNEUMONIA, UNSPECIFIED ORGANISM; Y95 - NOSOCOMIAL CONDITION Status: Acute Priority: High Current Visit: Yes (6) Leukocytosis SNOMED Code(s): 005342606, 273674908 Code(s): D72.829 - ELEVATED WHITE BLOOD CELL COUNT, UNSPECIFIED Status: Acute Priority: High Current Visit: Yes Qualifiers: Leukocytosis type: bandemia Qualified Code(s): D72.825 - Bandemia (7) Aspiration, chronic pulmonary SNOMED Code(s): 32975765, 20111180 Code(s): T17.908A - UNSP FB IN RESP TRACT, PART UNSP CAUSING OTH INJURY, INIT Status: Chronic Priority: Medium Current Visit: Yes Qualifiers: Encounter type: initial encounter Qualified Code(s): T17.908A - Unspecified foreign body in respiratory tract, part unspecified causing other injury, initial encounter (8) Delayed social and emotional development SNOMED Code(s): 527411204 Code(s): F88 - OTHER DISORDERS OF PSYCHOLOGICAL DEVELOPMENT Status: Chronic Priority: Low Current Visit: Yes (9) Blind in both eyes SNOMED Code(s): 487259471 Code(s): H54.0 - BLINDNESS, BOTH EYES * DO NOT USE * Status: Chronic Priority: Low Current Visit: No (10) Heart failure SNOMED Code(s): 55991190 Code(s): I50.9 - HEART FAILURE, UNSPECIFIED Status: Chronic Priority: Low Current Visit: No Qualifiers: Heart failure type: unspecified Heart failure chronicity: chronic Qualified Code(s): I50.9 - Heart failure, unspecified (11) History of pulmonary embolism SNOMED Code(s): 926534632 Code(s): Z86.711 - PERSONAL HISTORY OF PULMONARY EMBOLISM Status: Chronic Priority: Medium Current Visit: No (12) Elevated d-dimer SNOMED Code(s): 299027192 Code(s): R79.89 - OTHER SPECIFIED ABNORMAL FINDINGS OF BLOOD CHEMISTRY Status: Ruled-out Priority: High Current Visit: Yes (13) Recurrent pneumonia SNOMED Code(s): 046941923 Code(s): J18.9 - PNEUMONIA, UNSPECIFIED ORGANISM Status: Chronic Priority: Medium Current Visit: Yes (14) GERD (gastroesophageal reflux disease) SNOMED Code(s): 633086884 Code(s): K21.9 - GASTRO-ESOPHAGEAL REFLUX DISEASE WITHOUT ESOPHAGITIS Status: Chronic Priority: Low Current Visit: No Qualifiers: Esophagitis presence: esophagitis presence not specified Qualified Code(s): K21.9 - Gastro-esophageal reflux disease without esophagitis (15) S/P percutaneous endoscopic gastrostomy (PEG) tube placement SNOMED Code(s): 472239047 Code(s): Z93.1 - GASTROSTOMY STATUS Status: Chronic Priority: Medium Current Visit: Yes (16) History of urinary incontinence SNOMED Code(s): 932415256, 027373886 Code(s): Z87.898 - PERSONAL HISTORY OF OTHER SPECIFIED CONDITIONS Status: Chronic Priority: Low Current Visit: No (17) Scoliosis SNOMED Code(s): 464191799 Code(s): M41.9 - SCOLIOSIS, UNSPECIFIED Status: Chronic Priority: Low Current Visit: No Qualifiers: Scoliosis type: unspecified scoliosis Spinal region: unspecified Qualified Code(s): M41.9 - Scoliosis, unspecified (18) Depression SNOMED Code(s): 46937304 Code(s): F32.9 - MAJOR DEPRESSIVE DISORDER, SINGLE EPISODE, UNSPECIFIED Status: Chronic Priority: Low Current Visit: No Qualifiers: Depression Type: other depression Qualified Code(s): F32.89 - Other specified depressive episodes (19) Anxiety SNOMED Code(s): 64295926 Code(s): F41.9 - ANXIETY DISORDER, UNSPECIFIED Status: Chronic Priority: Low Current Visit: No (20) Leg pain SNOMED Code(s): 52269085 Code(s): M79.606 - PAIN IN LEG, UNSPECIFIED Status: Acute Priority: High Current Visit: Yes Qualifiers: Laterality: left Qualified Code(s): M79.605 - Pain in left leg - Problem List Review Problem List Initiated/Reviewed/Updated: Yes - Assessment Assessment:: 11/09/2020 The patient is a developmentally disabled 55-year-old lady who has been admitted as an inpatient out of concern for hospital-acquired pneumonia. The patient had recent surgery on her left hip and hospital-acquired pneumonia cannot be excluded at this time. A likely differential would include chronic aspiration pneumonia as the patient does have a PEG tube and lays on her right side predominantly. The patient has been started on Levaquin, Zosyn and vancomycin with pharmacy to dose. She also be kept on IV fluids to gently resuscitate at 75 mL/h. Repeat laboratory studies have been ordered for the morning. PT OT has also been consulted for strengthening as well as postsurgical evaluation. The patient has artificial eyes and likely has had no eyes developed from . The patient has been started on all of her home medications and PEG feedings has been initiated. At this time the patient is considered to be a full resuscitation code and she does have a guardian appointed. The patient should be appropriate for discharge in 2 to 3 days depending upon resolution of pneumonia and overall physical improvement. 11/10/2020 The patient is a 55-year-old lady who is been admitted to inpatient and being treated for hospital-acquired pneumonia. Patient will be continued on triple antibiotic therapy although the pneumonia is likely chronic in nature due to as piration. She does have a PEG tube and is being fed this is discontinued. The patient will also have physical therapy to evaluate her strength and discharge planning. Oxygen support will be continued to keep the patient saturations around 92%. The physical therapy will also be evaluating the patient's recent left hip surgery. She is also anticoagulated with heparin at 5000 units subcu every 8 hours. Repeat laboratory studies have been ordered for the morning. The patient should be appropriate for discharge back to the [facility] in 2 to 3 days. 11/11/2020 This is a 55 yo female admitted for hospital acquired PNA. She carries a history of Blindness, heart failure, history of PE, recurrent pneumonia, recurrent aspiration pneumonia, GERD, PEG tube, urinary incontinence, congenital hip dysplasia, scoliosis, mild mental retardation, anxiety, depression. History of C. difficile, history of Covid-19. On admission she was noted to have leukocytosis of 19.04 and this has improved to 6.82. She is currently on vancomycin, Levaquin, and Zosyn due to concerns over hospital-acquired pneumonia. She recently underwent a left hip surgery and she does still have a brace in place. On admission she was noted to have a D-dimer greater than 4 and CTA was obtained showing enlarged heart and pleural effusion, possible mild CHF, increased density with both sides of the chest suspicious for superimposed pneumonia if patient has correlating symptoms, no findings of PE, and incidental findings. SARS-CoV-2 RNA screen was negative and MRSA screen was negative. Procalcitonin was 0.23. proBNP was 389. She is currently off of oxygen and doing well. We will discontinue her vancomycin at this time. She has been reporting left leg pain and with a D-dimer of 4 it is felt it is prudent to rule out DVT. Bilateral lower extremity ultrasound was obtained showing no findings of DVT however it was a suboptimal study. PT and OT are working with the patient. She does have a PEG tube in place and is receiving tube feeding. Dietitian has been working with this to ensure continuity from her prior feeding schedule. 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 We will order Acapella with nursing to assist. Repeat procalcitonin has been ordered. Likely discharge in 2 days pending continued improvement/stability. 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 Arguello DVT prophylaxis: Heparin Social: Patient resides at [facility] senior living Disposition: Patient mated to the floor for treatment of hospital-acquired pneumonia. Likely length of stay 2 more days. <Mike Schuster - Last Filed: 11/11/20 13:39> - Patient Data Vitals - Most Recent: Last Vital Signs Temp 36.7 C 11/11/20 11:22 Pulse 80 11/11/20 11:22 Resp 18 11/11/20 11:22 BP 109/48 L 11/11/20 11:22 Pulse Ox 90 L 11/11/20 11:22 I&O - Last 24 Hours: Intake & Output 11/10/20 11/11/20 11/11/20 22:59 06:59 14:59 Intake Total 1285 1278 Output Total 300 Balance 985 1278 Lab Results Last 24 Hours: Laboratory Results - last 24 hr 11/11/20 11/11/20 11/11/20 Range/Units 04:50 04:50 04:50 WBC 6.82 (3.98-10.04) K/mm3 RBC 3.04 L (3.98-5.22) M/mm3 Hgb 9.8 L (11.2-15.7) gm/dl Hct 33.0 L (34.1-44.9) % MCV 108.6 H (79.4-94.8) fl MCH 32.2 (25.6-32.2) pg MCHC 29.7 L (32.2-35.5) g/dl RDW Std Deviation 57.5 H (36.4-46.3) fL Plt Count 339 (182-369) K/mm3 MPV 11.7 (9.4-12.3) fl Neut % (Auto) 62.6 (34.0-71.1) % Lymph % (Auto) 18.8 L (19.3-51.7) % [place] % (Auto) 15.2 H (4.7-12.5) % Eos % (Auto) 3.4 (0.7-5.8) Baso % (Auto) 0.0 L (0.1-1.2) % Neut # (Auto) 4.27 (1.56-6.13) K/mm3 Lymph # (Auto) 1.28 (1.18-3.74) K/mm3 [place] # (Auto) 1.04 H (0.24-0.36) K/mm3 Eos # (Auto) 0.23 (0.04-0.36) K/mm3 Baso # (Auto) 0.00 L (0.01-0.08) K/mm3 Manual Slide Review Abnormal smear Sodium 145 (136-145) mEq/L Potassium 4.3 (3.5-5.1) mEq/L Chloride 106 (98-107) mEq/L Carbon Dioxide 38 H (21-32) mEq/L Anion Gap 5.3 (5-15) BUN 9 (7-18) mg/dL Creatinine 0.7 (0.55-1.02) mg/dL Est Cr Clr Drug Dosing 66.76 mL/min Estimated GFR (MDRD) > 60 (>60) mL/min BUN/Creatinine Ratio 12.9 L (14-18) Glucose 100 H (70-99) mg/dL Calcium 8.7 (8.5-10.1) mg/dL Magnesium 1.9 (1.8-2.4) mg/dL Total Bilirubin 0.5 (0.2-1.0) mg/dL AST 21 (15-37) U/L ALT 18 (14-59) U/L Alkaline Phosphatase 136 H (46-116) U/L Total Protein 5.9 L (6.4-8.2) g/dl Albumin 2.3 L (3.4-5.0) g/dl Globulin 3.6 gm/dL Albumin/Globulin Ratio 0.6 L (1-2) Vancomycin Trough 12.2 (10.0-20.0) Med Orders - Current: Current Medications Acetaminophen (Acetaminophen 325 Mg Tab) 650 mg PO Q4H PRN PRN Reason: Pain (Mild 1-3)/fever Acetaminophen/Codeine Phosphate (Acetaminophen/Codeine 300-30 Mg Tab) 1 tab GTUBE Q8H PRN PRN Reason: Pain (moderate 4-6) Hydrocodone Bitart/Acetaminophen (Acetaminophen/Hydrocodone 325-5 Mg Tab) 1 tab GTUBE Q4H PRN PRN Reason: Pain Al Hydroxide/Mg Hydroxide (Aluminum Hydroxide/Magnesium Hydroxide/Simethicone Susp 30 Ml Cup) 30 ml PO Q4H PRN PRN Reason: Heartburn Albuterol (Albuterol 0.083% 2.5 Mg/3 Ml Neb Soln) 2.5 mg INH QID PRN PRN Reason: Wheezing Bisacodyl (Bisacodyl 10 Mg Supp) 10 mg RECTAL DAILY PRN PRN Reason: Constipation Calamine/Phenol (Menthol/Zinc Oxide Ointment 3.5 Gm Tube) 0 gm TOP QID [facility] Last Admin: 11/11/20 09:49 Dose: 1 applic Documented by: Carbidopa/Levodopa (Carbidopa/Levodopa 25-100 Mg Tab) 1 tab GTUBE BID [facility] Last Admin: 11/11/20 09:48 Dose: 1 tab Documented by: Citalopram Hydrobromide (Citalopram 20 Mg Tab) 40 mg GTUBE BEDTIME [facility] Last Admin: 11/10/20 21:02 Dose: 40 mg Documented by: Clonazepam (Clonazepam 0.5 Mg Tab) 0.75 mg GTUBE BID [facility] Last Admin: 11/11/20 09:48 Dose: 0.75 mg Documented by: Furosemide (Furosemide Soln 10 Mg/Ml 60 Ml Bottle) 40 mg GTUBE DAILY [facility] Last Admin: 11/11/20 09:48 Dose: 40 mg Documented by: Glucose Oxid/Lactoperoxid/Muramidas (Lactoperoxi/Gluc Oxid/Pot Thio 42 Gm Tube) 0 gm MUCMEM Q4H PRN PRN Reason: dry mouth Heparin Sodium (Porcine) (Heparin Sodium 5,000 Units/Ml Vial) 5,000 units [facility] Q8H [facility] Last Admin: 11/11/20 09:48 Dose: 5,000 units Documented by: Levofloxacin/Dextrose 500 mg/ (Premix) 100 mls @ 100 mls/hr IV Q24H [facility] Last Admin: 11/10/20 16:45 Dose: 100 mls/hr Documented by: Piperacillin Sod/Tazobactam (Sod 4.5 gm/ Sodium Chloride) 100 mls @ 25 mls/hr IV Q8H [facility] Last Admin: 11/11/20 06:31 Dose: 25 mls/hr Documented by: Ipratropium [place] (Ipratropium 0.02% 0.5 Mg/2.5 Ml Neb Soln) 0.5 mg INH TID PRN PRN Reason: Wheezing (Bupropion 75 Mg (Tablet)Own Med) 150 mg GTUBE DAILY [facility] Last Admin: 11/11/20 09:49 Dose: 150 mg Documented by: (Multivit-Min/Ferrous Gluconate [ Multi-Irina Liquid] 9 Mg/1Own Med 15 ml GTUBE DAILY [facility] Last Admin: 11/11/20 09:50 Dose: 15 ml Documented by: Ondansetron HCl (Ondansetron 4 Mg/2 Ml Sdv) 4 mg IV Q6H PRN PRN Reason: Nausea/Vomiting Promethazine HCl (Promethazine 6.25 Mg/5 Ml Liquid 10 Ml Ud Cup) 12.5 mg GTUBE Q6H PRN PRN Reason: Nausea Risperidone (Risperidone 0.5 Mg Tab) 0.5 mg GTUBE BEDTIME [facility] Last Admin: 11/10/20 21:03 Dose: 0.5 mg Documented by: Risperidone (Risperidone 0.25 Mg Tab) 0.25 mg GTUBE DAILY [facility] Last Admin: 11/11/20 09:48 Dose: 0.25 mg Documented by: Saccharomyces Boulardii (Saccharomyces Boulardii (Probiotic) 250 Mg Cap) 250 mg PO DAILY [facility] Last Admin: 11/11/20 09:48 Dose: 250 mg Documented by: Discontinued Medications Sodium Chloride (Normal Saline) 100 mls @ 75 mls/hr IV ASDIRECTED [facility] Levofloxacin/Dextrose 500 mg/ (Premix) 100 mls @ 100 mls/hr IV ONETIME ONE Stop: 11/09/20 16:59 Last Admin: 11/09/20 17:34 Dose: 100 mls/hr Documented by: Piperacillin Sod/Tazobactam (Sod 4.5 gm/ Sodium Chloride) 100 mls @ 200 mls/hr IV ONETIME ONE Stop: 11/09/20 16:30 Last Admin: 11/09/20 18:28 Dose: Not Given Documented by: Vancomycin HCl 1.25 gm/ Sodium (Chloride) 250 mls @ 166.667 mls/hr IV ONETIME ONE Stop: 11/09/20 17:59 Last Admin: 11/09/20 17:33 Dose: 166.667 mls/hr Documented by: Piperacillin Sod/Tazobactam (Sod 4.5 gm/ Sodium Chloride) 100 mls @ 25 mls/hr IV Q8H [facility] Vancomycin HCl 0.75 gm/ Sodium (Chloride) 250 mls @ 250 mls/hr IV Q12H [facility] Last Admin: 11/11/20 07:02 Dose: Not Given Documented by: Piperacillin Sod/Tazobactam (Sod 4.5 gm/ Sodium Chloride) 100 mls @ 200 mls/hr IV ONETIME ONE Stop: 11/09/20 18:29 Last Admin: 11/09/20 18:52 Dose: 200 mls/hr Documented by: Vancomycin HCl 1 gm/ Sodium (Chloride) 250 mls @ 250 mls/hr IV Q12H [facility] Last Admin: 11/11/20 06:31 Dose: 250 mls/hr Documented by: Iopamidol (Iopamidol 755 Mg/Ml 100 Ml Bottle) 100 ml IVPUSH ONETIME ONE Stop: 11/09/20 13:14 Last Admin: 11/09/20 17:40 Dose: Not Given Documented by: Morphine Sulfate (Morphine 2 Mg/Ml Syringe) 2 mg IVPUSH Q2H PRN PRN Reason: Pain (severe 7-10) Stop: 11/10/20 16:46 Last Admin: 11/09/20 22:13 Dose: 2 mg Documented by: Sodium Chloride (Sodium Chloride 0.9% 10 Ml Syringe) 10 ml FLUSH ASDIRECTED PRN PRN Reason: Keep Vein Open Sodium Chloride (Sodium Chloride 0.9% 10 Ml Syringe) 10 ml FLUSH ONETIME PRN PRN Reason: IV FLUSH Vancomycin HCl (Pharmacy To Dose - Vancomycin) 1 dose .XX ASDIRECTED PRN PRN Reason: RX TO DOSE VANCO Vancomycin HCl (Pharmacy To Dose - Vancomycin) 1 dose .XX ASDIRECTED PRN PRN Reason: RX TO DOSE VANCO - Patient Data Lab Results Last 24 hrs: Laboratory Results - last 24 hr 11/11/20 11/11/20 11/11/20 Range/Units 04:50 04:50 04:50 WBC 6.82 (3.98-10.04) K/mm3 RBC 3.04 L (3.98-5.22) M/mm3 Hgb 9.8 L (11.2-15.7) gm/dl Hct 33.0 L (34.1-44.9) % MCV 108.6 H (79.4-94.8) fl MCH 32.2 (25.6-32.2) pg MCHC 29.7 L (32.2-35.5) g/dl RDW Std Deviation 57.5 H (36.4-46.3) fL Plt Count 339 (182-369) K/mm3 MPV 11.7 (9.4-12.3) fl Neut % (Auto) 62.6 (34.0-71.1) % Lymph % (Auto) 18.8 L (19.3-51.7) % [place] % (Auto) 15.2 H (4.7-12.5) % Eos % (Auto) 3.4 (0.7-5.8) Baso % (Auto) 0.0 L (0.1-1.2) % Neut # (Auto) 4.27 (1.56-6.13) K/mm3 Lymph # (Auto) 1.28 (1.18-3.74) K/mm3 [place] # (Auto) 1.04 H (0.24-0.36) K/mm3 Eos # (Auto) 0.23 (0.04-0.36) K/mm3 Baso # (Auto) 0.00 L (0.01-0.08) K/mm3 Manual Slide Review Abnormal smear Sodium 145 (136-145) mEq/L Potassium 4.3 (3.5-5.1) mEq/L Chloride 106 (98-107) mEq/L Carbon Dioxide 38 H (21-32) mEq/L Anion Gap 5.3 (5-15) BUN 9 (7-18) mg/dL Creatinine 0.7 (0.55-1.02) mg/dL Est Cr Clr Drug Dosing 66.76 mL/min Estimated GFR (MDRD) > 60 (>60) mL/min BUN/Creatinine Ratio 12.9 L (14-18) Glucose 100 H (70-99) mg/dL Calcium 8.7 (8.5-10.1) mg/dL Magnesium 1.9 (1.8-2.4) mg/dL Total Bilirubin 0.5 (0.2-1.0) mg/dL AST 21 (15-37) U/L ALT 18 (14-59) U/L Alkaline Phosphatase 136 H (46-116) U/L Total Protein 5.9 L (6.4-8.2) g/dl Albumin 2.3 L (3.4-5.0) g/dl Globulin 3.6 gm/dL Albumin/Globulin Ratio 0.6 L (1-2) Vancomycin Trough 12.2 (10.0-20.0) Result Diagrams: 11/11/20 04:50 11/11/20 04:50 Sepsis Event Note - Focused Exam Vital Signs: Vital Signs Temp Pulse Resp BP Pulse Ox Pulse Ox 11/11/20 11:22 36.7 C 80 18 109/48 L 90 L 11/11/20 08:43 97 11/11/20 07:43 107/49 L 11/11/20 07:42 36.4 C 86 16 118/36 L 99 11/11/20 03:39 36.5 C 73 18 112/94 H 95 - Problem List & Annotations (1) Hospital acquired PNA SNOMED Code(s): 228373899 Code(s): J18.9 - PNEUMONIA, UNSPECIFIED ORGANISM; Y95 - NOSOCOMIAL CONDITION Status: Acute Priority: High Current Visit: Yes (2) Hypoxia SNOMED Code(s): 784081080 Code(s): R09.02 - HYPOXEMIA Status: Acute Current Visit: No (3) Leukocytosis SNOMED Code(s): 694152566, 215482987 Code(s): D72.829 - ELEVATED WHITE BLOOD CELL COUNT, UNSPECIFIED Status: Acute Priority: High Current Visit: Yes Qualifiers: Leukocytosis type: bandemia Qualified Code(s): D72.825 - Bandemia (4) Aspiration, chronic pulmonary SNOMED Code(s): 55963010, 73455663 Code(s): T17.908A - UNSP FB IN RESP TRACT, PART UNSP CAUSING OTH INJURY, INIT Status: Chronic Priority: Medium Current Visit: Yes Qualifiers: Encounter type: initial encounter Qualified Code(s): T17.908A - Unspecified foreign body in respiratory tract, part unspecified causing other injury, initial encounter (5) Blind in both eyes SNOMED Code(s): 903082544 Code(s): H54.0 - BLINDNESS, BOTH EYES * DO NOT USE * Status: Chronic Priority: Low Current Visit: No (6) Delayed social and emotional development SNOMED Code(s): 036487241 Code(s): F88 - OTHER DISORDERS OF PSYCHOLOGICAL DEVELOPMENT Status: Chronic Priority: Low Current Visit: Yes - My Orders Last 24 Hours: My Active Orders 11/10/20 15:15 Levofloxacin/Dextrose 5%-Water [Levaquin in D5W 500 MG/100 ML] 500 mg Premix Bag 1 bag IV Q24H 11/10/20 15:30 Piperacillin/Tazobactam [Piperacil-Tazobact] 4.5 gm Sodium Chloride 0.9% [Normal Saline] 100 ml IV Q8H 11/10/20 16:30 Alum Hydrox/Mag Hydrox/Simeth [Mag-Al Plus] 30 ml PO Q4H PRN 11/10/20 18:57 Communication Order [RC] ASDIRECTED 11/10/20 21:00 Citalopram [Celexa] 40 mg GTUBE BEDTIME risperiDONE [RisperiDAL] 0.5 mg GTUBE BEDTIME 11/11/20 09:00 Saccharomyces Boulardii [Florastor] 250 mg PO DAILY - Free Text/Narrative Note: I have seen and examined the patient independently of Brien Martínez PA-C and have discussed the case with him. I have reviewed and agree with the orders and plan of care outlined by him. Please see orders.
[2020-11-11] MEDS: Saccharomyces Boulardii (Probiotic) 250 MG Cap PO SCH (09:48)
[2020-11-11] MEDS: risperiDONE 0.25 MG Tab GTUBE SCH (09:48)
[2020-11-11] MEDS: ClonazePAM 0.5 MG Tab GTUBE SCH ×2 (09:48→21:30)
[2020-11-11] MEDS: Furosemide Soln 10 MG/ML 60 ML Bottle GTUBE SCH (09:48)
[2020-11-11] MEDS: Carbidopa/Levodopa 25-100 MG Tab GTUBE SCH ×2 (09:48→21:30)
[2020-11-11] MEDS: Menthol/Zinc Oxide Ointment 3.5 GM Tube TOP SCH ×4 (09:49→21:30)
--- NOTE | 2020-11-11 11:22 | US ---
Bilateral lower extremity deep venous ultrasound: Duplex and color Doppler evaluation was obtained of the right and left common femoral, proximal greater saphenous, superficial femoral, popliteal, posterior tibial and peroneal veins. Comparison: No prior venous imaging is available. Findings: Left popliteal, posterior tibial and peroneal veins are poorly seen due to small size of veins. Other visualized veins show normal phasic flow, augmentation and compression. Impression: 1. Poorly seen popliteal, posterior tibial and peroneal veins on the left side due to their small size. 2. No definite findings of deep venous thrombosis is seen within other visualized veins. Diagnostic code #2
[2020-11-11] MEDS: Levofloxacin/Dextrose 5%-Water 500 MG in Premix Bag 1 BAG IV SCH (15:30)
[2020-11-11] MEDS: Citalopram 20 MG Tab GTUBE SCH (21:30)
[2020-11-11] MEDS: risperiDONE 0.5 MG Tab GTUBE SCH (21:30)
[2020-11-12] MEDS: Piperacillin/Tazobactam 4.5 GM in Sodium Chloride 0.9% 100 ML IV SCH (06:42)
[2020-11-12] MEDS: risperiDONE 0.25 MG Tab GTUBE SCH (08:32)
[2020-11-12] MEDS: Carbidopa/Levodopa 25-100 MG Tab GTUBE SCH ×2 (08:32→21:37)
[2020-11-12] MEDS: Saccharomyces Boulardii (Probiotic) 250 MG Cap PO SCH (08:32)
[2020-11-12] MEDS: Heparin Sodium 5,000 Units/ML Vial SUBCUT SCH ×2 (08:32→17:22)
[2020-11-12] MEDS: ClonazePAM 0.5 MG Tab GTUBE SCH ×2 (08:34→21:36)
[2020-11-12] MEDS: Furosemide Soln 10 MG/ML 60 ML Bottle GTUBE SCH (08:34)
[2020-11-12] MEDS: Menthol/Zinc Oxide Ointment 3.5 GM Tube TOP SCH ×4 (08:37→21:40)
--- NOTE | 2020-11-12 10:02 | PCM.PN ---
<Brien Martínez - Last Filed: 11/12/20 12:55> - General Info Date of Service: 11/12/20 Admission Dx/Problem (Free Text): Admission Diagnosis/Problem Admission Diagnosis/Problem Hospital-acquired pneumonia Functional Status: Reports: Pain Controlled, Tolerating Diet, Ambulating, Urinating. Denies: New Symptoms - Review of Systems General: Reports: No Symptoms. Denies: Fever, Weakness, Fatigue, Malaise, Chills HEENT: Reports: No Symptoms. Denies: Headaches, Sore Throat Pulmonary: Reports: No Symptoms. Denies: Shortness of Breath, Pleuritic Chest Pain, Cough, Sputum, Wheezing Cardiovascular: Reports: No Symptoms. Denies: Chest Pain, Palpitations, Dyspnea on Exertion, Edema Gastrointestinal: Reports: Other (Reports feeling hungry which she says is chronic for her.). Denies: Abdominal Pain, Constipation, Diarrhea, Nausea, Vomiting Genitourinary: Reports: No Symptoms. Denies: Pain Musculoskeletal: Reports: No Symptoms Skin: Reports: No Symptoms. Denies: Cyanosis Neurological: Denies: Confusion Psychiatric: Reports: No Symptoms - Patient Data Vitals - Most Recent: Last Vital Signs Temp 98.1 F 11/11/20 15:51 Pulse 80 11/11/20 15:51 Resp 17 11/11/20 15:51 BP 115/50 L 11/11/20 15:51 Pulse Ox 100 11/11/20 15:51 Weight - Most Recent: 55.202 kg I&O - Last 24 Hours: Intake & Output 11/11/20 11/12/20 11/12/20 22:59 06:59 14:59 Intake Total 1400 970 Balance 1400 970 Lab Results Last 24 Hours: Laboratory Results - last 24 hr 11/11/20 11/12/20 11/12/20 Range/Units 04:50 04:56 04:56 WBC 6.20 (3.98-10.04) K/mm3 RBC 3.28 L (3.98-5.22) M/mm3 Hgb 10.6 L (11.2-15.7) gm/dl Hct 35.2 (34.1-44.9) % MCV 107.3 H (79.4-94.8) fl MCH 32.3 H (25.6-32.2) pg MCHC 30.1 L (32.2-35.5) g/dl RDW Std Deviation 56.5 H (36.4-46.3) fL Plt Count 350 (182-369) K/mm3 MPV 11.0 (9.4-12.3) fl Neut % (Auto) 58.0 (34.0-71.1) % Lymph % (Auto) 22.9 (19.3-51.7) % [place] % (Auto) 15.3 H (4.7-12.5) % Eos % (Auto) 3.4 (0.7-5.8) Baso % (Auto) 0.2 (0.1-1.2) % Neut # (Auto) 3.60 (1.56-6.13) K/mm3 Lymph # (Auto) 1.42 (1.18-3.74) K/mm3 [place] # (Auto) 0.95 H (0.24-0.36) K/mm3 Eos # (Auto) 0.21 (0.04-0.36) K/mm3 Baso # (Auto) 0.01 (0.01-0.08) K/mm3 Manual Slide Review Abnormal smear Sodium 141 (136-145) mEq/L Potassium 4.5 (3.5-5.1) mEq/L Chloride 104 (98-107) mEq/L Carbon Dioxide 38 H (21-32) mEq/L Anion Gap 3.5 L (5-15) BUN 10 (7-18) mg/dL Creatinine 0.7 (0.55-1.02) mg/dL Est Cr Clr Drug Dosing 66.76 mL/min Estimated GFR (MDRD) > 60 (>60) mL/min BUN/Creatinine Ratio 14.3 (14-18) Glucose 97 (70-99) mg/dL Calcium 9.0 (8.5-10.1) mg/dL Magnesium 1.9 (1.8-2.4) mg/dL C-Reactive Protein 6.2 H* (<1.0) mg/dL Procalcitonin 0.15 H ng/mL Med Orders - Current: Current Medications Acetaminophen (Acetaminophen 325 Mg Tab) 650 mg PO Q4H PRN PRN Reason: Pain (Mild 1-3)/fever Acetaminophen/Codeine Phosphate (Acetaminophen/Codeine 300-30 Mg Tab) 1 tab GTUBE Q8H PRN PRN Reason: Pain (moderate 4-6) Hydrocodone Bitart/Acetaminophen (Acetaminophen/Hydrocodone 325-5 Mg Tab) 1 tab GTUBE Q4H PRN PRN Reason: Pain Al Hydroxide/Mg Hydroxide (Aluminum Hydroxide/Magnesium Hydroxide/Simethicone Susp 30 Ml Cup) 30 ml PO Q4H PRN PRN Reason: Heartburn Albuterol (Albuterol 0.083% 2.5 Mg/3 Ml Neb Soln) 2.5 mg INH QID PRN PRN Reason: Wheezing Bisacodyl (Bisacodyl 10 Mg Supp) 10 mg RECTAL DAILY PRN PRN Reason: Constipation Calamine/Phenol (Menthol/Zinc Oxide Ointment 3.5 Gm Tube) 0 gm TOP QID [facility] Last Admin: 11/12/20 08:37 Dose: 1 applic Documented by: Carbidopa/Levodopa (Carbidopa/Levodopa 25-100 Mg Tab) 1 tab GTUBE BID [facility] Last Admin: 11/12/20 08:32 Dose: 1 tab Documented by: Citalopram Hydrobromide (Citalopram 20 Mg Tab) 40 mg GTUBE BEDTIME [facility] Last Admin: 11/11/20 21:30 Dose: 40 mg Documented by: Clonazepam (Clonazepam 0.5 Mg Tab) 0.75 mg GTUBE BID [facility] Last Admin: 11/12/20 08:34 Dose: 0.75 mg Documented by: Furosemide (Furosemide Soln 10 Mg/Ml 60 Ml Bottle) 40 mg GTUBE DAILY [facility] Last Admin: 11/12/20 08:34 Dose: 40 mg Documented by: Glucose Oxid/Lactoperoxid/Muramidas (Lactoperoxi/Gluc Oxid/Pot Thio 42 Gm Tube) 0 gm MUCMEM Q4H PRN PRN Reason: dry mouth Heparin Sodium (Porcine) (Heparin Sodium 5,000 Units/Ml Vial) 5,000 units SUBCUT Q8H [facility] Last Admin: 11/12/20 08:32 Dose: 5,000 units Documented by: Levofloxacin/Dextrose 500 mg/ (Premix) 100 mls @ 100 mls/hr IV Q24H [facility] Last Admin: 11/11/20 15:30 Dose: 100 mls/hr Documented by: Piperacillin Sod/Tazobactam (Sod 4.5 gm/ Sodium Chloride) 100 mls @ 25 mls/hr IV Q8H [facility] Last Admin: 11/12/20 06:42 Dose: 25 mls/hr Documented by: Ipratropium [employer] (Ipratropium 0.02% 0.5 Mg/2.5 Ml Neb Soln) 0.5 mg INH TID PRN PRN Reason: Wheezing (Bupropion 75 Mg (Tablet)Own Med) 150 mg GTUBE DAILY [facility] Last Admin: 11/12/20 08:39 Dose: 150 mg Documented by: (Multivit-Min/Ferrous Gluconate [ Multi-Irina Liquid] 9 Mg/1Own Med 15 ml GTUBE DAILY [facility] Last Admin: 11/11/20 09:50 Dose: 15 ml Documented by: Ondansetron HCl (Ondansetron 4 Mg/2 Ml Sdv) 4 mg IV Q6H PRN PRN Reason: Nausea/Vomiting Promethazine HCl (Promethazine 6.25 Mg/5 Ml Liquid 10 Ml Ud Cup) 12.5 mg GTUBE Q6H PRN PRN Reason: Nausea Risperidone (Risperidone 0.5 Mg Tab) 0.5 mg GTUBE BEDTIME [facility] Last Admin: 11/11/20 21:30 Dose: 0.5 mg Documented by: Risperidone (Risperidone 0.25 Mg Tab) 0.25 mg GTUBE DAILY [facility] Last Admin: 11/12/20 08:32 Dose: 0.25 mg Documented by: Saccharomyces Boulardii (Saccharomyces Boulardii (Probiotic) 250 Mg Cap) 250 mg PO DAILY [facility] Last Admin: 11/12/20 08:32 Dose: 250 mg Documented by: Discontinued Medications Sodium Chloride (Normal Saline) 100 mls @ 75 mls/hr IV ASDIRECTED [facility] Levofloxacin/Dextrose 500 mg/ (Premix) 100 mls @ 100 mls/hr IV ONETIME ONE Stop: 11/09/20 16:59 Last Admin: 11/09/20 17:34 Dose: 100 mls/hr Documented by: Piperacillin Sod/Tazobactam (Sod 4.5 gm/ Sodium Chloride) 100 mls @ 200 mls/hr IV ONETIME ONE Stop: 11/09/20 16:30 Last Admin: 11/09/20 18:28 Dose: Not Given Documented by: Vancomycin HCl 1.25 gm/ Sodium (Chloride) 250 mls @ 166.667 mls/hr IV ONETIME ONE Stop: 11/09/20 17:59 Last Admin: 11/09/20 17:33 Dose: 166.667 mls/hr Documented by: Piperacillin Sod/Tazobactam (Sod 4.5 gm/ Sodium Chloride) 100 mls @ 25 mls/hr IV Q8H [facility] Vancomycin HCl 0.75 gm/ Sodium (Chloride) 250 mls @ 250 mls/hr IV Q12H [facility] Last Admin: 11/11/20 07:02 Dose: Not Given Documented by: Piperacillin Sod/Tazobactam (Sod 4.5 gm/ Sodium Chloride) 100 mls @ 200 mls/hr IV ONETIME ONE Stop: 11/09/20 18:29 Last Admin: 11/09/20 18:52 Dose: 200 mls/hr Documented by: Vancomycin HCl 1 gm/ Sodium (Chloride) 250 mls @ 250 mls/hr IV Q12H [facility] Last Admin: 11/11/20 06:31 Dose: 250 mls/hr Documented by: Iopamidol (Iopamidol 755 Mg/Ml 100 Ml Bottle) 100 ml IVPUSH ONETIME ONE Stop: 11/09/20 13:14 Last Admin: 11/09/20 17:40 Dose: Not Given Documented by: Morphine Sulfate (Morphine 2 Mg/Ml Syringe) 2 mg IVPUSH Q2H PRN PRN Reason: Pain (severe 7-10) Stop: 11/10/20 16:46 Last Admin: 11/09/20 22:13 Dose: 2 mg Documented by: Sodium Chloride (Sodium Chloride 0.9% 10 Ml Syringe) 10 ml FLUSH ASDIRECTED PRN PRN Reason: Keep Vein Open Sodium Chloride (Sodium Chloride 0.9% 10 Ml Syringe) 10 ml FLUSH ONETIME PRN PRN Reason: IV FLUSH Vancomycin HCl (Pharmacy To Dose - Vancomycin) 1 dose .XX ASDIRECTED PRN PRN Reason: RX TO DOSE VANCO Vancomycin HCl (Pharmacy To Dose - Vancomycin) 1 dose .XX ASDIRECTED PRN PRN Reason: RX TO DOSE VANCO - Exam Quality Assessment: DVT Prophylaxis. No: Supplemental Oxygen, Urine Catheter General: Alert, Oriented, Cooperative, No Acute Distress HEENT: Mucous Membr. Moist/[place], Other (Bilateral glass eyeballs. Patient is blind at baseline) Neck: Supple, Trachea Midline Lungs: Clear to Auscultation, Normal Respiratory Effort Cardiovascular: Regular Rate, Regular Rhythm GI/Abdominal Exam: Normal Bowel Sounds, Soft, Non-Tender, No Distention (Female) Exam: Deferred Back Exam: Normal Inspection, Decreased Range of Motion Extremities: No Pedal Edema, Normal Capillary Refill, Leg Pain (Left leg), Limited Range of Motion, Other (Brace on left lower extremity. Patient has contractures. Status post left RICHARD) Peripheral Pulses: 2+: Radial (L), Radial (R), Dorsalis Pedis (L), Dorsalis Pedis (R) Skin: Warm, Dry, Intact Neurological: No New Focal Deficit Psy/Mental Status: Alert, Normal Affect, Normal Mood - Patient Data Lab Results Last 24 hrs: Laboratory Results - last 24 hr 11/11/20 11/12/20 11/12/20 Range/Units 04:50 04:56 04:56 WBC 6.20 (3.98-10.04) K/mm3 RBC 3.28 L (3.98-5.22) M/mm3 Hgb 10.6 L (11.2-15.7) gm/dl Hct 35.2 (34.1-44.9) % MCV 107.3 H (79.4-94.8) fl MCH 32.3 H (25.6-32.2) pg MCHC 30.1 L (32.2-35.5) g/dl RDW Std Deviation 56.5 H (36.4-46.3) fL Plt Count 350 (182-369) K/mm3 MPV 11.0 (9.4-12.3) fl Neut % (Auto) 58.0 (34.0-71.1) % Lymph % (Auto) 22.9 (19.3-51.7) % [place] % (Auto) 15.3 H (4.7-12.5) % Eos % (Auto) 3.4 (0.7-5.8) Baso % (Auto) 0.2 (0.1-1.2) % Neut # (Auto) 3.60 (1.56-6.13) K/mm3 Lymph # (Auto) 1.42 (1.18-3.74) K/mm3 [place] # (Auto) 0.95 H (0.24-0.36) K/mm3 Eos # (Auto) 0.21 (0.04-0.36) K/mm3 Baso # (Auto) 0.01 (0.01-0.08) K/mm3 Manual Slide Review Abnormal smear Sodium 141 (136-145) mEq/L Potassium 4.5 (3.5-5.1) mEq/L Chloride 104 (98-107) mEq/L Carbon Dioxide 38 H (21-32) mEq/L Anion Gap 3.5 L (5-15) BUN 10 (7-18) mg/dL Creatinine 0.7 (0.55-1.02) mg/dL Est Cr Clr Drug Dosing 66.76 mL/min Estimated GFR (MDRD) > 60 (>60) mL/min BUN/Creatinine Ratio 14.3 (14-18) Glucose 97 (70-99) mg/dL Calcium 9.0 (8.5-10.1) mg/dL Magnesium 1.9 (1.8-2.4) mg/dL C-Reactive Protein 6.2 H* (<1.0) mg/dL Procalcitonin 0.15 H ng/mL Result Diagrams: 11/12/20 04:56 11/12/20 04:56 Sepsis Event Note - Evaluation Sepsis Screening Result: No Definite Risk - Problem List & Annotations (1) History of COVID-19 SNOMED Code(s): 850309921263751034, 249958176049326846 Code(s): Z86.16 - PERSONAL HISTORY OF COVID-19 Status: Chronic Priority: Low Current Visit: No (2) History of Clostridioides difficile colitis SNOMED Code(s): 719573357, 926915406838415 Code(s): Z86.19 - PERSONAL HISTORY OF OTHER INFECTIOUS AND PARASITIC DISEASES Status: Chronic Priority: Low Current Visit: No (3) History of total hip arthroplasty SNOMED Code(s): 636705262825, 048819970188 Code(s): Z96.649 - PRESENCE OF UNSPECIFIED ARTIFICIAL HIP JOINT Status: Ch ronic Priority: Low Current Visit: No Qualifiers: Laterality: left Qualified Code(s): Z96.642 - Presence of left artificial hip joint (4) Congenital hip dysplasia SNOMED Code(s): 07720170 Code(s): Q65.89 - OTHER SPECIFIED CONGENITAL DEFORMITIES OF HIP Status: Chronic Priority: Low Current Visit: No (5) Hospital acquired PNA SNOMED Code(s): 503815867 Code(s): J18.9 - PNEUMONIA, UNSPECIFIED ORGANISM; Y95 - NOSOCOMIAL CONDITION Status: Acute Priority: High Current Visit: Yes (6) Leukocytosis SNOMED Code(s): 446129565, 851269171 Code(s): D72.829 - ELEVATED WHITE BLOOD CELL COUNT, UNSPECIFIED Status: Acute Priority: High Current Visit: Yes Qualifiers: Leukocytosis type: bandemia Qualified Code(s): D72.825 - Bandemia (7) Aspiration, chronic pulmonary SNOMED Code(s): 43719265, 65378605 Code(s): T17.908A - UNSP FB IN RESP TRACT, PART UNSP CAUSING OTH INJURY, INIT Status: Chronic Priority: Medium Current Visit: Yes Qualifiers: Encounter type: initial encounter Qualified Code(s): T17.908A - Unspecified foreign body in respiratory tract, part unspecified causing other injury, initial encounter (8) Delayed social and emotional development SNOMED Code(s): 053099651 Code(s): F88 - OTHER DISORDERS OF PSYCHOLOGICAL DEVELOPMENT Status: Chronic Priority: Low Current Visit: Yes (9) Blind in both eyes SNOMED Code(s): 752463243 Code(s): H54.0 - BLINDNESS, BOTH EYES * DO NOT USE * Status: Chronic Prio rity: Low Current Visit: No (10) Heart failure SNOMED Code(s): 26244096 Code(s): I50.9 - HEART FAILURE, UNSPECIFIED Status: Chronic Priority: Low Current Visit: No Qualifiers: Heart failure type: unspecified Heart failure chronicity: chronic Qualified Code(s): I50.9 - Heart failure, unspecified (11) History of pulmonary embolism SNOMED Code(s): 173408206 Code(s): Z86.711 - PERSONAL HISTORY OF PULMONARY EMBOLISM Status: Chronic Priority: Medium Current Visit: No (12) Elevated d-dimer SNOMED Code(s): 096356761 Code(s): R79.89 - OTHER SPECIFIED ABNORMAL FINDINGS OF BLOOD CHEMISTRY Sta tus: Ruled-out Priority: High Current Visit: Yes (13) Recurrent pneumonia SNOMED Code(s): 405887543 Code(s): J18.9 - PNEUMONIA, UNSPECIFIED ORGANISM Status: Chronic Priority: Medium Current Visit: Yes (14) GERD (gastroesophageal reflux disease) SNOMED Code(s): 387393726 Code(s): K21.9 - GASTRO-ESOPHAGEAL REFLUX DISEASE WITHOUT ESOPHAGITIS Status: Chronic Priority: Low Current Visit: No Qualifiers: Esophagitis presence: esophagitis presence not specified Qualified Code(s): K21.9 - Gastro-esophageal reflux disease without esophagitis (15) S/P percutaneous endoscopic gastrostomy (PEG) tube placement SNOMED Code(s): 815125732 Code(s): Z93.1 - GASTROSTOMY STATUS Status: Chronic Priority: Medium Current Visit: Yes (16) History of urinary incontinence SNOMED Code(s): 713947054, 220984678 Code(s): Z87.898 - PERSONAL HISTORY OF OTHER SPECIFIED CONDITIONS Status: Chronic Priority: Low Current Visit: No (17) Scoliosis SNOMED Code(s): 706645321 Code(s): M41.9 - SCOLIOSIS, UNSPECIFIED Status: Chronic Priority: Low Current Visit: No Qualifiers: Scoliosis type: unspecified scoliosis Spinal region: unspecified Qualified Code(s): M41.9 - Scoliosis, unspecified (18) Depression SNOMED Code(s): 67057189 Code(s): F32.9 - MAJOR DEPRESSIVE DISORDER, SINGLE EPISODE, UNSPECIFIED Status: Chronic Priority: Low Current Visit: No Qualifiers: Depression Type: other depression Qualified Code(s): F32.89 - Other specified depressive episodes (19) Anxiety SNOMED Code(s): 62896915 Code(s): F41.9 - ANXIETY DISORDER, UNSPECIFIED Status: Chronic Priority: Low Current Visit: No (20) Leg pain SNOMED Code(s): 85118060 Code(s): M79.606 - PAIN IN LEG, UNSPECIFIED Status: Acute Priority: High Current Visit: Yes Qualifiers: Laterality: left Qualified Code(s): M79.605 - Pain in left leg - Problem List Review Problem List Initiated/Reviewed/Updated: Yes - My Orders Last 24 Hours: My Active Orders 11/11/20 11:45 RT Chest Physiotherapy [RC] ASDIRECTED 11/11/20 12:02 Consult to Respiratory Therapy [Respiratory Care Assess and Treatment] [CONS] Routine 11/13/20 05:11 BASIC METABOLIC PANEL,BMP [CHEM] AM CBC WITH AUTO DIFF [HEME] AM CRP [C-REACTIVE PROTEIN] [CHEM] AM MAGNESIUM [CHEM] AM 11/14/20 05:11 BASIC METABOLIC PANEL,BMP [CHEM] AM CBC WITH AUTO DIFF [HEME] AM CRP [C-REACTIVE PROTEIN] [CHEM] AM MAGNESIUM [CHEM] AM 11/15/20 05:11 BASIC METABOLIC PANEL,BMP [CHEM] AM CBC WITH AUTO DIFF [HEME] AM CRP [C-REACTIVE PROTEIN] [CHEM] AM MAGNESIUM [CHEM] AM - Assessment Assessment:: 11/09/2020 The patient is a developmentally disabled 55-year-old lady who has been admitted as an inpatient out of concern for hospital-acquired pneumonia. The patient had recent surgery on her left hip and hospital-acquired pneumonia cannot be excluded at this time. A likely differential would include chronic aspiration pneumonia as the patient does have a PEG tube and lays on her right side predominantly. The patient has been started on Levaquin, Zosyn and vancomycin with pharmacy to dose. She also be kept on IV fluids to gently resuscitate at 75 mL/h. Repeat laboratory studies have been ordered for the morning. PT OT has also been consulted for strengthening as well as postsurgical evaluation. The patient has artificial eyes and likely has had no eyes developed from . The patient has been started on all of her home medications and PEG feedings has been initiated. At this time the patient is considered to be a full resusc itation code and she does have a guardian appointed. The patient should be appropriate for discharge in 2 to 3 days depending upon resolution of pneumonia and overall physical improvement. 11/10/2020 The patient is a 55-year-old lady who is been admitted to inpatient and being treated for hospital-acquired pneumonia. Patient will be continued on triple antibiotic therapy although the pneumonia is likely chronic in nature due to aspiration. She does have a PEG tube and is being fed this is discontinued. The patient will also have physical therapy to evaluate her strength and discharge planning. Oxygen support will be continued to keep the patient saturations around 92%. The physical therapy will also be evaluating the patient's recent left hip surgery. She is also anticoagulated with heparin at 5000 units subcu every 8 hours. Repeat laboratory studies have been ordered for the morning. The patient should be appropriate for discharge back to the [facility] house in 2 to 3 days. 11/11/2020 This is a 55 yo female admitted for hospital acquired PNA. She carries a history of Blindness, heart failure, history of PE, recurrent pneumonia, recurrent aspiration pneumonia, GERD, PEG tube, urinary incontinence, congenital hip dysplasia, scoliosis, mild mental retardation, anxiety, depression. History of C. difficile, history of Covid-19. On admission she was noted to have leukocytosis of 19.04 and this has improved to 6.82. She is currently on vancomycin, Levaquin, and Zosyn due to concerns over hospital-acquired pneumonia. She recently underwent a left hip surgery and she does still have a brace in place. On admission she was noted to have a D-dimer greater than 4 and CTA was obtained showing enlarged heart and pleural effusion, possible mild CHF, increased density with both sides of the chest suspicious for superimposed pneumonia if patient has correlating symptoms, no findings of PE, and incidental findings. SARS-CoV-2 RNA screen was negative and MRSA screen was negative. Procalcitonin was 0.23. proBNP was 389. She is currently off of oxygen and doing well. We will discontinue her vancomycin at this time. She has been reporting left leg pain and with a D-dimer of 4 it is felt it is prudent to rule out DVT. Bilateral lower extremity ultrasound was obtained showing no findings of DVT however it was a suboptimal study. PT and OT are working with the patient. She does have a PEG tube in place and is receiving tube feeding. Dietitian has been working with this to ensure continuity from her prior feeding schedule. 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 We will order Acapella with nursing to assist. Repeat procalcitonin has been ordered. Likely discharge in 2 days pending continued improvement/stability. 11/12/2020 55-year-old female admitted to the floor for hospital-acquired pneumonia. Labs today show WBC of 6.20. Hemoglobin 10.6. Platelet 350,000. Sodium 141. Potassium 4.5. Chloride 104. Carbon dioxide 38. Anion gap 3.5. BUN is 10. Creatinine 0.7. GFR greater than 60. Glucose 97. Calcium 9.0. Magnesium 1.9. CRP is 6.2. Procalcitonin was obtained yesterday and was 0.15. Discussed with pharmacy and we will discontinue Zosyn and continue IV Levaquin 500 mg daily. Patient continues to do well and says she overall feels good. Continue PEG feeds. Weaned off of oxygen. Hopeful for discharge tomorrow pending continued improvement. - Plan Plan:: Hospital acquired PNA Leukocytosis Aspiration, chronic pulmonary History of COVID-19 History of pulmonary embolism Elevated d-dimer Recurrent pneumonia * Acapella * Consult RT * Discontinue vancomycin * Continue Levaquin 500mg daily * Discontinue Zosyn * PRN albuterol duonebs * Daily labs * O2 as needed to keep saturations >90% History of Clostridioides difficile colitis * Probiotic as ordered * Caution with antibiotics History of total hip arthroplasty Congenital hip dysplasia Scoliosis Leg pain * Pain medications as ordered * PT/OT * Bilateral lower extremity US to rule out DVT (Negative) 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 Arguello DVT prophylaxis: Heparin Social: Patient resides at [facility] Disposition: Patient mated to the floor for treatment of hospital-acquired pneumonia. Likely discharge tomorrow. <Mike Schuster - Last Filed: 11/12/20 17:00> - Patient Data Vitals - Most Recent: Last Vital Signs Temp 36.7 C 11/12/20 15:39 Pulse 77 11/12/20 15:39 Resp 20 11/12/20 15:39 BP 105/51 L 11/12/20 15:39 Pulse Ox 99 11/12/20 15:39 I&O - Last 24 Hours: Intake & Output 11/12/20 11/12/20 11/12/20 06:59 14:59 22:59 Intake Total 970 1095 Balance 970 1095 Lab Results Last 24 Hours: Laboratory Results - last 24 hr 11/11/20 11/12/20 11/12/20 Range/Units 04:50 04:56 04:56 WBC 6.20 (3.98-10.04) K/mm3 RBC 3.28 L (3.98-5.22) M/mm3 Hgb 10.6 L (11.2-15.7) gm/dl Hct 35.2 (34.1-44.9) % MCV 107.3 H (79.4-94.8) fl MCH 32.3 H (25.6-32.2) pg MCHC 30.1 L (32.2-35.5) g/dl RDW Std Deviation 56.5 H (36.4-46.3) fL Plt Count 350 (182-369) K/mm3 MPV 11.0 (9.4-12.3) fl Neut % (Auto) 58.0 (34.0-71.1) % Lymph % (Auto) 22.9 (19.3-51.7) % [place] % (Auto) 15.3 H (4.7-12.5) % Eos % (Auto) 3.4 (0.7-5.8) Baso % (Auto) 0.2 (0.1-1.2) % Neut # (Auto) 3.60 (1.56-6.13) K/mm3 Lymph # (Auto) 1.42 (1.18-3.74) K/mm3 [place] # (Auto) 0.95 H (0.24-0.36) K/mm3 Eos # (Auto) 0.21 (0.04-0.36) K/mm3 Baso # (Auto) 0.01 (0.01-0.08) K/mm3 Manual Slide Review Abnormal smear Sodium 141 (136-145) mEq/L Potassium 4.5 (3.5-5.1) mEq/L Chloride 104 (98-107) mEq/L Carbon Dioxide 38 H (21-32) mEq/L Anion Gap 3.5 L (5-15) BUN 10 (7-18) mg/dL Creatinine 0.7 (0.55-1.02) mg/dL Est Cr Clr Drug Dosing 66.76 mL/min Estimated GFR (MDRD) > 60 (>60) mL/min BUN/Creatinine Ratio 14.3 (14-18) Glucose 97 (70-99) mg/dL Calcium 9.0 (8.5-10.1) mg/dL Magnesium 1.9 (1.8-2.4) mg/dL C-Reactive Protein 6.2 H* (<1.0) mg/dL Procalcitonin 0.15 H ng/mL Med Orders - Current: Current Medications Acetaminophen (Acetaminophen 325 Mg Tab) 650 mg PO Q4H PRN PRN Reason: Pain (Mild 1-3)/fever Acetaminophen/Codeine Phosphate (Acetaminophen/Codeine 300-30 Mg Tab) 1 tab GTUBE Q8H PRN PRN Reason: Pain (moderate 4-6) Hydrocodone Bitart/Acetaminophen (Acetaminophen/Hydrocodone 325-5 Mg Tab) 1 tab GTUBE Q4H PRN PRN Reason: Pain Last Admin: 11/12/20 15:19 Dose: 1 tab Documented by: Al Hydroxide/Mg Hydroxide (Aluminum Hydroxide/Magnesium Hydroxide/Simethicone Susp 30 Ml Cup) 30 ml PO Q4H PRN PRN Reason: Heartburn Albuterol (Albuterol 0.083% 2.5 Mg/3 Ml Neb Soln) 2.5 mg INH QID PRN PRN Reason: Wheezing Bisacodyl (Bisacodyl 10 Mg Supp) 10 mg RECTAL DAILY PRN PRN Reason: Constipation Calamine/Phenol (Menthol/Zinc Oxide Ointment 3.5 Gm Tube) 0 gm TOP QID [facility] Last Admin: 11/12/20 13:44 Dose: 1 applic Documented by: Carbidopa/Levodopa (Carbidopa/Levodopa 25-100 Mg Tab) 1 tab GTUBE BID [facility] Last Admin: 11/12/20 08:32 Dose: 1 tab Documented by: Citalopram Hydrobromide (Citalopram 20 Mg Tab) 40 mg GTUBE BEDTIME [facility] Last Admin: 11/11/20 21:30 Dose: 40 mg Documented by: Clonazepam (Clonazepam 0.5 Mg Tab) 0.75 mg GTUBE BID [facility] Last Admin: 11/12/20 08:34 Dose: 0.75 mg Documented by: Furosemide (Furosemide Soln 10 Mg/Ml 60 Ml Bottle) 40 mg GTUBE DAILY [facility] Last Admin: 11/12/20 08:34 Dose: 40 mg Documented by: Glucose Oxid/Lactoperoxid/Muramidas (Lactoperoxi/Gluc Oxid/Pot Thio 42 Gm Tube) 0 gm MUCMEM Q4H PRN PRN Reason: dry mouth Heparin Sodium (Porcine) (Heparin Sodium 5,000 Units/Ml Vial) 5,000 units SUBCUT Q8H [facility] Last Admin: 11/12/20 08:32 Dose: 5,000 units Documented by: Levofloxacin/Dextrose 500 mg/ (Premix) 100 mls @ 100 mls/hr IV Q24H [facility] Last Admin: 11/12/20 15:17 Dose: 100 mls/hr Documented by: Ipratropium [employer] (Ipratropium 0.02% 0.5 Mg/2.5 Ml Neb Soln) 0.5 mg INH TID PRN PRN Reason: Wheezing (Bupropion 75 Mg (Tablet)Own Med) 150 mg GTUBE DAILY [facility] Last Admin: 11/12/20 08:39 Dose: 150 mg Documented by: (Multivit-Min/Ferrous Gluconate [ Multi-Irina Liquid] 9 Mg/1Own Med 15 ml GTUBE DAILY [facility] Last Admin: 11/12/20 13:43 Dose: 15 ml Documented by: Ondansetron HCl (Ondansetron 4 Mg/2 Ml Sdv) 4 mg IV Q6H PRN PRN Reason: Nausea/Vomiting Promethazine HCl (Promethazine 6.25 Mg/5 Ml Liquid 10 Ml Ud Cup) 12.5 mg GTUBE Q6H PRN PRN Reason: Nausea Risperidone (Risperidone 0.5 Mg Tab) 0.5 mg GTUBE BEDTIME [facility] Last Admin: 11/11/20 21:30 Dose: 0.5 mg Documented by: Risperidone (Risperidone 0.25 Mg Tab) 0.25 mg GTUBE DAILY [facility] Last Admin: 11/12/20 08:32 Dose: 0.25 mg Documented by: Saccharomyces Boulardii (Saccharomyces Boulardii (Probiotic) 250 Mg Cap) 250 mg PO DAILY [facility] Last Admin: 11/12/20 08:32 Dose: 250 mg Documented by: Discontinued Medications Sodium Chloride (Normal Saline) 100 mls @ 75 mls/hr IV ASDIRECTED [facility] Levofloxacin/Dextrose 500 mg/ (Premix) 100 mls @ 100 mls/hr IV ONETIME ONE Stop: 11/09/20 16:59 Last Admin: 11/09/20 17:34 Dose: 100 mls/hr Documented by: Piperacillin Sod/Tazobactam (Sod 4.5 gm/ Sodium Chloride) 100 mls @ 200 mls/hr IV ONETIME ONE Stop: 11/09/20 16:30 Last Admin: 11/09/20 18:28 Dose: Not Given Documented by: Vancomycin HCl 1.25 gm/ Sodium (Chloride) 250 mls @ 166.667 mls/hr IV ONETIME ONE Stop: 11/09/20 17:59 Last Admin: 11/09/20 17:33 Dose: 166.667 mls/hr Documented by: Piperacillin Sod/Tazobactam (Sod 4.5 gm/ Sodium Chloride) 100 mls @ 25 mls/hr IV Q8H [facility] Vancomycin HCl 0.75 gm/ Sodium (Chloride) 250 mls @ 250 mls/hr IV Q12H [facility] Last Admin: 11/11/20 07:02 Dose: Not Given Documented by: Piperacillin Sod/Tazobactam (Sod 4.5 gm/ Sodium Chloride) 100 mls @ 200 mls/hr IV ONETIME ONE Stop: 11/09/20 18:29 Last Admin: 11/09/20 18:52 Dose: 200 mls/hr Documented by: Piperacillin Sod/Tazobactam (Sod 4.5 gm/ Sodium Chloride) 100 mls @ 25 mls/hr IV Q8H [facility] Last Admin: 11/12/20 06:42 Dose: 25 mls/hr Documented by: Vancomycin HCl 1 gm/ Sodium (Chloride) 250 mls @ 250 mls/hr IV Q12H [facility] Last Admin: 11/11/20 06:31 Dose: 250 mls/hr Documented by: Iopamidol (Iopamidol 755 Mg/Ml 100 Ml Bottle) 100 ml IVPUSH ONETIME ONE Stop: 11/09/20 13:14 Last Admin: 11/09/20 17:40 Dose: Not Given Documented by: Morphine Sulfate (Morphine 2 Mg/Ml Syringe) 2 mg IVPUSH Q2H PRN PRN Reason: Pain (severe 7-10) Stop: 11/10/20 16:46 Last Admin: 11/09/20 22:13 Dose: 2 mg Documented by: Sodium Chloride (Sodium Chloride 0.9% 10 Ml Syringe) 10 ml FLUSH ASDIRECTED PRN PRN Reason: Keep Vein Open Sodium Chloride (Sodium Chloride 0.9% 10 Ml Syringe) 10 ml FLUSH ONETIME PRN PRN Reason: IV FLUSH Vancomycin HCl (Pharmacy To Dose - Vancomycin) 1 dose .XX ASDIRECTED PRN PRN Reason: RX TO DOSE VANCO Vancomycin HCl (Pharmacy To Dose - Vancomycin) 1 dose .XX ASDIRECTED PRN PRN Reason: RX TO DOSE VANCO - Patient Data Lab Results Last 24 hrs: Laboratory Results - last 24 hr 11/11/20 11/12/20 11/12/20 Range/Units 04:50 04:56 04:56 WBC 6.20 (3.98-10.04) K/mm3 RBC 3.28 L (3.98-5.22) M/mm3 Hgb 10.6 L (11.2-15.7) gm/dl Hct 35.2 (34.1-44.9) % MCV 107.3 H (79.4-94.8) fl MCH 32.3 H (25.6-32.2) pg MCHC 30.1 L (32.2-35.5) g/dl RDW Std Deviation 56.5 H (36.4-46.3) fL Plt Count 350 (182-369) K/mm3 MPV 11.0 (9.4-12.3) fl Neut % (Auto) 58.0 (34.0-71.1) % Lymph % (Auto) 22.9 (19.3-51.7) % [place] % (Auto) 15.3 H (4.7-12.5) % Eos % (Auto) 3.4 (0.7-5.8) Baso % (Auto) 0.2 (0.1-1.2) % Neut # (Auto) 3.60 (1.56-6.13) K/mm3 Lymph # (Auto) 1.42 (1.18-3.74) K/mm3 [place] # (Auto) 0.95 H (0.24-0.36) K/mm3 Eos # (Auto) 0.21 (0.04-0.36) K/mm3 Baso # (Auto) 0.01 (0.01-0.08) K/mm3 Manual Slide Review Abnormal smear Sodium 141 (136-145) mEq/L Potassium 4.5 (3.5-5.1) mEq/L Chloride 104 (98-107) mEq/L Carbon Dioxide 38 H (21-32) mEq/L Anion Gap 3.5 L (5-15) BUN 10 (7-18) mg/dL Creatinine 0.7 (0.55-1.02) mg/dL Est Cr Clr Drug Dosing 66.76 mL/min Estimated GFR (MDRD) > 60 (>60) mL/min BUN/Creatinine Ratio 14.3 (14-18) Glucose 97 (70-99) mg/dL Calcium 9.0 (8.5-10.1) mg/dL Magnesium 1.9 (1.8-2.4) mg/dL C-Reactive Protein 6.2 H* (<1.0) mg/dL Procalcitonin 0.15 H ng/mL Result Diagrams: 11/12/20 04:56 11/12/20 04:56 Sepsis Event Note - Focused Exam Vital Signs: Vital Signs Temp Pulse Resp BP Pulse Ox 11/12/20 15:39 36.7 C 77 20 105/51 L 99 11/12/20 11:27 36.9 C 85 18 118/48 L 96 11/12/20 08:08 36.5 C 81 16 126/45 L 100 - Problem List & Annotations (1) Hospital acquired PNA SNOMED Code(s): 847220595 Code(s): J18.9 - PNEUMONIA, UNSPECIFIED ORGANISM; Y95 - NOSOCOMIAL CONDITION Status: Acute Priority: High Current Visit: Yes (2) Hypoxia SNOMED Code(s): 934786060 Code(s): R09.02 - HYPOXEMIA Status: Acute Current Visit: No (3) Leukocytosis SNOMED Code(s): 623165680, 921806465 Code(s): D72.829 - ELEVATED WHITE BLOOD CELL COUNT, UNSPECIFIED Status: Acute Priority: High Current Visit: Yes Qualifiers: Leukocytosis type: bandemia Qualified Code(s): D72.825 - Bandemia (4) Aspiration, chronic pulmonary SNOMED Code(s): 41345582, 24855503 Code(s): T17.908A - UNSP FB IN RESP TRACT, PART UNSP CAUSING OTH INJURY, INIT Status: Chronic Priority: Medium Current Visit: Yes Qualifiers: Encounter type: initial encounter Qualified Code(s): T17.908A - Unspecified foreign body in respiratory tract, part unspecified causing other injury, initial encounter (5) Blind in both eyes SNOMED Code(s): 369040255 Code(s): H54.0 - BLINDNESS, BOTH EYES * DO NOT USE * Status: Chronic Priority: Low Current Visit: No (6) Delayed social and emotional development SNOMED Code(s): 740298015 Code(s): F88 - OTHER DISORDERS OF PSYCHOLOGICAL DEVELOPMENT Status: Chronic Priority: Low Current Visit: Yes - My Orders Last 24 Hours: My Active Orders 11/11/20 22:03 Vital Signs [RC] 04,10,16,22 - Free Text/Narrative Note: I have seen and examined the patient independently of Brien Martínez PA-C and have discussed the case with him. I have reviewed and agree with the orders and plan of care outlined by him. Please see orders.
[2020-11-12] MEDS: Levofloxacin/Dextrose 5%-Water 500 MG in Premix Bag 1 BAG IV SCH (15:17)
[2020-11-12] MEDS: Acetaminophen/HYDROcodone 325-5 MG Tab GTUBE PRN ×2 (15:19→21:37)
[2020-11-12] MEDS: Citalopram 20 MG Tab GTUBE SCH (21:36)
[2020-11-12] MEDS: risperiDONE 0.5 MG Tab GTUBE SCH (21:37)
[2020-11-13] MEDS: Heparin Sodium 5,000 Units/ML Vial SUBCUT SCH ×2 (03:12→09:55)
[2020-11-13 08:59] VITALS: BP 131/64; PULSE 104
[2020-11-13] MEDS: Menthol/Zinc Oxide Ointment 3.5 GM Tube TOP SCH (09:56)
[2020-11-13] MEDS: Furosemide Soln 10 MG/ML 60 ML Bottle GTUBE SCH (09:57)
[2020-11-13] MEDS: Saccharomyces Boulardii (Probiotic) 250 MG Cap PO SCH (09:57)
[2020-11-13] MEDS: ClonazePAM 0.5 MG Tab GTUBE SCH (09:57)
[2020-11-13] MEDS: Carbidopa/Levodopa 25-100 MG Tab GTUBE SCH (09:57)
[2020-11-13] MEDS: risperiDONE 0.25 MG Tab GTUBE SCH (09:57)
--- NOTE | 2020-11-13 10:37 | PCM.DCSUM1 ---
<Brien Martínez - Last Filed: 11/13/20 12:35> Discharge Summary - Hospital Course HPI Initial Comments: The patient is a 55-year-old developmentally disabled lady who has been brought into the emergency department by her nurse. The [facility] resides at [facility]. The patient has been complaining of pain to her left hip. She had surgery last week with a hip replacement and was found to be having a fever at home and chills. The patient is a poor historian and has not been able to provide much in the way of history. Most of the history has been taken from patient's previous charting and from her nurse who is present at bedside. The patient has bilateral nonfunctional eye replacements. Most of her answers are, "I don't know". The patient has denied any pain. The patient is also incontinent and unable to swallow and she has a PEG tube for feeding and medications. Diagnosis: Stroke: No - Discharge Data Discharge Date: 11/13/20 (Admit date: 11/09/2020) Discharge Disposition: DC/Tfer to Other Condition: Good - Referral to Home Health Primary Care Physician: Yanet Arguello MD - Discharge Diagnosis/Problem(s) (1) History of COVID-19 SNOMED Code(s): 262664859389331370, 731026577135552578 ICD Code: Z86.16 - PERSONAL HISTORY OF COVID-19 Status: Chronic Priority: Low Current Visit: No (2) History of Clostridioides difficile colitis SNOMED Code(s): 835308341, 080331298817102 ICD Code: Z86.19 - PERSONAL HISTORY OF OTHER INFECTIOUS AND PARASITIC DISEASES Status: Chronic Priority: Low Current Visit: No (3) History of total hip arthroplasty SNOMED Code(s): 310138184817, 301186960518 ICD Code: Z96.649 - PRESENCE OF UNSPECIFIED ARTIFICIAL HIP JOINT Status: Chronic Priority: Low Current Visit: No Qualifiers: Laterality: left Qualified Code(s): Z96.642 - Presence of left artificial hip joint (4) Congenital hip dysplasia SNOMED Code(s): 54590598 ICD Code: Q65.89 - OTHER SPECIFIED CONGENITAL DEFORMITIES OF HIP Status: Chronic Priority: Low Current Visit: No (5) Hospital acquired PNA SNOMED Code(s): 051960771 ICD Code: J18.9 - PNEUMONIA, UNSPECIFIED ORGANISM; Y95 - NOSOCOMIAL CONDITION Status: Ruled-out Priority: High Current Visit: Yes (6) Leukocytosis SNOMED Code(s): 777292559, 868558520 ICD Code: D72.829 - ELEVATED WHITE BLOOD CELL COUNT, UNSPECIFIED Status: Acute Priority: High Current Visit: Yes Qualifiers: Leukocytosis type: bandemia Qualified Code(s): D72.825 - Bandemia (7) Aspiration, chronic pulmonary SNOMED Code(s): 49631217, 68843097 ICD Code: T17.908A - UNSP FB IN RESP TRACT, PART UNSP CAUSING OTH INJURY, INIT Status: Chronic Priority: Medium Current Visit: Yes Qualifiers: Encounter type: initial encounter Qualified Code(s): T17.908A - Unspecified foreign body in respiratory tract, part unspecified causing other injury, initial encounter (8) Delayed social and emotional development SNOMED Code(s): 356731776 ICD Code: F88 - OTHER DISORDERS OF PSYCHOLOGICAL DEVELOPMENT Status: Chronic Priority: Low Current Visit: Yes (9) Blind in both eyes SNOMED Code(s): 665389635 ICD Code: H54.0 - BLINDNESS, BOTH EYES * DO NOT USE * Status: Chronic Priority: Low Current Visit: No (10) Heart failure SNOMED Code(s): 54326897 ICD Code: I50.9 - HEART FAILURE, UNSPECIFIED Status: Chronic Priority: Low Current Visit: No Qualifiers: Heart failure type: unspecified Heart failure chronicity: chronic Qualified Code(s): I50.9 - Heart failure, unspecified (11) History of pulmonary embolism SNOMED Code(s): 911613247 ICD Code: Z86.711 - PERSONAL HISTORY OF PULMONARY EMBOLISM Status: Chronic Priority: Medium Current Visit: No (12) Elevated d-dimer SNOMED Code(s): 444309219 ICD Code: R79.89 - OTHER SPECIFIED ABNORMAL FINDINGS OF BLOOD CHEMISTRY Status: Ruled-out Priority: High Current Visit: Yes (13) Recurrent pneumonia SNOMED Code(s): 182243872 ICD Code: J18.9 - PNEUMONIA, UNSPECIFIED ORGANISM Status: Chronic Priority: Medium Current Visit: Yes (14) GERD (gastroesophageal reflux disease) SNOMED Code(s): 446817177 ICD Code: K21.9 - GASTRO-ESOPHAGEAL REFLUX DISEASE WITHOUT ESOPHAGITIS Status: Chronic Priority: Low Current Visit: No Qualifiers: Esophagitis presence: esophagitis presence not specified Qualified Code(s): K21.9 - Gastro-esophageal reflux disease without esophagitis (15) S/P percutaneous endoscopic gastrostomy (PEG) tube placement SNOMED Code(s): 584055356 ICD Code: Z93.1 - GASTROSTOMY STATUS Status: Chronic Priority: Medium Current Visit: Yes (16) History of urinary incontinence SNOMED Code(s): 094019020, 363159030 ICD Code: Z87.898 - PERSONAL HISTORY OF OTHER SPECIFIED CONDITIONS Status: Chronic Priority: Low Current Visit: No (17) Scoliosis SNOMED Code(s): 837993577 ICD Code: M41.9 - SCOLIOSIS, UNSPECIFIED Status: Chronic Priority: Low Current Visit: No Qualifiers: Scoliosis type: unspecified scoliosis Spinal region: unspecified Qualified Code(s): M41.9 - Scoliosis, unspecified (18) Depression SNOMED Code(s): 66571459 ICD Code: F32.9 - MAJOR DEPRESSIVE DISORDER, SINGLE EPISODE, UNSPECIFIED Status: Chronic Priority: Low Current Visit: No Qualifiers: Depression Type: other depression Qualified Code(s): F32.89 - Other specified depressive episodes (19) Anxiety SNOMED Code(s): 81060056 ICD Code: F41.9 - ANXIETY DISORDER, UNSPECIFIED Status: Chronic Priority: Low Current Visit: No (20) Leg pain SNOMED Code(s): 19713286 ICD Code: M79.606 - PAIN IN LEG, UNSPECIFIED Status: Acute Priority: High Current Visit: Yes Qualifiers: Laterality: left Qualified Code(s): M79.605 - Pain in left leg - Patient Summary/Data Consults: Consultations 11/09/20 16:38 Consult to Books Binder [CONS] Routine OT Evaluation and Treatment [CONS] Routine PT Evaluation and Treatment [CONS] Routine 11/11/20 08:59 Consult to Case Management/Fish Cleaner [CONS] Routine 11/11/20 12:02 Consult to Respiratory Therapy [Respiratory Care Assess and Treatment] [CONS] Routine Labs Pending at D/C: None Recommended Follow-up Testing/Procedures: Follow-up with primary care provider within 5-7 days of discharge, sooner if needed. * Patient discharged on Levaquin pills 500 mg daily which should be crushed and placed in the PEG tube. * Resume PEG tube feeds as prior. * Recommend repeat CBC, CMP, and magnesium in hospital follow-up. Consider repeat chest x-ray. * Patient discharged on 1 L of oxygen at rest and 2 L with activity, which are reported to be her baseline. Hospital Course: This is a 55-year-old developmentally disabled female who presented to ED on 11/09/2020 due to concerns of possible developing pneumonia. She reportedly had hip surgery done at [facility] and was noted to developing pneumonia postoperatively on October 30, 2020. She was receiving outpatient Rocephin IV for this and she completed her last dose on the Wednesday prior to admission. She baseline requires 1 L of oxygen but she was noted to be requiring more and also had a fever. Patient stated she was having trouble catching her breath. Covid screen was negative and procalcitonin was 0.23. proBNP was obtained and was 389. D-dimer was obtained and was 4.12. Because of this patient was sent to CTA which showed an enlarged heart and pleural effusions with possible CHF. There is no PE noted however there were patchy areas of decreased density within both sides of the chest suspicious for superimposed pneumonia. Incidental findings were also noted. Due to patient recently being hospitalized she was started on vancomycin, Zosyn, and 500 mg Levaquin. She responded rapidly to therapy and her leukocytosis did resolve. Procalcitonin on repeat was 0.15. Patient was weaned down to her baseline oxygen need. She was utilizing Acapella. Unfortunately due to patient being blind at baseline she was unable to utilize incentive spirometry. Vital signs remained stable. Shortly after admission she was complaining of left lower extremity pain. She is postsurgical however she did have a D-dimer which was elevated so bilateral lower extremity ultrasound was obtained, which showed no signs of DVT. She was working with PT and OT and was able to ambulate with a walker. Patient [facility] reside at [facility] and will be discharged back there. It is felt this is likely more aspiration pneumonia than hospital-acquired pneumonia based on patient's overall clinical picture. Vancomycin and Zosyn were discontinued with no change in labs. Patient will be discharged on 500 mg daily Levaquin at 1500. Patient does have a PEG tube at baseline and this will need to be crushed and inserted into the PEG tube. She is also receiving probiotics and this will be continued as well. Patient's feeding regimen was continued from [facility] and our dietitian was involved. She should continue outpatient PT/OT. Recommend follow-up with primary care provider within 5 to 7 days of discharge, sooner if needed. Recommend repeat CBC, CMP, and magnesium in follow-up. Consider repeat chest x- ray. Patient discharged today. - Patient Instructions Diet: NPO Diet, Other: Tube feedings as before/noted Activity: As Tolerated Driving: Do Not Drive Showering/Bathing: May Shower Notify Provider of: Fever, Increased Pain, Nausea and/or Vomiting Other/Special Instructions: Follow-up with primary care provider within 5 to 7 days of discharge, sooner if needed. You were prescribed an antibiotic at discharge for your pneumonia. Please take this daily at 3 PM until gone, even if you feel 100% better. Prescribed probiotic at discharge. Resume home medications as directed. Be sure to utilize aspiration precautions with patien t, especially when feeding. Continue home health PT/OT. Should symptoms return or worsen contact primary care provider or return to the emergency room. - Discharge Plan *PRESCRIPTION DRUG MONITORING PROGRAM REVIEWED*: No *COPY OF PRESCRIPTION DRUG MONITORING REPORT IN PATIENT [place]: No Prescriptions/Med Rec: Saccharomyces Boulardii [Florastor] 250 mg PO DAILY #20 cap Levofloxacin [Levaquin] 500 mg PEGTUBE DAILY@1500 #4 tablet Home Medications: Home Meds Acetaminophen [Tylenol Solution 160 MG/5 ML] 650 mg GTUBE QID 09/23/20 [History] Acetaminophen with Codeine [Acetaminophen-Cod #3] 1 tab GTUBE Q8H PRN 09/23/20 [History] Albuterol [Proventil Neb Soln] 3 ml INH QID PRN 09/23/20 [History] Bisacodyl [Gentle Laxative] 10 mg RECTAL DAILY PRN 09/23/20 [History] Carbidopa/Levodopa [Carbidopa-Levodopa 25-100 Tab] 1 tab GTUBE BID 09/23/20 [History] ClonazePAM [KlonoPIN] 0.75 mg GTUBE BID 09/23/20 [History] Escitalopram [Lexapro] 20 mg GTUBE BEDTIME 09/23/20 [History] Furosemide [Lasix Oral Soln] 40 mg GTUBE DAILY 09/23/20 [History] Ipratropium [Atrovent] 2.5 ml INH TID PRN 09/23/20 [History] Lactoperoxi/Gluc Oxid/Pot Thio [Biotene Oralbalance Gel] 2.5 ml PO Q4H PRN 09/23/20 [History] Menthol/Zinc Oxide [Calmoseptine] 1 applic TOP QID 09/23/20 [History] Multivit-Min/Ferrous Gluconate [Multi-Irina Liquid] 15 ml GTUBE DAILY 09/23/20 [History] Non-Formulary Medication [NF Drug] 20 mg GTUBE BID 09/23/20 [History] Non-Formulary Medication [NF Drug] 30 ml GTUBE DAILY 09/23/20 [History] Promethazine HCl 12.5 mg GTUBE Q6H PRN 09/23/20 [History] buPROPion [Wellbutrin] 150 mg GTUBE DAILY 09/23/20 [History] risperiDONE [Risperdal] 0.5 mg GTUBE BEDTIME 09/23/20 [History] risperiDONE [RisperiDAL] 0.25 mg GTUBE DAILY 09/23/20 [History] Enoxaparin [Lovenox] 1 injection SQ DAILY 11/09/20 [History] Hydrocodone/Acetaminophen [HYDROcodone-Acetaminophen 5-325 MG] 1 tab GTUBE Q4HR PRN 11/09/20 [History] Levofloxacin [Levaquin] 500 mg PEGTUBE DAILY@1500 #4 tablet 11/13/20 [Rx] Saccharomyces Boulardii [Florastor] 250 mg PO DAILY #20 cap 11/13/20 [Rx] Oxygen Therapy Mode: Nasal Cannula Oxygen Flow Rate (L/min): 1 (1L at rest and 2L with activity) Maintain SpO2% greater than: 90 Patient Handouts: Aspiration Precautions, Adult, Hospital-Acquired Pneumonia, Aspiration Pneumonia, Adult Referrals: Yanet Arguello MD [Primary Care Provider] - 11/21/20 8:45 am (Please arrive at 8:45 for check in) - Discharge Summary/Plan Comment DC Time >30 min.: Yes Total # of Minutes for Discharge Time: 45 mins - General Info Date of Service: 11/13/20 Admission Dx/Problem (Free Text: Admission Diagnosis/Problem Admission Diagnosis/Problem Hospital-acquired pneumonia Functional Status: Reports: Pain Controlled, Tolerating Diet, Ambulating, Urinating, Other (acapella ). Denies: New Symptoms - Review of Systems General: Reports: No Symptoms. Denies: Fever, Weakness, Fatigue, Malaise, Chills HEENT: Reports: Other (Bilateral nonfunctioning glass eyes.). Denies: Headaches, Sore Throat Pulmonary: Reports: No Symptoms. Denies: Shortness of Breath, Cough, Sputum Cardiovascular: Reports: No Symptoms. Denies: Chest Pain, Palpitations, Dyspnea on Exertion, Edema Gastrointestinal: Reports: Abdominal Pain (Stomach hunger pains which she says is chornic for her.). Denies: Constipation, Diarrhea, Nausea, Vomiting Genitourinary: Reports: No Symptoms. Denies: Pain Musculoskeletal: Reports: Leg Pain (left) Skin: Reports: No Symptoms. Denies: Cyanosis Neurological: Reports: Pre-Existing Deficit, Difficulty Walking, Gait Disturb ance. Denies: Confusion, Numbness, Tingling, Weakness Psychiatric: Reports: No Symptoms - Patient Data Vitals - Most Recent: Last Vital Signs Temp 97.9 F 11/13/20 08:55 Pulse 104 H 11/13/20 08:55 Resp 14 11/13/20 08:55 BP 131/64 11/13/20 08:55 Pulse Ox 97 11/13/20 08:55 Weight - Most Recent: 52.299 kg I&O - Last 24 hours: Intake & Output 11/12/20 11/13/20 11/13/20 22:59 06:59 14:59 Intake Total 1095 265 Balance 1095 265 Lab Results - Last 24 hrs: Laboratory Results - last 24 hr 11/13/20 11/13/20 Range/Units 05:26 05:26 WBC 7.73 (3.98-10.04) K/mm3 RBC 3.66 L (3.98-5.22) M/mm3 Hgb 11.7 (11.2-15.7) gm/dl Hct 38.8 (34.1-44.9) % MCV 106.0 H (79.4-94.8) fl MCH 32.0 (25.6-32.2) pg MCHC 30.2 L (32.2-35.5) g/dl RDW Std Deviation 56.5 H (36.4-46.3) fL Plt Count 375 H (182-369) K/mm3 MPV 11.1 (9.4-12.3) fl Neut % (Auto) 67.6 (34.0-71.1) % Lymph % (Auto) 16.8 L (19.3-51.7) % Steele % (Auto) 11.9 (4.7-12.5) % Eos % (Auto) 3.5 (0.7-5.8) Baso % (Auto) 0.1 (0.1-1.2) % Neut # (Auto) 5.22 (1.56-6.13) K/mm3 Lymph # (Auto) 1.30 (1.18-3.74) K/mm3 Steele # (Auto) 0.92 H (0.24-0.36) K/mm3 Eos # (Auto) 0.27 (0.04-0.36) K/mm3 Baso # (Auto) 0.01 (0.01-0.08) K/mm3 Sodium 140 (136-145) mEq/L Potassium 4.5 (3.5-5.1) mEq/L Chloride 101 (98-107) mEq/L Carbon Dioxide 38 H (21-32) mEq/L Anion Gap 5.5 (5-15) BUN 13 (7-18) mg/dL Creatinine 0.7 (0.55-1.02) mg/dL Est Cr Clr Drug Dosing 66.76 mL/min Estimated GFR (MDRD) > 60 (>60) mL/min BUN/Creatinine Ratio 18.6 H (14-18) Glucose 105 H (70-99) mg/dL Calcium 9.2 (8.5-10.1) mg/dL Magnesium 1.9 (1.8-2.4) mg/dL C-Reactive Protein 4.5 H* (<1.0) mg/dL Med Orders - Current: Current Medications Acetaminophen (Acetaminophen 325 Mg Tab) 650 mg PO Q4H PRN PRN Reason: Pain (Mild 1-3)/fever Acetaminophen/Codeine Phosphate (Acetaminophen/Codeine 300-30 Mg Tab) 1 tab GTUBE Q8H PRN PRN Reason: Pain (moderate 4-6) Hydrocodone Bitart/Acetaminophen (Acetaminophen/Hydrocodone 325-5 Mg Tab) 1 tab GTUBE Q4H PRN PRN Reason: Pain Last Admin: 11/12/20 21:37 Dose: 1 tab Documented by: Al Hydroxide/Mg Hydroxide (Aluminum Hydroxide/Magnesium Hydroxide/Simethicone Susp 30 Ml Cup) 30 ml PO Q4H PRN PRN Reason: Heartburn Albuterol (Albuterol 0.083% 2.5 Mg/3 Ml Neb Soln) 2.5 mg INH QID PRN PRN Reason: Wheezing Bisacodyl (Bisacodyl 10 Mg Supp) 10 mg RECTAL DAILY PRN PRN Reason: Constipation Calamine/Phenol (Menthol/Zinc Oxide Ointment 3.5 Gm Tube) 0 gm TOP QID [facility] Last Admin: 11/13/20 09:56 Dose: 1 applic Documented by: Carbidopa/Levodopa (Carbidopa/Levodopa 25-100 Mg Tab) 1 tab GTUBE BID [facility] Last Admin: 11/13/20 09:57 Dose: 1 tab Documented by: Citalopram Hydrobromide (Citalopram 20 Mg Tab) 40 mg GTUBE BEDTIME [facility] Last Admin: 11/12/20 21:36 Dose: 40 mg Documented by: Clonazepam (Clonazepam 0.5 Mg Tab) 0.75 mg GTUBE BID [facility] Last Admin: 11/13/20 09:57 Dose: 0.75 mg Documented by: Furosemide (Furosemide Soln 10 Mg/Ml 60 Ml Bottle) 40 mg GTUBE DAILY [facility] Last Admin: 11/13/20 09:57 Dose: 40 mg Documented by: Glucose Oxid/Lactoperoxid/Muramidas (Lactoperoxi/Gluc Oxid/Pot Thio 42 Gm Tube) 0 gm MUCMEM Q4H PRN PRN Reason: dry mouth Heparin Sodium (Porcine) (Heparin Sodium 5,000 Units/Ml Vial) 5,000 units SUBCUT Q8H [facility] Last Admin: 11/13/20 09:55 Dose: Not Given Documented by: Levofloxacin/Dextrose 500 mg/ (Premix) 100 mls @ 100 mls/hr IV Q24H [facility] Last Admin: 11/12/20 15:17 Dose: 100 mls/hr Documented by: Ipratropium Arbuckle (Ipratropium 0.02% 0.5 Mg/2.5 Ml Neb Soln) 0.5 mg INH TID PRN PRN Reason: Wheezing (Bupropion 75 Mg (Tablet)Own Med) 150 mg GTUBE DAILY [facility] Last Admin: 11/13/20 09:58 Dose: 150 mg Documented by: (Multivit-Min/Ferrous Gluconate [ Multi-Irina Liquid] 9 Mg/1Own Med 15 ml GTUBE DAILY [facility] Last Admin: 11/13/20 09:57 Dose: 15 ml Documented by: Ondansetron HCl (Ondansetron 4 Mg/2 Ml Sdv) 4 mg IV Q6H PRN PRN Reason: Nausea/Vomiting Promethazine HCl (Promethazine 6.25 Mg/5 Ml Liquid 10 Ml Ud Cup) 12.5 mg GTUBE Q6H PRN PRN Reason: Nausea Risperidone (Risperidone 0.5 Mg Tab) 0.5 mg GTUBE BEDTIME [facility] Last Admin: 11/12/20 21:37 Dose: 0.5 mg Documented by: Risperidone (Risperidone 0.25 Mg Tab) 0.25 mg GTUBE DAILY [facility] Last Admin: 11/13/20 09:57 Dose: 0.25 mg Documented by: Saccharomyces Boulardii (Saccharomyces Boulardii (Probiotic) 250 Mg Cap) 250 mg PO DAILY [facility] Last Admin: 11/13/20 09:57 Dose: 250 mg Documented by: Discontinued Medications Sodium Chloride (Normal Saline) 100 mls @ 75 mls/hr IV ASDIRECTED [facility] Levofloxacin/Dextrose 500 mg/ (Premix) 100 mls @ 100 mls/hr IV ONETIME ONE Stop: 11/09/20 16:59 Last Admin: 11/09/20 17:34 Dose: 100 mls/hr Documented by: Piperacillin Sod/Tazobactam (Sod 4.5 gm/ Sodium Chloride) 100 mls @ 200 mls/hr IV ONETIME ONE Stop: 11/09/20 16:30 Last Admin: 11/09/20 18:28 Dose: Not Given Documented by: Vancomycin HCl 1.25 gm/ Sodium (Chloride) 250 mls @ 166.667 mls/hr IV ONETIME ONE Stop: 11/09/20 17:59 Last Admin: 11/09/20 17:33 Dose: 166.667 mls/hr Documented by: Piperacillin Sod/Tazobactam (Sod 4.5 gm/ Sodium Chloride) 100 mls @ 25 mls/hr IV Q8H [facility] Vancomycin HCl 0.75 gm/ Sodium (Chloride) 250 mls @ 250 mls/hr IV Q12H [facility] Last Admin: 11/11/20 07:02 Dose: Not Given Documented by: Piperacillin Sod/Tazobactam (Sod 4.5 gm/ Sodium Chloride) 100 mls @ 200 mls/hr IV ONETIME ONE Stop: 11/09/20 18:29 Last Admin: 11/09/20 18:52 Dose: 200 mls/hr Documented by: Piperacillin Sod/Tazobactam (Sod 4.5 gm/ Sodium Chloride) 100 mls @ 25 mls/hr IV Q8H [facility] Last Admin: 11/12/20 06:42 Dose: 25 mls/hr Documented by: Vancomycin HCl 1 gm/ Sodium (Chloride) 250 mls @ 250 mls/hr IV Q12H [facility] Last Admin: 11/11/20 06:31 Dose: 250 mls/hr Documented by: Iopamidol (Iopamidol 755 Mg/Ml 100 Ml Bottle) 100 ml IVPUSH ONETIME ONE Stop: 11/09/20 13:14 Last Admin: 11/09/20 17:40 Dose: Not Given Documented by: Morphine Sulfate (Morphine 2 Mg/Ml Syringe) 2 mg IVPUSH Q2H PRN PRN Reason: Pain (severe 7-10) Stop: 11/10/20 16:46 Last Admin: 11/09/20 22:13 Dose: 2 mg Documented by: Sodium Chloride (Sodium Chloride 0.9% 10 Ml Syringe) 10 ml FLUSH ASDIRECTED PRN PRN Reason: Keep Vein Open Sodium Chloride (Sodium Chloride 0.9% 10 Ml Syringe) 10 ml FLUSH ONETIME PRN PRN Reason: IV FLUSH Vancomycin HCl (Pharmacy To Dose - Vancomycin) 1 dose .XX ASDIRECTED PRN PRN Reason: RX TO DOSE VANCO Vancomycin HCl (Pharmacy To Dose - Vancomycin) 1 dose .XX ASDIRECTED PRN PRN Reason: RX TO DOSE VANCO - Exam Quality Assessment: Reports: Supplemental Oxygen (1L - chronic ), DVT Prophylaxis. Denies: Urine Catheter General: Reports: Alert, Oriented, Cooperative, No Acute Distress HEENT: Reports: Pupils Equal, Pupils Reactive, Mucous Membr. Moist/[place] Neck: Reports: Supple, Trachea Midline Lungs: Reports: Clear to Auscultation, Normal Respiratory Effort Cardiovascular: Reports: Regular Rate, Regular Rhythm GI/Abdominal Exam: Normal Bowel Sounds, Soft, Non-Tender, No Distention (Female) Exam: Deferred Rectal (Female) Exam: Deferred Extremities: No Pedal Edema, Normal Capillary Refill, Leg Pain (Left, status post left RICHARD.), Limited Range of Motion, Other (Left leg brace in place) Skin: Reports: Warm, Dry, Intact Neurological: Reports: No New Focal Deficit Psy/Mental Status: Reports: Alert, Normal Affect, Normal Mood *Q Meaningful Use (DIS) - VTE *Q VTE Mechanical Contraindications *Q: At Risk for Falls <Mike Schuster - Last Filed: 11/13/20 13:39> Discharge Summary - Referral to Home Health Primary Care Physician: Yanet Arguello MD - Discharge Diagnosis/Problem(s) (1) Hospital acquired PNA SNOMED Code(s): 660932118 ICD Code: J18.9 - PNEUMONIA, UNSPECIFIED ORGANISM; Y95 - NOSOCOMIAL CONDITION Status: Ruled-out Priority: High Current Visit: Yes (2) Hypoxia SNOMED Code(s): 155693846 ICD Code: R09.02 - HYPOXEMIA Status: Acute Current Visit: No (3) Leukocytosis SNOMED Code(s): 827133964, 308355260 ICD Code: D72.829 - ELEVATED WHITE BLOOD CELL COUNT, UNSPECIFIED Status: Acute Priority: High Current Visit: Yes Qualifiers: Leukocytosis type: bandemia Qualified Code(s): D72.825 - Bandemia (4) Aspiration, chronic pulmonary SNOMED Code(s): 32892943, 15355611 ICD Code: T17.908A - UNSP FB IN RESP TRACT, PART UNSP CAUSING OTH INJURY, INIT Status: Chronic Priority: Medium Current Visit: Yes Qualifiers: Encounter type: initial encounter Qualified Code(s): T17.908A - Unspecified foreign body in respiratory tract, part unspecified causing other injury, initial encounter (5) Blind in both eyes SNOMED Code(s): 553737117 ICD Code: H54.0 - BLINDNESS, BOTH EYES * DO NOT USE * Status: Chronic Priority: Low Current Visit: No (6) Delayed social and emotional development SNOMED Code(s): 014835714 ICD Code: F88 - OTHER DISORDERS OF PSYCHOLOGICAL DEVELOPMENT Status: Chroni c Priority: Low Current Visit: Yes - Patient Summary/Data Consults: Consultations 11/09/20 16:38 Consult to Books Binder [CONS] Routine OT Evaluation and Treatment [CONS] Routine PT Evaluation and Treatment [CONS] Routine 11/11/20 08:59 Consult to Case Management/Fish Cleaner [CONS] Routine 11/11/20 12:02 Consult to Respiratory Therapy [Respiratory Care Assess and Treatment] [CONS] Routine Hospital Course: I have seen and examined the patient independently of Brien Martínez PA-C and have discussed the case with him. I have reviewed and agree with the orders and plan of care outlined by him. Please see orders. Likely chronic aspiration pneumonia. - Patient Data Vitals - Most Recent: Last Vital Signs Temp 36.6 C 11/13/20 08:55 Pulse 104 H 11/13/20 08:55 Resp 14 11/13/20 08:55 BP 131/64 11/13/20 08:55 Pulse Ox 97 11/13/20 08:55 I&O - Last 24 hours: Intake & Output 11/12/20 11/13/20 11/13/20 22:59 06:59 14:59 Intake Total 1095 265 Balance 1095 265 Lab Results - Last 24 hrs: Laboratory Results - last 24 hr 11/13/20 11/13/20 11/13/20 Range/Units 05:26 05:26 11:22 WBC 7.73 (3.98-10.04) K/mm3 RBC 3.66 L (3.98-5.22) M/mm3 Hgb 11.7 (11.2-15.7) gm/dl Hct 38.8 (34.1-44.9) % MCV 106.0 H (79.4-94.8) fl MCH 32.0 (25.6-32.2) pg MCHC 30.2 L (32.2-35.5) g/dl RDW Std Deviation 56.5 H (36.4-46.3) fL Plt Count 375 H (182-369) K/mm3 MPV 11.1 (9.4-12.3) fl Neut % (Auto) 67.6 (34.0-71.1) % Lymph % (Auto) 16.8 L (19.3-51.7) % Steele % (Auto) 11.9 (4.7-12.5) % Eos % (Auto) 3.5 (0.7-5.8) Baso % (Auto) 0.1 (0.1-1.2) % Neut # (Auto) 5.22 (1.56-6.13) K/mm3 Lymph # (Auto) 1.30 (1.18-3.74) K/mm3 Steele # (Auto) 0.92 H (0.24-0.36) K/mm3 Eos # (Auto) 0.27 (0.04-0.36) K/mm3 Baso # (Auto) 0.01 (0.01-0.08) K/mm3 Sodium 140 (136-145) mEq/L Potassium 4.5 (3.5-5.1) mEq/L Chloride 101 (98-107) mEq/L Carbon Dioxide 38 H (21-32) mEq/L Anion Gap 5.5 (5-15) BUN 13 (7-18) mg/dL Creatinine 0.7 (0.55-1.02) mg/dL Est Cr Clr Drug Dosing 66.76 mL/min Estimated GFR (MDRD) > 60 (>60) mL/min BUN/Creatinine Ratio 18.6 H (14-18) Glucose 105 H (70-99) mg/dL Calcium 9.2 (8.5-10.1) mg/dL Magnesium 1.9 (1.8-2.4) mg/dL C-Reactive Protein 4.5 H* (<1.0) mg/dL SARS-CoV-2 RNA (JJ) Negative (NEGATIVE) Med Orders - Current: Current Medications Acetaminophen (Acetaminophen 325 Mg Tab) 650 mg PO Q4H PRN PRN Reason: Pain (Mild 1-3)/fever Acetaminophen/Codeine Phosphate (Acetaminophen/Codeine 300-30 Mg Tab) 1 tab GTUBE Q8H PRN PRN Reason: Pain (moderate 4-6) Hydrocodone Bitart/Acetaminophen (Acetaminophen/Hydrocodone 325-5 Mg Tab) 1 tab GTUBE Q4H PRN PRN Reason: Pain Last Admin: 11/12/20 21:37 Dose: 1 tab Documented by: Al Hydroxide/Mg Hydroxide (Aluminum Hydroxide/Magnesium Hydroxide/Simethicone Susp 30 Ml Cup) 30 ml PO Q4H PRN PRN Reason: Heartburn Albuterol (Albuterol 0.083% 2.5 Mg/3 Ml Neb Soln) 2.5 mg INH QID PRN PRN Reason: Wheezing Bisacodyl (Bisacodyl 10 Mg Supp) 10 mg RECTAL DAILY PRN PRN Reason: Constipation Calamine/Phenol (Menthol/Zinc Oxide Ointment 3.5 Gm Tube) 0 gm TOP QID [facility] Last Admin: 11/13/20 09:56 Dose: 1 applic Documented by: Carbidopa/Levodopa (Carbidopa/Levodopa 25-100 Mg Tab) 1 tab GTUBE BID [facility] Last Admin: 11/13/20 09:57 Dose: 1 tab Documented by: Citalopram Hydrobromide (Citalopram 20 Mg Tab) 40 mg GTUBE BEDTIME [facility] Last Admin: 11/12/20 21:36 Dose: 40 mg Documented by: Clonazepam (Clonazepam 0.5 Mg Tab) 0.75 mg GTUBE BID [facility] Last Admin: 11/13/20 09:57 Dose: 0.75 mg Documented by: Furosemide (Furosemide Soln 10 Mg/Ml 60 Ml Bottle) 40 mg GTUBE DAILY [facility] Last Admin: 11/13/20 09:57 Dose: 40 mg Documented by: Glucose Oxid/Lactoperoxid/Muramidas (Lactoperoxi/Gluc Oxid/Pot Thio 42 Gm Tube) 0 gm MUCMEM Q4H PRN PRN Reason: dry mouth Heparin Sodium (Porcine) (Heparin Sodium 5,000 Units/Ml Vial) 5,000 units SUBCUT Q8H [facility] Last Admin: 11/13/20 09:55 Dose: Not Given Documented by: Levofloxacin/Dextrose 500 mg/ (Premix) 100 mls @ 100 mls/hr IV Q24H [facility] Last Admin: 11/12/20 15:17 Dose: 100 mls/hr Documented by: Ipratropium Arbuckle (Ipratropium 0.02% 0.5 Mg/2.5 Ml Neb Soln) 0.5 mg INH TID PRN PRN Reason: Wheezing (Bupropion 75 Mg (Tablet)Own Med) 150 mg GTUBE DAILY [facility] Last Admin: 11/13/20 09:58 Dose: 150 mg Documented by: (Multivit-Min/Ferrous Gluconate [ Multi-Irina Liquid] 9 Mg/1Own Med 15 ml GTUBE DAILY [facility] Last Admin: 11/13/20 09:57 Dose: 15 ml Documented by: Ondansetron HCl (Ondansetron 4 Mg/2 Ml Sdv) 4 mg IV Q6H PRN PRN Reason: Nausea/Vomiting Promethazine HCl (Promethazine 6.25 Mg/5 Ml Liquid 10 Ml Ud Cup) 12.5 mg GTUBE Q6H PRN PRN Reason: Nausea Risperidone (Risperidone 0.5 Mg Tab) 0.5 mg GTUBE BEDTIME [facility] Last Admin: 11/12/20 21:37 Dose: 0.5 mg Documented by: Risperidone (Risperidone 0.25 Mg Tab) 0.25 mg GTUBE DAILY [facility] Last Admin: 11/13/20 09:57 Dose: 0.25 mg Documented by: Saccharomyces Boulardii (Saccharomyces Boulardii (Probiotic) 250 Mg Cap) 250 mg PO DAILY [facility] Last Admin: 11/13/20 09:57 Dose: 250 mg Documented by: Discontinued Medications Sodium Chloride (Normal Saline) 100 mls @ 75 mls/hr IV ASDIRECTED [facility] Levofloxacin/Dextrose 500 mg/ (Premix) 100 mls @ 100 mls/hr IV ONETIME ONE Stop: 11/09/20 16:59 Last Admin: 11/09/20 17:34 Dose: 100 mls/hr Documented by: Piperacillin Sod/Tazobactam (Sod 4.5 gm/ Sodium Chloride) 100 mls @ 200 mls/hr IV ONETIME ONE Stop: 11/09/20 16:30 Last Admin: 11/09/20 18:28 Dose: Not Given Documented by: Vancomycin HCl 1.25 gm/ Sodium (Chloride) 250 mls @ 166.667 mls/hr IV ONETIME ONE Stop: 11/09/20 17:59 Last Admin: 11/09/20 17:33 Dose: 166.667 mls/hr Documented by: Piperacillin Sod/Tazobactam (Sod 4.5 gm/ Sodium Chloride) 100 mls @ 25 mls/hr IV Q8H [facility] Vancomycin HCl 0.75 gm/ Sodium (Chloride) 250 mls @ 250 mls/hr IV Q12H [facility] Last Admin: 11/11/20 07:02 Dose: Not Given Documented by: Piperacillin Sod/Tazobactam (Sod 4.5 gm/ Sodium Chloride) 100 mls @ 200 mls/hr IV ONETIME ONE Stop: 11/09/20 18:29 Last Admin: 11/09/20 18:52 Dose: 200 mls/hr Documented by: Piperacillin Sod/Tazobactam (Sod 4.5 gm/ Sodium Chloride) 100 mls @ 25 mls/hr IV Q8H [facility] Last Admin: 11/12/20 06:42 Dose: 25 mls/hr Documented by: Vancomycin HCl 1 gm/ Sodium (Chloride) 250 mls @ 250 mls/hr IV Q12H [facility] Last Admin: 11/11/20 06:31 Dose: 250 mls/hr Documented by: Iopamidol (Iopamidol 755 Mg/Ml 100 Ml Bottle) 100 ml IVPUSH ONETIME ONE Stop: 11/09/20 13:14 Last Admin: 11/09/20 17:40 Dose: Not Given Documented by: Morphine Sulfate (Morphine 2 Mg/Ml Syringe) 2 mg IVPUSH Q2H PRN PRN Reason: Pain (severe 7-10) Stop: 11/10/20 16:46 Last Admin: 11/09/20 22:13 Dose: 2 mg Documented by: Sodium Chloride (Sodium Chloride 0.9% 10 Ml Syringe) 10 ml FLUSH ASDIRECTED PRN PRN Reason: Keep Vein Open Sodium Chloride (Sodium Chloride 0.9% 10 Ml Syringe) 10 ml FLUSH ONETIME PRN PRN Reason: IV FLUSH Vancomycin HCl (Pharmacy To Dose - Vancomycin) 1 dose .XX ASDIRECTED PRN PRN Reason: RX TO DOSE VANCO Vancomycin HCl (Pharmacy To Dose - Vancomycin) 1 dose .XX ASDIRECTED PRN PRN Reason: RX TO DOSE VANCO
== END 2020-11-13 14:02 | disposition other institution (70) | DRG 179 ==
LOC: JD.ED 10:29 → JD.MS 16:38
PROVIDERS: ADMIT Internal Medicine; ATTEND Internal Medicine
DX: J18.9 Pneumonia, unspecified organism (principal); Y95 Nosocomial condition; H54.7 Unspecified visual loss; J69.0 Pneumonitis due to inhalation of food and vomit; Z96.642 Presence of left artificial hip joint; Z20.822 Contact with and (suspected) exposure to COVID-19; H54.3 Unqualified visual loss, both eyes; I50.9 Heart failure, unspecified; R79.89 Other specified abnormal findings of blood chemistry; K21.9 Gastro-esophageal reflux disease without esophagitis; F32.9 Major depressive disorder, single episode, unspecified; F41.9 Anxiety disorder, unspecified; F70 Mild intellectual disabilities; M41.9 Scoliosis, unspecified; F32.89 Other specified depressive episodes; M79.605 Pain in left leg; R32 Unspecified urinary incontinence; F41.1 Generalized anxiety disorder; Z86.16 Personal history of COVID-19; Z86.19 Personal history of other infectious and parasitic diseases; Q65.89 Other specified congenital deformities of hip; Z86.711 Personal history of pulmonary embolism; Z93.1 Gastrostomy status; Z79.899 Other long term (current) drug therapy; Z88.8 Allergy status to other drugs, medicaments and biological substances; Z87.01 Personal history of pneumonia (recurrent)
CPT/HCPCS: 36415; 71045; 71275; 80053; 83880; 84145; 85025; 85379; 99285; U0002; 36410; 80048; 80202; 83605; 83735; 84100; 86140; 87641; 93970; 93970-26; 94667; 94761; 97110-GP; 97116-GP; 97162-GP; 97530-GP; 99222; 99232; 99239; A9270-GY; J1644; J1956; J2270; J2543; J3370; J7050

== ENCOUNTER 2021-08-18 07:08 | Emergency (ER) | payer MEDICARE, MEDICAID ==
[2021-08-18] MEDS ORDERED: Piperacillin/Tazobactam 4.5 GM in Sodium Chloride 0.9% 100 ML IV ONE ×2 (08:00→14:03)
[2021-08-18 08:44] LABS: ESTIMATED GFR 52 mL/min (>60)
[2021-08-18] MEDS ORDERED: Lactated Ringers 1,000 ML IV ONE ×2 (08:57→11:21)
[2021-08-18 14:26] VITALS: BP 130/60; PULSE 80
== END 2021-08-18 14:23 ==
LOC: JD.ED 07:08
DX: J69.0 Pneumonitis due to inhalation of food and vomit (principal); I50.9 Heart failure, unspecified; K21.9 Gastro-esophageal reflux disease without esophagitis; Z90.49 Acquired absence of other specified parts of digestive tract; Z79.899 Other long term (current) drug therapy; Z88.8 Allergy status to other drugs, medicaments and biological substances; Z20.822 Contact with and (suspected) exposure to COVID-19
CPT/HCPCS: 36415; 71045; 80053; 83605; 85025; 86140; 87040; 96361; 96365; 96376; 99285; J2543; J7120; U0002

== ENCOUNTER 2022-03-16 12:19 | Inpatient (IN) | payer MEDICARE, MEDICAID ==
[2022-03-16] MEDS ORDERED: Sodium Chloride 0.9% 10 ML Syringe FLUSH PRN (14:22)
[2022-03-16] MEDS ORDERED: Albuterol/Ipratropium 3.0-0.5 MG/3 ML Neb Soln NEB ONE (14:30)
[2022-03-16] MEDS ORDERED: cefTRIAXone 1 GM in Sodium Chloride 0.9% 100 ML IV ONE (15:19)
[2022-03-17] MEDS: Sodium Chloride 0.9% 1,000 ML IV SCH (01:53)
[2022-03-17] MEDS: Heparin Sodium 5,000 Units/ML Vial SUBCUT SCH ×3 (08:23→22:01)
[2022-03-17] MEDS ORDERED: Meropenem 1 GM in Sodium Chloride 0.9% 100 ML IV SCH (08:30)
[2022-03-17] MEDS: Meropenem 500 MG in Sodium Chloride 0.9% 100 ML IV SCH ×3 (08:41→21:37)
[2022-03-17] MEDS ORDERED: Ipratropium 0.02% 0.5 MG/2.5 ML Neb Soln INH PRN (14:54)
[2022-03-17] MEDS ORDERED: Albuterol 0.083% 2.5 MG/3 ML Neb Soln INH SCH (21:00)
[2022-03-17] MEDS ORDERED: ClonazePAM 0.5 MG Tab JTUBE SCH (21:00)
[2022-03-17] MEDS ORDERED: OMEPRAZOLE JTUBE SCH (21:00)
[2022-03-17] MEDS: Budesonide 0.5 MG/2 ML Neb Susp INH SCH (21:05)
[2022-03-17] MEDS ORDERED: Budesonide 0.5 MG/2 ML Neb Susp ONE (21:07)
[2022-03-17] MEDS: CLONAZEPAM 0.5 MG JTUBE SCH (22:00)
[2022-03-17] MEDS: ESCITALOPRAM 5 MG/5 ML JTUBE SCH (22:00)
[2022-03-17] MEDS: RISPERIDONE 1 MG/1 ML JTUBE SCH (22:00)
[2022-03-18] MEDS: Meropenem 500 MG in Sodium Chloride 0.9% 100 ML IV SCH ×4 (03:16→20:49)
[2022-03-18] MEDS ORDERED: Aluminum Hydroxide/Magnesium Hydroxide/Simethicone Susp 30 ML Cup JTUBE PRN (03:34)
[2022-03-18] MEDS ORDERED: Loperamide 2 MG Cap JTUBE ONE (03:53)
[2022-03-18] MEDS: Heparin Sodium 5,000 Units/ML Vial SUBCUT SCH ×2 (06:55→15:33)
[2022-03-18] MEDS: Albuterol 0.5% 2.5 MG/0.5 ML Neb Soln INH SCH ×2 (08:00→20:32)
[2022-03-18] MEDS: Budesonide 0.5 MG/2 ML Neb Susp INH SCH ×2 (08:00→20:32)
[2022-03-18] MEDS: Silver Sulfadiazine 1% Crm 50 GM Tube TOP SCH (09:14)
[2022-03-18] MEDS: CLONAZEPAM 0.5 MG JTUBE SCH ×2 (09:15→21:03)
[2022-03-18] MEDS: SERTRALINE HCL JTUBE SCH (09:15)
[2022-03-18] MEDS: Famotidine 40 MG/5 ML Bottle JTUBE SCH (09:15)
[2022-03-18] MEDS: FUROSEMIDE 10 MG/ML JTUBE SCH (09:16)
[2022-03-18] MEDS: RISPERIDONE 1 MG/1 ML JTUBE SCH ×2 (12:38→21:03)
[2022-03-18] MEDS: CARBIDOPA LEVO JTUBE SCH ×2 (12:43→21:02)
[2022-03-18] MEDS: CALCIUM CITRATE VITAMIN D3 JTUBE SCH (12:44)
[2022-03-18] MEDS: CETAPHIL MOISTURIZING TOP SCH ×2 (12:44→21:02)
[2022-03-18] MEDS: CENTRUM JTUBE SCH (12:45)
[2022-03-18] MEDS: ESCITALOPRAM 5 MG/5 ML JTUBE SCH (21:03)
[2022-03-19] MEDS: Heparin Sodium 5,000 Units/ML Vial SUBCUT SCH ×4 (01:01→23:28)
[2022-03-19] MEDS: Meropenem 500 MG in Sodium Chloride 0.9% 100 ML IV SCH ×4 (04:24→20:48)
[2022-03-19] MEDS: Sodium Chloride 0.9% 1,000 ML IV SCH ×2 (04:28→23:30)
[2022-03-19] MEDS: Albuterol 0.5% 2.5 MG/0.5 ML Neb Soln INH SCH ×2 (08:55→20:19)
[2022-03-19] MEDS: Budesonide 0.5 MG/2 ML Neb Susp INH SCH ×2 (08:55→20:19)
[2022-03-19] MEDS: FUROSEMIDE 10 MG/ML JTUBE SCH (10:21)
[2022-03-19] MEDS: Famotidine 40 MG/5 ML Bottle JTUBE SCH ×2 (10:26→21:02)
[2022-03-19] MEDS: CARBIDOPA LEVO JTUBE SCH ×2 (10:28→21:03)
[2022-03-19] MEDS: CETAPHIL MOISTURIZING TOP SCH ×2 (10:31→21:16)
[2022-03-19] MEDS: CENTRUM JTUBE SCH (10:32)
[2022-03-19] MEDS: SERTRALINE HCL JTUBE SCH (10:35)
[2022-03-19] MEDS: CLONAZEPAM 0.5 MG JTUBE SCH ×2 (10:35→21:05)
[2022-03-19] MEDS: Silver Sulfadiazine 1% Crm 50 GM Tube TOP SCH (10:37)
[2022-03-19] MEDS: CALCIUM CITRATE VITAMIN D3 JTUBE SCH (11:53)
[2022-03-19] MEDS: RISPERIDONE 1 MG/1 ML JTUBE SCH ×2 (11:54→21:08)
[2022-03-19] MEDS: ESCITALOPRAM 5 MG/5 ML JTUBE SCH (21:07)
[2022-03-20] MEDS: Meropenem 500 MG in Sodium Chloride 0.9% 100 ML IV SCH ×4 (02:35→20:52)
[2022-03-20] MEDS: PROMETHAZINE 6.25 MG/5 ML JTUBE PRN ×2 (05:20→20:51)
[2022-03-20] MEDS: Heparin Sodium 5,000 Units/ML Vial SUBCUT SCH ×4 (05:30→23:44)
[2022-03-20] MEDS: Ondansetron 4 MG/2 ML SDV IVPUSH PRN (06:28)
[2022-03-20] MEDS: Budesonide 0.5 MG/2 ML Neb Susp INH SCH ×2 (08:18→20:18)
[2022-03-20] MEDS: Albuterol 0.5% 2.5 MG/0.5 ML Neb Soln INH SCH ×2 (08:18→20:18)
[2022-03-20] MEDS: Famotidine 40 MG/5 ML Bottle JTUBE SCH ×2 (09:57→20:52)
[2022-03-20] MEDS: CLONAZEPAM 0.5 MG JTUBE SCH ×2 (09:57→20:54)
[2022-03-20] MEDS: CETAPHIL MOISTURIZING TOP SCH ×2 (10:01→20:54)
[2022-03-20] MEDS: CARBIDOPA LEVO JTUBE SCH ×2 (10:02→20:54)
[2022-03-20] MEDS: Silver Sulfadiazine 1% Crm 50 GM Tube TOP SCH (10:03)
[2022-03-20] MEDS: CENTRUM JTUBE SCH (10:03)
[2022-03-20] MEDS: SERTRALINE HCL JTUBE SCH (10:04)
[2022-03-20] MEDS: FUROSEMIDE 10 MG/ML JTUBE SCH (10:05)
[2022-03-20] MEDS: CALCIUM CITRATE VITAMIN D3 JTUBE SCH ×3 (10:06→17:46)
[2022-03-20] MEDS: RISPERIDONE 1 MG/1 ML JTUBE SCH ×2 (12:51→20:57)
[2022-03-20] MEDS: ESCITALOPRAM 5 MG/5 ML JTUBE SCH (20:56)
[2022-03-20] MEDS: Sodium Chloride 0.9% 1,000 ML IV SCH (23:45)
[2022-03-21] MEDS: Ondansetron 4 MG/2 ML SDV IVPUSH PRN ×2 (01:54→21:22)
[2022-03-21] MEDS: Meropenem 500 MG in Sodium Chloride 0.9% 100 ML IV SCH ×4 (02:21→21:21)
[2022-03-21] MEDS: Heparin Sodium 5,000 Units/ML Vial SUBCUT SCH ×3 (06:21→23:19)
[2022-03-21] MEDS: Budesonide 0.5 MG/2 ML Neb Susp INH SCH ×2 (08:40→20:27)
[2022-03-21] MEDS: Albuterol 0.5% 2.5 MG/0.5 ML Neb Soln INH SCH ×2 (08:40→20:27)
[2022-03-21] MEDS: CARBIDOPA LEVO JTUBE SCH ×2 (09:49→23:20)
[2022-03-21] MEDS: CLONAZEPAM 0.5 MG JTUBE SCH (09:50)
[2022-03-21] MEDS: Famotidine 40 MG/5 ML Bottle JTUBE SCH ×2 (09:52→23:21)
[2022-03-21] MEDS: CENTRUM JTUBE SCH (09:53)
[2022-03-21] MEDS: CALCIUM CITRATE VITAMIN D3 JTUBE SCH (09:54)
[2022-03-21] MEDS: CETAPHIL MOISTURIZING TOP SCH ×2 (09:54→23:25)
[2022-03-21] MEDS: Silver Sulfadiazine 1% Crm 50 GM Tube TOP SCH (09:54)
[2022-03-21] MEDS: SERTRALINE HCL JTUBE SCH (09:54)
[2022-03-21] MEDS: FUROSEMIDE 10 MG/ML JTUBE SCH (09:55)
[2022-03-21] MEDS: PROMETHAZINE 6.25 MG/5 ML JTUBE PRN (09:56)
[2022-03-21] MEDS: RISPERIDONE 1 MG/1 ML JTUBE SCH ×2 (12:42→23:19)
[2022-03-21] MEDS: Sodium Chloride 0.9% 1,000 ML IV SCH (21:33)
[2022-03-21] MEDS: ESCITALOPRAM 5 MG/5 ML JTUBE SCH (23:17)
[2022-03-21] MEDS: ClonazePAM 0.5 MG Tab JTUBE SCH (23:20)
[2022-03-22] MEDS ORDERED: Sodium Chloride 0.9% 500 ML IV ONE (01:25)
[2022-03-22] MEDS: CLONAZEPAM 0.5 MG JTUBE SCH (02:01)
[2022-03-22] MEDS: Meropenem 500 MG in Sodium Chloride 0.9% 100 ML IV SCH ×3 (03:09→16:39)
[2022-03-22] MEDS ORDERED: Pantoprazole 40 MG Vial IVPUSH SCH (06:00)
[2022-03-22] MEDS: Albuterol 0.5% 2.5 MG/0.5 ML Neb Soln INH SCH (09:10)
[2022-03-22] MEDS: Budesonide 0.5 MG/2 ML Neb Susp INH SCH (09:11)
[2022-03-22] MEDS: ClonazePAM 0.5 MG Tab JTUBE SCH (10:40)
[2022-03-22] MEDS: CARBIDOPA LEVO JTUBE SCH (10:41)
[2022-03-22] MEDS: FUROSEMIDE 10 MG/ML JTUBE SCH (10:42)
[2022-03-22] MEDS: CALCIUM CITRATE VITAMIN D3 JTUBE SCH (10:44)
[2022-03-22] MEDS: Famotidine 40 MG/5 ML Bottle JTUBE SCH (10:44)
[2022-03-22] MEDS: CENTRUM JTUBE SCH (10:45)
[2022-03-22] MEDS: CETAPHIL MOISTURIZING TOP SCH (10:45)
[2022-03-22] MEDS: SERTRALINE HCL JTUBE SCH (10:46)
[2022-03-22] MEDS: Silver Sulfadiazine 1% Crm 50 GM Tube TOP SCH (10:46)
[2022-03-22] MEDS: RISPERIDONE 1 MG/1 ML JTUBE SCH (12:07)
[2022-03-22 15:52] VITALS: BP 107/45; PULSE 82
== END 2022-03-22 16:30 | DRG 179 ==
LOC: JD.ED 12:19 → JD.MS 18:17
PROVIDERS: ADMIT Internal Medicine; ATTEND Internal Medicine
DX: J69.0 Pneumonitis due to inhalation of food and vomit (principal); R09.02 Hypoxemia; K21.9 Gastro-esophageal reflux disease without esophagitis; F41.1 Generalized anxiety disorder; T17.908A Unspecified foreign body in respiratory tract, part unspecified causing other injury, initial encounter; H54.8 Legal blindness, as defined in USA; D64.9 Anemia, unspecified; I50.9 Heart failure, unspecified; F32.A Depression, unspecified; E87.5 Hyperkalemia; R62.50 Unspecified lack of expected normal physiological development in childhood; Z96.642 Presence of left artificial hip joint; R19.7 Diarrhea, unspecified; Z86.19 Personal history of other infectious and parasitic diseases; Z93.1 Gastrostomy status; Z97.0 Presence of artificial eye; Z90.49 Acquired absence of other specified parts of digestive tract; Z87.01 Personal history of pneumonia (recurrent); Z88.8 Allergy status to other drugs, medicaments and biological substances; Z99.81 Dependence on supplemental oxygen; Z79.899 Other long term (current) drug therapy
CPT/HCPCS: 36415; 71046; 80053; 83605; 85007; 85027; 85610; 86140; 87040 ×2; 94640; J0696; 36410; 43752; 71045; 71045-26; 74150; 74150-26; 76937; 81003; 82272; 83735; 84100; 85025; 87493; 94667; 94668; 94761; 96365; 96366; 97162-GP; 97530-GP; 99285-25; A9270-GY; C9113; J1644; J2185; J2405; J7030; J7620-GY

== ENCOUNTER 2022-05-20 17:28 | Emergency (ER) | payer MEDICARE, MEDICAID ==
[2022-05-20 17:45] VITALS: BP 126/72; PULSE 108
== END 2022-05-20 21:21 | disposition home or self-care (01) ==
LOC: JD.ED 17:28
DX: R19.5 Other fecal abnormalities (principal); K21.9 Gastro-esophageal reflux disease without esophagitis; Z88.8 Allergy status to other drugs, medicaments and biological substances
CPT/HCPCS: 36415; 80053; 85025; 85610; 85730; 86140; 93005; 93010; 99284

== ENCOUNTER 2022-05-23 14:46 | Emergency (ER) | payer OTHER, MEDICAID ==
[2022-05-23] MEDS ORDERED: Sodium Chloride 0.9% 1,000 ML IV ONE (15:35)
[2022-05-23] MEDS ORDERED: Sodium Chloride 0.9% 500 ML IV ONE (16:00)
[2022-05-23] MEDS ORDERED: Pantoprazole 40 MG Vial IVPUSH ONE (17:12)
[2022-05-23 17:48] LABS: CORONAVIRUS COVID-19 NAA NEGATIVE (NEGATIVE)
[2022-05-23 18:20] VITALS: BP 120/41; PULSE 81
== END 2022-05-23 18:47 ==
LOC: JD.ED 14:46
DX: K92.1 Melena (principal); I50.9 Heart failure, unspecified; K21.9 Gastro-esophageal reflux disease without esophagitis; Z88.8 Allergy status to other drugs, medicaments and biological substances; Z79.899 Other long term (current) drug therapy; Z20.822 Contact with and (suspected) exposure to COVID-19
CPT/HCPCS: 0241U; 36415; 36430; 74018; 80053; 85025; 86850; 86900; 86901; 86922; 96361; 96374; 99285; C9113; J7030; P9016; 99284

== ENCOUNTER 2022-08-07 03:50 | Inpatient (IN) | payer MEDICARE ==
[2022-08-07] MEDS ORDERED: Vancomycin 1.5 GM in Dextrose 5% in Water 250 ML IV ONE ×2 (04:19)
[2022-08-07] MEDS ORDERED: cefTRIAXone 2 GM in Sodium Chloride 0.9% 100 ML IV ONE (04:19)
[2022-08-07] MEDS ORDERED: Sodium Chloride 0.9% 10 ML Syringe FLUSH PRN (04:19)
[2022-08-07] MEDS ORDERED: Albuterol/Ipratropium 3.0-0.5 MG/3 ML Neb Soln NEB ONE (04:22)
[2022-08-07 06:06] LABS: HEMATOCRIT 38.4 % (34.1-44.9); HEMOGLOBIN 11.1 gm/dl (11.2-15.7); MEAN CORPUSCULAR HEMOGLOBIN 26.6 pg (25.6-32.2); MEAN CORPUSCULAR HGB CONC 28.9 g/dl (32.2-35.5); MEAN CORPUSCULAR VOLUME 92.1 fl (79.4-94.8); MEAN PLATELET VOLUME 13.4 fl (9.4-12.3); PLATELET COUNT,PLT 98 K/mm3 (182-369); RED BLOOD CELL COUNT 4.17 M/mm3 (3.98-5.22); WHITE BLOOD CELL COUNT,WBC 8.74 K/mm3 (3.98-10.04)
[2022-08-07 06:13] LABS: A/G RATIO 0.7 (1-2); ALBUMIN 2.8 g/dl (3.4-5.0); ANION GAP 7.2 (5-15); BILIRUBIN TOTAL 0.5 mg/dL (0.2-1.0); BUN/CREATININE RATIO 26.3 (14-18); C-REACTIVE PROTEIN 6.5 mg/dL (<1.0); CALCIUM 9.7 mg/dL (8.5-10.1); CREATININE 0.8 mg/dL (0.55-1.02); EST CRCL DRUG DOSING (CG) 57.07 mL/min; INR 1.01; POTASSIUM,K 4.2 mEq/L (3.5-5.1); PROTEIN TOTAL,TP 7.1 g/dl (6.4-8.2); PROTHROMBIN TIME 10.8 SECONDS (9.7-12.0)
[2022-08-07 06:18] LABS: LACTIC ACID 2.2 mmol/L (0.4-2.0)
[2022-08-07 06:25] LABS: BAND PERCENT MAN 3 % (0-10); BASOPHILS PERCENT MAN 0 (0.1-1.2); EOSINOPHILS PERCENT MAN 0 % (0.7-5.8); LYMPHOCYTES % ATYPICAL MANUAL 0 %; LYMPHOCYTES PERCENT MAN 2 % (20-40); MONOCYTES PERCENT MAN 4 % (2-10)
[2022-08-07 06:30] LABS: STOMATOCYTES 2+ MODERATE
[2022-08-07 06:32] LABS: PLATELET COUNT ESTIMATE DECREASED
[2022-08-07 06:39] LABS: CORONAVIRUS COVID-19 NAA NEGATIVE (NEGATIVE); INFLUENZA A NAA NEGATIVE (NEGATIVE); RESPIRATORY SYNCYTIAL VIR NAA NEGATIVE (NEGATIVE)
[2022-08-07] MEDS ORDERED: Sodium Chloride 0.9% 100 ML ONE (06:55)
[2022-08-07] MEDS ORDERED: cefTRIAXone 2 GM Vial ONE (06:55)
[2022-08-07] MEDS ORDERED: Sodium Chloride 0.9% 1,000 ML IV SCH ×3 (07:00→23:45)
[2022-08-07] MEDS ORDERED: VANCOmycin 1.5 GM/300 ML 300 ML ONE (08:18)
[2022-08-07] MEDS ORDERED: VANCOmycin 1.5 GM/300 ML 1.5 GM in Premix Bag 1 BAG IV ONE (08:30)
[2022-08-07 08:58] LABS: APPEARANCE,URINE CLEAR (Clear); BILIRUBIN,URINE NEGATIVE (Negative); COLOR,URINE YELLOW (Yellow); GLUCOSE,URINE NEGATIVE (Negative); KETONES,URINE NEGATIVE (Negative); LEUKOCYTE ESTERASE,URINE NEGATIVE (Negative); NITRITE,URINE NEGATIVE (Negative); OCCULT BLOOD,URINE NEGATIVE (Negative); PROTEIN,URINE NEGATIVE (Negative); UROBILINOGEN,URINE 0.2 (0.2-1.0)
[2022-08-07] MEDS ORDERED: Acetaminophen/oxyCODONE 325-5 MG Tab PO PRN (09:41)
[2022-08-07] MEDS ORDERED: hydrALAZINE 20 MG/ML SDV IVPUSH PRN (09:41)
[2022-08-07] MEDS ORDERED: Ondansetron 4 MG/2 ML SDV IVPUSH PRN (09:41)
[2022-08-07] MEDS ORDERED: Acetaminophen 325 MG Tab PO PRN (09:41)
[2022-08-07] MEDS ORDERED: Piperacillin/Tazobactam 4.5 GM in Sodium Chloride 0.9% 100 ML IV ONE (10:00)
[2022-08-07 11:45] LABS: BASE EXCESS ARTERIAL 9.7 (-2-2.0); BICARBONATE,ARTERIAL 36.6 meq/L (22.0-26.0); O2 SATURATION ARTERIAL 94.6 % (96.0-97.0); PCO2 ARTERIAL 65.9 mmHg (35.0-45.0)
[2022-08-07] MEDS ORDERED: PROMETHAZINE 6.25 MG/5 ML JTUBE PRN (15:36)
[2022-08-07] MEDS ORDERED: Albuterol/Ipratropium 3.0-0.5 MG/3 ML Neb Soln NEB SCH (15:39)
[2022-08-07] MEDS ORDERED: Budesonide 0.5 MG/2 ML Neb Susp INH SCH (16:00)
[2022-08-07] MEDS: Albuterol/Ipratropium 3.0-0.5 MG/3 ML Neb Soln NEB SCH ×2 (16:06→20:25)
[2022-08-07] MEDS: OMEPRAZOLE JTUBE SCH ×2 (18:00→20:36)
[2022-08-07] MEDS ORDERED: Piperacillin/Tazobactam 4.5 GM in Sodium Chloride 0.9% 100 ML IV SCH (18:00)
[2022-08-07] MEDS: methylPREDNISolone Sodium Succinate 40 MG/1 ML SDV IVPUSH SCH (18:01)
[2022-08-07] MEDS: Piperacillin/Tazobactam 4.5 GM in Sodium Chloride 0.9% 100 ML IV SCH (19:00)
[2022-08-07] MEDS: Budesonide 0.5 MG/2 ML Neb Susp INH SCH (20:25)
[2022-08-07] MEDS: RISPERIDONE 1 MG/1 ML JTUBE SCH (21:15)
[2022-08-07] MEDS: Famotidine 40 MG/5 ML Bottle JTUBE SCH (21:15)
[2022-08-07] MEDS: ESCITALOPRAM OXALATE 5 MG/5 ML JTUBE SCH (21:15)
[2022-08-07] MEDS: Clotrimazole 1% Crm 30 GM Tube TOP SCH (21:15)
[2022-08-07] MEDS: CARBIDOPA LEVO JTUBE SCH (21:15)
[2022-08-08] MEDS ORDERED: VANCOmycin 1.25 GM/250 ML 1.25 GM in Premix Bag 1 BAG IV SCH (02:30)
[2022-08-08] MEDS: Piperacillin/Tazobactam 4.5 GM in Sodium Chloride 0.9% 100 ML IV SCH ×3 (03:22→17:46)
[2022-08-08] MEDS: methylPREDNISolone Sodium Succinate 40 MG/1 ML SDV IVPUSH SCH ×2 (05:25→16:13)
[2022-08-08] MEDS ORDERED: Metoprolol Tartrate 25 MG Tab PO SCH (05:45)
[2022-08-08] MEDS: Budesonide 0.5 MG/2 ML Neb Susp INH SCH ×2 (05:50→20:12)
[2022-08-08] MEDS: Albuterol/Ipratropium 3.0-0.5 MG/3 ML Neb Soln NEB SCH ×4 (05:50→20:12)
[2022-08-08 06:01] LABS: BASOPHILS ABSOLUTE AUTO 0.01 K/mm3 (0.01-0.08); BASOPHILS PERCENT AUTO 0.1 % (0.1-1.2); EOSINOPHILS PERCENT AUTO 0 (0.7-5.8); HEMATOCRIT 33.4 % (34.1-44.9); IMMATURE GRAN ABSOLUTE AUTO 0.03 K/mm3 (0.00-0.10); IMMATURE GRAN PERCENT AUTO 0.2 % (<=1.0); LYMPHOCYTES ABSOLUTE AUTO 0.81 K/mm3 (1.18-3.74); MEAN CORPUSCULAR HEMOGLOBIN 26.5 pg (25.6-32.2); MEAN CORPUSCULAR HGB CONC 28.1 g/dl (32.2-35.5); MEAN CORPUSCULAR VOLUME 94.1 fl (79.4-94.8); MEAN PLATELET VOLUME 13.3 fl (9.4-12.3); MONOCYTES ABSOLUTE AUTO 0.52 K/mm3 (0.24-0.36); MONOCYTES PERCENT AUTO 3.2 % (4.7-12.5); NEUTROPHILS ABSOLUTE AUTO 14.83 K/mm3 (1.56-6.13); NEUTROPHILS PERCENT AUTO 91.5 % (34.0-71.1); PLATELET COUNT,PLT 90 K/mm3 (182-369); RED BLOOD CELL COUNT 3.55 M/mm3 (3.98-5.22)
[2022-08-08 06:19] LABS: HEMOGLOBIN 9.4 gm/dl (11.2-15.7)
[2022-08-08 06:26] LABS: BUN/CREATININE RATIO 23.8 (14-18); CALCIUM 9.6 mg/dL (8.5-10.1); CREATININE 0.8 mg/dL (0.55-1.02); EST CRCL DRUG DOSING (CG) 57.07 mL/min; VANCOMYCIN RANDOM 32.8 ug/mL
[2022-08-08 06:38] LABS: SLIDE REVIEW ABNORMAL SMEAR
[2022-08-08] MEDS: Enoxaparin 40 MG/0.4 ML Syringe SUBCUT SCH (09:43)
[2022-08-08] MEDS: CARBIDOPA LEVO JTUBE SCH ×2 (09:56→23:00)
[2022-08-08] MEDS: Clotrimazole 1% Crm 30 GM Tube TOP SCH ×2 (09:57→23:00)
[2022-08-08] MEDS: OMEPRAZOLE JTUBE SCH ×2 (10:11→23:25)
[2022-08-08] MEDS ORDERED: Metoprolol Tartrate 25 MG Tab PO ONE (10:15)
[2022-08-08] MEDS: [UNRECOGNIZED DRUG - OTHER] JTUBE SCH (14:23)
[2022-08-08] MEDS: [UNRECOGNIZED DRUG - OTHER] JTUBE SCH (14:25)
[2022-08-08] MEDS: RISPERIDONE 1 MG/1 ML JTUBE SCH ×2 (14:27→23:00)
[2022-08-08] MEDS: ESCITALOPRAM OXALATE 5 MG/5 ML JTUBE SCH (23:00)
[2022-08-08] MEDS: Famotidine 40 MG/5 ML Bottle JTUBE SCH (23:00)
[2022-08-08] MEDS: Metoprolol Tartrate 25 MG Tab PO SCH (23:04)
[2022-08-09] MEDS: VANCOmycin 1.25 GM/250 ML 1.25 GM in Premix Bag 1 BAG IV SCH ×2 (01:26→03:24)
[2022-08-09] MEDS: Piperacillin/Tazobactam 4.5 GM in Sodium Chloride 0.9% 100 ML IV SCH ×3 (03:23→18:11)
[2022-08-09] MEDS: methylPREDNISolone Sodium Succinate 40 MG/1 ML SDV IVPUSH SCH ×2 (03:24→16:10)
[2022-08-09 05:23] LABS: EOSINOPHILS PERCENT AUTO 0 (0.7-5.8); HEMATOCRIT 32.9 % (34.1-44.9); HEMOGLOBIN 9.3 gm/dl (11.2-15.7); IMMATURE GRAN ABSOLUTE AUTO 0.01 K/mm3 (0.00-0.10); IMMATURE GRAN PERCENT AUTO 0.1 % (<=1.0); LYMPHOCYTES ABSOLUTE AUTO 0.53 K/mm3 (1.18-3.74); LYMPHOCYTES PERCENT AUTO 5.4 % (19.3-51.7); MEAN CORPUSCULAR HEMOGLOBIN 26.7 pg (25.6-32.2); MEAN CORPUSCULAR HGB CONC 28.3 g/dl (32.2-35.5); MEAN CORPUSCULAR VOLUME 94.5 fl (79.4-94.8); MONOCYTES ABSOLUTE AUTO 0.46 K/mm3 (0.24-0.36); MONOCYTES PERCENT AUTO 4.6 % (4.7-12.5); NEUTROPHILS PERCENT AUTO 89.9 % (34.0-71.1); PLATELET COUNT,PLT 96 K/mm3 (182-369); RED BLOOD CELL COUNT 3.48 M/mm3 (3.98-5.22)
[2022-08-09 05:46] LABS: BUN/CREATININE RATIO 28.6 (14-18); CREATININE 0.7 mg/dL (0.55-1.02); EST CRCL DRUG DOSING (CG) 65.23 mL/min
[2022-08-09 06:15] LABS: SLIDE REVIEW ABNORMAL SMEAR
[2022-08-09] MEDS: Budesonide 0.5 MG/2 ML Neb Susp INH SCH ×2 (06:42→20:04)
[2022-08-09] MEDS: Albuterol/Ipratropium 3.0-0.5 MG/3 ML Neb Soln NEB SCH ×4 (06:42→20:04)
[2022-08-09] MEDS: Metoprolol Tartrate 25 MG Tab PO SCH ×2 (09:03→23:25)
[2022-08-09] MEDS: Enoxaparin 40 MG/0.4 ML Syringe SUBCUT SCH (09:04)
[2022-08-09] MEDS: Clotrimazole 1% Crm 30 GM Tube TOP SCH ×2 (09:05→23:26)
[2022-08-09] MEDS: OMEPRAZOLE JTUBE SCH ×2 (09:12→23:26)
[2022-08-09] MEDS: CARBIDOPA LEVO JTUBE SCH ×2 (09:12→23:27)
[2022-08-09] MEDS: [UNRECOGNIZED DRUG - OTHER] JTUBE SCH (09:13)
[2022-08-09] MEDS: [UNRECOGNIZED DRUG - OTHER] JTUBE SCH (13:24)
[2022-08-09] MEDS: RISPERIDONE 1 MG/1 ML JTUBE SCH ×2 (13:24→23:28)
[2022-08-09] MEDS ORDERED: Loperamide 2 MG Cap PO PRN (14:45)
[2022-08-09] MEDS: Famotidine 40 MG/5 ML Bottle JTUBE SCH (23:27)
[2022-08-09] MEDS: ESCITALOPRAM OXALATE 5 MG/5 ML JTUBE SCH (23:28)
[2022-08-10] MEDS: VANCOmycin 1.25 GM/250 ML 1.25 GM in Premix Bag 1 BAG IV SCH (01:46)
[2022-08-10] MEDS: methylPREDNISolone Sodium Succinate 40 MG/1 ML SDV IVPUSH SCH ×2 (04:00→15:47)
[2022-08-10] MEDS: Piperacillin/Tazobactam 4.5 GM in Sodium Chloride 0.9% 100 ML IV SCH ×3 (04:00→18:03)
[2022-08-10] MEDS: Budesonide 0.5 MG/2 ML Neb Susp INH SCH ×2 (05:25→20:22)
[2022-08-10] MEDS: Albuterol/Ipratropium 3.0-0.5 MG/3 ML Neb Soln NEB SCH ×4 (05:25→20:22)
[2022-08-10 05:28] LABS: EOSINOPHILS PERCENT AUTO 0 (0.7-5.8); HEMOGLOBIN 9.6 gm/dl (11.2-15.7); IMMATURE GRAN ABSOLUTE AUTO 0.01 K/mm3 (0.00-0.10); IMMATURE GRAN PERCENT AUTO 0.1 % (<=1.0); LYMPHOCYTES ABSOLUTE AUTO 0.72 K/mm3 (1.18-3.74); LYMPHOCYTES PERCENT AUTO 8.6 % (19.3-51.7); MEAN CORPUSCULAR HEMOGLOBIN 26.4 pg (25.6-32.2); MEAN CORPUSCULAR HGB CONC 28.2 g/dl (32.2-35.5); MEAN CORPUSCULAR VOLUME 93.7 fl (79.4-94.8); MEAN PLATELET VOLUME 13.1 fl (9.4-12.3); MONOCYTES ABSOLUTE AUTO 0.48 K/mm3 (0.24-0.36); MONOCYTES PERCENT AUTO 5.7 % (4.7-12.5); NEUTROPHILS ABSOLUTE AUTO 7.19 K/mm3 (1.56-6.13); NEUTROPHILS PERCENT AUTO 85.6 % (34.0-71.1); PLATELET COUNT,PLT 105 K/mm3 (182-369); RED BLOOD CELL COUNT 3.63 M/mm3 (3.98-5.22)
[2022-08-10 05:54] LABS: ANION GAP 6.9 (5-15); BUN/CREATININE RATIO 32.5 (14-18); CALCIUM 10.1 mg/dL (8.5-10.1); CREATININE 0.8 mg/dL (0.55-1.02); EST CRCL DRUG DOSING (CG) 57.07 mL/min; POTASSIUM,K 3.9 mEq/L (3.5-5.1)
[2022-08-10 06:17] LABS: SLIDE REVIEW ABNORMAL SMEAR
[2022-08-10] MEDS: Metoprolol Tartrate 25 MG Tab PO SCH ×2 (09:59→21:28)
[2022-08-10] MEDS: Enoxaparin 40 MG/0.4 ML Syringe SUBCUT SCH (09:59)
[2022-08-10] MEDS: CARBIDOPA LEVO JTUBE SCH ×2 (10:01→21:30)
[2022-08-10] MEDS: Clotrimazole 1% Crm 30 GM Tube TOP SCH ×2 (10:15→21:29)
[2022-08-10] MEDS: OMEPRAZOLE JTUBE SCH ×2 (10:21→21:29)
[2022-08-10] MEDS: [UNRECOGNIZED DRUG - OTHER] JTUBE SCH (11:54)
[2022-08-10] MEDS: RISPERIDONE 1 MG/1 ML JTUBE SCH ×2 (12:13→21:30)
[2022-08-10] MEDS: [UNRECOGNIZED DRUG - OTHER] JTUBE SCH (14:57)
[2022-08-10] MEDS: Famotidine 40 MG/5 ML Bottle JTUBE SCH (21:29)
[2022-08-10] MEDS: ESCITALOPRAM OXALATE 5 MG/5 ML JTUBE SCH (21:30)
[2022-08-11] MEDS: Piperacillin/Tazobactam 4.5 GM in Sodium Chloride 0.9% 100 ML IV SCH ×2 (01:56→09:31)
[2022-08-11] MEDS: methylPREDNISolone Sodium Succinate 40 MG/1 ML SDV IVPUSH SCH (04:23)
[2022-08-11 06:04] LABS: BASOPHILS ABSOLUTE AUTO 0.01 K/mm3 (0.01-0.08); BASOPHILS PERCENT AUTO 0.1 % (0.1-1.2); EOSINOPHILS PERCENT AUTO 0 (0.7-5.8); HEMATOCRIT 33.2 % (34.1-44.9); HEMOGLOBIN 9.4 gm/dl (11.2-15.7); IMMATURE GRAN ABSOLUTE AUTO 0.01 K/mm3 (0.00-0.10); IMMATURE GRAN PERCENT AUTO 0.1 % (<=1.0); LYMPHOCYTES ABSOLUTE AUTO 0.79 K/mm3 (1.18-3.74); LYMPHOCYTES PERCENT AUTO 9.9 % (19.3-51.7); MEAN CORPUSCULAR HEMOGLOBIN 26.3 pg (25.6-32.2); MEAN CORPUSCULAR HGB CONC 28.3 g/dl (32.2-35.5); MONOCYTES ABSOLUTE AUTO 0.74 K/mm3 (0.24-0.36); MONOCYTES PERCENT AUTO 9.3 % (4.7-12.5); NEUTROPHILS PERCENT AUTO 80.6 % (34.0-71.1); PLATELET COUNT,PLT 109 K/mm3 (182-369); RED BLOOD CELL COUNT 3.57 M/mm3 (3.98-5.22); WHITE BLOOD CELL COUNT,WBC 7.95 K/mm3 (3.98-10.04)
[2022-08-11] MEDS: Budesonide 0.5 MG/2 ML Neb Susp INH SCH (06:06)
[2022-08-11] MEDS: Albuterol/Ipratropium 3.0-0.5 MG/3 ML Neb Soln NEB SCH ×2 (06:06→09:15)
[2022-08-11 06:14] LABS: ANION GAP 6.8 (5-15); BUN/CREATININE RATIO 32.5 (14-18); CALCIUM 9.9 mg/dL (8.5-10.1); CREATININE 0.8 mg/dL (0.55-1.02); EST CRCL DRUG DOSING (CG) 57.07 mL/min; POTASSIUM,K 3.8 mEq/L (3.5-5.1)
[2022-08-11 07:17] LABS: SLIDE REVIEW ABNORMAL SMEAR
[2022-08-11] MEDS: Metoprolol Tartrate 25 MG Tab PO SCH (09:31)
[2022-08-11] MEDS: Clotrimazole 1% Crm 30 GM Tube TOP SCH (09:35)
[2022-08-11] MEDS: Enoxaparin 40 MG/0.4 ML Syringe SUBCUT SCH (09:36)
[2022-08-11] MEDS ORDERED: OMEPRAZOLE JTUBE SCH (10:30)
[2022-08-11] MEDS: [UNRECOGNIZED DRUG - OTHER] JTUBE SCH (10:35)
[2022-08-11] MEDS: OMEPRAZOLE JTUBE SCH (10:35)
[2022-08-11] MEDS: CARBIDOPA LEVO JTUBE SCH (11:17)
[2022-08-11] MEDS: [UNRECOGNIZED DRUG - OTHER] JTUBE SCH (11:18)
[2022-08-11] MEDS ORDERED: RISPERIDONE 1 MG/ML JTUBE SCH ×2 (12:00→21:00)
[2022-08-11] MEDS ORDERED: [UNRECOGNIZED DRUG - OTHER] JTUBE SCH (12:00)
[2022-08-11 15:27] VITALS: BP 125/49; PULSE 70
== END 2022-08-11 14:40 | disposition home or self-care (01) | DRG 177 ==
LOC: JD.ED 03:50 → JD.MS 08:01
PROVIDERS: ADMIT Internal Medicine; ATTEND Internal Medicine
PROC: 5A09457 Assistance with Respiratory Ventilation, 24-96 Consecutive Hours, Continuous Positive Airway Pressure (ICD-10-PCS; principal; 2022-08-07)
DX: J69.0 Pneumonitis due to inhalation of food and vomit (principal); R09.02 Hypoxemia; G93.41 Metabolic encephalopathy; J96.21 Acute and chronic respiratory failure with hypoxia; I48.91 Unspecified atrial fibrillation; F70 Mild intellectual disabilities; H54.7 Unspecified visual loss; Z93.1 Gastrostomy status; Z99.81 Dependence on supplemental oxygen; H54.8 Legal blindness, as defined in USA; K21.9 Gastro-esophageal reflux disease without esophagitis; F32.A Depression, unspecified; I50.9 Heart failure, unspecified; F41.1 Generalized anxiety disorder; F20.9 Schizophrenia, unspecified; Z96.649 Presence of unspecified artificial hip joint; Z20.822 Contact with and (suspected) exposure to COVID-19; Z79.51 Long term (current) use of inhaled steroids; Z79.899 Other long term (current) drug therapy; Z88.8 Allergy status to other drugs, medicaments and biological substances; Z86.711 Personal history of pulmonary embolism; Z98.890 Other specified postprocedural states
CPT/HCPCS: 0241U; 36415; 36600; 51702; 71045; 80048; 80053; 80202; 81003; 82803; 83605; 83880; 85007; 85025; 85027; 85610; 86140; 87040; 94640; 94660; 94761; 94762; 96365; 96366; 96367; 97116; 97162; 97166; 99285; 36410; 99222; 99232; 99239; A9270-GY; J0696; J1650; J2543; J2920; J3370; J3490; J7030; J7620-GY

== ENCOUNTER 2022-08-28 13:01 | Emergency (ER) | payer MEDICARE ==
[2022-08-28] MEDS ORDERED: Sodium Chloride 0.9% 10 ML Syringe FLUSH PRN (13:40)
[2022-08-28 15:01] LABS: EOSINOPHILS PERCENT AUTO 0 (0.7-5.8); HEMATOCRIT 39.8 % (34.1-44.9); IMMATURE GRAN ABSOLUTE AUTO 0.01 K/mm3 (0.00-0.10); IMMATURE GRAN PERCENT AUTO 0.1 % (<=1.0); LYMPHOCYTES ABSOLUTE AUTO 0.22 K/mm3 (1.18-3.74); LYMPHOCYTES PERCENT AUTO 2.4 % (19.3-51.7); MEAN CORPUSCULAR HEMOGLOBIN 27.4 pg (25.6-32.2); MEAN CORPUSCULAR HGB CONC 29.4 g/dl (32.2-35.5); MEAN CORPUSCULAR VOLUME 93.2 fl (79.4-94.8); MEAN PLATELET VOLUME 12.7 fl (9.4-12.3); MONOCYTES ABSOLUTE AUTO 0.27 K/mm3 (0.24-0.36); MONOCYTES PERCENT AUTO 2.9 % (4.7-12.5); NEUTROPHILS ABSOLUTE AUTO 8.72 K/mm3 (1.56-6.13); NEUTROPHILS PERCENT AUTO 94.6 % (34.0-71.1); PLATELET COUNT,PLT 104 K/mm3 (182-369); RED BLOOD CELL COUNT 4.27 M/mm3 (3.98-5.22); WHITE BLOOD CELL COUNT,WBC 9.22 K/mm3 (3.98-10.04)
[2022-08-28 15:05] LABS: HEMOGLOBIN 11.7 gm/dl (11.2-15.7)
[2022-08-28 15:18] LABS: SLIDE REVIEW ABNORMAL SMEAR
[2022-08-28 15:37] LABS: A/G RATIO 0.7 (1-2); ALANINE AMINOTRANSFERASE,ALT 19 U/L (14-59); ALBUMIN 3.4 g/dl (3.4-5.0); ALKALINE PHOSPHATASE 96 U/L (46-116); ASPARTATE AMNIOTRANSFERASE,AST 23 U/L (15-37); BILIRUBIN TOTAL 0.3 mg/dL (0.2-1.0); BLOOD UREA NITROGEN,BUN 24 mg/dL (7-18); C-REACTIVE PROTEIN 0.6 mg/dL (<1.0); CALCIUM 10.4 mg/dL (8.5-10.1); CARBON DIOXIDE,CO2 38 mEq/L (21-32); CHLORIDE,CL 97 mEq/L (98-107); CREATININE 0.8 mg/dL (0.55-1.02); ESTIMATED GFR 87 mL/min (>60); GLUCOSE RANDOM 150 mg/dL (70-99); MAGNESIUM 1.9 mg/dL (1.8-2.4); PROTEIN TOTAL,TP 8.1 g/dl (6.4-8.2); SODIUM,NA 140 mEq/L (136-145); TROPONIN I HIGH SENSITIVITY 10 pg/mL (<=51)
[2022-08-28 16:35] LABS: APPEARANCE,URINE SLT CLOUDY (Clear); BILIRUBIN,URINE NEGATIVE (Negative); COLOR,URINE YELLOW (Yellow); GLUCOSE,URINE TRACE (Negative); KETONES,URINE NEGATIVE (Negative); LEUKOCYTE ESTERASE,URINE NEGATIVE (Negative); NITRITE,URINE NEGATIVE (Negative); OCCULT BLOOD,URINE NEGATIVE (Negative); PROTEIN,URINE NEGATIVE (Negative); UROBILINOGEN,URINE 0.2 (0.2-1.0)
[2022-08-28 16:56] LABS: AMORPHOUS SEDIMENT,URINE MANY /hpf (NOT SEEN); BACTERIA,URINE MODERATE /hpf (FEW); MUCUS,URINE FEW /hpf (FEW); RBC,URINE 0-5 /hpf (0-5); RENAL EPITHELIAL CELLS,URINE 0-5 /hpf (0-5); SQUAMOUS EPITHELIAL CELLS,UR 0-5 /hpf (0-5); WBC,URINE 0-5 /hpf (0-5)
[2022-08-28 17:10] LABS: CORONAVIRUS COVID-19 NAA NEGATIVE (NEGATIVE); INFLUENZA A NAA NEGATIVE (NEGATIVE); RESPIRATORY SYNCYTIAL VIR NAA NEGATIVE (NEGATIVE)
[2022-08-28 18:34] VITALS: BP 132/69; PULSE 97
== END 2022-08-28 18:28 | disposition home or self-care (01) ==
LOC: JD.ED 13:01
DX: R44.3 Hallucinations, unspecified (principal); R41.0 Disorientation, unspecified; K21.9 Gastro-esophageal reflux disease without esophagitis; Z88.8 Allergy status to other drugs, medicaments and biological substances; Z79.899 Other long term (current) drug therapy; Z20.822 Contact with and (suspected) exposure to COVID-19
CPT/HCPCS: 0241U; 36415; 70450; 71250; 80053; 81001; 83605; 83735; 84484; 85025; 86140; 87040; 93005; 99285; J3490; 93010; 99284

== ENCOUNTER 2022-08-29 06:36 | Inpatient (IN) | payer MEDICARE ==
[2022-08-29] MEDS ORDERED: Sodium Chloride 0.9% 10 ML Syringe FLUSH PRN (07:01)
[2022-08-29 07:02] LABS: BASE EXCESS VENOUS 9.7 (-4.0-2.0); BICARBONATE,VENOUS 37.6 meq/L (22-26); O2 SATURATION VENOUS 69.5; PCO2 VENOUS 72.2 mmHg (41-51); PH,VENOUS 7.34 (7.30-7.40)
[2022-08-29 07:09] LABS: EOSINOPHILS ABSOLUTE AUTO 0.01 K/mm3 (0.04-0.36); EOSINOPHILS PERCENT AUTO 0.1 (0.7-5.8); HEMATOCRIT 40.6 % (34.1-44.9); HEMOGLOBIN 11.8 gm/dl (11.2-15.7); IMMATURE GRAN ABSOLUTE AUTO 0.03 K/mm3 (0.00-0.10); IMMATURE GRAN PERCENT AUTO 0.2 % (<=1.0); LYMPHOCYTES ABSOLUTE AUTO 0.32 K/mm3 (1.18-3.74); LYMPHOCYTES PERCENT AUTO 2.3 % (19.3-51.7); MEAN CORPUSCULAR HEMOGLOBIN 27.4 pg (25.6-32.2); MEAN CORPUSCULAR HGB CONC 29.1 g/dl (32.2-35.5); MEAN CORPUSCULAR VOLUME 94.2 fl (79.4-94.8); MEAN PLATELET VOLUME 12.8 fl (9.4-12.3); MONOCYTES ABSOLUTE AUTO 0.51 K/mm3 (0.24-0.36); MONOCYTES PERCENT AUTO 3.6 % (4.7-12.5); NEUTROPHILS ABSOLUTE AUTO 13.31 K/mm3 (1.56-6.13); NEUTROPHILS PERCENT AUTO 93.8 % (34.0-71.1); PLATELET COUNT,PLT 87 K/mm3 (182-369); RED BLOOD CELL COUNT 4.31 M/mm3 (3.98-5.22); WHITE BLOOD CELL COUNT,WBC 14.18 K/mm3 (3.98-10.04)
[2022-08-29 07:36] LABS: PROTHROMBIN TIME 10.7 SECONDS (9.7-12.0)
[2022-08-29 07:38] LABS: A/G RATIO 0.7 (1-2); ALANINE AMINOTRANSFERASE,ALT 14 U/L (14-59); ALBUMIN 3.2 g/dl (3.4-5.0); ALKALINE PHOSPHATASE 87 U/L (46-116); ANION GAP 7.7 (5-15); ASPARTATE AMNIOTRANSFERASE,AST 27 U/L (15-37); BILIRUBIN TOTAL 0.6 mg/dL (0.2-1.0); BLOOD UREA NITROGEN,BUN 18 mg/dL (7-18); BUN/CREATININE RATIO 22.5 (14-18); CALCIUM 9.8 mg/dL (8.5-10.1); CARBON DIOXIDE,CO2 36 mEq/L (21-32); CHLORIDE,CL 99 mEq/L (98-107); CREATININE 0.8 mg/dL (0.55-1.02); ESTIMATED GFR 87 mL/min (>60); GLUCOSE RANDOM 120 mg/dL (70-99); POTASSIUM,K 3.7 mEq/L (3.5-5.1); PROTEIN TOTAL,TP 7.9 g/dl (6.4-8.2); SODIUM,NA 139 mEq/L (136-145); TROPONIN I HIGH SENSITIVITY 10 pg/mL (<=51)
[2022-08-29 07:53] LABS: SLIDE REVIEW ABNORMAL SMEAR
[2022-08-29] MEDS ORDERED: LORazepam 2 MG/ML SDV IVPUSH ONE (08:16)
[2022-08-29] MEDS ORDERED: LORazepam 2 MG/ML SDV ONE (08:17)
[2022-08-29] MEDS ORDERED: cefTRIAXone 1 GM in Sodium Chloride 0.9% 100 ML IV ONE (09:20)
[2022-08-29] MEDS ORDERED: Iopamidol 755 Mg/ML 100 ML Bottle IVPUSH ONE ×2 (09:29→09:33)
[2022-08-29] MEDS ORDERED: Iopamidol 612 MG/ML 100 ML Bottle IVPUSH ONE (09:29)
[2022-08-29] MEDS ORDERED: Sodium Chloride 0.9% 100 ML IV SCH (09:30)
[2022-08-29] MEDS ORDERED: Sodium Chloride 0.9% 20 ML IV SCH (09:45)
[2022-08-29 12:21] LABS: BASE EXCESS VENOUS 8.9 (-4.0-2.0); BICARBONATE,VENOUS 36.1 meq/L (22-26); O2 SATURATION VENOUS 87.3; PCO2 VENOUS 64.8 mmHg (41-51); PH,VENOUS 7.37 (7.30-7.40)
[2022-08-29] MEDS ORDERED: Albuterol/Ipratropium 3.0-0.5 MG/3 ML Neb Soln NEB ONE (15:57)
[2022-08-29] MEDS ORDERED: Ondansetron 4 MG/2 ML SDV IV PRN (18:15)
[2022-08-29] MEDS ORDERED: Acetaminophen 325 MG Tab GTUBE PRN (18:15)
[2022-08-29] MEDS ORDERED: Acetaminophen 325 MG Tab JTUBE PRN (18:27)
[2022-08-29] MEDS ORDERED: Promethazine 6.25 MG/5 ML Liquid 10 ML UD Cup JTUBE PRN (18:27)
[2022-08-29] MEDS: Piperacillin/Tazobactam 4.5 GM in Sodium Chloride 0.9% 100 ML IV SCH (20:55)
[2022-08-29] MEDS ORDERED: risperiDONE Solution 1 MG/1 ML 30 ML Bottle JTUBE SCH (21:00)
[2022-08-29] MEDS: Albuterol 0.083% 2.5 MG/3 ML Neb Soln INH PRN (21:19)
[2022-08-29] MEDS: Budesonide 0.25 MG/2 ML Neb Susp INH SCH (21:19)
[2022-08-29] MEDS: Citalopram 20 MG Tab JTUBE SCH (22:45)
[2022-08-29] MEDS: ClonazePAM 0.5 MG Tab JTUBE SCH (22:46)
[2022-08-29] MEDS: Famotidine 20 MG Tab JTUBE SCH (22:46)
[2022-08-29] MEDS: Carbidopa/Levodopa 25-100 MG Tab JTUBE SCH (22:46)
[2022-08-29] MEDS: Clotrimazole 1% Crm 30 GM Tube TOP SCH (22:49)
[2022-08-29] MEDS: RISPERIDONE 1 MG/1 ML JTUBE SCH (23:25)
[2022-08-29] MEDS: OMEPRAZOLE 2 MG/ML JTUBE SCH (23:25)
[2022-08-30] MEDS: Albuterol/Ipratropium 3.0-0.5 MG/3 ML Neb Soln NEB PRN ×3 (01:53→20:49)
[2022-08-30] MEDS: Piperacillin/Tazobactam 4.5 GM in Sodium Chloride 0.9% 100 ML IV SCH ×3 (02:07→18:15)
[2022-08-30 06:01] LABS: BASOPHILS ABSOLUTE AUTO 0.01 K/mm3 (0.01-0.08); BASOPHILS PERCENT AUTO 0.1 % (0.1-1.2); EOSINOPHILS ABSOLUTE AUTO 0.01 K/mm3 (0.04-0.36); EOSINOPHILS PERCENT AUTO 0.1 (0.7-5.8); HEMATOCRIT 36.3 % (34.1-44.9); HEMOGLOBIN 10.4 gm/dl (11.2-15.7); IMMATURE GRAN ABSOLUTE AUTO 0.02 K/mm3 (0.00-0.10); IMMATURE GRAN PERCENT AUTO 0.2 % (<=1.0); LYMPHOCYTES ABSOLUTE AUTO 0.79 K/mm3 (1.18-3.74); LYMPHOCYTES PERCENT AUTO 6.6 % (19.3-51.7); MEAN CORPUSCULAR HEMOGLOBIN 27.3 pg (25.6-32.2); MEAN CORPUSCULAR HGB CONC 28.7 g/dl (32.2-35.5); MEAN CORPUSCULAR VOLUME 95.3 fl (79.4-94.8); MEAN PLATELET VOLUME 13.5 fl (9.4-12.3); MONOCYTES ABSOLUTE AUTO 0.67 K/mm3 (0.24-0.36); MONOCYTES PERCENT AUTO 5.6 % (4.7-12.5); NEUTROPHILS ABSOLUTE AUTO 10.56 K/mm3 (1.56-6.13); NEUTROPHILS PERCENT AUTO 87.4 % (34.0-71.1); PLATELET COUNT,PLT 83 K/mm3 (182-369); RED BLOOD CELL COUNT 3.81 M/mm3 (3.98-5.22); WHITE BLOOD CELL COUNT,WBC 12.06 K/mm3 (3.98-10.04)
[2022-08-30 06:02] LABS: ANION GAP 2.2 (5-15); BUN/CREATININE RATIO 28.8 (14-18); CALCIUM 9.7 mg/dL (8.5-10.1); CREATININE 0.8 mg/dL (0.55-1.02); EST CRCL DRUG DOSING (CG) 57.07 mL/min; POTASSIUM,K 4.2 mEq/L (3.5-5.1)
[2022-08-30] MEDS: Budesonide 0.25 MG/2 ML Neb Susp INH SCH ×2 (06:09→20:49)
[2022-08-30 06:30] LABS: SLIDE REVIEW ABNORMAL SMEAR
[2022-08-30 07:32] LABS: BASE EXCESS ARTERIAL 12.3 (-2-2.0); BICARBONATE,ARTERIAL 39.8 meq/L (22.0-26.0); O2 SATURATION ARTERIAL 80.2 % (96.0-97.0); PCO2 ARTERIAL 72.6 mmHg (35.0-45.0)
[2022-08-30] MEDS: Albuterol 0.083% 2.5 MG/3 ML Neb Soln INH PRN ×3 (09:08→17:01)
[2022-08-30] MEDS: ClonazePAM 0.5 MG Tab JTUBE SCH ×2 (09:46→23:11)
[2022-08-30] MEDS: [UNRECOGNIZED DRUG - OTHER] JTUBE SCH (09:46)
[2022-08-30] MEDS: Sertraline 50 MG Tab JTUBE SCH (09:46)
[2022-08-30] MEDS: MULTIVITAMIN JTUBE SCH (09:46)
[2022-08-30] MEDS: Calcium Carbonate/Vitamin D3 600 MG-200 Units Tab JTUBE SCH (09:46)
[2022-08-30] MEDS: Carbidopa/Levodopa 25-100 MG Tab JTUBE SCH ×2 (09:46→23:11)
[2022-08-30] MEDS: Clotrimazole 1% Crm 30 GM Tube TOP SCH ×2 (09:47→23:12)
[2022-08-30] MEDS ORDERED: risperiDONE Solution 1 MG/1 ML 30 ML Bottle JTUBE SCH (11:00)
[2022-08-30] MEDS ORDERED: [UNRECOGNIZED DRUG - MIXTURE] JTUBE SCH (11:00)
[2022-08-30] MEDS: Furosemide Soln 10 MG/ML 60 ML Bottle JTUBE SCH (11:06)
[2022-08-30] MEDS: RISPERIDONE 1 MG/1 ML JTUBE SCH ×2 (11:14→23:12)
[2022-08-30] MEDS: OMEPRAZOLE 2 MG/ML JTUBE SCH ×2 (11:50→23:12)
[2022-08-30] MEDS ORDERED: acetaZOLAMIDE 500 MG Vial IVPUSH ONE (13:17)
[2022-08-30] MEDS: Famotidine 20 MG Tab JTUBE SCH (23:11)
[2022-08-30] MEDS: Citalopram 20 MG Tab JTUBE SCH (23:12)
[2022-08-31] MEDS: Albuterol/Ipratropium 3.0-0.5 MG/3 ML Neb Soln NEB PRN ×6 (01:26→20:14)
[2022-08-31] MEDS: Budesonide 0.25 MG/2 ML Neb Susp INH SCH ×2 (05:44→20:14)
[2022-08-31 06:13] LABS: BASE EXCESS ARTERIAL 14.9 (-2-2.0); BICARBONATE,ARTERIAL 42.4 meq/L (22.0-26.0); O2 SATURATION ARTERIAL 95.6 % (96.0-97.0); PCO2 ARTERIAL 71.1 mmHg (35.0-45.0)
[2022-08-31] MEDS: Piperacillin/Tazobactam 4.5 GM in Sodium Chloride 0.9% 100 ML IV SCH ×3 (06:42→21:04)
[2022-08-31] MEDS ORDERED: Lactoperoxi/Gluc Oxid/Pot Thio 42 GM Tube MUCMEM PRN (07:05)
[2022-08-31] MEDS: Sertraline 50 MG Tab JTUBE SCH (09:19)
[2022-08-31] MEDS: Calcium Carbonate/Vitamin D3 600 MG-200 Units Tab JTUBE SCH (09:19)
[2022-08-31] MEDS: Carbidopa/Levodopa 25-100 MG Tab JTUBE SCH ×2 (09:19→20:46)
[2022-08-31] MEDS: ClonazePAM 0.5 MG Tab JTUBE SCH ×2 (09:19→20:45)
[2022-08-31] MEDS: Furosemide Soln 10 MG/ML 60 ML Bottle JTUBE SCH (09:20)
[2022-08-31] MEDS: OMEPRAZOLE 2 MG/ML JTUBE SCH ×2 (09:20→20:53)
[2022-08-31] MEDS: [UNRECOGNIZED DRUG - OTHER] JTUBE SCH (09:27)
[2022-08-31] MEDS: MULTIVITAMIN JTUBE SCH (09:27)
[2022-08-31] MEDS: Clotrimazole 1% Crm 30 GM Tube TOP SCH ×2 (09:35→20:47)
[2022-08-31] MEDS: RISPERIDONE 1 MG/1 ML JTUBE SCH ×2 (11:59→20:56)
[2022-08-31] MEDS: Citalopram 20 MG Tab JTUBE SCH (20:46)
[2022-08-31] MEDS: Famotidine 20 MG Tab JTUBE SCH (20:46)
[2022-09-01] MEDS: Budesonide 0.25 MG/2 ML Neb Susp INH SCH ×2 (05:53→20:17)
[2022-09-01] MEDS: Albuterol/Ipratropium 3.0-0.5 MG/3 ML Neb Soln NEB PRN ×3 (05:53→20:17)
[2022-09-01 06:26] LABS: HEMATOCRIT 35.8 % (34.1-44.9); HEMOGLOBIN 10.4 gm/dl (11.2-15.7); MEAN CORPUSCULAR HEMOGLOBIN 27.4 pg (25.6-32.2); MEAN CORPUSCULAR HGB CONC 29.1 g/dl (32.2-35.5); MEAN CORPUSCULAR VOLUME 94.5 fl (79.4-94.8); MEAN PLATELET VOLUME 12.7 fl (9.4-12.3); PLATELET COUNT,PLT 108 K/mm3 (182-369); RED BLOOD CELL COUNT 3.79 M/mm3 (3.98-5.22)
[2022-09-01 06:31] LABS: A/G RATIO 0.6 (1-2); ALBUMIN 2.7 g/dl (3.4-5.0); ANION GAP 5.9 (5-15); BILIRUBIN TOTAL 0.6 mg/dL (0.2-1.0); BUN/CREATININE RATIO 28.8 (14-18); CALCIUM 9.6 mg/dL (8.5-10.1); CREATININE 0.8 mg/dL (0.55-1.02); EST CRCL DRUG DOSING (CG) 57.07 mL/min; PROTEIN TOTAL,TP 7.2 g/dl (6.4-8.2)
[2022-09-01 06:42] LABS: POTASSIUM,K 2.9 mEq/L (3.5-5.1)
[2022-09-01] MEDS: Piperacillin/Tazobactam 4.5 GM in Sodium Chloride 0.9% 100 ML IV SCH ×3 (06:45→22:27)
[2022-09-01] MEDS ORDERED: Potassium Chloride 20 MEQ Tab.ER JTUBE ONE (07:28)
[2022-09-01] MEDS: Potassium Chloride 10 MEQ in Premix Bag 1 BAG IV SCH ×4 (07:57→12:28)
[2022-09-01] MEDS: Carbidopa/Levodopa 25-100 MG Tab JTUBE SCH ×2 (08:07→20:52)
[2022-09-01] MEDS: Calcium Carbonate/Vitamin D3 600 MG-200 Units Tab JTUBE SCH (08:07)
[2022-09-01] MEDS: Sertraline 50 MG Tab JTUBE SCH (08:07)
[2022-09-01] MEDS: ClonazePAM 0.5 MG Tab JTUBE SCH ×2 (08:07→20:52)
[2022-09-01] MEDS: OMEPRAZOLE 2 MG/ML JTUBE SCH ×2 (08:10→21:26)
[2022-09-01 08:12] LABS: BASE EXCESS ARTERIAL 13.2 (-2-2.0); BICARBONATE,ARTERIAL 39.7 meq/L (22.0-26.0); O2 SATURATION ARTERIAL 93.5 % (96.0-97.0)
[2022-09-01] MEDS: [UNRECOGNIZED DRUG - OTHER] JTUBE SCH (10:06)
[2022-09-01] MEDS: MULTIVITAMIN JTUBE SCH (10:06)
[2022-09-01] MEDS: Clotrimazole 1% Crm 30 GM Tube TOP SCH ×2 (10:08→22:26)
[2022-09-01] MEDS: Furosemide Soln 10 MG/ML 60 ML Bottle JTUBE SCH (10:12)
[2022-09-01] MEDS: RISPERIDONE 1 MG/1 ML JTUBE SCH ×2 (10:13→21:26)
[2022-09-01] MEDS: Albuterol 0.083% 2.5 MG/3 ML Neb Soln INH PRN (15:41)
[2022-09-01] MEDS: Citalopram 20 MG Tab JTUBE SCH (20:52)
[2022-09-01] MEDS: Famotidine 20 MG Tab JTUBE SCH (20:52)
[2022-09-02] MEDS: Albuterol/Ipratropium 3.0-0.5 MG/3 ML Neb Soln NEB PRN (05:46)
[2022-09-02] MEDS: Budesonide 0.25 MG/2 ML Neb Susp INH SCH (05:46)
[2022-09-02] MEDS: Piperacillin/Tazobactam 4.5 GM in Sodium Chloride 0.9% 100 ML IV SCH (06:06)
[2022-09-02 07:53] LABS: HEMATOCRIT 33.7 % (34.1-44.9); HEMOGLOBIN 9.7 gm/dl (11.2-15.7); MEAN CORPUSCULAR HEMOGLOBIN 27.2 pg (25.6-32.2); MEAN CORPUSCULAR HGB CONC 28.8 g/dl (32.2-35.5); MEAN CORPUSCULAR VOLUME 94.4 fl (79.4-94.8); MEAN PLATELET VOLUME 12.8 fl (9.4-12.3); PLATELET COUNT,PLT 126 K/mm3 (182-369); RED BLOOD CELL COUNT 3.57 M/mm3 (3.98-5.22); WHITE BLOOD CELL COUNT,WBC 5.37 K/mm3 (3.98-10.04)
[2022-09-02 08:03] LABS: A/G RATIO 0.6 (1-2); ALBUMIN 2.5 g/dl (3.4-5.0); ANION GAP 6.3 (5-15); BILIRUBIN TOTAL 0.4 mg/dL (0.2-1.0); CALCIUM 9.4 mg/dL (8.5-10.1); CREATININE 0.8 mg/dL (0.55-1.02); EST CRCL DRUG DOSING (CG) 57.07 mL/min; POTASSIUM,K 3.3 mEq/L (3.5-5.1); PROTEIN TOTAL,TP 6.7 g/dl (6.4-8.2)
[2022-09-02] MEDS: Potassium Chloride 10 MEQ in Premix Bag 1 BAG IV SCH ×4 (09:44→14:36)
[2022-09-02] MEDS: Carbidopa/Levodopa 25-100 MG Tab JTUBE SCH (09:48)
[2022-09-02] MEDS: ClonazePAM 0.5 MG Tab JTUBE SCH (09:49)
[2022-09-02] MEDS: Sertraline 50 MG Tab JTUBE SCH (09:49)
[2022-09-02] MEDS: Calcium Carbonate/Vitamin D3 600 MG-200 Units Tab JTUBE SCH (09:49)
[2022-09-02] MEDS: Furosemide Soln 10 MG/ML 60 ML Bottle JTUBE SCH (09:56)
[2022-09-02] MEDS: [UNRECOGNIZED DRUG - OTHER] JTUBE SCH (09:57)
[2022-09-02] MEDS: Clotrimazole 1% Crm 30 GM Tube TOP SCH (09:57)
[2022-09-02] MEDS: MULTIVITAMIN JTUBE SCH (09:57)
[2022-09-02] MEDS: OMEPRAZOLE 2 MG/ML JTUBE SCH (10:21)
[2022-09-02] MEDS: RISPERIDONE 1 MG/1 ML JTUBE SCH (11:40)
[2022-09-02 12:35] VITALS: BP 100/43; PULSE 79
[2022-09-02] MEDS ORDERED: Loperamide 2 MG Cap PO ONE ×2 (14:43→14:45)
== END 2022-09-02 15:30 | DRG 177 ==
LOC: JD.ED 06:36 → JD.MS 18:16
PROVIDERS: ADMIT Hospitalist; ATTEND Internal Medicine
PROC: 5A09457 Assistance with Respiratory Ventilation, 24-96 Consecutive Hours, Continuous Positive Airway Pressure (ICD-10-PCS; principal; 2022-08-29)
DX: J69.0 Pneumonitis due to inhalation of food and vomit (principal); R09.02 Hypoxemia; I50.9 Heart failure, unspecified; J96.21 Acute and chronic respiratory failure with hypoxia; J96.22 Acute and chronic respiratory failure with hypercapnia; G93.40 Encephalopathy, unspecified; F70 Mild intellectual disabilities; E87.3 Alkalosis; E87.6 Hypokalemia; R62.50 Unspecified lack of expected normal physiological development in childhood; Z66 Do not resuscitate; G20 Parkinson's disease; F20.9 Schizophrenia, unspecified; F41.1 Generalized anxiety disorder; K21.9 Gastro-esophageal reflux disease without esophagitis; K44.9 Diaphragmatic hernia without obstruction or gangrene; J18.9 Pneumonia, unspecified organism; H54.7 Unspecified visual loss; F32.A Depression, unspecified; Z96.649 Presence of unspecified artificial hip joint; D69.6 Thrombocytopenia, unspecified; Z88.8 Allergy status to other drugs, medicaments and biological substances; Z98.890 Other specified postprocedural states; Z93.1 Gastrostomy status; Z79.51 Long term (current) use of inhaled steroids; Z86.711 Personal history of pulmonary embolism; Z90.49 Acquired absence of other specified parts of digestive tract; Z79.899 Other long term (current) drug therapy
CPT/HCPCS: 36410; 36415; 36600; 51701; 71045; 71045-26; 80048; 80053; 82803; 83605; 83880; 84484; 85025; 85027; 85379; 85610; 87040; 87641; 93005; 93010; 94640; 94660; 94761; 94762; 96365; 96375; 99222; 99232; 99285; 99285-25; A9270-GY; J0696; J1120; J2060; J2543; J3480; J3490; J7620-GY; Q9967

== ENCOUNTER 2022-10-20 11:57 | Inpatient (IN) | payer MEDICARE ==
[2022-10-20 13:27] LABS: APPEARANCE,URINE CLEAR (Clear); BILIRUBIN,URINE NEGATIVE (Negative); COLOR,URINE YELLOW (Yellow); GLUCOSE,URINE NEGATIVE (Negative); KETONES,URINE NEGATIVE (Negative); LEUKOCYTE ESTERASE,URINE NEGATIVE (Negative); NITRITE,URINE NEGATIVE (Negative); OCCULT BLOOD,URINE NEGATIVE (Negative); PH,URINE 6.5 (5.0-8.0); PROTEIN,URINE NEGATIVE (Negative); UROBILINOGEN,URINE 0.2 (0.2-1.0)
[2022-10-20 13:39] LABS: BASOPHILS ABSOLUTE AUTO 0.01 K/mm3 (0.01-0.08); EOSINOPHILS PERCENT AUTO 0 (0.7-5.8); HEMATOCRIT 41.4 % (34.1-44.9); IMMATURE GRAN ABSOLUTE AUTO 0.07 K/mm3 (0.00-0.10); IMMATURE GRAN PERCENT AUTO 0.3 % (<=1.0); LYMPHOCYTES ABSOLUTE AUTO 0.36 K/mm3 (1.18-3.74); LYMPHOCYTES PERCENT AUTO 1.5 % (19.3-51.7); MEAN CORPUSCULAR HEMOGLOBIN 28.2 pg (25.6-32.2); MEAN CORPUSCULAR VOLUME 97.4 fl (79.4-94.8); MONOCYTES ABSOLUTE AUTO 1.12 K/mm3 (0.24-0.36); MONOCYTES PERCENT AUTO 4.7 % (4.7-12.5); NEUTROPHILS ABSOLUTE AUTO 22.11 K/mm3 (1.56-6.13); NEUTROPHILS PERCENT AUTO 93.5 % (34.0-71.1); PLATELET COUNT,PLT 81 K/mm3 (182-369); RED BLOOD CELL COUNT 4.25 M/mm3 (3.98-5.22); WHITE BLOOD CELL COUNT,WBC 23.67 K/mm3 (3.98-10.04)
[2022-10-20 14:01] LABS: LACTIC ACID 2.8 mmol/L (0.4-2.0)
[2022-10-20 14:06] LABS: A/G RATIO 0.7 (1-2); ALBUMIN 3.1 g/dl (3.4-5.0); ANION GAP 6.9 (5-15); BILIRUBIN TOTAL 0.3 mg/dL (0.2-1.0); BUN/CREATININE RATIO 25.6 (14-18); C-REACTIVE PROTEIN 7.4 mg/dL (<1.0); CALCIUM 10.1 mg/dL (8.5-10.1); CREATININE 0.9 mg/dL (0.55-1.02); EST CRCL DRUG DOSING (CG) 50.73 mL/min; POTASSIUM,K 3.9 mEq/L (3.5-5.1); PROTEIN TOTAL,TP 7.6 g/dl (6.4-8.2)
[2022-10-20] MEDS ORDERED: Sodium Chloride 0.9% 1,000 ML IV ONE (14:24)
[2022-10-20 14:31] LABS: SLIDE REVIEW ABNORMAL SMEAR
[2022-10-20] MEDS ORDERED: cefTRIAXone 2 GM in Sodium Chloride 0.9% 100 ML IV ONE (14:34)
[2022-10-20] MEDS ORDERED: Azithromycin 500 MG in Sodium Chloride 0.9% 250 ML IV SCH (14:45)
[2022-10-20 15:00] LABS: BASE EXCESS ARTERIAL 14.7 (-2-2.0); BICARBONATE,ARTERIAL 41.8 meq/L (22.0-26.0); O2 SATURATION ARTERIAL 97.5 % (96.0-97.0); PCO2 ARTERIAL 67.2 mmHg (35.0-45.0)
[2022-10-20] MEDS ORDERED: Iopamidol 612 MG/ML 100 ML Bottle IVPUSH ONE (16:16)
[2022-10-20] MEDS ORDERED: Sodium Chloride 0.9% 10 ML Syringe FLUSH ONE (16:16)
[2022-10-20] MEDS ORDERED: Piperacillin/Tazobactam 4.5 GM in Sodium Chloride 0.9% 100 ML IV ONE ×2 (16:43→16:44)
[2022-10-20] MEDS ORDERED: Albuterol 0.083% 2.5 MG/3 ML Neb Soln INH PRN (17:12)
[2022-10-20] MEDS: Ipratropium 0.02% 0.5 MG/2.5 ML Neb Soln INH SCH (20:12)
[2022-10-20] MEDS: Budesonide 0.5 MG/2 ML Neb Susp INH SCH (20:13)
[2022-10-20] MEDS ORDERED: Budesonide 0.5 MG/2 ML Neb Susp ONE (20:14)
[2022-10-20] MEDS ORDERED: Famotidine 40 MG/5 ML Bottle JTUBE SCH (21:00)
[2022-10-20] MEDS: Piperacillin/Tazobactam 4.5 GM in Sodium Chloride 0.9% 100 ML IV SCH (22:24)
[2022-10-20] MEDS: CLONAZEPAM 0.5 MG JTUBE SCH (22:31)
[2022-10-20] MEDS: OMEPRAZOLE JTUBE SCH (22:31)
[2022-10-20] MEDS: ESCITALOPRAM OXALATE JTUBE SCH (22:33)
[2022-10-20] MEDS: Clotrimazole 1% Crm 30 GM Tube TOP SCH (22:33)
[2022-10-20] MEDS: valACYclovir 1,000 MG Tab PO SCH (22:34)
[2022-10-20] MEDS: Carbidopa/Levodopa 25-100 MG Tab JTUBE SCH (22:35)
[2022-10-20] MEDS: FAMOTIDINE 40 MG/5 ML JTUBE SCH (23:03)
[2022-10-21] MEDS: Piperacillin/Tazobactam 4.5 GM in Sodium Chloride 0.9% 100 ML IV SCH ×2 (06:00→15:31)
[2022-10-21] MEDS ORDERED: Lactoperoxi/Gluc Oxid/Pot Thio 42 GM Tube MUCMEM PRN (07:05)
[2022-10-21 07:39] LABS: BASOPHILS ABSOLUTE AUTO 0.01 K/mm3 (0.01-0.08); BASOPHILS PERCENT AUTO 0.1 % (0.1-1.2); EOSINOPHILS ABSOLUTE AUTO 0.02 K/mm3 (0.04-0.36); EOSINOPHILS PERCENT AUTO 0.1 (0.7-5.8); HEMATOCRIT 36.3 % (34.1-44.9); IMMATURE GRAN ABSOLUTE AUTO 0.04 K/mm3 (0.00-0.10); IMMATURE GRAN PERCENT AUTO 0.3 % (<=1.0); LYMPHOCYTES ABSOLUTE AUTO 0.92 K/mm3 (1.18-3.74); LYMPHOCYTES PERCENT AUTO 5.9 % (19.3-51.7); MEAN CORPUSCULAR HGB CONC 28.7 g/dl (32.2-35.5); MEAN CORPUSCULAR VOLUME 97.8 fl (79.4-94.8); MEAN PLATELET VOLUME 13.7 fl (9.4-12.3); MONOCYTES ABSOLUTE AUTO 0.82 K/mm3 (0.24-0.36); MONOCYTES PERCENT AUTO 5.2 % (4.7-12.5); NEUTROPHILS ABSOLUTE AUTO 13.84 K/mm3 (1.56-6.13); NEUTROPHILS PERCENT AUTO 88.4 % (34.0-71.1); PLATELET COUNT,PLT 66 K/mm3 (182-369); RED BLOOD CELL COUNT 3.71 M/mm3 (3.98-5.22); WHITE BLOOD CELL COUNT,WBC 15.65 K/mm3 (3.98-10.04)
[2022-10-21 07:51] LABS: HEMOGLOBIN 10.4 gm/dl (11.2-15.7)
[2022-10-21 07:55] LABS: ANION GAP 3.1 (5-15); BUN/CREATININE RATIO 24.3 (14-18); CALCIUM 9.6 mg/dL (8.5-10.1); CREATININE 0.7 mg/dL (0.55-1.02); EST CRCL DRUG DOSING (CG) 65.23 mL/min; POTASSIUM,K 4.1 mEq/L (3.5-5.1)
[2022-10-21] MEDS ORDERED: FERROUS GLUCONATE JTUBE SCH (09:00)
[2022-10-21] MEDS ORDERED: MULTIVIT MIN JTUBE SCH (09:00)
[2022-10-21] MEDS ORDERED: traZODone 50 MG Tab PO SCH ×2 (09:00→21:00)
[2022-10-21] MEDS ORDERED: [UNRECOGNIZED DRUG - OTHER] JTUBE SCH (09:00)
[2022-10-21] MEDS ORDERED: [UNRECOGNIZED DRUG - MIXTURE] JTUBE SCH (09:00)
[2022-10-21] MEDS ORDERED: Calcium Carbonate/Vitamin D3 600 MG-200 Units Tab JTUBE SCH (09:00)
[2022-10-21] MEDS: Ipratropium 0.02% 0.5 MG/2.5 ML Neb Soln INH SCH ×3 (09:03→20:25)
[2022-10-21] MEDS: Budesonide 0.5 MG/2 ML Neb Susp INH SCH ×2 (09:03→20:25)
[2022-10-21 09:16] LABS: SLIDE REVIEW ABNORMAL SMEAR
[2022-10-21] MEDS: OMEPRAZOLE JTUBE SCH ×2 (09:23→15:33)
[2022-10-21] MEDS: CLONAZEPAM 0.5 MG JTUBE SCH ×2 (09:24→21:41)
[2022-10-21] MEDS: Furosemide Soln 10 MG/ML 60 ML Bottle JTUBE SCH (09:27)
[2022-10-21] MEDS: Carbidopa/Levodopa 25-100 MG Tab JTUBE SCH ×2 (09:28→21:44)
[2022-10-21] MEDS: QUEtiapine 25 MG Tab JTUBE SCH (09:28)
[2022-10-21] MEDS: valACYclovir 1,000 MG Tab PO SCH (09:31)
[2022-10-21] MEDS: Clotrimazole 1% Crm 30 GM Tube TOP SCH ×2 (09:39→21:43)
[2022-10-21] MEDS ORDERED: PROMETHAZINE 6.25 MG/5 ML JTUBE PRN (11:43)
[2022-10-21] MEDS ORDERED: Enoxaparin 40 MG/0.4 ML Syringe SUBCUT SCH (21:00)
[2022-10-21] MEDS ORDERED: valACYclovir 1,000 MG Tab PO SCH (21:00)
[2022-10-21] MEDS: ESCITALOPRAM OXALATE JTUBE SCH (21:43)
[2022-10-21] MEDS: Amoxicillin/Clavulanate K 600-42.9 MG/5 ML Susp 125 ML Bottle PO SCH (21:49)
[2022-10-21] MEDS: FAMOTIDINE 40 MG/5 ML JTUBE SCH (22:01)
[2022-10-22] MEDS: OMEPRAZOLE JTUBE SCH (06:26)
[2022-10-22 06:34] LABS: EOSINOPHILS ABSOLUTE AUTO 0.05 K/mm3 (0.04-0.36); EOSINOPHILS PERCENT AUTO 0.8 (0.7-5.8); HEMATOCRIT 37.6 % (34.1-44.9); HEMOGLOBIN 10.7 gm/dl (11.2-15.7); LYMPHOCYTES ABSOLUTE AUTO 1.04 K/mm3 (1.18-3.74); LYMPHOCYTES PERCENT AUTO 15.7 % (19.3-51.7); MEAN CORPUSCULAR HEMOGLOBIN 27.9 pg (25.6-32.2); MEAN CORPUSCULAR HGB CONC 28.5 g/dl (32.2-35.5); MEAN CORPUSCULAR VOLUME 97.9 fl (79.4-94.8); MONOCYTES ABSOLUTE AUTO 0.57 K/mm3 (0.24-0.36); MONOCYTES PERCENT AUTO 8.6 % (4.7-12.5); NEUTROPHILS ABSOLUTE AUTO 4.98 K/mm3 (1.56-6.13); NEUTROPHILS PERCENT AUTO 74.9 % (34.0-71.1); PLATELET COUNT,PLT 70 K/mm3 (182-369); RED BLOOD CELL COUNT 3.84 M/mm3 (3.98-5.22); WHITE BLOOD CELL COUNT,WBC 6.64 K/mm3 (3.98-10.04)
[2022-10-22 06:51] LABS: A/G RATIO 0.6 (1-2); ALBUMIN 2.6 g/dl (3.4-5.0); ANION GAP 5.2 (5-15); BILIRUBIN TOTAL 0.1 mg/dL (0.2-1.0); BUN/CREATININE RATIO 18.6 (14-18); CALCIUM 9.5 mg/dL (8.5-10.1); CREATININE 0.7 mg/dL (0.55-1.02); EST CRCL DRUG DOSING (CG) 65.23 mL/min; MAGNESIUM 1.7 mg/dL (1.8-2.4); POTASSIUM,K 4.2 mEq/L (3.5-5.1); PROTEIN TOTAL,TP 6.8 g/dl (6.4-8.2)
[2022-10-22 07:33] LABS: SLIDE REVIEW ABNORMAL SMEAR
[2022-10-22] MEDS: Ipratropium 0.02% 0.5 MG/2.5 ML Neb Soln INH SCH (08:36)
[2022-10-22] MEDS: Budesonide 0.5 MG/2 ML Neb Susp INH SCH (08:36)
[2022-10-22] MEDS: Carbidopa/Levodopa 25-100 MG Tab JTUBE SCH (08:53)
[2022-10-22] MEDS: QUEtiapine 25 MG Tab JTUBE SCH (08:53)
[2022-10-22] MEDS: Clotrimazole 1% Crm 30 GM Tube TOP SCH (08:53)
[2022-10-22] MEDS: CLONAZEPAM 0.5 MG JTUBE SCH (08:53)
[2022-10-22] MEDS: Furosemide Soln 10 MG/ML 60 ML Bottle JTUBE SCH (08:54)
[2022-10-22] MEDS: Amoxicillin/Clavulanate K 600-42.9 MG/5 ML Susp 125 ML Bottle PO SCH (08:55)
[2022-10-22 09:12] VITALS: BP 103/66; PULSE 76
[2022-10-22] MEDS ORDERED: [UNRECOGNIZED DRUG - OTHER] JTUBE SCH (11:00)
[2022-10-22] MEDS ORDERED: traZODone 50 MG Tab PO SCH (21:00)
== END 2022-10-22 11:10 | DRG 179 ==
LOC: JD.ED 11:57 → JD.MS 17:05
PROVIDERS: ADMIT Emergency Medicine; ATTEND Emergency Medicine
DX: J69.0 Pneumonitis due to inhalation of food and vomit (principal); R62.50 Unspecified lack of expected normal physiological development in childhood; Z66 Do not resuscitate; K21.9 Gastro-esophageal reflux disease without esophagitis; F32.A Depression, unspecified; F20.9 Schizophrenia, unspecified; Z96.643 Presence of artificial hip joint, bilateral; F41.1 Generalized anxiety disorder; Z98.890 Other specified postprocedural states; Z79.51 Long term (current) use of inhaled steroids; Z88.8 Allergy status to other drugs, medicaments and biological substances; Z93.1 Gastrostomy status; Z79.899 Other long term (current) drug therapy; Z90.49 Acquired absence of other specified parts of digestive tract
CPT/HCPCS: 36415; 36600; 71045; 71045-26; 71260; 71260-26; 80048; 80053; 81003; 82803; 83605; 83735; 85025; 86140; 87040; 87641; 94640; 94762; 96361; 96365; 99285-25; A9270-GY; J0456; J2543; J3490; J7030; J7050; Q9967

== ENCOUNTER 2022-10-26 21:41 | Emergency (ER) | payer MEDICARE ==
[2022-10-26 22:50] VITALS: BP 115/45; PULSE 54
== END 2022-10-26 22:45 ==
LOC: JD.ED 21:41
DX: R00.1 Bradycardia, unspecified (principal); K21.9 Gastro-esophageal reflux disease without esophagitis; Z88.8 Allergy status to other drugs, medicaments and biological substances; Z79.899 Other long term (current) drug therapy
CPT/HCPCS: 93005; 93010; 99284; 99285

== ENCOUNTER 2022-12-19 10:10 | Emergency (ER) | payer MEDICARE ==
[2022-12-19 11:17] LABS: APPEARANCE,URINE CLEAR (Clear); BILIRUBIN,URINE NEGATIVE (Negative); COLOR,URINE YELLOW (Yellow); GLUCOSE,URINE NEGATIVE (Negative); KETONES,URINE NEGATIVE (Negative); LEUKOCYTE ESTERASE,URINE NEGATIVE (Negative); NITRITE,URINE NEGATIVE (Negative); OCCULT BLOOD,URINE NEGATIVE (Negative); PROTEIN,URINE NEGATIVE (Negative); UROBILINOGEN,URINE 0.2 (0.2-1.0)
[2022-12-19 11:21] LABS: BASOPHILS PERCENT AUTO 0.2 % (0.0-1.0); EOSINOPHILS PERCENT AUTO 0.7 % (0.0-6.0); HEMATOCRIT 40.4 % (37.0-47.0); HEMOGLOBIN 12.3 gm/dl (12.0-16.0); IMMATURE GRAN ABSOLUTE AUTO 0.01 K/mm3 (0.00-0.05); IMMATURE GRAN PERCENT AUTO 0.2 % (0.0-0.4); LYMPHOCYTES ABSOLUTE AUTO 1.4 K/mm3 (1.0-4.8); LYMPHOCYTES PERCENT AUTO 32.5 % (24.0-44.0); MEAN CORPUSCULAR HEMOGLOBIN 29.6 pg (28.0-32.0); MEAN CORPUSCULAR HGB CONC 30.4 g/dl (32.0-36.0); MEAN CORPUSCULAR VOLUME 97.3 fl (83.0-99.0); MEAN PLATELET VOLUME 13.5 fl (9.4-12.3); MONOCYTES ABSOLUTE AUTO 0.4 K/mm3 (0.0-0.8); MONOCYTES PERCENT AUTO 8.8 % (0.0-8.0); NEUTROPHILS ABSOLUTE AUTO 2.4 K/mm3 (1.8-7.7); NEUTROPHILS PERCENT AUTO 57.6 % (41.0-71.0); PLATELET COUNT,PLT 73 K/mm3 (150-400); RED BLOOD CELL COUNT 4.15 M/mm3 (4.10-5.30); WHITE BLOOD CELL COUNT,WBC 4.19 K/mm3 (3.9-11.3)
[2022-12-19 11:27] LABS: BACTERIA,URINE RARE /hpf (FEW); EPITHELIAL CELLS,URINE NOT SEEN /hpf (0-5); HYALINE CASTS,URINE 0-5 /lpf (0-5); MUCUS,URINE FEW /hpf (FEW); RBC,URINE 0-5 /hpf (0-5); WBC,URINE NOT SEEN /hpf (0-5)
[2022-12-19 11:37] LABS: CORONAVIRUS COVID-19 NAA NEGATIVE (NEGATIVE); INFLUENZA A NAA NEGATIVE (NEGATIVE); RESPIRATORY SYNCYTIAL VIR NAA NEGATIVE (NEGATIVE)
[2022-12-19 11:47] LABS: A/G RATIO 0.8 (1-2); ALBUMIN 3.1 g/dl (3.4-5.0); ANION GAP 6.7 (5-15); BILIRUBIN TOTAL 0.3 mg/dL (0.2-1.0); BUN/CREATININE RATIO 23.8 (14-18); CALCIUM 9.5 mg/dL (8.5-10.1); CREATININE 0.8 mg/dL (0.55-1.02); EST CRCL DRUG DOSING (CG) 57.07 mL/min; POTASSIUM,K 3.7 mEq/L (3.5-5.1); PROTEIN TOTAL,TP 7.1 g/dl (6.4-8.2)
[2022-12-19 12:08] LABS: SLIDE REVIEW ABNORMAL SMEAR
[2022-12-19 13:11] VITALS: BP 105/61; PULSE 65
== END 2022-12-19 13:10 | disposition home or self-care (01) ==
LOC: JD.ED 10:10
DX: I95.89 Other hypotension (principal); I50.9 Heart failure, unspecified; K21.9 Gastro-esophageal reflux disease without esophagitis; M19.90 Unspecified osteoarthritis, unspecified site; Z88.8 Allergy status to other drugs, medicaments and biological substances; Z79.899 Other long term (current) drug therapy; Z20.822 Contact with and (suspected) exposure to COVID-19
CPT/HCPCS: 0241U; 36415; 71045; 80053; 81001; 84484; 85025; 93005; 99285

== ENCOUNTER 2023-03-14 15:27 | Emergency (ER) | payer MEDICARE, MEDICAID ==
[2023-03-14 17:20] LABS: CORONAVIRUS COVID-19 NAA NEGATIVE (NEGATIVE); INFLUENZA A NAA NEGATIVE (NEGATIVE); RESPIRATORY SYNCYTIAL VIR NAA NEGATIVE (NEGATIVE)
[2023-03-14] MEDS ORDERED: Ibuprofen Susp 100 MG/5 ML 5 ML UD Cup PO ONE (17:40)
[2023-03-14 17:50] LABS: BASOPHILS PERCENT AUTO 0.2 % (0.0-1.0); HEMATOCRIT 42.7 % (37.0-47.0); HEMOGLOBIN 13.4 gm/dl (12.0-16.0); IMMATURE GRAN ABSOLUTE AUTO 0.01 K/mm3 (0.00-0.05); IMMATURE GRAN PERCENT AUTO 0.2 % (0.0-0.4); LYMPHOCYTES ABSOLUTE AUTO 1.3 K/mm3 (1.0-4.8); LYMPHOCYTES PERCENT AUTO 19.9 % (24.0-44.0); MEAN CORPUSCULAR HEMOGLOBIN 31.8 pg (28.0-32.0); MEAN CORPUSCULAR HGB CONC 31.4 g/dl (32.0-36.0); MEAN CORPUSCULAR VOLUME 101.4 fl (83.0-99.0); MEAN PLATELET VOLUME 12.5 fl (9.4-12.3); MONOCYTES ABSOLUTE AUTO 0.5 K/mm3 (0.0-0.8); MONOCYTES PERCENT AUTO 8.4 % (0.0-8.0); NEUTROPHILS ABSOLUTE AUTO 4.5 K/mm3 (1.8-7.7); NEUTROPHILS PERCENT AUTO 71.3 % (41.0-71.0); PLATELET COUNT,PLT 94 K/mm3 (150-400); RED BLOOD CELL COUNT 4.21 M/mm3 (4.10-5.30); WHITE BLOOD CELL COUNT,WBC 6.32 K/mm3 (3.9-11.3)
[2023-03-14] MEDS ORDERED: Ibuprofen Susp 100 MG/5 ML 5 ML UD Cup PEGTUBE ONE (17:59)
[2023-03-14 18:10] LABS: A/G RATIO 0.8 (1-2); ALBUMIN 3.4 g/dl (3.4-5.0); ANION GAP 10.1 (5-15); BILIRUBIN TOTAL 0.4 mg/dL (0.2-1.0); C-REACTIVE PROTEIN 0.7 mg/dL (<1.0); CALCIUM 9.6 mg/dL (8.5-10.1); CREATININE 1.3 mg/dL (0.55-1.02); EST CRCL DRUG DOSING (CG) 35.12 mL/min; POTASSIUM,K 4.1 mEq/L (3.5-5.1); PROTEIN TOTAL,TP 7.9 g/dl (6.4-8.2)
[2023-03-14 18:18] LABS: SLIDE REVIEW ABNORMAL SMEAR
[2023-03-14] MEDS ORDERED: Sodium Chloride 0.45% 1,000 ML IV SCH (19:00)
[2023-03-14 20:42] LABS: APPEARANCE,URINE SLT CLOUDY (Clear); BILIRUBIN,URINE NEGATIVE (Negative); COLOR,URINE YELLOW (Yellow); GLUCOSE,URINE NEGATIVE (Negative); KETONES,URINE TRACE (Negative); LEUKOCYTE ESTERASE,URINE NEGATIVE (Negative); NITRITE,URINE NEGATIVE (Negative); OCCULT BLOOD,URINE NEGATIVE (Negative); PROTEIN,URINE 1+ (Negative); UROBILINOGEN,URINE 0.2 (0.2-1.0)
[2023-03-14 20:58] LABS: BACTERIA,URINE FEW /hpf (FEW); RBC,URINE 0-5 /hpf (0-5); SQUAMOUS EPITHELIAL CELLS,UR 20-30 /hpf (0-5); WBC,URINE 0-5 /hpf (0-5)
[2023-03-14 20:59] LABS: MUCUS,URINE RARE /hpf (FEW)
[2023-03-14 21:41] VITALS: BP 91/76; PULSE 79
== END 2023-03-14 21:30 | disposition home or self-care (01) ==
LOC: JD.ED 15:27
DX: R50.9 Fever, unspecified (principal); I50.9 Heart failure, unspecified; K21.9 Gastro-esophageal reflux disease without esophagitis; Z90.49 Acquired absence of other specified parts of digestive tract; Z20.822 Contact with and (suspected) exposure to COVID-19; Z88.8 Allergy status to other drugs, medicaments and biological substances; Z79.899 Other long term (current) drug therapy
CPT/HCPCS: 0241U; 36415; 71045; 80053; 81001; 85025; 86140; 96360; 96361; 99285; A9270; J1642; J7030

== ENCOUNTER 2023-03-19 16:59 | Emergency (ER) | payer MEDICARE, MEDICAID ==
[2023-03-19 17:28] VITALS: PULSE 95
[2023-03-19] MEDS ORDERED: Sodium Chloride 0.9% 10 ML Syringe FLUSH PRN (17:40)
[2023-03-19] MEDS ORDERED: Sodium Chloride 0.9% 500 ML IV STA (18:06)
[2023-03-19] MEDS ORDERED: Ibuprofen Susp 100 MG/5 ML 5 ML UD Cup GTUBE ONE (18:07)
[2023-03-19 18:17] LABS: BASOPHILS PERCENT AUTO 0.1 % (0.0-1.0); EOSINOPHILS PERCENT AUTO 0.1 % (0.0-6.0); HEMATOCRIT 41.4 % (37.0-47.0); HEMOGLOBIN 12.9 gm/dl (12.0-16.0); IMMATURE GRAN ABSOLUTE AUTO 0.02 K/mm3 (0.00-0.05); IMMATURE GRAN PERCENT AUTO 0.2 % (0.0-0.4); LYMPHOCYTES ABSOLUTE AUTO 1.1 K/mm3 (1.0-4.8); LYMPHOCYTES PERCENT AUTO 13.5 % (24.0-44.0); MEAN CORPUSCULAR HEMOGLOBIN 31.5 pg (28.0-32.0); MEAN CORPUSCULAR HGB CONC 31.2 g/dl (32.0-36.0); MEAN PLATELET VOLUME 13.1 fl (9.4-12.3); MONOCYTES ABSOLUTE AUTO 0.6 K/mm3 (0.0-0.8); MONOCYTES PERCENT AUTO 6.8 % (0.0-8.0); NEUTROPHILS ABSOLUTE AUTO 6.7 K/mm3 (1.8-7.7); NEUTROPHILS PERCENT AUTO 79.3 % (41.0-71.0); PLATELET COUNT,PLT 96 K/mm3 (150-400); WHITE BLOOD CELL COUNT,WBC 8.44 K/mm3 (3.9-11.3)
[2023-03-19 18:29] LABS: APPEARANCE,URINE CLEAR (Clear); BILIRUBIN,URINE NEGATIVE (Negative); COLOR,URINE YELLOW (Yellow); GLUCOSE,URINE NEGATIVE (Negative); KETONES,URINE NEGATIVE (Negative); LEUKOCYTE ESTERASE,URINE NEGATIVE (Negative); NITRITE,URINE NEGATIVE (Negative); OCCULT BLOOD,URINE NEGATIVE (Negative); PH,URINE >=9.0 (5.0-8.0); PROTEIN,URINE 2+ (Negative); UROBILINOGEN,URINE 0.2 (0.2-1.0)
[2023-03-19 18:44] LABS: A/G RATIO 0.9 (1-2); ALBUMIN 3.7 g/dl (3.4-5.0); ANION GAP 6.3 (5-15); BILIRUBIN TOTAL 0.4 mg/dL (0.2-1.0); C-REACTIVE PROTEIN 1.5 mg/dL (<1.0); CALCIUM 9.8 mg/dL (8.5-10.1); CREATININE 1.2 mg/dL (0.55-1.02); EST CRCL DRUG DOSING (CG) 38.05 mL/min; POTASSIUM,K 4.3 mEq/L (3.5-5.1); PROTEIN TOTAL,TP 7.8 g/dl (6.4-8.2)
[2023-03-19 19:22] LABS: BACTERIA,URINE MODERATE /hpf (FEW); MUCUS,URINE RARE /hpf (FEW); RBC,URINE 0-5 /hpf (0-5); SQUAMOUS EPITHELIAL CELLS,UR 0-5 /hpf (0-5); WBC,URINE 0-5 /hpf (0-5)
[2023-03-19] MEDS ORDERED: Acetaminophen 325 MG/10.15 ML ML PO ONE (20:05)
[2023-03-19] MEDS ORDERED: Amoxicillin/Clavulanate K 600-42.9 MG/5 ML Susp 125 ML Bottle PO ONE (21:28)
[2023-03-19 22:06] VITALS: BP 121/70
== END 2023-03-19 22:06 | disposition home or self-care (01) ==
LOC: JD.ED 16:59
DX: R50.9 Fever, unspecified (principal); K21.9 Gastro-esophageal reflux disease without esophagitis; I50.9 Heart failure, unspecified; Z79.899 Other long term (current) drug therapy; Z88.8 Allergy status to other drugs, medicaments and biological substances
CPT/HCPCS: 36415; 71046; 80053; 81001; 85025; 86140; 87040; 87651; 96360; 99283; A9270; J7030

== ENCOUNTER 2023-04-02 07:34 | Inpatient (IN) | payer MEDICARE ==
[2023-04-02] MEDS ORDERED: Adenosine 6 MG/2 ML SDV IVPUSH ONE ×2 (08:00→09:22)
[2023-04-02] MEDS: Adenosine 12 MG/4 ML SDV ONE ×2 (08:17→09:24)
[2023-04-02] MEDS ORDERED: Adenosine 12 MG/4 ML SDV ONE (08:19)
[2023-04-02 08:24] LABS: BASOPHILS PERCENT AUTO 0.1 % (0.0-1.0); HEMATOCRIT 41.5 % (37.0-47.0); IMMATURE GRAN ABSOLUTE AUTO 0.03 K/mm3 (0.00-0.05); IMMATURE GRAN PERCENT AUTO 0.4 % (0.0-0.4); LYMPHOCYTES PERCENT AUTO 12.7 % (24.0-44.0); MEAN CORPUSCULAR HEMOGLOBIN 31.4 pg (28.0-32.0); MEAN CORPUSCULAR HGB CONC 30.8 g/dl (32.0-36.0); MONOCYTES ABSOLUTE AUTO 0.7 K/mm3 (0.0-0.8); MONOCYTES PERCENT AUTO 8.9 % (0.0-8.0); NEUTROPHILS ABSOLUTE AUTO 6.2 K/mm3 (1.8-7.7); NEUTROPHILS PERCENT AUTO 77.9 % (41.0-71.0); PLATELET COUNT,PLT 128 K/mm3 (150-400); RED BLOOD CELL COUNT 4.07 M/mm3 (4.10-5.30); WHITE BLOOD CELL COUNT,WBC 7.98 K/mm3 (3.9-11.3)
[2023-04-02 08:26] LABS: HEMOGLOBIN 12.8 gm/dl (12.0-16.0)
[2023-04-02] MEDS: Sodium Chloride 0.9% 10 ML Syringe FLUSH PRN ×2 (08:29→08:41)
[2023-04-02] MEDS: Sodium Chloride 0.9% 1,000 ML IV SCH ×3 (08:29→18:09)
[2023-04-02] MEDS ORDERED: Digoxin 500 MCG/2 ML Amp IVPUSH ONE (08:31)
[2023-04-02 09:10] LABS: A/G RATIO 0.9 (1-2); ALBUMIN 3.4 g/dl (3.4-5.0); ANION GAP 10.2 (5-15); BILIRUBIN TOTAL 1.2 mg/dL (0.2-1.0); BUN/CREATININE RATIO 35.4 (14-18); CALCIUM 9.4 mg/dL (8.5-10.1); CREATININE 1.3 mg/dL (0.55-1.02); EST CRCL DRUG DOSING (CG) 35.12 mL/min; MAGNESIUM 2.6 mg/dL (1.8-2.4); POTASSIUM,K 3.2 mEq/L (3.5-5.1); PROTEIN TOTAL,TP 7.2 g/dl (6.4-8.2)
[2023-04-02] MEDS ORDERED: Adenosine 12 MG/4 ML SDV IVPUSH ONE (09:22)
[2023-04-02 09:26] LABS: APPEARANCE,URINE CLEAR (Clear); BILIRUBIN,URINE NEGATIVE (Negative); COLOR,URINE YELLOW (Yellow); GLUCOSE,URINE NEGATIVE (Negative); KETONES,URINE NEGATIVE (Negative); LEUKOCYTE ESTERASE,URINE NEGATIVE (Negative); NITRITE,URINE NEGATIVE (Negative); OCCULT BLOOD,URINE NEGATIVE (Negative); PH,URINE 7.5 (5.0-8.0); PROTEIN,URINE NEGATIVE (Negative); UROBILINOGEN,URINE 0.2 (0.2-1.0)
[2023-04-02 09:39] LABS: RBC,URINE 0-5 /hpf (0-5); WBC,URINE 0-5 /hpf (0-5)
[2023-04-02 09:40] LABS: BACTERIA,URINE FEW /hpf (FEW); EPITHELIAL CELLS,URINE 0-5 /hpf (0-5); MUCUS,URINE FEW /hpf (FEW)
[2023-04-02] MEDS ORDERED: Ondansetron 4 MG Tab.DIS PO PRN (12:04)
[2023-04-02] MEDS ORDERED: Ondansetron 4 MG/2 ML SDV IV PRN (12:04)
[2023-04-02] MEDS ORDERED: Docusate Sodium 100 MG Cap PO PRN (12:04)
[2023-04-02] MEDS ORDERED: Diltiazem 125 MG in Sodium Chloride 0.9% 100 ML IV SCH (12:15)
[2023-04-02] MEDS ORDERED: Diltiazem IR 30 MG Tab PO SCH (12:15)
[2023-04-02] MEDS: Heparin Sodium 5,000 Units/ML Vial SUBCUT SCH ×2 (13:57→20:48)
[2023-04-02] MEDS ORDERED: Albuterol 0.083% 2.5 MG/3 ML Neb Soln NEB PRN (16:21)
[2023-04-02] MEDS: Diltiazem IR 60 MG Tab PO SCH (18:09)
[2023-04-02] MEDS: Dextrose 5%-0.45% NaCl 1,000 ML IV SCH (18:24)
[2023-04-02] MEDS: Budesonide 0.5 MG/2 ML Neb Susp NEB SCH (21:20)
[2023-04-03] MEDS: Diltiazem IR 60 MG Tab PO SCH ×4 (01:20→19:03)
[2023-04-03] MEDS: Heparin Sodium 5,000 Units/ML Vial SUBCUT SCH ×3 (04:49→20:09)
[2023-04-03] MEDS ORDERED: Acetaminophen 325 MG Tab GTUBE PRN (04:53)
[2023-04-03 05:33] LABS: HEMATOCRIT 36.9 % (37.0-47.0); HEMOGLOBIN 11.6 gm/dl (12.0-16.0); IMMATURE GRAN ABSOLUTE AUTO 0.03 K/mm3 (0.00-0.05); IMMATURE GRAN PERCENT AUTO 0.5 % (0.0-0.4); LYMPHOCYTES ABSOLUTE AUTO 1.1 K/mm3 (1.0-4.8); LYMPHOCYTES PERCENT AUTO 17.5 % (24.0-44.0); MEAN CORPUSCULAR HEMOGLOBIN 33.1 pg (28.0-32.0); MEAN CORPUSCULAR HGB CONC 31.4 g/dl (32.0-36.0); MEAN PLATELET VOLUME 12.5 fl (9.4-12.3); MONOCYTES ABSOLUTE AUTO 0.5 K/mm3 (0.0-0.8); MONOCYTES PERCENT AUTO 7.8 % (0.0-8.0); NEUTROPHILS ABSOLUTE AUTO 4.7 K/mm3 (1.8-7.7); NEUTROPHILS PERCENT AUTO 74.2 % (41.0-71.0); PLATELET COUNT,PLT 82 K/mm3 (150-400); WHITE BLOOD CELL COUNT,WBC 6.28 K/mm3 (3.9-11.3)
[2023-04-03 05:39] LABS: MEAN CORPUSCULAR VOLUME 105.4 fl (83.0-99.0)
[2023-04-03 05:51] LABS: ANION GAP 7.6 (5-15); CALCIUM 8.7 mg/dL (8.5-10.1); CREATININE 0.8 mg/dL (0.55-1.02); EST CRCL DRUG DOSING (CG) 57.07 mL/min; POTASSIUM,K 3.6 mEq/L (3.5-5.1)
[2023-04-03 06:03] LABS: SLIDE REVIEW ABNORMAL SMEAR
[2023-04-03] MEDS: Budesonide 0.5 MG/2 ML Neb Susp NEB SCH ×2 (06:15→21:02)
[2023-04-03] MEDS: Dextrose 5%-0.45% NaCl 1,000 ML IV SCH (10:11)
[2023-04-04] MEDS: Diltiazem IR 60 MG Tab PO SCH ×2 (00:21→05:56)
[2023-04-04] MEDS: Dextrose 5%-0.45% NaCl 1,000 ML IV SCH (00:28)
[2023-04-04] MEDS: Heparin Sodium 5,000 Units/ML Vial SUBCUT SCH (04:34)
[2023-04-04] MEDS: Budesonide 0.5 MG/2 ML Neb Susp NEB SCH (06:10)
[2023-04-04] MEDS ORDERED: Diltiazem IR 60 MG Tab PO SCH (09:00)
[2023-04-04] MEDS ORDERED: Diltiazem 120 MG Cap.CD PO SCH (09:00)
[2023-04-04 09:50] VITALS: BP 149/65; PULSE 98
== END 2023-04-04 10:40 | disposition home or self-care (01) | DRG 310 ==
LOC: JD.ED 07:34 → JD.ICU 12:04
PROVIDERS: ADMIT Hospitalist; ATTEND Hospitalist
DX: I48.91 Unspecified atrial fibrillation (principal); I47.10 Supraventricular tachycardia, unspecified; I49.9 Cardiac arrhythmia, unspecified; N18.30 Chronic kidney disease, stage 3 unspecified; Z66 Do not resuscitate; E05.90 Thyrotoxicosis, unspecified without thyrotoxic crisis or storm; K21.9 Gastro-esophageal reflux disease without esophagitis; M19.90 Unspecified osteoarthritis, unspecified site; F41.9 Anxiety disorder, unspecified; F32.A Depression, unspecified; I50.9 Heart failure, unspecified; F41.1 Generalized anxiety disorder; Z88.8 Allergy status to other drugs, medicaments and biological substances; Z90.49 Acquired absence of other specified parts of digestive tract; Z96.643 Presence of artificial hip joint, bilateral; Z79.899 Other long term (current) drug therapy
CPT/HCPCS: 36415; 71045; 80053; 81001; 83605; 83735; 84484 ×2; 85025; 93005 ×3; 96361; 96374; 96375; 99285; J0153 ×3; J1160; J3490 ×2; J7030; 80048; 84443; 93010; 93306; 94640; 99222; 99232; 99239; A9270-GY; J1644; J7042

== ENCOUNTER 2023-04-04 15:20 | Inpatient (IN) | payer MEDICARE ==
[2023-04-04] MEDS ORDERED: Sodium Chloride 0.9% 10 ML Syringe FLUSH PRN (15:45)
[2023-04-04] MEDS ORDERED: Albuterol/Ipratropium 3.0-0.5 MG/3 ML Neb Soln NEB ONE (15:50)
[2023-04-04] MEDS ORDERED: Sodium Chloride 0.9% 500 ML IV ONE (15:51)
[2023-04-04] MEDS ORDERED: Ampicillin/Sulbactam Na 3 GM in Sodium Chloride 0.9% 100 ML IV ONE (16:02)
[2023-04-04] MEDS ORDERED: Lactated Ringers 1,000 ML IV ONE ×2 (16:18→18:11)
[2023-04-04] MEDS ORDERED: Ondansetron 4 MG Tab.DIS PO PRN (16:33)
[2023-04-04] MEDS ORDERED: Heparin Sodium 5,000 Units/ML Vial SUBCUT SCH (16:45)
[2023-04-04] MEDS ORDERED: Lactated Ringers 1,000 ML IV SCH ×2 (16:45→22:00)
[2023-04-04] MEDS ORDERED: Ampicillin/Sulbactam Na 3 GM in Sodium Chloride 0.9% 100 ML IV SCH (16:45)
[2023-04-04] MEDS ORDERED: metroNIDAZOLE/Normal Saline 500 MG in Premix Bag 1 BAG IV SCH ×2 (16:45→18:00)
[2023-04-04 16:55] LABS: EOSINOPHILS PERCENT AUTO 0.2 % (0.0-6.0); HEMATOCRIT 36.4 % (37.0-47.0); HEMOGLOBIN 11.1 gm/dl (12.0-16.0); IMMATURE GRAN ABSOLUTE AUTO 0.01 K/mm3 (0.00-0.05); IMMATURE GRAN PERCENT AUTO 0.2 % (0.0-0.4); LYMPHOCYTES ABSOLUTE AUTO 0.6 K/mm3 (1.0-4.8); LYMPHOCYTES PERCENT AUTO 10.9 % (24.0-44.0); MEAN CORPUSCULAR HEMOGLOBIN 32.6 pg (28.0-32.0); MEAN CORPUSCULAR HGB CONC 30.5 g/dl (32.0-36.0); MEAN CORPUSCULAR VOLUME 106.7 fl (83.0-99.0); MEAN PLATELET VOLUME 13.5 fl (9.4-12.3); MONOCYTES ABSOLUTE AUTO 0.2 K/mm3 (0.0-0.8); MONOCYTES PERCENT AUTO 3.2 % (0.0-8.0); NEUTROPHILS ABSOLUTE AUTO 4.8 K/mm3 (1.8-7.7); NEUTROPHILS PERCENT AUTO 85.5 % (41.0-71.0); PLATELET COUNT,PLT 72 K/mm3 (150-400); RED BLOOD CELL COUNT 3.41 M/mm3 (4.10-5.30); WHITE BLOOD CELL COUNT,WBC 5.58 K/mm3 (3.9-11.3)
[2023-04-04 17:03] LABS: A/G RATIO 0.9 (1-2); ALBUMIN 2.8 g/dl (3.4-5.0); ANION GAP 9.1 (5-15); BILIRUBIN TOTAL 0.6 mg/dL (0.2-1.0); BUN/CREATININE RATIO 31.3 (14-18); C-REACTIVE PROTEIN 1.3 mg/dL (<1.0); CALCIUM 8.6 mg/dL (8.5-10.1); CREATININE 0.8 mg/dL (0.55-1.02); EST CRCL DRUG DOSING (CG) 57.07 mL/min; MAGNESIUM 2.1 mg/dL (1.8-2.4); POTASSIUM,K 4.1 mEq/L (3.5-5.1); PROTEIN TOTAL,TP 6.1 g/dl (6.4-8.2)
[2023-04-04 17:43] LABS: SLIDE REVIEW ABNORMAL SMEAR
[2023-04-04 18:25] LABS: APPEARANCE,URINE CLEAR (Clear); BILIRUBIN,URINE NEGATIVE (Negative); COLOR,URINE YELLOW (Yellow); GLUCOSE,URINE NEGATIVE (Negative); KETONES,URINE NEGATIVE (Negative); LEUKOCYTE ESTERASE,URINE NEGATIVE (Negative); NITRITE,URINE NEGATIVE (Negative); OCCULT BLOOD,URINE NEGATIVE (Negative); PROTEIN,URINE NEGATIVE (Negative)
[2023-04-04 19:13] LABS: BASE EXCESS ARTERIAL 4.1 (-2-2.0); BICARBONATE,ARTERIAL 31.3 meq/L (22.0-26.0); O2 SATURATION ARTERIAL 81.1 % (96.0-97.0); PCO2 ARTERIAL 64.7 mmHg (35.0-45.0)
[2023-04-04] MEDS: Ondansetron 4 MG/2 ML SDV IV PRN (20:57)
[2023-04-04] MEDS: Heparin Sodium 5,000 Units/ML Vial SUBCUT SCH (21:19)
[2023-04-04] MEDS: Ampicillin/Sulbactam Na 3 GM in Sodium Chloride 0.9% 100 ML IV SCH (21:19)
[2023-04-04] MEDS: Albuterol/Ipratropium 3.0-0.5 MG/3 ML Neb Soln NEB PRN (22:21)
[2023-04-05] MEDS: Acetaminophen 325 MG Tab PO PRN (00:50)
[2023-04-05] MEDS: Ondansetron 4 MG/2 ML SDV IV PRN (00:57)
[2023-04-05] MEDS ORDERED: Lidocaine 4% Crm 5 Gm with Transparent Dressing Kit ONE (01:51)
[2023-04-05] MEDS: Albuterol/Ipratropium 3.0-0.5 MG/3 ML Neb Soln NEB PRN ×4 (02:14→17:42)
[2023-04-05] MEDS: Ampicillin/Sulbactam Na 3 GM in Sodium Chloride 0.9% 100 ML IV SCH ×4 (04:31→22:02)
[2023-04-05] MEDS: Heparin Sodium 5,000 Units/ML Vial SUBCUT SCH (04:32)
[2023-04-05 05:33] LABS: HEMATOCRIT 30.1 % (37.0-47.0); HEMOGLOBIN 9.7 gm/dl (12.0-16.0); IMMATURE GRAN ABSOLUTE AUTO 0.04 K/mm3 (0.00-0.05); IMMATURE GRAN PERCENT AUTO 0.6 % (0.0-0.4); LYMPHOCYTES ABSOLUTE AUTO 0.3 K/mm3 (1.0-4.8); LYMPHOCYTES PERCENT AUTO 3.9 % (24.0-44.0); MEAN CORPUSCULAR HEMOGLOBIN 33.2 pg (28.0-32.0); MEAN CORPUSCULAR HGB CONC 32.2 g/dl (32.0-36.0); MEAN PLATELET VOLUME 13.9 fl (9.4-12.3); MONOCYTES ABSOLUTE AUTO 0.4 K/mm3 (0.0-0.8); MONOCYTES PERCENT AUTO 6.3 % (0.0-8.0); NEUTROPHILS ABSOLUTE AUTO 6.2 K/mm3 (1.8-7.7); NEUTROPHILS PERCENT AUTO 89.2 % (41.0-71.0); PLATELET COUNT,PLT 64 K/mm3 (150-400); RED BLOOD CELL COUNT 2.92 M/mm3 (4.10-5.30); WHITE BLOOD CELL COUNT,WBC 6.95 K/mm3 (3.9-11.3)
[2023-04-05 05:41] LABS: MEAN CORPUSCULAR VOLUME 103.1 fl (83.0-99.0)
[2023-04-05 05:57] LABS: A/G RATIO 0.8 (1-2); ALBUMIN 2.3 g/dl (3.4-5.0); ANION GAP 8.9 (5-15); BILIRUBIN TOTAL 0.9 mg/dL (0.2-1.0); BUN/CREATININE RATIO 28.8 (14-18); CALCIUM 8.4 mg/dL (8.5-10.1); CREATININE 0.8 mg/dL (0.55-1.02); EST CRCL DRUG DOSING (CG) 57.07 mL/min; POTASSIUM,K 3.9 mEq/L (3.5-5.1); PROTEIN TOTAL,TP 5.3 g/dl (6.4-8.2)
[2023-04-05 06:29] LABS: SLIDE REVIEW ABNORMAL SMEAR
[2023-04-05] MEDS ORDERED: QUEtiapine 25 MG Tab JTUBE SCH (09:00)
[2023-04-05] MEDS ORDERED: QUEtiapine 100 MG Tab JTUBE SCH (11:00)
[2023-04-05] MEDS: QUEtiapine 25 MG Tab JTUBE SCH (11:10)
[2023-04-05] MEDS: Carbidopa/Levodopa 25-100 MG Tab JTUBE SCH ×2 (11:11→22:02)
[2023-04-05] MEDS: Furosemide Soln 10 MG/ML 60 ML Bottle JTUBE SCH (11:29)
[2023-04-05] MEDS ORDERED: Ondansetron 4 MG Tab.DIS JTUBE PRN (12:28)
[2023-04-05] MEDS: Diltiazem IR 30 MG Tab JTUBE SCH ×3 (13:10→22:02)
[2023-04-05] MEDS: Diltiazem IR 60 MG Tab JTUBE SCH ×3 (13:10→22:02)
[2023-04-06] MEDS: Ampicillin/Sulbactam Na 3 GM in Sodium Chloride 0.9% 100 ML IV SCH ×4 (04:07→21:15)
[2023-04-06] MEDS: Budesonide 0.5 MG/2 ML Neb Susp NEB SCH ×2 (08:01→20:27)
[2023-04-06] MEDS: QUEtiapine 25 MG Tab JTUBE SCH (08:34)
[2023-04-06] MEDS: Diltiazem IR 60 MG Tab JTUBE SCH ×4 (08:34→20:19)
[2023-04-06] MEDS: Furosemide Soln 10 MG/ML 60 ML Bottle JTUBE SCH (08:35)
[2023-04-06] MEDS: Carbidopa/Levodopa 25-100 MG Tab JTUBE SCH ×2 (08:35→20:19)
[2023-04-06] MEDS: Diltiazem IR 30 MG Tab JTUBE SCH ×4 (08:35→20:19)
[2023-04-06] MEDS: [UNRECOGNIZED DRUG - OTHER] JTUBE SCH ×2 (08:36→16:15)
[2023-04-06 10:01] LABS: HEMATOCRIT 31.1 % (37.0-47.0); HEMOGLOBIN 9.8 gm/dl (12.0-16.0); MEAN CORPUSCULAR HEMOGLOBIN 32.6 pg (28.0-32.0); MEAN CORPUSCULAR HGB CONC 31.5 g/dl (32.0-36.0); MEAN CORPUSCULAR VOLUME 103.3 fl (83.0-99.0); MEAN PLATELET VOLUME 12.8 fl (9.4-12.3); PLATELET COUNT,PLT 76 K/mm3 (150-400); RED BLOOD CELL COUNT 3.01 M/mm3 (4.10-5.30); WHITE BLOOD CELL COUNT,WBC 11.68 K/mm3 (3.9-11.3)
[2023-04-06 10:26] LABS: A/G RATIO 0.7 (1-2); ALBUMIN 2.6 g/dl (3.4-5.0); ANION GAP 8.7 (5-15); BILIRUBIN TOTAL 0.5 mg/dL (0.2-1.0); BUN/CREATININE RATIO 37.1 (14-18); CALCIUM 9.3 mg/dL (8.5-10.1); CREATININE 0.7 mg/dL (0.55-1.02); EST CRCL DRUG DOSING (CG) 65.23 mL/min; POTASSIUM,K 3.7 mEq/L (3.5-5.1); PROTEIN TOTAL,TP 6.3 g/dl (6.4-8.2)
[2023-04-06] MEDS: Acetaminophen 325 MG Tab PO PRN ×2 (10:33→18:23)
[2023-04-06] MEDS ORDERED: Dextrose 5% in Water 1,000 ML IV SCH (11:15)
[2023-04-06] MEDS ORDERED: QUEtiapine 100 MG Tab JTUBE SCH (21:00)
[2023-04-07] MEDS: Ampicillin/Sulbactam Na 3 GM in Sodium Chloride 0.9% 100 ML IV SCH ×2 (03:28→10:05)
[2023-04-07] MEDS: Budesonide 0.5 MG/2 ML Neb Susp NEB SCH (05:08)
[2023-04-07 06:26] LABS: HEMATOCRIT 26.2 % (37.0-47.0); HEMOGLOBIN 8.5 gm/dl (12.0-16.0); MEAN CORPUSCULAR HEMOGLOBIN 33.1 pg (28.0-32.0); MEAN CORPUSCULAR HGB CONC 32.4 g/dl (32.0-36.0); MEAN CORPUSCULAR VOLUME 101.9 fl (83.0-99.0); MEAN PLATELET VOLUME 13.4 fl (9.4-12.3); NRBC ABSOLUTE 0.02 (0.00-0.02); NRBC PERCENT 0.2 % (0.0-0.2); PLATELET COUNT,PLT 87 K/mm3 (150-400); RED BLOOD CELL COUNT 2.57 M/mm3 (4.10-5.30); WHITE BLOOD CELL COUNT,WBC 9.53 K/mm3 (3.9-11.3)
[2023-04-07] MEDS: [UNRECOGNIZED DRUG - OTHER] JTUBE SCH (06:51)
[2023-04-07 07:00] LABS: A/G RATIO 0.7 (1-2); ALBUMIN 2.5 g/dl (3.4-5.0); ANION GAP 8.3 (5-15); BILIRUBIN TOTAL 0.6 mg/dL (0.2-1.0); CALCIUM 9.1 mg/dL (8.5-10.1); CREATININE 0.6 mg/dL (0.55-1.02); EST CRCL DRUG DOSING (CG) 76.1 mL/min; POTASSIUM,K 3.3 mEq/L (3.5-5.1); PROTEIN TOTAL,TP 6.2 g/dl (6.4-8.2)
[2023-04-07] MEDS ORDERED: Potassium Chloride 20 MEQ in Dextrose 5% in Water 1,000 ML IV SCH ×2 (08:00)
[2023-04-07] MEDS: Furosemide Soln 10 MG/ML 60 ML Bottle JTUBE SCH (08:32)
[2023-04-07] MEDS: Diltiazem IR 60 MG Tab JTUBE SCH ×2 (08:32→13:12)
[2023-04-07] MEDS: Diltiazem IR 30 MG Tab JTUBE SCH ×2 (08:32→13:12)
[2023-04-07] MEDS: QUEtiapine 25 MG Tab JTUBE SCH (08:33)
[2023-04-07] MEDS: Carbidopa/Levodopa 25-100 MG Tab JTUBE SCH (08:33)
[2023-04-07 13:07] VITALS: BP 111/80; PULSE 102
== END 2023-04-07 15:30 | disposition home or self-care (01) | DRG 871 ==
LOC: JD.ED 15:20 → JD.ICU 17:47
PROVIDERS: ADMIT Hospitalist; ATTEND Internal Medicine
PROC: 5A0935A Assistance with Respiratory Ventilation, Less than 24 Consecutive Hours, High Flow/Velocity Cannula (ICD-10-PCS; principal; 2023-04-04)
PROC: 3E03329 Introduction of Other Anti-infective into Peripheral Vein, Percutaneous Approach (ICD-10-PCS; 2023-04-04)
DX: A41.9 Sepsis, unspecified organism (principal); J18.9 Pneumonia, unspecified organism; J69.0 Pneumonitis due to inhalation of food and vomit; J96.01 Acute respiratory failure with hypoxia; E87.0 Hyperosmolality and hypernatremia; I48.91 Unspecified atrial fibrillation; R65.20 Severe sepsis without septic shock; Z66 Do not resuscitate; E05.90 Thyrotoxicosis, unspecified without thyrotoxic crisis or storm; N18.30 Chronic kidney disease, stage 3 unspecified; I50.9 Heart failure, unspecified; K21.9 Gastro-esophageal reflux disease without esophagitis; M19.90 Unspecified osteoarthritis, unspecified site; F31.9 Bipolar disorder, unspecified; F70 Mild intellectual disabilities; F41.1 Generalized anxiety disorder; Z96.649 Presence of unspecified artificial hip joint; I95.9 Hypotension, unspecified; M41.124 Adolescent idiopathic scoliosis, thoracic region; T17.918A Gastric contents in respiratory tract, part unspecified causing other injury, initial encounter; D69.6 Thrombocytopenia, unspecified; K44.9 Diaphragmatic hernia without obstruction or gangrene; D63.1 Anemia in chronic kidney disease; Z97.8 Presence of other specified devices; Z86.16 Personal history of COVID-19; Z79.899 Other long term (current) drug therapy; Z88.8 Allergy status to other drugs, medicaments and biological substances; Z79.51 Long term (current) use of inhaled steroids; Z98.890 Other specified postprocedural states; Z90.49 Acquired absence of other specified parts of digestive tract
CPT/HCPCS: 36415; 36600; 71250; 80053; 83735; 85025; 86140; 87040 ×2; 96374; 99285; C1758; J0295; J3490; J7120; 81003; 82803; 83605; 85027; 94640; A9270-GY; J1644; J1836; J2405; J3480; J7060; J7620-GY

== ENCOUNTER 2023-04-07 17:12 | Emergency (ER) | payer MEDICARE ==
[2023-04-07] MEDS ORDERED: Sodium Chloride 0.9% 10 ML Syringe FLUSH ONE (17:31)
[2023-04-07] MEDS ORDERED: Iopamidol 612 MG/ML 100 ML Bottle IVPUSH ONE (17:31)
[2023-04-07] MEDS: Sodium Chloride 0.9% 10 ML Syringe FLUSH PRN (19:20)
[2023-04-07 20:18] LABS: BASOPHILS PERCENT AUTO 0.1 % (0.0-1.0); EOSINOPHILS ABSOLUTE AUTO 0.1 K/mm3 (0.0-0.4); EOSINOPHILS PERCENT AUTO 0.7 % (0.0-6.0); HEMOGLOBIN 7.6 gm/dl (12.0-16.0); IMMATURE GRAN ABSOLUTE AUTO 0.04 K/mm3 (0.00-0.05); IMMATURE GRAN PERCENT AUTO 0.5 % (0.0-0.4); LYMPHOCYTES ABSOLUTE AUTO 1.3 K/mm3 (1.0-4.8); LYMPHOCYTES PERCENT AUTO 15.7 % (24.0-44.0); MEAN CORPUSCULAR HEMOGLOBIN 33.2 pg (28.0-32.0); MEAN CORPUSCULAR HGB CONC 31.7 g/dl (32.0-36.0); MEAN CORPUSCULAR VOLUME 104.8 fl (83.0-99.0); MEAN PLATELET VOLUME 13.3 fl (9.4-12.3); MONOCYTES ABSOLUTE AUTO 0.5 K/mm3 (0.0-0.8); MONOCYTES PERCENT AUTO 6.1 % (0.0-8.0); NEUTROPHILS ABSOLUTE AUTO 6.3 K/mm3 (1.8-7.7); NEUTROPHILS PERCENT AUTO 76.9 % (41.0-71.0); NRBC ABSOLUTE 0.04 (0.00-0.02); NRBC PERCENT 0.5 % (0.0-0.2); PLATELET COUNT,PLT 94 K/mm3 (150-400); RED BLOOD CELL COUNT 2.29 M/mm3 (4.10-5.30); WHITE BLOOD CELL COUNT,WBC 8.16 K/mm3 (3.9-11.3)
[2023-04-07] MEDS ORDERED: Pantoprazole 40 MG in Sodium Chloride 0.9% 100 ML IV ONE (20:40)
[2023-04-07 20:42] LABS: A/G RATIO 0.7 (1-2); ALBUMIN 2.2 g/dl (3.4-5.0); ANION GAP 5.6 (5-15); BILIRUBIN TOTAL 0.4 mg/dL (0.2-1.0); C-REACTIVE PROTEIN 10.4 mg/dL (<1.0); CALCIUM 8.4 mg/dL (8.5-10.1); CREATININE 0.6 mg/dL (0.55-1.02); EST CRCL DRUG DOSING (CG) 76.1 mL/min; POTASSIUM,K 3.6 mEq/L (3.5-5.1); PROTEIN TOTAL,TP 5.5 g/dl (6.4-8.2)
[2023-04-07] MEDS ORDERED: Pantoprazole 40 MG Vial ONE (21:10)
[2023-04-07] MEDS ORDERED: Sodium Chloride 0.9% 1,000 ML IV SCH (21:15)
[2023-04-07] MEDS: Pantoprazole 80 MG in Sodium Chloride 0.9% 100 ML IV SCH (21:18)
[2023-04-07] MEDS: Pantoprazole 40 MG Vial IVPUSH SCH (21:18)
[2023-04-07] MEDS ORDERED: QUEtiapine 100 MG Tab PO SCH (23:00)
[2023-04-07] MEDS ORDERED: Sodium Chloride 0.9% 250 ML ONE (23:37)
[2023-04-08] MEDS: Sodium Chloride 0.9% 10 ML Syringe FLUSH PRN (00:14)
[2023-04-08] MEDS: Pantoprazole 80 MG in Sodium Chloride 0.9% 100 ML IV SCH (05:36)
[2023-04-08 08:02] LABS: BASOPHILS PERCENT AUTO 0.2 % (0.0-1.0); EOSINOPHILS ABSOLUTE AUTO 0.1 K/mm3 (0.0-0.4); EOSINOPHILS PERCENT AUTO 1.1 % (0.0-6.0); HEMATOCRIT 34.1 % (37.0-47.0); IMMATURE GRAN ABSOLUTE AUTO 0.09 K/mm3 (0.00-0.05); IMMATURE GRAN PERCENT AUTO 1.6 % (0.0-0.4); LYMPHOCYTES ABSOLUTE AUTO 1.1 K/mm3 (1.0-4.8); LYMPHOCYTES PERCENT AUTO 19.2 % (24.0-44.0); MEAN CORPUSCULAR HEMOGLOBIN 30.9 pg (28.0-32.0); MEAN PLATELET VOLUME 12.3 fl (9.4-12.3); MONOCYTES ABSOLUTE AUTO 0.4 K/mm3 (0.0-0.8); MONOCYTES PERCENT AUTO 7.3 % (0.0-8.0); NEUTROPHILS ABSOLUTE AUTO 3.9 K/mm3 (1.8-7.7); NEUTROPHILS PERCENT AUTO 70.6 % (41.0-71.0); NRBC ABSOLUTE 0.12 (0.00-0.02); NRBC PERCENT 2.2 % (0.0-0.2); PLATELET COUNT,PLT 98 K/mm3 (150-400); RED BLOOD CELL COUNT 3.53 M/mm3 (4.10-5.30); WHITE BLOOD CELL COUNT,WBC 5.48 K/mm3 (3.9-11.3)
[2023-04-08 08:13] LABS: HEMOGLOBIN 10.9 gm/dl (12.0-16.0); MEAN CORPUSCULAR VOLUME 96.6 fl (83.0-99.0)
[2023-04-08 08:42] LABS: A/G RATIO 0.6 (1-2); ANION GAP 8.8 (5-15); BILIRUBIN TOTAL 0.5 mg/dL (0.2-1.0); BUN/CREATININE RATIO 18.3 (14-18); CREATININE 0.6 mg/dL (0.55-1.02); EST CRCL DRUG DOSING (CG) 76.1 mL/min; POTASSIUM,K 3.8 mEq/L (3.5-5.1); PROTEIN TOTAL,TP 5.4 g/dl (6.4-8.2)
[2023-04-08 08:48] LABS: SLIDE REVIEW ABNORMAL SMEAR
[2023-04-08] MEDS ORDERED: Diatrizoate Meglumine/Diatrizoate Sodium 37% 120 ML Bottle PO ONE (09:24)
[2023-04-08] MEDS: Pantoprazole 40 MG Vial IVPUSH SCH (10:47)
[2023-04-08 10:54] VITALS: PULSE 90
[2023-04-08 11:55] VITALS: BP 136/113
== END 2023-04-08 11:49 | disposition home or self-care (01) ==
LOC: JD.ED 17:12
DX: K29.01 Acute gastritis with bleeding (principal); K21.9 Gastro-esophageal reflux disease without esophagitis; Z79.899 Other long term (current) drug therapy; Z88.8 Allergy status to other drugs, medicaments and biological substances
CPT/HCPCS: 36415; 36430; 74018; 74177; 80053; 85025; 86140; 86850; 86900; 86901; 86922; 96361; 96365; 96366; 99285; A9270; C9113; J1642; J3490; J7030; J7050; P9016; Q9963; Q9967; 99284

== ENCOUNTER 2023-04-16 12:36 | Emergency (ER) | payer MEDICARE ==
[2023-04-16 13:35] LABS: BASOPHILS PERCENT AUTO 0.2 % (0.0-1.0); HEMATOCRIT 41.2 % (37.0-47.0); HEMOGLOBIN 12.8 gm/dl (12.0-16.0); IMMATURE GRAN ABSOLUTE AUTO 0.02 K/mm3 (0.00-0.05); IMMATURE GRAN PERCENT AUTO 0.2 % (0.0-0.4); LYMPHOCYTES ABSOLUTE AUTO 1.2 K/mm3 (1.0-4.8); LYMPHOCYTES PERCENT AUTO 9.4 % (24.0-44.0); MEAN CORPUSCULAR HEMOGLOBIN 31.7 pg (28.0-32.0); MEAN CORPUSCULAR HGB CONC 31.1 g/dl (32.0-36.0); MONOCYTES ABSOLUTE AUTO 0.7 K/mm3 (0.0-0.8); MONOCYTES PERCENT AUTO 5.3 % (0.0-8.0); NEUTROPHILS ABSOLUTE AUTO 10.5 K/mm3 (1.8-7.7); NEUTROPHILS PERCENT AUTO 84.9 % (41.0-71.0); PLATELET COUNT,PLT 209 K/mm3 (150-400); RED BLOOD CELL COUNT 4.04 M/mm3 (4.10-5.30); WHITE BLOOD CELL COUNT,WBC 12.35 K/mm3 (3.9-11.3)
[2023-04-16 13:57] LABS: A/G RATIO 0.6 (1-2); ALBUMIN 2.6 g/dl (3.4-5.0); ANION GAP 8.6 (5-15); BILIRUBIN TOTAL 0.4 mg/dL (0.2-1.0); BUN/CREATININE RATIO 17.5 (14-18); CALCIUM 9.4 mg/dL (8.5-10.1); CREATININE 0.8 mg/dL (0.55-1.02); EST CRCL DRUG DOSING (CG) 57.07 mL/min; POTASSIUM,K 3.6 mEq/L (3.5-5.1); PROTEIN TOTAL,TP 7.2 g/dl (6.4-8.2)
[2023-04-16] MEDS ORDERED: cefTRIAXone 1 GM, Lidocaine 1% 2.1 ML IM ONE ×2 (16:06)
[2023-04-16 16:19] LABS: CORONAVIRUS COVID-19 NAA NEGATIVE (NEGATIVE); INFLUENZA A NAA NEGATIVE (NEGATIVE); RESPIRATORY SYNCYTIAL VIR NAA NEGATIVE (NEGATIVE)
[2023-04-16 17:31] VITALS: BP 142/72; PULSE 72
== END 2023-04-16 16:39 | disposition home or self-care (01) ==
LOC: JD.ED 12:36
DX: J18.9 Pneumonia, unspecified organism (principal); J96.01 Acute respiratory failure with hypoxia; K21.9 Gastro-esophageal reflux disease without esophagitis; Z88.8 Allergy status to other drugs, medicaments and biological substances
CPT/HCPCS: 0241U; 36415; 71045; 80053; 83605; 83880; 85025; 96372; 99284; J0696; J3490

== ENCOUNTER 2023-05-03 08:31 | Emergency (ER) | payer MEDICARE, MEDICAID ==
[2023-05-03 10:00] LABS: BASOPHILS PERCENT AUTO 0.2 % (0.0-1.0); HEMATOCRIT 36.7 % (37.0-47.0); HEMOGLOBIN 11.5 gm/dl (12.0-16.0); IMMATURE GRAN ABSOLUTE AUTO 0.03 K/mm3 (0.00-0.05); IMMATURE GRAN PERCENT AUTO 0.3 % (0.0-0.4); LYMPHOCYTES ABSOLUTE AUTO 1.3 K/mm3 (1.0-4.8); LYMPHOCYTES PERCENT AUTO 12.3 % (24.0-44.0); MEAN CORPUSCULAR HGB CONC 31.3 g/dl (32.0-36.0); MEAN CORPUSCULAR VOLUME 102.2 fl (83.0-99.0); MEAN PLATELET VOLUME 12.8 fl (9.4-12.3); MONOCYTES ABSOLUTE AUTO 0.5 K/mm3 (0.0-0.8); MONOCYTES PERCENT AUTO 4.6 % (0.0-8.0); NEUTROPHILS ABSOLUTE AUTO 8.7 K/mm3 (1.8-7.7); NEUTROPHILS PERCENT AUTO 82.6 % (41.0-71.0); PLATELET COUNT,PLT 149 K/mm3 (150-400); RED BLOOD CELL COUNT 3.59 M/mm3 (4.10-5.30); WHITE BLOOD CELL COUNT,WBC 10.58 K/mm3 (3.9-11.3)
[2023-05-03] MEDS: Sodium Chloride 0.9% 10 ML Syringe FLUSH ONE (10:11)
[2023-05-03] MEDS: Sodium Chloride 0.9% 100 ML IV SCH (10:11)
[2023-05-03] MEDS: Iopamidol 755 Mg/ML 100 ML Bottle IVPUSH ONE (10:11)
[2023-05-03 10:19] LABS: A/G RATIO 0.8 (1-2); ALBUMIN 3.1 g/dl (3.4-5.0); ANION GAP 10.6 (5-15); BILIRUBIN TOTAL 0.4 mg/dL (0.2-1.0); BUN/CREATININE RATIO 60.9 (14-18); CREATININE 1.1 mg/dL (0.55-1.02); EST CRCL DRUG DOSING (CG) 41.51 mL/min; POTASSIUM,K 4.6 mEq/L (3.5-5.1); PROTEIN TOTAL,TP 7.1 g/dl (6.4-8.2)
[2023-05-03] MEDS: LORazepam 2 MG/ML SDV IVPUSH ONE (10:25)
[2023-05-03] MEDS: Ondansetron 4 MG/2 ML SDV IVPUSH ONE (10:26)
[2023-05-03 10:39] LABS: INR 1.06; PROTHROMBIN TIME 11.3 SECONDS (9.7-12.0)
[2023-05-03 10:40] LABS: PTT,PARTIAL THROMBOPLSTIN TIME 24.5 SECONDS (21.7-31.4)
[2023-05-03] MEDS ORDERED: Diltiazem 25 MG/5 ML SDV IVPUSH ONE (11:29)
[2023-05-03] MEDS ORDERED: Diltiazem 125 MG in Sodium Chloride 0.9% 100 ML IV SCH (11:30)
[2023-05-03] MEDS ORDERED: Metoprolol Tartrate 5 MG/5 ML SDV IVPUSH ONE (11:41)
[2023-05-03] MEDS: Sodium Chloride 0.9% 1,000 ML IV ONE (11:53)
[2023-05-03 11:58] LABS: TSH 0.26 uIU/mL (0.358-3.74)
[2023-05-03 12:38] VITALS: BP 100/64; PULSE 137
[2023-05-03] MEDS: Sodium Chloride 0.9% 1,000 ML IV SCH (13:26)
[2023-05-03] MEDS: Pantoprazole 80 MG in Sodium Chloride 0.9% 100 ML IV SCH (13:35)
[2023-05-03] MEDS: Pantoprazole 40 MG Vial IVPUSH ONE (13:36)
== END 2023-05-03 14:55 ==
LOC: JD.ED 08:31
DX: K92.2 Gastrointestinal hemorrhage, unspecified (principal); I47.19 Other supraventricular tachycardia; D64.89 Other specified anemias; I50.9 Heart failure, unspecified; J44.9 Chronic obstructive pulmonary disease, unspecified; K21.9 Gastro-esophageal reflux disease without esophagitis; Z90.49 Acquired absence of other specified parts of digestive tract; Z79.899 Other long term (current) drug therapy; Z88.8 Allergy status to other drugs, medicaments and biological substances
CPT/HCPCS: 36415; 74178; 80053; 84443; 84484; 85025; 85610; 85730; 93005; 96361; 96365; 96375; 99285; C9113; J2060; J2405; J3490; J7030; Q9967; 93010